=== PATIENT | male | born 1950 | race Caucasian/White ===

== ENCOUNTER → 2016-05-12 | Outpatient (CLI) | payer MEDICARE, OTHER ==
[2016-05-12 11:50] LABS: ABSOLUTE EOSINOPHILS # (AUTO) 0.2 10^3/uL (0.0-0.6); ABSOLUTE LYMPHOCYTES (AUTO) 2.5 10^3/uL (0.5-4.7); ABSOLUTE MONOCYTES (AUTO) 0.6 10^3/uL (0.1-1.4); ABSOLUTE NEUT (AUTO) 5.9 10^3/uL (1.7-8.2); BASOPHILS % (AUTO) 0.5 % (0-2); EOSINOPHILS % (AUTO) 2.5 % (0-6); HEMATOCRIT 37.2 % (37.9-51.0); HEMOGLOBIN 12.6 g/dL (13.5-17.0); HGB HCT DIFFERENCE 0.6; MEAN CORPUSCULAR HEMOGLOBIN 29.9 pg (27.0-33.4); MEAN CORPUSCULAR HGB CONC 33.8 g/dL (32.0-36.0); MEAN CORPUSCULAR VOLUME 89 fl (80-97); WHITE BLOOD COUNT 9.3 10^3/uL (4.0-10.5)
[2016-05-12 11:56] LABS: APPEARANCE,URINE CLEAR; BILIRUBIN,URINE NEGATIVE (NEGATIVE); GLUCOSE, URINE NEGATIVE (NEGATIVE); KETONES,URINE NEGATIVE (NEGATIVE); LEUKOCYTE ESTERASE,URINE NEGATIVE (NEGATIVE); NITRITE,URINE NEGATIVE (NEGATIVE); PROTEIN,URINE NEGATIVE (NEGATIVE); URINE SPECIFIC GRAVITY 1.006; UROBILINOGEN,URINE NEGATIVE mg/dL (<2.0)
[2016-05-12 12:11] LABS: ALANINE AMINOTRANSFERASE 38 U/L (21-72); ALBUMIN 3.9 g/dL (3.5-5.0); ALKALINE PHOSPHATASE 79 U/L (38-126); ANION GAP 12 (5-19); ASPARTATE AMINO TRANSFERASE 24 U/L (17-59); BILIRUBIN,TOTAL 0.7 mg/dL (0.2-1.3); BLOOD UREA NITROGEN 39 mg/dL (7-20); CARBON DIOXIDE 25 mmol/L (22-30); CHLORIDE 102 mmol/L (98-107); CHOLESTEROL 157.43 mg/dL (0-200); CREATININE RESULT 1.48 mg/dL (0.52-1.25); Direct HDL 37 mg/dL (>40); GLUCOSE 111 mg/dL (75-110); PHOSPHORUS 3.9 mg/dL (2.5-4.5); POTASSIUM 4.9 mmol/L (3.6-5.0); SODIUM 138.8 mmol/L (137-145); TRIGLYCERIDES 164 mg/dL (<150)
[2016-05-12 12:22] LABS: DIRECT LDL 81 mg/dL (<100)
[2016-05-12 12:23] LABS: VLDL CHOLESTEROL 32.8 mg/dL (10-31)
[2016-05-13 07:21] LABS: VITAMIN D 25-HYDROXY 49.2 ng/mL (30.0-100.0)
[2016-05-13 13:37] LABS: CREATININE URINE 33.6 mg/dL (Not Estab.); MICROALBUMIN URINE 17.5 ug/mL (Not Estab.)
== END ==
LOC: OD 10:10
PROVIDERS: ATTEND Internal Medicine Nephrology
DX: N18.3 Chronic kidney disease, stage 3 (moderate) (principal); E11.9 Type 2 diabetes mellitus without complications; E78.2 Mixed hyperlipidemia
CPT/HCPCS: 36415; 80053; 80061; 81001; 82043; 82306; 82570; 83036; 83970; 84100; 85025

== ENCOUNTER → 2016-09-14 | Outpatient (CLI) | payer OTHER ==
[2016-09-14 12:15] LABS: ANION GAP 10 (5-19); BLOOD UREA NITROGEN 40 mg/dL (7-20); CALCIUM 9.4 mg/dL (8.4-10.2); CARBON DIOXIDE 25 mmol/L (22-30); CHLORIDE 101 mmol/L (98-107); CHOLESTEROL 149.48 mg/dL (0-200); CREATININE RESULT 1.38 mg/dL (0.52-1.25); Direct HDL 37 mg/dL (>40); GLUCOSE 98 mg/dL (75-110); POTASSIUM 4.8 mmol/L (3.6-5.0); SODIUM 136.3 mmol/L (137-145); TRIGLYCERIDES 114 mg/dL (<150)
[2016-09-14 12:25] LABS: DIRECT LDL 88 mg/dL (<100)
[2016-09-15 11:39] LABS: CREATININE URINE 59.5 mg/dL (Not Estab.); MICROALBUMIN URINE 70.9 ug/mL (Not Estab.)
== END ==
LOC: OD 11:02
PROVIDERS: ATTEND Internal Medicine Nephrology
DX: N18.3 Chronic kidney disease, stage 3 (moderate) (principal); E11.9 Type 2 diabetes mellitus without complications; E78.2 Mixed hyperlipidemia
CPT/HCPCS: 36415; 80048; 80061; 82043; 82570; 83036

== ENCOUNTER → 2017-04-02 | Outpatient (CLI) | payer OTHER ==
[2017-04-02 11:55] LABS: ABSOLUTE BASOPHILS # (AUTO) 0.1 10^3/uL (0.0-0.2); ABSOLUTE EOSINOPHILS # (AUTO) 0.1 10^3/uL (0.0-0.6); ABSOLUTE LYMPHOCYTES (AUTO) 2.5 10^3/uL (0.5-4.7); ABSOLUTE MONOCYTES (AUTO) 0.6 10^3/uL (0.1-1.4); ABSOLUTE NEUT (AUTO) 7.1 10^3/uL (1.7-8.2); BASOPHILS % (AUTO) 0.5 % (0-2); EOSINOPHILS % (AUTO) 1.4 % (0-6); HEMATOCRIT 35.6 % (37.9-51.0); HEMOGLOBIN 12.3 g/dL (13.5-17.0); LYMPHOCYTES % (AUTO) 23.7 % (13-45); MEAN CORPUSCULAR HEMOGLOBIN 30.3 pg (27.0-33.4); MEAN CORPUSCULAR HGB CONC 34.5 g/dL (32.0-36.0); MEAN CORPUSCULAR VOLUME 88 fl (80-97); MONOCYTES % (AUTO) 5.9 % (3-13); PLATELET COUNT 172 10^3/uL (150-450); RED BLOOD COUNT 4.06 10^6/uL (4.35-5.55); RED CELL DISTRIBUTION WIDTH 13.1 % (11.5-14.0); SEGMENTED NEUTROPHILS % (AUTO) 68.5 % (42-78); TOTAL CELLS COUNTED % (AUTO) 100 %; WHITE BLOOD COUNT 10.4 10^3/uL (4.0-10.5)
[2017-04-02 11:55] LABS: APPEARANCE,URINE SLIGHTLY-CLOUDY; BILIRUBIN,URINE NEGATIVE (NEGATIVE); COLOR,URINE YELLOW; GLUCOSE, URINE 50 mg/dL (NEGATIVE); KETONES,URINE NEGATIVE (NEGATIVE); LEUKOCYTE ESTERASE,URINE NEGATIVE (NEGATIVE); NITRITE,URINE NEGATIVE (NEGATIVE); PROTEIN,URINE NEGATIVE (NEGATIVE); URINE SPECIFIC GRAVITY 1.006; UROBILINOGEN,URINE NEGATIVE mg/dL (<2.0)
[2017-04-02 12:25] LABS: ALANINE AMINOTRANSFERASE 43 U/L (21-72); ALBUMIN 3.7 g/dL (3.5-5.0); ALKALINE PHOSPHATASE 60 U/L (38-126); ANION GAP 10 (5-19); ASPARTATE AMINO TRANSFERASE 25 U/L (17-59); BILIRUBIN,DIRECT 0.2 mg/dL (0.0-0.4); BILIRUBIN,TOTAL 0.5 mg/dL (0.2-1.3); BLOOD UREA NITROGEN 40 mg/dL (7-20); CALCIUM 9.6 mg/dL (8.4-10.2); CARBON DIOXIDE 25 mmol/L (22-30); CHLORIDE 97 mmol/L (98-107); CHOLESTEROL 154.37 mg/dL (0-200); GLUCOSE 151 mg/dL (75-110); PHOSPHORUS 3.2 mg/dL (2.5-4.5); SODIUM 132.4 mmol/L (137-145); TOTAL PROTEIN 6.5 g/dL (6.3-8.2); TRIGLYCERIDES 199 mg/dL (<150)
[2017-04-02 12:46] LABS: DIRECT LDL 90 mg/dL (<100)
[2017-04-02 12:47] LABS: VLDL CHOLESTEROL 39.8 mg/dL (10-31)
[2017-04-03 12:38] LABS: CREATININE URINE 32.9 mg/dL (Not Estab.); MICROALBUMIN URINE 45.7 ug/mL (Not Estab.)
== END ==
LOC: OD 10:58
PROVIDERS: ATTEND Internal Medicine Nephrology
DX: N18.3 Chronic kidney disease, stage 3 (moderate) (principal); D63.1 Anemia in chronic kidney disease; E11.40 Type 2 diabetes mellitus with diabetic neuropathy, unspecified; R80.9 Proteinuria, unspecified; E55.9 Vitamin D deficiency, unspecified; Z12.5 Encounter for screening for malignant neoplasm of prostate
CPT/HCPCS: 36415; 80053; 80061; 81001; 82043; 82306; 82570; 83036; 83970; 84100; 84153; 85025

== ENCOUNTER 2017-09-16 09:53 | Emergency (ER) | payer OTHER ==
[2017-09-16 10:00] VITALS: BP 139/65
--- NOTE | 2017-09-16 10:09 | ER Document Report ---
HPI - HPI Onset: Yesterday Onset/Duration: Persistent Pain Level: 5 Context: 67-year-old male pulled his right shoulder when getting out of his recliner and pulling the lever yesterday. He has a history of arthritis in other joints. No fall. Associated Symptoms: None Exacerbated by: Movement Relieved by: Denies Similar symptoms previously: Yes Recently seen / treated by doctor: No - ROS ROS below otherwise negative: Yes Systems Reviewed and Negative: Yes All other systems reviewed and negative Past Medical History - General Information source: Patient - Social History Smoking Status: Unknown if Ever Smoked Frequency of alcohol use: None Drug Abuse: None Lives with: Family Family History: Reviewed & Not Pertinent - Past Medical History Cardiac Medical History: Reports: Hx Hypercholesterolemia, Hx Hypertension Pulmonary Medical History: Reports: Hx Asthma Endocrine Medical History: Reports: Hx Diabetes Mellitus Type 2 Musculoskeltal Medical History: Reports Hx Arthritis - Immunizations Hx Diphtheria, Pertussis, Tetanus Vaccination: Yes Vertical Provider Document - CONSTITUTIONAL Agree With Documented VS: Yes Exam Limitations: No Limitations - INFECTION CONTROL TRAVEL OUTSIDE OF THE [place] IN LAST 30 DAYS: No - MUSCULOSKELETAL/EXTREMETIES Musculoskeletal/Extremeties: MAEW, FROM, Tender - Tender over the deltoid muscle , No Edema Notes: No deformity, neurovascular is intact Course - Re-evaluation Re-evalutation: 09/16/17 X-ray is negative per radiologist - Vital Signs Vital signs: Temp Pulse Resp BP Pulse Ox 98.2 F 88 16 139/65 H 95 09/16/17 09:58 09/16/17 09:58 09/16/17 09:58 09/16/17 09:58 09/16/17 09:58 Discharge - Discharge Clinical Impression: Right shoulder arthritis Condition: Good Disposition: HOME, SELF-CARE Instructions: Arthralgia ([facility]), Arthritis ([facility]), Steroid Medication, Warm Packs ([facility]) Additional Instructions: warm compress Stop the Tylenol with codeine when taking the stronger pain medication prednisone will help decrease the inflammation Follow-up with your doctor Return to the emergency room any concerns Prescriptions: Hydrocodone Bit/Acetaminophen [Hydrocodon-Acetaminophen 5-325] 1 each PO Q4HP PRN #15 tablet PRN Reason: Referrals: ALLIE MANZO MD [Primary Care Provider] - Follow up as needed
[2017-09-16] MEDS ORDERED: PREDNISONE 20 MG TABLET PO ONE (10:49)
--- NOTE | 2017-09-16 10:52 | RADIOLOGY REPORT (SQ) ---
EXAM DESCRIPTION: SHOULDER RIGHT 2 OR MORE VIEWS COMPLETED DATE/TIME: 09/16/2017 10:32 am REASON FOR STUDY: Injury COMPARISON: None. NUMBER OF VIEWS: Four views. TECHNIQUE: Internal rotation, external rotation, and Y view images acquired of the right shoulder. LIMITATIONS: None. FINDINGS: MINERALIZATION: Normal. BONES: No acute fracture or dislocation. No worrisome bone lesions. JOINTS: No dislocation. Mild scattered degenerative changes. VISUALIZED LUNGS AND RIBS: No pneumothorax. No rib fracture. SOFT TISSUES: No radiopaque foreign body. OTHER: No other significant finding. IMPRESSION: Mild degenerative changes. No evidence of acute injury. TECHNICAL DOCUMENTATION: JOB ID: [id number] [employer]- All Rights Reserved Reading location - IP/workstation name: [email or web address]
== END 2017-09-16 11:06 | disposition home or self-care (01) ==
LOC: ER 09:53
DX: M19.011 Primary osteoarthritis, right shoulder (principal); E78.00 Pure hypercholesterolemia, unspecified; I10 Essential (primary) hypertension; E11.9 Type 2 diabetes mellitus without complications
CPT/HCPCS: 99283; 73030; A9270; J7512

== ENCOUNTER → 2017-10-10 | Outpatient (CLI) | payer OTHER ==
--- NOTE | 2017-10-13 11:46 | XCELERA REPORT ---
[address] [address] Lower Extremity Arterial Evaluation Name: TAYLOR SMITH Age: 67 yrs Gender: Male : 1950 Patient Status: Preadmit Patient Location: RAD Study Date: 10/10/2017 01:26 PM Procedure: A color flow and duplex scan of the lower extremity arteries was performed bilaterally with velocity and waveform anaylsis. Ankle brachial indicies performed. Reason For Study: ULCERS Ordering Physician: JANE SCHULTZ Performed By: Iam Lobato Measurements and Calculations Right Left [facility] PSV 119.4 112.4 cm/sec Prox PFA PSV -66.0 -82.7 cm/sec Prox SFA PSV 87.9 91.5 cm/sec Mid SFA PSV -91.3 -113.1 cm/sec Dist SFA PSV -76.0 -93.2 cm/sec Prox Pop A PSV 61.7 91.5 cm/sec Dist ADALBERTO PSV 49.3 49.7 cm/sec Dist NERVE SPECIALIST PSV 28.5 81.1 cm/sec Kavin Pedis PSV 52.5 -32.6 cm/sec Right Side Arterial Evaluation Normal velocity and triphasic waveforms noted from the Common Femoral artery to the Popliteal. Biphasic with well preserved velocities, in the infrageniculate vessels. 20-49% stenosis at the infrageniculate vessels. Ankle Brachial index not obtainable, non compressible. Left Side Arterial Evaluation Normal velocity and triphasic waveforms noted from the Common Femoral artery to the Popliteal. Biphasic with well preserved velocities, in the infrageniculate vessels. 20-49% stenosis at the infrageniculate vessels. Ankle Brachial index not obtainable, non compressible. Interpretation Summary Moderate hemodynamically significant lesions in the bilateral lower extremities, on duplex imaging, at rest. : JANE SCHULTZ > Jane Schultz
== END ==
LOC: RAD 14:30
PROVIDERS: ATTEND Surgery
DX: E11.621 Type 2 diabetes mellitus with foot ulcer (principal); I70.203 Unspecified atherosclerosis of native arteries of extremities, bilateral legs
CPT/HCPCS: 93925

== ENCOUNTER → 2017-10-18 | Outpatient (CLI) | payer OTHER ==
[2017-10-18 12:21] LABS: ABSOLUTE EOSINOPHILS # (AUTO) 0.3 10^3/uL (0.0-0.6); ABSOLUTE LYMPHOCYTES (AUTO) 2.3 10^3/uL (0.5-4.7); ABSOLUTE MONOCYTES (AUTO) 0.7 10^3/uL (0.1-1.4); ABSOLUTE NEUT (AUTO) 5.7 10^3/uL (1.7-8.2); BASOPHILS % (AUTO) 0.5 % (0-2); EOSINOPHILS % (AUTO) 2.8 % (0-6); HEMATOCRIT 37.5 % (37.9-51.0); HEMOGLOBIN 12.7 g/dL (13.5-17.0); LYMPHOCYTES % (AUTO) 25.1 % (13-45); MEAN CORPUSCULAR HEMOGLOBIN 29.7 pg (27.0-33.4); MEAN CORPUSCULAR HGB CONC 33.8 g/dL (32.0-36.0); MEAN CORPUSCULAR VOLUME 88 fl (80-97); MONOCYTES % (AUTO) 7.6 % (3-13); PLATELET COUNT 185 10^3/uL (150-450); RED BLOOD COUNT 4.28 10^6/uL (4.35-5.55); RED CELL DISTRIBUTION WIDTH 13.4 % (11.5-14.0); TOTAL CELLS COUNTED % (AUTO) 100 %
[2017-10-18 12:49] LABS: ALANINE AMINOTRANSFERASE 34 U/L (21-72); ALBUMIN 3.5 g/dL (3.5-5.0); ALKALINE PHOSPHATASE 71 U/L (38-126); ANION GAP 11 (5-19); ASPARTATE AMINO TRANSFERASE 24 U/L (17-59); BILIRUBIN,DIRECT 0.3 mg/dL (0.0-0.4); BILIRUBIN,TOTAL 0.5 mg/dL (0.2-1.3); BLOOD UREA NITROGEN 34 mg/dL (7-20); CALCIUM 9.3 mg/dL (8.4-10.2); CARBON DIOXIDE 25 mmol/L (22-30); CHLORIDE 106 mmol/L (98-107); CHOLESTEROL 130.77 mg/dL (0-200); GLUCOSE 117 mg/dL (75-110); POTASSIUM 4.8 mmol/L (3.6-5.0); SODIUM 142.2 mmol/L (137-145); TOTAL PROTEIN 6.9 g/dL (6.3-8.2); TRIGLYCERIDES 89 mg/dL (<150)
[2017-10-18 13:00] LABS: DIRECT LDL 70 mg/dL (<100)
[2017-10-19 13:38] LABS: CREATININE URINE 65.8 mg/dL (Not Estab.); MICROALBUMIN URINE 164.7 ug/mL (Not Estab.)
== END ==
LOC: OD 11:10
PROVIDERS: ATTEND Internal Medicine Nephrology
DX: E11.22 Type 2 diabetes mellitus with diabetic chronic kidney disease (principal); N18.3 Chronic kidney disease, stage 3 (moderate); N18.9 Chronic kidney disease, unspecified; E78.2 Mixed hyperlipidemia
CPT/HCPCS: 36415; 80053; 80061; 82043; 82570; 83036; 85025

== ENCOUNTER → 2017-12-24 | Outpatient (CLI) | payer OTHER ==
[2017-12-24 11:03] LABS: ANION GAP 6 (5-19); BLOOD UREA NITROGEN 34 mg/dL (7-20); CALCIUM 9.4 mg/dL (8.4-10.2); CARBON DIOXIDE 27 mmol/L (22-30); CHLORIDE 107 mmol/L (98-107); GLUCOSE 109 mg/dL (75-110); POTASSIUM 4.8 mmol/L (3.6-5.0); SODIUM 139.7 mmol/L (137-145)
== END ==
LOC: OD 09:43
PROVIDERS: ATTEND Internal Medicine Nephrology
DX: N18.3 Chronic kidney disease, stage 3 (moderate) (principal); R60.0 Localized edema
CPT/HCPCS: 36415; 80048

== ENCOUNTER → 2018-06-19 | Outpatient (CLI) | payer OTHER ==
[2018-06-19 10:45] LABS: ABSOLUTE BASOPHILS # (AUTO) 0.1 10^3/uL (0.0-0.2); ABSOLUTE EOSINOPHILS # (AUTO) 0.3 10^3/uL (0.0-0.6); ABSOLUTE LYMPHOCYTES (AUTO) 2.7 10^3/uL (0.5-4.7); ABSOLUTE MONOCYTES (AUTO) 0.8 10^3/uL (0.1-1.4); ABSOLUTE NEUT (AUTO) 6.5 10^3/uL (1.7-8.2); BASOPHILS % (AUTO) 0.6 % (0-2); EOSINOPHILS % (AUTO) 2.6 % (0-6); HEMATOCRIT 37.2 % (37.9-51.0); LYMPHOCYTES % (AUTO) 26.4 % (13-45); MEAN CORPUSCULAR HEMOGLOBIN 30.8 pg (27.0-33.4); MEAN CORPUSCULAR VOLUME 88 fl (80-97); MONOCYTES % (AUTO) 8.1 % (3-13); PLATELET COUNT 219 10^3/uL (150-450); RED BLOOD COUNT 4.22 10^6/uL (4.35-5.55); SEGMENTED NEUTROPHILS % (AUTO) 62.3 % (42-78); TOTAL CELLS COUNTED % (AUTO) 100 %; WHITE BLOOD COUNT 10.4 10^3/uL (4.0-10.5)
[2018-06-19 10:47] LABS: APPEARANCE,URINE CLEAR; BILIRUBIN,URINE NEGATIVE (NEGATIVE); COLOR,URINE YELLOW; GLUCOSE, URINE NEGATIVE (NEGATIVE); KETONES,URINE NEGATIVE (NEGATIVE); LEUKOCYTE ESTERASE,URINE NEGATIVE (NEGATIVE); NITRITE,URINE NEGATIVE (NEGATIVE); PROTEIN,URINE NEGATIVE (NEGATIVE); URINE SPECIFIC GRAVITY 1.009; UROBILINOGEN,URINE NEGATIVE mg/dL (<2.0)
[2018-06-19 11:12] LABS: ALANINE AMINOTRANSFERASE 41 U/L (21-72); ALBUMIN 4.1 g/dL (3.5-5.0); ALKALINE PHOSPHATASE 94 U/L (38-126); ANION GAP 12 (5-19); ASPARTATE AMINO TRANSFERASE 28 U/L (17-59); BILIRUBIN,DIRECT 0.3 mg/dL (0.0-0.4); BILIRUBIN,TOTAL 0.6 mg/dL (0.2-1.3); BLOOD UREA NITROGEN 53 mg/dL (7-20); CALCIUM 10.8 mg/dL (8.4-10.2); CARBON DIOXIDE 28 mmol/L (22-30); CHLORIDE 99 mmol/L (98-107); CHOLESTEROL 178.05 mg/dL (0-200); GLUCOSE 148 mg/dL (75-110); POTASSIUM 4.8 mmol/L (3.6-5.0); SODIUM 138.6 mmol/L (137-145); TOTAL PROTEIN 8.1 g/dL (6.3-8.2); TRIGLYCERIDES 206 mg/dL (<150)
[2018-06-19 11:23] LABS: DIRECT LDL 102 mg/dL (<100)
[2018-06-19 11:28] LABS: VLDL CHOLESTEROL 41.2 mg/dL (10-31)
[2018-06-20 12:38] LABS: CREATININE URINE 26.7 mg/dL (Not Estab.)
== END ==
LOC: OD 09:43
PROVIDERS: ATTEND Internal Medicine Nephrology
DX: E11.22 Type 2 diabetes mellitus with diabetic chronic kidney disease (principal); N18.3 Chronic kidney disease, stage 3 (moderate); R60.9 Edema, unspecified
CPT/HCPCS: 36415; 80053; 80061; 81001; 82043; 82306; 82570; 83036; 83970; 84100; 85025

== ENCOUNTER → 2018-07-10 | Outpatient (CLI) | payer OTHER ==
[2018-07-10 11:14] LABS: ANION GAP 10 (5-19); BLOOD UREA NITROGEN 51 mg/dL (7-20); CALCIUM 9.5 mg/dL (8.4-10.2); CARBON DIOXIDE 29 mmol/L (22-30); CHLORIDE 101 mmol/L (98-107); CHOLESTEROL 128.54 mg/dL (0-200); GLUCOSE 136 mg/dL (75-110); POTASSIUM 4.9 mmol/L (3.6-5.0); SODIUM 139.5 mmol/L (137-145); TRIGLYCERIDES 158 mg/dL (<150); URIC ACID 4.6 mg/dL (3.5-8.5)
[2018-07-10 11:24] LABS: DIRECT LDL 74 mg/dL (<100)
[2018-07-10 11:29] LABS: VLDL CHOLESTEROL 31.6 mg/dL (10-31)
== END ==
LOC: OD 09:46
PROVIDERS: ATTEND Internal Medicine Nephrology
DX: N18.2 Chronic kidney disease, stage 2 (mild) (principal); N17.9 Acute kidney failure, unspecified; I12.9 Hypertensive chronic kidney disease with stage 1 through stage 4 chronic kidney disease, or unspecified chronic kidney disease; E11.22 Type 2 diabetes mellitus with diabetic chronic kidney disease
CPT/HCPCS: 36415; 80048; 80061; 84100; 84550

== ENCOUNTER → 2018-10-18 | Outpatient (CLI) | payer OTHER ==
[2018-10-18 12:08] LABS: ALBUMIN 3.8 g/dL (3.5-5.0); ANION GAP 11 (5-19); BLOOD UREA NITROGEN 45 mg/dL (7-20); CALCIUM 9.3 mg/dL (8.4-10.2); CARBON DIOXIDE 28 mmol/L (22-30); CHLORIDE 93 mmol/L (98-107); CHOLESTEROL 123.57 mg/dL (0-200); GLUCOSE 108 mg/dL (75-110); PHOSPHORUS 3.6 mg/dL (2.5-4.5); POTASSIUM 4.7 mmol/L (3.6-5.0); TRIGLYCERIDES 81 mg/dL (<150)
[2018-10-18 12:19] LABS: DIRECT LDL 74 mg/dL (<100)
[2018-10-19 14:37] LABS: CREATININE URINE 34.4 mg/dL (Not Estab.); MICROALBUMIN URINE 7.6 ug/mL (Not Estab.)
== END ==
LOC: OD 10:59
PROVIDERS: ATTEND Internal Medicine Nephrology
DX: I12.9 Hypertensive chronic kidney disease with stage 1 through stage 4 chronic kidney disease, or unspecified chronic kidney disease (principal); N18.3 Chronic kidney disease, stage 3 (moderate); E11.22 Type 2 diabetes mellitus with diabetic chronic kidney disease; D63.1 Anemia in chronic kidney disease; R80.9 Proteinuria, unspecified
CPT/HCPCS: 36415; 80061; 80069; 82043; 82570; 83036

== ENCOUNTER 2019-03-16 14:37 | Inpatient (IN) | payer OTHER, MEDICARE ==
[2019-03-16] MEDS ORDERED: DEXTROSE 50%-WATER 25 GM/50 ML DISP.SYRIN IV ONE ×2 (15:57)
[2019-03-16 16:39] LABS: VENOUS BLOOD BASE EXCESS 4.1 mmol/L; VENOUS BLOOD HCO3 30.4 mmol/L (20-32); VENOUS BLOOD PCO2 53.1 mmHg (35-63); VENOUS BLOOD PH 7.38 (7.30-7.42)
[2019-03-16 16:43] LABS: ABSOLUTE MONOCYTES (AUTO) 0.5 10^3/uL (0.1-1.4); BASOPHILS % (AUTO) 0.3 % (0-2); MEAN CORPUSCULAR VOLUME 88 fl (80-97); RED CELL DISTRIBUTION WIDTH 14.8 % (11.5-14.0); TOTAL CELLS COUNTED % (AUTO) 100 %
[2019-03-16 16:45] LABS: INTERNATIONAL RATION (INR) 1.13; PROTHROMBIN TIME 14.5 SEC (11.4-15.4)
[2019-03-16 16:52] LABS: ALBUMIN 3.1 g/dL (3.5-5.0); ALKALINE PHOSPHATASE 97 U/L (38-126); ANION GAP 7 (5-19); ASPARTATE AMINO TRANSFERASE 61 U/L (17-59); BILIRUBIN,DIRECT 0.3 mg/dL (0.0-0.4); BILIRUBIN,TOTAL 0.4 mg/dL (0.2-1.3); BLOOD UREA NITROGEN 50 mg/dL (7-20); CALCIUM 9.4 mg/dL (8.4-10.2); CARBON DIOXIDE 30 mmol/L (22-30); CHLORIDE 101 mmol/L (98-107); POTASSIUM 4.3 mmol/L (3.6-5.0); TOTAL PROTEIN 6.5 g/dL (6.3-8.2)
[2019-03-16 16:54] LABS: ABSOLUTE NEUT (AUTO) 5.9 10^3/uL (1.7-8.2); EOSINOPHILS % (AUTO) 0.6 % (0-6); HEMATOCRIT 32.6 % (37.9-51.0); HEMOGLOBIN 11.1 g/dL (13.5-17.0); LYMPHOCYTES % (AUTO) 13.2 % (13-45); MEAN CORPUSCULAR HEMOGLOBIN 29.9 pg (27.0-33.4); MEAN CORPUSCULAR HGB CONC 33.9 g/dL (32.0-36.0); MONOCYTES % (AUTO) 7.2 % (3-13); PLATELET COUNT 141 10^3/uL (150-450); SEGMENTED NEUTROPHILS % (AUTO) 78.7 % (42-78); WHITE BLOOD COUNT 7.5 10^3/uL (4.0-10.5)
[2019-03-16 16:55] LABS: GLUCOSE 51 mg/dL (75-110)
--- NOTE | 2019-03-16 17:11 | RADIOLOGY REPORT (SQ) ---
EXAM DESCRIPTION: CHEST SINGLE VIEW COMPLETED DATE/TIME: 03/16/2019 4:31 pm REASON FOR STUDY: FEVER COMPARISON: None. EXAM PARAMETERS: NUMBER OF VIEWS: One view. TECHNIQUE: Single frontal radiographic view of the chest acquired. RADIATION DOSE: NA LIMITATIONS: None. FINDINGS: LUNGS AND PLEURA: Ill-defined patchy bibasilar opacities. No large effusion. No pneumoth orax. MEDIASTINUM AND HILAR STRUCTURES: No masses. Contour normal. HEART AND VASCULAR STRUCTURES: Heart normal in size. Normal vasculature. BONES: No acute findings. HARDWARE: None in the chest. OTHER: No other significant finding. IMPRESSION: Patchy bibasilar opacities suggestive of multifocal pneumonia. No significant effusion. TECHNICAL DOCUMENTATION: JOB ID: [id number] [employer]- All Rights Reserved Reading location - IP/workstation name: [email or web address]
[2019-03-16] MEDS ORDERED: NORMAL SALINE IV ONE (17:17)
[2019-03-16] MEDS ORDERED: LEVOFLOXACIN 750 MG/D5W RTU 750 MG/150 ML RTUPB IV ONE (17:45)
[2019-03-16] MEDS ORDERED: ACETAMINOPHEN 325 MG TABLET PO PRN (17:54)
[2019-03-16] MEDS ORDERED: ONDANSETRON HCL INJ/PF 4 MG/2 ML SDV IV PRN (17:54)
--- NOTE | 2019-03-16 17:58 | Progress Note ---
Provider Note Provider Note: Patient is seen for possible ICU admission. He is a 68 yo man with a bilateral CAP. Diabetic and not eating well. Took insulin, no oral agents and had a drop in BP and blood sugar. He is on a ruy huger and is now 94 degrees up from 92. BS 204. Hypothermia can cause mental status changes, alkalosis, in severe cases coagulopathy. 94 degrees is unlikely. Mental status changes likely due to PNA and hypoglycemia. Ruy hugger can likely be removed at 96 and cover with several blankets. Cautionary note is that with re-warming his metabolism will increase and sugar may drop again. Giving extra D50 and starting D5 IVF until he is warm and sugar is stable may be considered. I do not see the need for a q1H intervention therefore not needing the ICU right now.
[2019-03-16] MEDS ORDERED: DEXTROSE 40% GEL 15 GM TUBE PO PRN ×2 (18:04)
[2019-03-16] MEDS ORDERED: DEXTROSE 50%-WATER 25 GM/50 ML DISP.SYRIN IV PRN ×2 (18:04)
[2019-03-16] MEDS ORDERED: GLUCAGON,HUMAN RECOMB 1 MG INJ IM PRN (18:04)
--- NOTE | 2019-03-16 18:15 | PDOC H&P ---
History of Present Illness Admission Date/PCP: ALLIE MANZO MD Patient complains of: Altered mental status associated with cough fever and brownish sputum History of Present Illness: TAYLOR SMITH is a 68 year old male history of diabetes mellitus hypertension, chronic kidney disease stage III was sick for the last 1 week. He got better again become sick. He was recently started on doxycycline as an outpatient and he is not eating very little since yesterday brought to the emergency room with complaints of altered mental status high fevers and cough with brownish sputum. In the emergency room temperature is 92 initial associated with the bradycardia with questionable atrial flutter with heart rate of 49, hypotensive systolic blood pressure in the 80s and chest x-ray showing multifocal pneumonia medical consult was called for admission. On my request ICU was consulted Dr. Perez thinks at this time patient is not a candidate for ICU admission. Patient wants to be a DNI. Will he agreed to keep him in this hospital for further management . We are going to check for flu vaccination. pt is so hypoglycemic when he came in with blood sugar of 57 D50 was given latest blood sugar is 205. Past Medical History Cardiac Medical History: Reports: Hyperlipidema, Hypertension Pulmonary Medical History: Reports: Asthma Endocrine Medical History: Reports: Diabetes Mellitus Type 2 Musculoskeltal Medical History: Reports: Arthritis Hematology: Reports: Anemia Past Surgical History Past Surgical History: Reports: Orthopedic Surgery - Bilateral knees, Back, Right armpit Social History Information Source: Patient Lives with: Family Smoking Status: Never Smoker Electronic Cigarette use?: No Hx Recreational Drug Use: No - Advance Directive Resuscitation Status: Do Not Intubate Family History Family History: Reviewed & Not Pertinent Parental Family History Reviewed: No - History of diabetes mellitus hypertension. Children Family History Reviewed: No Sibling(s) Family History Reviewed.: No Medication/Allergy Home Medications: Acetaminophen with Codeine [Tylenol #3 Tablet] 1 each PO Q4HP PRN 06/01/11 Aspirin [Aspirin 325 mg Tablet] 325 mg PO DAILY 06/01/11 Cyanocobalamin (Vitamin B-12) [Vitamin B-12] 250 mcg PO DAILY 06/01/11 Ergocalciferol (Vitamin D2) [Vitamin D] 50,000 unit PO DAILY 06/01/11 Febuxostat [Uloric 40 Mg Tablet] 40 mg PO DAILY 03/22/12 Furosemide [Lasix 20 mg Tablet] 20 mg PO QAM 06/01/11 Hydrochlorothiazide [Hydrodiuril 25 mg Tablet] 25 mg PO DAILY 06/01/11 Insulin NPL/Insulin Lispro [Humalog Mix 50/50 Kwikpen] 50 unit SQ 06/01/11 Lisinopril [Prinivil 5 Mg Tablet] 5 mg PO DAILY 06/01/11 Losartan Potassium [Cozaar] 100 mg PO DAILY 06/01/11 [place]-3 Fatty Acids [[place]-3] 1,000 mg PO DAILY 06/01/11 Pentoxifylline [Trental 400 Mg Tablet.Sa] 400 mg PO BID 06/01/11 Pregabalin [Lyrica 50 Mg Capsule] 50 mg PO BID 06/01/11 Hydrocodone Bit/Acetaminophen [Hydrocodon-Acetaminophen 5-325] 1 each PO Q4HP PRN #15 tablet 09/16/17 Allergies/Adverse Reactions: erythromycin base [Erythromycin Base] Allergy (Verified 09/16/17 09:55) Penicillins Allergy (Verified 09/16/17 09:55) Review of Systems Constitutional: PRESENT: fatigue, fever(s), weakness Eyes: ABSENT: visual disturbances Ears: ABSENT: hearing changes Nose, Mouth, and Throat: PRESENT: sore throat Cardiovascular: ABSENT: chest pain, dyspnea on exertion, edema, orthropnea, palpitations Respiratory: PRESENT: cough, dyspnea, sputum Gastrointestinal: ABSENT: diarrhea, melena, nausea, vomiting Musculoskeletal: ABSENT: joint swelling Integumentary: ABSENT: rash, wounds Neurological: PRESENT: confusion Psychiatric: ABSENT: anxiety, depression, homidical ideation, suicidal ideation Physical Exam Vital Signs: Temp Pulse Resp BP Pulse Ox 17 107/61 97 03/16/19 17:01 03/16/19 17:01 03/16/19 17:01 Intake & Output 03/15/19 03/16/19 03/17/19 06:59 06:59 06:59 Weight 103.6 kg General appearance: PRESENT: mild distress, obese Head exam: PRESENT: atraumatic Eye exam: PRESENT: conjunctiva pale, PERRLA Mouth exam: PRESENT: dry mucosa Teeth exam: PRESENT: poor dentation Neck exam: ABSENT: carotid bruit, JVD, lymphadenopathy, thyromegaly Respiratory exam: PRESENT: decreased breath sounds Cardiovascular exam: PRESENT: bradycardia Vascular exam: PRESENT: normal capillary refill GI/Abdominal exam: PRESENT: normal bowel sounds, soft. ABSENT: distended, guarding, mass, organolmegaly, rebound, tenderness Rectal exam: PRESENT: deferred Extremities exam: PRESENT: full ROM. ABSENT: calf tenderness, clubbing, pedal edema Neurological exam: PRESENT: alert, awake Psychiatric exam: PRESENT: appropriate affect, normal mood. ABSENT: homicidal ideation, suicidal ideation Results Laboratory Results: 03/16/19 15:41 03/16/19 15:41 03/16/19 03/16/19 03/16/19 15:41 15:41 15:41 WBC 7.5 RBC 3.70 L Hgb 11.1 L Hct 32.6 L MCV 88 MCH 29.9 MCHC 33.9 RDW 14.8 H Plt Count 141 L Seg Neutrophils % 78.7 H VBG pH 7.38 VBG pCO2 53.1 VBG HCO3 30.4 VBG Base Excess 4.1 Sodium 137.5 Potassium 4.3 Chloride 101 Carbon Dioxide 30 Anion Gap 7 BUN 50 H Creatinine 1.45 H Est GFR ( Amer) 58 L Glucose 51 L Lactic Acid Calcium 9.4 Total Bilirubin 0.4 AST 61 H Alkaline Phosphatase 97 Total Protein 6.5 Albumin 3.1 L 03/16/19 15:41 WBC RBC Hgb Hct MCV MCH MCHC RDW Plt Count Seg Neutrophils % VBG pH VBG pCO2 VBG HCO3 VBG Base Excess Sodium Potassium Chloride Carbon Dioxide Anion Gap BUN Creatinine Est GFR ( Amer) Glucose Lactic Acid 1.2 Calcium Total Bilirubin AST Alkaline Phosphatase Total Protein Albumin Impressions: Chest X-Ray 03/16/19 16:00 IMPRESSION: Patchy bibasilar opacities suggestive of multifocal pneumonia. No significant effusion. Assessment and Plan - Diagnosis (1) Sepsis Is this a current diagnosis for this admission?: Yes Plan: 03/16/2019-patient CODE STATUS is DNI he is going to be admitted to [facility] as inpatient. Admitted for sepsis with multiorgan failure. Came in with hypoglycemia, hypotension, hypothermia, altered mental status in association with multifocal pneumonia on x-ray. Patient is on Jose Manuel hugger. Temp is 92 came up to 94 now. Patient was given D50 blood sugar improved from 57-2 05. Altered mental status resolving. Plan to start him on IV levofloxacin 750 mg daily and Zithromax 5 mg IV daily. Blood cultures sputum cultures urine culture urine vincent lysis are requested. GI prophylaxis DVT prophylaxis initiated. Started oxygen [address] chest without contrast was requested. Overall prognosis poor condition is critical family is aware. (2) Diabetes Is this a current diagnosis for this admission?: No Plan: 03/16/2019 patient has history of type 2 diabetes mellitus blood sugar is 57 when he came in his appetite is poor for the last 2 days took his insulin this morn ing after giving D50 sugars improved to 205. To start him on insulin sliding scale and started on D5 normal saline at 150 cc/h. To hold his diabetic medications for today. To check for hemoglobin A1c in the morning. (3) Hypotension Is this a current diagnosis for this admission?: Yes Plan: 03/16/2019-patient came in with hypotension with systolic blood pressure of 87 on arrival with IV fluids blood pressure is improved to systolic of 102. Hypotension most likely secondary to sepsis. (4) CKD (chronic kidney disease) Is this a current diagnosis for this admission?: No Plan: 03/16/2019 patient has history of chronic kidney disease as per the family patient has stage III kidney disease he follows with Dr. Manzo as an outpatient. Admission serum creatinine is 1.45. To continue to closely monitor urinary output and kidney function on daily basis. in October creatinine is 1.12. (5) Acute metabolic encephalopathy Is this a current diagnosis for this admission?: Yes Plan: 03/16/2019-acute metabolic encephalopathy/altered mental status most likely secondary to underlying sepsis.
[2019-03-16 19:02] LABS: APPEARANCE,URINE CLEAR; BILIRUBIN,URINE NEGATIVE (NEGATIVE); COLOR,URINE YELLOW; GLUCOSE, URINE NEGATIVE (NEGATIVE); KETONES,URINE TRACE mg/dL (NEGATIVE); PROTEIN,URINE NEGATIVE (NEGATIVE); UROBILINOGEN,URINE NEGATIVE mg/dL (<2.0)
[2019-03-16 19:42] LABS: URINE AMPHETAMINES SCREEN NEGATIVE; URINE BARBITURATES SCREEN NEGATIVE; URINE BENZODIAZEPINES SCREEN NEGATIVE; URINE COCAINE SCREEN NEGATIVE; URINE MARIJUANA (THC) SCREEN NEGATIVE; URINE METHADONE SCREEN NEGATIVE; URINE PHENCYCLIDINE SCREEN NEGATIVE
[2019-03-16 19:43] LABS: CREATINE KINASE MB 32.4 ng/mL (<4.55); TROPONIN I 0.015 ng/mL
--- NOTE | 2019-03-16 20:41 | EKG REPORT ---
SEVERITY:- ABNORMAL ECG - ATRIAL FIB, WITH HIGH GRADE AVB : Confirmed by: Mikie Krishnamurthy MD 16-Mar-2019 20:40:53
[2019-03-16 21:29] LABS: A TYPE INFLUENZA AG NEGATIVE (NEGATIVE); B INFLUENZA AG NEGATIVE (NEGATIVE)
[2019-03-16] MEDS ORDERED: VANCOMYCIN HCL 0 MG in DEXTROSE 5%-WATER 250 ML IV NR (22:00)
[2019-03-16] MEDS ORDERED: VANCOMYCIN HCL INJ 1000 MG VIAL IV SCH (22:00)
[2019-03-16] MEDS: DEXTROSE 5%-NORMAL SALINE 1,000 ML IV PRN (22:13)
[2019-03-16] MEDS ORDERED: VANCOMYCIN HCL INJ 1000 MG VIAL IV PRN (22:23)
[2019-03-16] MEDS ORDERED: VANCOMYCIN HCL 2,000 MG in DEXTROSE 5%-WATER 500 ML IV ONE (22:30)
--- NOTE | 2019-03-16 23:00 | RADIOLOGY REPORT (SQ) ---
CT head without contrast on 03/16/2019 at 10:36 PM CLINICAL INDICATION: Altered mental status TECHNIQUE: Multiple axial images are obtained throughout the head without the administration of contrast. This exam was performed according to our departmental dose-optimization program, which includes automated exposure control, adjustment of the mA and/or kV according to patient size and/or use of iterative reconstruction technique. Total DLP is 879.27 mGy*cm. COMPARISON: None FINDINGS: There is generalized cerebral atrophy. There is low density in the periventricular white matter consistent with chronic small vessel ischemic changes. There is no hydrocephalus. There is no hemorrhage. There are no abnormal extra-axial fluid collections. There is no mass, mass effect or midline shift. There is no CT evidence of acute infarct. No bony abnormality is noted. IMPRESSION: Atrophy and chronic small vessel ischemic changes with no acute intracranial abnormality.
--- NOTE | 2019-03-16 23:04 | RADIOLOGY REPORT (SQ) ---
EXAM DESCRIPTION: CT CHEST WITHOUT IV CONTRAST COMPLETED DATE/TME: 03/16/2019 00:00 CLINICAL HISTORY: 68 years, Male, pneumonia COMPARISON: Chest radiograph performed the same day TECHNIQUE: Noncontrast CT of the chest was performed. Coronal and sagittal reformations were created. Images stored on PACS. All CT scanners at this facility use dose modulation, iterative reconstruction, and/or weight based dosing when appropriate to reduce radiation dose to as low as reasonably achievable (ALARA). [facility]: Dose Right [facility]: CareDose [facility]: Dose Right [facility]: Teradose 4D [facility]: [employer] LIMITATIONS: None. FINDINGS: Central airways are patent. Lung windows show multifocal nodular consolidative and groundglass opacity throughout both lungs, most pronounced within the right middle and lower lobes. Superimposed small bilateral pleural effusions are noted. Mediastinal windows show no suspicious hilar or mediastinal lymph node enlargement. Calcifications are evident about the coronary vessels. There is a tiny hiatal hernia. Limited evaluation of the upper abdomen reveals no suspicious finding. Bone windows show no destructive osseous lesions. IMPRESSION: Multifocal nodular consolidative and groundglass opacity throughout both lungs, most pronounced within the right middle and lower lobes, indicative of multifocal pneumonia. Follow-up to clearing is recommended. Small bilateral pleural effusions. TECHNICAL DOCUMENTATION: Quality ID # [id number]: Final reports with documentation of one or more dose reduction techniques (e.g., Automated exposure control, adjustment of the mA and/or kV according to patient size, use of iterative reconstruction technique) copyright 2011 [employer]- All Rights Reserved
[2019-03-16] MEDS: INSULIN REG, HUMAN 100 UNIT/ML 3 ML VIAL (PYX) SUBCUT SCH (23:25)
[2019-03-16] MEDS: HEPARIN SOD (PORCINE) 5,000 UNIT/ML 1 ML VIAL SUBCUT SCH (23:26)
[2019-03-17 01:56] LABS: CREATINE KINASE MB 25.9 ng/mL (<4.55); TROPONIN I 0.017 ng/mL
[2019-03-17] MEDS: PANTOPRAZOLE SODIUM 40 MG TABLET.DR PO SCH ×2 (05:52→17:24)
[2019-03-17] MEDS: HEPARIN SOD (PORCINE) 5,000 UNIT/ML 1 ML VIAL SUBCUT SCH ×3 (05:52→21:50)
[2019-03-17] MEDS ORDERED: ONDANSETRON HCL INJ/PF 4 MG/2 ML SDV IV PRN (07:30)
[2019-03-17 07:47] LABS: ABSOLUTE EOSINOPHILS # (AUTO) 0.1 10^3/uL (0.0-0.6); ABSOLUTE LYMPHOCYTES (AUTO) 1.2 10^3/uL (0.5-4.7); ABSOLUTE MONOCYTES (AUTO) 0.8 10^3/uL (0.1-1.4); ABSOLUTE NEUT (AUTO) 5.6 10^3/uL (1.7-8.2); BASOPHILS % (AUTO) 0.3 % (0-2); EOSINOPHILS % (AUTO) 1.5 % (0-6); HEMATOCRIT 30.4 % (37.9-51.0); HEMOGLOBIN 10.3 g/dL (13.5-17.0); LYMPHOCYTES % (AUTO) 15.5 % (13-45); MEAN CORPUSCULAR HEMOGLOBIN 29.9 pg (27.0-33.4); MEAN CORPUSCULAR HGB CONC 33.8 g/dL (32.0-36.0); MEAN CORPUSCULAR VOLUME 89 fl (80-97); MONOCYTES % (AUTO) 10.5 % (3-13); PLATELET COUNT 140 10^3/uL (150-450); RED BLOOD COUNT 3.43 10^6/uL (4.35-5.55); RED CELL DISTRIBUTION WIDTH 15.1 % (11.5-14.0); SEGMENTED NEUTROPHILS % (AUTO) 72.2 % (42-78); TOTAL CELLS COUNTED % (AUTO) 100 %; WHITE BLOOD COUNT 7.7 10^3/uL (4.0-10.5)
[2019-03-17 08:09] LABS: ALBUMIN 2.7 g/dL (3.5-5.0); ALKALINE PHOSPHATASE 80 U/L (38-126); ASPARTATE AMINO TRANSFERASE 60 U/L (17-59); BILIRUBIN,DIRECT 0.2 mg/dL (0.0-0.4); BILIRUBIN,TOTAL 0.4 mg/dL (0.2-1.3); BLOOD UREA NITROGEN 50 mg/dL (7-20); CALCIUM 8.6 mg/dL (8.4-10.2); CHLORIDE 105 mmol/L (98-107); CREATINE KINASE 778 U/L (55-170); GLUCOSE 134 mg/dL (75-110); POTASSIUM 4.5 mmol/L (3.6-5.0)
[2019-03-17 08:17] LABS: CREATINE KINASE MB 20.1 ng/mL (<4.55); TROPONIN I 0.019 ng/mL
[2019-03-17 08:31] LABS: ANION GAP 6 (5-19); CARBON DIOXIDE 27 mmol/L (22-30)
[2019-03-17] MEDS: INSULIN REG, HUMAN 100 UNIT/ML 3 ML VIAL (PYX) SUBCUT SCH ×4 (08:40→21:57)
[2019-03-17] MEDS: DEXTROSE 5%-NORMAL SALINE 1,000 ML IV PRN (10:03)
[2019-03-17] MEDS: VANCOMYCIN HCL 750 MG in DEXTROSE 5%-WATER 250 ML IV SCH ×2 (10:03→21:56)
--- NOTE | 2019-03-17 10:07 | PDOC PROGRESS REPORT ---
Subjective Progress Note for:: 03/17/19 Subjective:: 68 year old male history of diabetes mellitus hypertension, chronic kidney disease stage III was sick for the last 1 week. He got better again become sick. He was recently started on doxycycline as an outpatient and he is not eating very little since yesterday brought to the emergency room with complaints of altered mental status high fevers and cough with brownish sputum. In the emergency room temperature is 92 initial associated with the bradycardia with questionable atrial flutter with heart rate of 49, hypotensive systolic blood pressure in the 80s and chest x-ray showing multifocal pneumonia medical consult was called for admission. On my request ICU was consulted Dr. Perez thinks at this time patient is not a candidate for ICU admission. Patient wants to be a DNI. Will he agreed to keep him in this hospital for further management. We are going to check for flu vaccination. pt is so hypoglycemic when he came in with blood sugar of 57 D50 was given latest blood sugar is 205. 03/17/2019-1 1-year-old male admitted with multifocal pneumonia CT scan confirmed he has multifocal consolidated pneumonia started on IV levo floxacillin and vancomycin, influenza came back negative. He came in with hypothermia, hypotension, hypoglycemia. He also came in with bradycardia. Heart rate improved to 75 today temperature improved to 97.6, blood pressure is improved to 112/60. Alert and awake this morning no acute events since admission.culturess are pending. Reason For Visit: MULTIFOCAL PNEUMONIA Physical Exam Vital Signs: Temp Pulse Resp BP Pulse Ox 97.8 F 72 22 H 112/52 L 98 03/17/19 08:40 03/17/19 08:40 03/17/19 08:40 03/17/19 08:40 03/17/19 08:40 Intake & Output 03/16/19 03/17/19 03/18/19 06:59 06:59 06:59 Intake Total 3760 Balance 3760 Weight 96.8 kg General appearance: PRESENT: no acute distress, obese Head exam: PRESENT: atraumatic Eye exam: PRESENT: PERRLA Mouth exam: PRESENT: moist, tongue midline Teeth exam: PRESENT: poor dentation Neck exam: ABSENT: carotid bruit, JVD, lymphadenopathy, thyromegaly Respiratory exam: PRESENT: decreased breath sounds Pulses: PRESENT: normal dorsalis pedis pul GI/Abdominal exam: PRESENT: normal bowel sounds, soft. ABSENT: distended, guarding, mass, organolmegaly, rebound, tenderness Rectal exam: PRESENT: deferred Extremities exam: PRESENT: full ROM. ABSENT: calf tenderness, clubbing, pedal edema Neurological exam: PRESENT: alert, awake, oriented to person, oriented to place, oriented to time, oriented to situation, CN II-XII grossly intact. ABSENT: motor sensory deficit Psychiatric exam: PRESENT: appropriate affect, normal mood. ABSENT: homicidal ideation, suicidal ideation Results Laboratory Results: 03/17/19 07:25 03/17/19 07:25 03/16/19 03/16/19 03/16/19 15:41 15:41 15:41 WBC 7.5 RBC 3.70 L Hgb 11.1 L Hct 32.6 L MCV 88 MCH 29.9 MCHC 33.9 RDW 14.8 H Plt Count 141 L Seg Neutrophils % 78.7 H VBG pH 7.38 VBG pCO2 53.1 VBG HCO3 30.4 VBG Base Excess 4.1 Sodium 137.5 Potassium 4.3 Chloride 101 Carbon Dioxide 30 Anion Gap 7 BUN 50 H Creatinine 1.45 H Est GFR ( Amer) 58 L Glucose 51 L Lactic Acid Calcium 9.4 Magnesium Total Bilirubin 0.4 AST 61 H Alkaline Phosphatase 97 Ammonia Total Protein 6.5 Albumin 3.1 L TSH Urine Color Urine Appearance Urine pH Ur Specific [place] Urine Protein Urine Glucose (UA) Urine Ketones Urine Blood Urine Nitrite Ur Leukocyte Esterase Urine WBC (Auto) Urine RBC (Auto) 03/16/19 03/16/19 03/16/19 15:41 18:25 18:55 WBC RBC Hgb Hct MCV MCH MCHC RDW Plt Count Seg Neutrophils % VBG pH VBG pCO2 VBG HCO3 VBG Base Excess Sodium Potassium Chloride Carbon Dioxide Anion Gap BUN Creatinine Est GFR ( Amer) Glucose Lactic Acid 1.2 1.1 Calcium Magnesium Total Bilirubin AST Alkaline Phosphatase Ammonia Total Protein Albumin TSH Urine Color YELLOW Urine Appearance CLEAR Urine pH 6.0 Ur Specific [place] 1.010 Urine Protein NEGATIVE Urine Glucose (UA) NEGATIVE Urine Ketones TRACE H Urine Blood NEGATIVE Urine Nitrite Cancelled Ur Leukocyte Esterase Cancelled Urine WBC (Auto) Cancelled Urine RBC (Auto) 0 03/16/19 03/17/19 03/17/19 22:58 01:14 07:25 WBC 7.7 RBC 3.43 L Hgb 10.3 L Hct 30.4 L MCV 89 MCH 29.9 MCHC 33.8 RDW 15.1 H Plt Count 140 L Seg Neutrophils % 72.2 VBG pH VBG pCO2 VBG HCO3 VBG Base Excess Sodium Potassium Chloride Carbon Dioxide Anion Gap BUN Creatinine Est GFR ( Amer) Glucose Lactic Acid 1.0 0.7 Calcium Magnesium Total Bilirubin AST Alkaline Phosphatase Ammonia Total Protein Albumin TSH Urine Color Urine Appearance Urine pH Ur Specific [place] Urine Protein Urine Glucose (UA) Urine Ketones Urine Blood Urine Nitrite Ur Leukocyte Esterase Urine WBC (Auto) Urine RBC (Auto) 03/17/19 03/17/19 03/17/19 07:25 07:25 07:25 WBC RBC Hgb Hct MCV MCH MCHC RDW Plt Count Seg Neutrophils % VBG pH VBG pCO2 VBG HCO3 VBG Base Excess Sodium 138.0 Potassium 4.5 Chloride 105 Carbon Dioxide 27 Anion Gap 6 BUN 50 H Creatinine 1.49 H Est GFR ( Amer) 56 L Glucose 134 H Lactic Acid Calcium 8.6 Magnesium 2.1 Total Bilirubin 0.4 AST 60 H Alkaline Phosphatase 80 Ammonia < 8.7 L Total Protein 6.0 L Albumin 2.7 L TSH 4.05 Urine Color Urine Appearance Urine pH Ur Specific [place] Urine Protein Urine Glucose (UA) Urine Ketones Urine Blood Urine Nitrite Ur Leukocyte Esterase Urine WBC (Auto) Urine RBC (Auto) 03/16/19 03/16/19 03/17/19 18:55 18:55 01:14 Creatine Kinase 845 H 843 H CK-MB (CK-2) 32.40 H Troponin I 0.015 NT-Pro-B Natriuret Pep 03/17/19 03/17/19 03/17/19 01:14 07:25 07:25 Creatine Kinase 778 H CK-MB (CK-2) 25.90 H 20.10 H Troponin I 0.017 0.019 NT-Pro-B Natriuret Pep 990 H Impressions: Chest CT 03/16/19 00:00 IMPRESSION: Multifocal nodular consolidative and groundglass opacity throughout both lungs, most pronounced within the right middle and lower lobes, indicative of multifocal pneumonia. Follow-up to clearing is recommended. Small bilateral pleural effusions. TECHNICAL DOCUMENTATION: Quality ID # [id number]: Final reports with documentation of one or more dose reduction techniques (e.g., Automated exposure control, adjustment of the mA and/or kV according to patient size, use of iterative reconstruction technique) copyright 2011 [employer]- All Rights Reserved Head CT 03/16/19 00:00 IMPRESSION: Atrophy and chronic small vessel ischemic changes with no acute intracranial abnormality. Chest X-Ray 03/16/19 16:00 IMPRESSION: Patchy bibasilar opacities suggestive of multifocal pneumonia. No significant effusion. Assessment and Plan - Diagnosis (1) Sepsis Is this a current diagnosis for this admission?: Yes Plan: 03/16/2019-patient CODE STATUS is DNI he is going to be admitted to [facility] as inpatient. Admitted for sepsis with multiorgan failure. Came in with hypoglycemia, hypotension, hypothermia, altered mental status in association with multifocal pneumonia on x-ray. Patient is on Jose Manuel hugger. Temp is 92 came up to 94 now. Patient was given D50 blood sugar improved from 57 to 205. Altered mental status resolving. Plan to start him on IV levofloxacin 750 mg daily and Zithromax 5oo mg IV daily. Blood cultures sputum cultures urine culture urine analysis are requested. GI prophylaxis DVT prophylaxis initiated. Started oxygen [address] chest without contrast was requested. Overall prognosis poor condition is critical family is aware. 03/17/2019-patient admitted with sepsis associated with hypotension, hypothermia, hypoglycemia and bradycardia. Symptoms are resolving. Patient is presently on IV levo floxacillin and Zithromax. Flu came back negative. (2) Diabetes Qualifiers: Diabetes mellitus type: type 2 Is this a current diagnosis for this admission?: No Plan: 03/16/2019 patient has history of type 2 diabetes mellitus blood sugar is 57 when he came in his appetite is poor for the last 2 days took his insulin this morning after giving D50 sugars improved to 205. To start him on insulin sliding scale and started on D5 normal saline at 150 cc/h. To hold his diabetic medications for today. To check for hemoglobin A1c in the morning. 03/17/19-patient has history of type 2 diabetes mellitus presently on insulin sliding scale and on diabetic diet latest blood sugar is 135. Patient is presently on D5 normal saline at 125 cc/h for sepsis. (3) Hypotension Is this a current diagnosis for this admission?: Yes Plan: 03/16/2019-patient came in with hypotension with systolic blood pressure of 87 on arrival with IV fluids blood pressure is improved to systolic of 102. Hypotension most likely secondary to sepsis. 03/17/2019-hypotension most likely secondary to sepsis resolving. Latest blood pressure is 112/60. Plan is to continue IV fluids at 125 cc/h. Latest lactic acid level is 0.7. (4) CKD (chronic kidney disease) Is this a current diagnosis for this admission?: No Plan: 03/16/2019 patient has history of chronic kidney disease as per the family patient has stage III kidney disease he follows with Dr. Rodriguez as an outpatient. Admission serum creatinine is 1.45. To continue to closely monitor urinary output and kidney function on daily basis. in October creatinine is 1.12. 03/17/19-patient has history of stage III kidney disease as per the family members admission serum creatinine is 1.45 today it is 1.49. Stable. Plan is to continue IV fluids at this time. (5) Acute metabolic encephalopathy Is this a current diagnosis for this admission?: Yes Plan: 03/16/2019-acute metabolic encephalopathy/altered mental status most likely secondary to underlying sepsis. 03/17/2019-patient admitted with acute metabolic encephalopathy most likely secondary to sepsis resolving. This morning alert and awake oriented communicating well.
[2019-03-17] MEDS: LEVOFLOXACIN 750 MG/D5W RTU 750 MG/150 ML RTUPB IV SCH (17:24)
[2019-03-18] MEDS: DEXTROSE 5%-NORMAL SALINE 1,000 ML IV PRN ×3 (00:57→22:04)
[2019-03-18] MEDS: HEPARIN SOD (PORCINE) 5,000 UNIT/ML 1 ML VIAL SUBCUT SCH ×3 (05:10→22:05)
[2019-03-18] MEDS: PANTOPRAZOLE SODIUM 40 MG TABLET.DR PO SCH ×2 (05:12→17:05)
[2019-03-18 06:29] LABS: ABSOLUTE EOSINOPHILS # (AUTO) 0.2 10^3/uL (0.0-0.6); ABSOLUTE MONOCYTES (AUTO) 1.2 10^3/uL (0.1-1.4); BASOPHILS % (AUTO) 0.3 % (0-2); EOSINOPHILS % (AUTO) 1.6 % (0-6); HEMOGLOBIN 10.8 g/dL (13.5-17.0); MEAN CORPUSCULAR HEMOGLOBIN 29.9 pg (27.0-33.4); MEAN CORPUSCULAR HGB CONC 33.9 g/dL (32.0-36.0); MEAN CORPUSCULAR VOLUME 88 fl (80-97); MONOCYTES % (AUTO) 12.8 % (3-13); PLATELET COUNT 147 10^3/uL (150-450); RED BLOOD COUNT 3.63 10^6/uL (4.35-5.55); RED CELL DISTRIBUTION WIDTH 14.8 % (11.5-14.0); SEGMENTED NEUTROPHILS % (AUTO) 74.3 % (42-78); TOTAL CELLS COUNTED % (AUTO) 100 %; WHITE BLOOD COUNT 9.4 10^3/uL (4.0-10.5)
[2019-03-18 07:00] LABS: ALBUMIN 2.8 g/dL (3.5-5.0); ALKALINE PHOSPHATASE 89 U/L (38-126); ANION GAP 8 (5-19); ASPARTATE AMINO TRANSFERASE 51 U/L (17-59); BILIRUBIN,DIRECT 0.3 mg/dL (0.0-0.4); BILIRUBIN,TOTAL 0.4 mg/dL (0.2-1.3); BLOOD UREA NITROGEN 40 mg/dL (7-20); CALCIUM 9.1 mg/dL (8.4-10.2); CARBON DIOXIDE 24 mmol/L (22-30); CHLORIDE 108 mmol/L (98-107); GLUCOSE 156 mg/dL (75-110); POTASSIUM 4.5 mmol/L (3.6-5.0); TOTAL PROTEIN 6.2 g/dL (6.3-8.2)
[2019-03-18] MEDS: INSULIN REG, HUMAN 100 UNIT/ML 3 ML VIAL (PYX) SUBCUT SCH ×4 (08:29→22:08)
--- NOTE | 2019-03-18 08:42 | ER Document Report ---
Entered by BRUCE MARION SCRIBE 03/16/19 [id number] Acting as scribe for:BIENVENIDO DOYLE IV, MD ED General - General Chief Complaint: Cough Stated Complaint: COUGH Time Seen by Provider: 03/16/19 15:46 Primary Care Provider: ALLIE MANZO MD [Primary Care Provider] - Follow up as needed Information source: Patient Notes: This 68-year-old male patient presents to the emergency department today with complaints of worsening pneumonia. Patient was started on doxycycline outpatient 1 week ago for pneumonia and is not getting any better. On arrival here the patient was found to be hypothermic with a core temperature of 94 and was immediately put on a Jose Manuel hugger. Patient also had a BGL of 57 on arrival. TRAVEL OUTSIDE OF THE [place] IN LAST 30 DAYS: No - Related Data Allergies/Adverse Reactions: erythromycin base [Erythromycin Base] Allergy (Verified 09/16/17 09:55) Penicillins Allergy (Verified 09/16/17 09:55) Past Medical History - General Information source: [facility] Records - Social History Smoking Status: Unknown if Ever Smoked Cigarette use (# per day): No Family History: Reviewed & Not Pertinent - Past Medical History Cardiac Medical History: Reports: Hx Hypercholesterolemia, Hx Hypertension Pulmonary Medical History: Reports: Hx Asthma Endocrine Medical History: Reports: Hx Diabetes Mellitus Type 2 Renal/ Medical History: Denies: Hx Peritoneal Dialysis Musculoskeletal Medical History: Reports Hx Arthritis Past Surgical History: Reports: Hx Orthopedic Surgery - Bilateral knees, Back, Right armpit - Immunizations Hx Diphtheria, Pertussis, Tetanus Vaccination: Yes Review of Systems - Review of Systems Constitutional: No symptoms reported EENT: No symptoms reported Cardiovascular: No symptoms reported Respiratory: See HPI, Cough, Short of breath Gastrointestinal: No symptoms reported Genitourinary: No symptoms reported Male Genitourinary: No symptoms reported Musculoskeletal: No symptoms reported Skin: No symptoms reported Hematologic/Lymphatic: No symptoms reported Neurological/Psychological: No symptoms reported -: Yes All other systems reviewed and negative Physical Exam - Vital signs Vitals: Resp Pulse Ox 22 H 100 03/16/19 15:31 03/16/19 15:31 - Notes Notes: Physical Exam: General: Alert, appears chronically ill but age-appropriate HEENT: Normocephalic. Atraumatic. PERRL. Extraocular movements intact. Oropharynx clear. Neck: Supple. Non-tender. Respiratory: No respiratory distress. Diminished breath sounds bilaterally. Cardiovascular: Bradycardic initially with a regular rhythm. Abdominal: Obese. Non-tender. No distension. Normal Bowel Sounds. Back: No gross abnormalities. Extremities: Moves all four extremities. Upper extremities: Normal inspection. Normal ROM. Lower extremities: Normal inspection. No edema. Normal ROM. Neurological: Normal cognition. AAOx4. Normal speech. Psychological: Normal affect. Normal Mood. Skin: Cool to the touch with a core temperature of 94 on arrival. Dry. Normal color. Course - Vital Signs Vital signs: Temp Pulse Resp BP Pulse Ox 17 107/61 97 03/16/19 17:01 03/16/19 17:01 03/16/19 17:01 - Laboratory Result Diagrams: 03/16/19 15:41 03/16/19 15:41 Laboratory results interpreted by me: 03/16/19 03/16/19 03/16/19 15:41 15:41 15:45 RBC 3.70 L Hgb 11.1 L Hct 32.6 L RDW 14.8 H Plt Count 141 L Seg Neutrophils % 78.7 H BUN 50 H Creatinine 1.45 H Est GFR ( Amer) 58 L Est GFR (MDRD) Non-Af 48 L Glucose 51 L POC Glucose 57 L AST 61 H Albumin 3.1 L 03/16/19 16:31 RBC Hgb Hct RDW Plt Count Seg Neutrophils % BUN Creatinine Est GFR ( Amer) Est GFR (MDRD) Non-Af Glucose POC Glucose 206 H AST Albumin - Diagnostic Test Radiology reviewed: Reports reviewed - Consults DR. HURST AT 1730 Time consulted: 17:30 - HE REQUESTED [employer]RNAMENTAL [employer]IC[employer] APPRENTICE BE CONSULTED Reason for consultation: 03/16/19 17:51 BILATERAL PNEUMONIA, HYPOTHERMIA, HYPOGLYCEMIA Consulted provider: will come to ER DR. SHANNON Time consulted: 17:32 Reason for consultation: 03/16/19 17:[address] HURST Consulted provider: will come to ER Discharge - Discharge Clinical Impression: Hypoglycemia Bilateral pneumonia Qualifiers: Pneumonia type: due to unspecified organism Lung location: unspecified part of lung Qualified Code(s): J18.9 - Pneumonia, unspecified organism Hypothermia Qualifiers: Encounter type: initial encounter Qualified Code(s): T68.XXXA - Hypothermia, initial encounter Condition: Fair Disposition: ADMITTED INPATIENT Admitting Provider: Terrell (Hospitalist) Unit Admitted: [facility] Referrals: ALLIE MANZO MD [Primary Care Provider] - Follow up as needed I personally performed the services described in the documentation, reviewed and edited the documentation which was dictated to the scribe in my presence, and it accurately records my words and actions.
[2019-03-18] MEDS ORDERED: ALBUTEROL SULFATE HFA (90 MCG/PUFF) 200 PUFF/8.5 GM MDI IH PRN (09:35)
[2019-03-18] MEDS ORDERED: (PENDING PHARMACY ID) (Benzonatate [Benzonatate] 200 MG) PO SCH (10:00)
[2019-03-18] MEDS: TAMSULOSIN HCL 0.4 MG CAP.SR.24H PO SCH (10:03)
[2019-03-18] MEDS: VANCOMYCIN HCL 750 MG in DEXTROSE 5%-WATER 250 ML IV SCH ×2 (10:03→22:09)
[2019-03-18] MEDS: FEBUXOSTAT 40 MG TABLET PO SCH (12:19)
[2019-03-18] MEDS: BENZONATATE 100 MG CAPSULE PO SCH ×3 (12:19→17:05)
--- NOTE | 2019-03-18 13:35 | PDOC PROGRESS REPORT ---
Subjective Progress Note for:: 03/18/19 Subjective:: Patient is a 68-year-old white male admitted for multifocal pneumonia with severe sepsis, hypothermia, bradycardia, A. fib/flutter. 03/18: Patient complains of some lightheadedness when he has cardiac pauses and arrhythmias today but is relatively alert otherwise. He denies chest pain. He states he has had a sleep study in the past that diagnosed him with sleep apnea however he chose to do nothing to treat this. He appears unable to breathe through his nose especially while sleeping and he is very sleepy on exam. Probably has pretty severe PITA. Reason For Visit: MULTIFOCAL PNEUMONIA Physical Exam Vital Signs: Temp Pulse Resp BP Pulse Ox 97.3 F 87 16 160/77 H 97 03/18/19 07:56 03/18/19 07:56 03/18/19 07:56 03/18/19 07:56 03/18/19 07:56 Intake & Output 03/17/19 03/18/19 03/19/19 06:59 06:59 06:59 Intake Total 4760 2400 1250 Balance 4760 2400 1250 Weight 96.8 kg 100 kg General appearance: PRESENT: no acute distress, obese Head exam: PRESENT: atraumatic, normocephalic Eye exam: PRESENT: conjunctiva pink Mouth exam: PRESENT: moist Respiratory exam: PRESENT: crackles - Mild to moderate. ABSENT: accessory muscle use Cardiovascular exam: PRESENT: bradycardia, irregular rhythm GI/Abdominal exam: PRESENT: normal bowel sounds, soft. ABSENT: tenderness Extremities exam: PRESENT: pedal edema Neurological exam: PRESENT: alert - Mostly alert but intermittently drowsy and falling back asleep during exam, awake, oriented to person, oriented to place, oriented to situation Psychiatric exam: PRESENT: appropriate affect Skin exam: PRESENT: rash - Malar rash noted along bilateral cheeks and forehead, gets worse in the sunlight per patient Results Laboratory Results: 03/18/19 06:08 03/18/19 06:08 03/18/19 03/18/19 06:08 06:08 WBC 9.4 RBC 3.63 L Hgb 10.8 L Hct 32.0 L MCV 88 MCH 29.9 MCHC 33.9 RDW 14.8 H Plt Count 147 L Seg Neutrophils % 74.3 Sodium 140.3 Potassium 4.5 Chloride 108 H Carbon Dioxide 24 Anion Gap 8 BUN 40 H Creatinine 1.31 H Est GFR ( Amer) > 60 Glucose 156 H Calcium 9.1 Magnesium 1.9 Total Bilirubin 0.4 AST 51 Alkaline Phosphatase 89 Total Protein 6.2 L Albumin 2.8 L 03/16/19 18:25 Clean Catch Midstream Urine Culture - Final Mixed Urogenital Leda 03/16/19 21:01 Sputum Gram Stain - Final 03/16/19 21:01 Sputum Sputum Culture - Final 03/16/19 03/16/19 03/17/19 18:55 18:55 01:14 Creatine Kinase 845 H 843 H CK-MB (CK-2) 32.40 H Troponin I 0.015 NT-Pro-B Natriuret Pep 03/17/19 03/17/19 03/17/19 01:14 07:25 07:25 Creatine Kinase 778 H CK-MB (CK-2) 25.90 H 20.10 H Troponin I 0.017 0.019 NT-Pro-B Natriuret Pep 990 H Impressions: Chest CT 03/16/19 00:00 IMPRESSION: Multifocal nodular consolidative and groundglass opacity throughout both lungs, most pronounced within the right middle and lower lobes, indicative of multifocal pneumonia. Follow-up to clearing is recommended. Small bilateral pleural effusions. TECHNICAL DOCUMENTATION: Quality ID # 436: Final reports with documentation of one or more dose reduction techniques (e.g., Automated exposure control, adjustment of the mA and/or kV according to patient size, use of iterative reconstruction technique) copyright 2011 [employer]- All Rights Reserved Head CT 03/16/19 00:00 IMPRESSION: Atrophy and chronic small vessel ischemic changes with no acute intracranial abnormality. Chest X-Ray 03/16/19 16:00 IMPRESSION: Patchy bibasilar opacities suggestive of multifocal pneumonia. No significant effusion. Assessment and Plan - Diagnosis (1) Malar rash Is this a current diagnosis for this admission?: Yes Plan: 03/18: Per patient, he thinks this is eczema that he does not appear to have any lesions like this in other parts of his body. Seems to be isolated to his forehead and cheeks. He also admits that this became much worse after he spent some time in the sun recently. Check RICHA for possible lupus. This could potentially be the cause of his slow heart rate if he does have lupus and it has cardiac involvement. (2) Suspected sleep apnea Is this a current diagnosis for this admission?: Yes Plan: 03/18: Needs outpatient sleep study. Per patient, he has been diagnosed with PITA in the past but did not have this treated. Discussed with patient it puts him at risk for arrhythmias. (3) Bradycardia Is this a current diagnosis for this admission?: Yes Plan: Cardiology consulted (4) Atrial fibrillation with slow ventricular response Is this a current diagnosis for this admission?: Yes Plan: 03/18: Intermittent A. fib with heart rate dropping to the 40s and cardiac pauses for several seconds, symptomatic per patient with lightheadedness. Cardiology consulted. Doubt he would be a candidate for pacemaker with an acute infection. Would likely need this to clear before this could be considered, assuming bradycardia persisted after resolution of infection. It may resolve as the pneumonia resolves. (5) Bilateral pneumonia Qualifiers: Pneumonia type: due to unspecified organism Lung location: unspecified part of lung Qualified Code(s): J18.9 - Pneumonia, unspecified organism Is this a current diagnosis for this admission?: Yes Plan: 03/18: Continue IV antibiotics. Suspect gram-negative/atypicals as the cause of this. Bronchial hygiene. Supplemental oxygen as needed (6) CKD (chronic kidney disease) Is this a current diagnosis for this admission?: No Plan: 03/16/2019 patient has history of chronic kidney disease as per the family patient has stage III kidney disease he follows with Dr. Rodriguez as an outpatient. Admission serum creatinine is 1.45. To continue to closely monitor urinary output and kidney function on daily basis. in October creatinine is 1.12. 03/17/19-patient has history of stage III kidney disease as per the family members admission serum creatinine is 1.45 today it is 1.49. Stable. Plan is to continue IV fluids at this time. 03/18: Creatinine at baseline approximately 1.3 (7) Diabetes Qualifiers: Diabetes mellitus type: type 2 Is this a current diagnosis for this admission?: No Plan: 03/16/2019 patient has history of type 2 diabetes mellitus blood sugar is 57 when he came in his appetite is poor for the last 2 days took his insulin this morning after giving D50 sugars improved to 205. To start him on insulin sliding scale and started on D5 normal saline at 150 cc/h. To hold his diabetic medications for today. To check for hemoglobin A1c in the morning. 03/17/19-patient has history of type 2 diabetes mellitus presently on insulin sliding scale and on diabetic diet latest blood sugar is 135. Patient is presently on D5 normal saline at 125 cc/h for sepsis. (8) Hypoglycemia Is this a current diagnosis for this admission?: Yes Plan: 03/18: Holding all insulin. In the setting of bradycardia and hypotension with cardiac pauses, check TSH and cortisol. (9) Hypotension Is this a current diagnosis for this admission?: Yes Plan: 03/16/2019-patient came in with hypotension with systolic blood pressure of 87 on arrival with IV fluids blood pressure is improved to systolic of 102. Hypotension most likely secondary to sepsis. 03/17/2019-hypotension most likely secondary to sepsis resolving. Latest blood pressure is 112/60. Plan is to continue IV fluids at 125 cc/h. Latest lactic acid level is 0.7. 03/18: Adrenal insufficiency work-up as above (10) Hypothermia Qualifiers: Encounter type: initial encounter Qualified Code(s): T68.XXXA - Hypothermia , initial encounter Is this a current diagnosis for this admission?: Yes (11) Sepsis Is this a current diagnosis for this admission?: Yes Plan: 03/16/2019-patient CODE STATUS is DNI he is going to be admitted to [facility] as inpatient. Admitted for sepsis with multiorgan failure. Came in with hypoglycemia, hypotension, hypothermia, altered mental status in association with multifocal pneumonia on x-ray. Patient is on Jose Manuel hugger. Temp is 92 came up to 94 now. Patient was given D50 blood sugar improved from 57 to 205. Altered mental status resolving. Plan to start him on IV levofloxacin 750 mg d aily and Zithromax 5oo mg IV daily. Blood cultures sputum cultures urine culture urine analysis are requested. GI prophylaxis DVT prophylaxis initiated. Started oxygen [address] chest without contrast was requested. Overall prognosis poor condition is critical family is aware. 03/17/2019-patient admitted with sepsis associated with hypotension, hypothermia, hypoglycemia and bradycardia. Symptoms are resolving. Patient is presently on IV levo floxacillin and Zithromax. Flu came back negative. 03/18: Sepsis improved, continue antibiotics. Blood cultures negative, urine culture pending. - Time Time Spent with patient: 25-34 minutes - Inpatient Certification I certify that my determination is in accordance with my understanding of Medicare's requirements for reasonable and necessary INPATIENT services [42 CFR 412.3e].: Yes Medical Necessity: Need Close Monitoring Due to Risk of Patient Decompensation, Need for IV Antibiotics
[2019-03-18] MEDS: LEVOFLOXACIN 750 MG/D5W RTU 750 MG/150 ML RTUPB IV SCH (17:06)
--- NOTE | 2019-03-18 17:52 | PDOC CONSULTATION ---
Consultation Consult Date: 03/18/19 Provider Consulted: FRANCISCO KAUR Consult reason:: Bradycarida History of Present Illness Admission Date/PCP: 03/16/19 19:38 ALLIE MANZO MD Patient complains of: No complaints History of Present Illness: TAYLOR SMITH is a 68 year old male 1. CKD 2. Systemic hypertension 3. PITA Admitted with multifocal pneumonia and sepsis. Profound bradycardia and sinus pauses noted. No syncope. Patient is asleep in bed. Past Medical History Cardiac Medical History: Reports: Hyperlipidema, Hypertension Pulmonary Medical History: Reports: Asthma Endocrine Medical History: Reports: Diabetes Mellitus Type 2 Musculoskeltal Medical History: Reports: Arthritis Psychiatric Medical History: Reports: Depression Hematology: Reports: Anemia Past Surgical History Past Surgical History: Reports: Orthopedic Surgery - Bilateral knees, Back, Righ t armpit Social History Lives with: Family Smoking Status: Unknown if Ever Smoked Electronic Cigarette use?: No Last Time Smoked: 1977 Frequency of Alcohol Use: None Hx Recreational Drug Use: No Drugs: None Hx Prescription Drug Abuse: No - Advance Directive Resuscitation Status: Do Not Intubate Family History Family History: Reviewed & Not Pertinent Parental Family History Reviewed: No Children Family History Reviewed: NA Sibling(s) Family History Reviewed.: NA Medication/Allergy Home Medications: Febuxostat [Uloric 40 Mg Tablet] 40 mg PO DAILY 06/01/11 Insulin NPL/Insulin Lispro [Humalog Mix 50/50 Kwikpen] 40 unit SQ QAM 06/01/11 Pentoxifylline [Trental 400 Mg Tablet.Sa] 400 mg PO TID 06/01/11 Albuterol Sulfate [Proair Hfa Inhalation Aerosol 8.5 gm Mdi] 2 puff IH Q4HP PRN 03/17/19 Benzonatate 200 mg PO TID 03/17/19 Doxycycline Monohydrate 100 mg PO BID 03/17/19 Insulin Lispro Protamin/Lispro [Humalog Mix 50-50 Vial] 35 unit SQ QPM 03/17/19 Losartan/Hydrochlorothiazide [Losartan-Hctz 100-25 mg Tab] 1 each PO DAILY 03/17/19 Polymyxin B Sulfate/Tmp [Polytrim Oph Soln 10 ml] 1 dose OU Q6 03/17/19 Sertraline HCl [Zoloft 50 mg Tablet] 50 mg PO DAILY 03/17/19 Tamsulosin HCl [Flomax 0.4 mg Cap.sr] 0.4 mg PO DAILY 03/17/19 Allergies/Adverse Reactions: erythromycin base [Erythromycin Base] Allergy (Verified 03/16/19 19:11) Penicillins Allergy (Verified 03/16/19 19:11) Review of Systems Constitutional: PRESENT: as per HPI Ears: PRESENT: as per HPI Physical Exam Vital Signs: Temp Pulse Resp BP Pulse Ox 97.3 F 72 16 160/77 H 97 03/18/19 07:56 03/18/19 14:00 03/18/19 07:56 03/18/19 07:56 03/18/19 07:56 Intake & Output 03/17/19 03/18/19 03/19/19 06:59 06:59 06:59 Intake Total 4760 2400 1250 Balance 4760 2400 1250 Weight 96.8 kg 100 kg General appearance: PRESENT: morbidly obese Head exam: PRESENT: atraumatic, normocephalic Eye exam: PRESENT: EOMI Mouth exam: PRESENT: moist Respiratory exam: PRESENT: decreased breath sounds, prolonged expiratory phas, symmetrical Cardiovascular exam: PRESENT: RRR, +S1, +S2 Pulses: PRESENT: normal radial pulses GI/Abdominal exam: PRESENT: soft Rectal exam: PRESENT: deferred Musculoskeletal exam: PRESENT: normal inspection Neurological exam: PRESENT: other - Sedate, sleepy Skin exam: PRESENT: dry, normal color Results Laboratory Results: 03/18/19 06:08 03/18/19 06:08 03/18/19 03/18/19 03/18/19 06:08 06:08 06:08 WBC 9.4 RBC 3.63 L Hgb 10.8 L Hct 32.0 L MCV 88 MCH 29.9 MCHC 33.9 RDW 14.8 H Plt Count 147 L Seg Neutrophils % 74.3 Sodium 140.3 Potassium 4.5 Chloride 108 H Carbon Dioxide 24 Anion Gap 8 BUN 40 H Creatinine 1.31 H Est GFR ( Amer) > 60 Glucose 156 H Calcium 9.1 Magnesium 1.9 Total Bilirubin 0.4 AST 51 Alkaline Phosphatase 89 Total Protein 6.2 L Albumin 2.8 L TSH 4.59 03/16/19 18:25 Clean Catch Midstream Urine Culture - Final Mixed Urogenital Leda 03/16/19 21:01 Sputum Gram Stain - Final 03/16/19 21:01 Sputum Sputum Culture - Final 03/16/19 03/16/19 03/17/19 18:55 18:55 01:14 Creatine Kinase 845 H 843 H CK-MB (CK-2) 32.40 H Troponin I 0.015 NT-Pro-B Natriuret Pep 03/17/19 03/17/19 03/17/19 01:14 07:25 07:25 Creatine Kinase 778 H CK-MB (CK-2) 25.90 H 20.10 H Troponin I 0.017 0.019 NT-Pro-B Natriuret Pep 990 H EKG Comments: EKG reviewed independently by me SR First degree AV block Multiple episodes of sinus pauses and sinus bradycardia on telemetry likely PITA related apnea. Impressions: Chest CT 03/16/19 00:00 IMPRESSION: Multifocal nodular consolidative and groundglass opacity throughout both lungs, most pronounced within the right middle and lower lobes, indicative of multifocal pneumonia. Follow-up to clearing is recommended. Small bilateral pleural effusions. TECHNICAL DOCUMENTATION: Quality ID # 436: Final reports with documentation of one or more dose reduction techniques (e.g., Automated exposure control, adjustment of the mA and/or kV according to patient size, use of iterative reconstruction technique) copyright 2011 [employer]- All Rights Reserved Head CT 03/16/19 00:00 IMPRESSION: Atrophy and chronic small vessel ischemic changes with no acute intracranial abnormality. Chest X-Ray 03/16/19 16:00 IMPRESSION: Patchy bibasilar opacities suggestive of multifocal pneumonia. No significant effusion. Assessment & Plan - Diagnosis (1) Bradycardia Is this a current diagnosis for this admission?: Yes Plan: Likely PITA related apnea and resultant bradycardia No indication for urgent pacing Treatment of sepsis and pneumonia CPAP Will follow
--- NOTE | 2019-03-18 22:08 | XCELERA REPORT ---
[address] [address] Transthoracic Echocardiogram Report Name: TAYLOR SMITH Age: 68 yrs Gender: Male : 1950 Patient Status: Inpatient Patient Location: [address] [place] [address] Study Date: 03/18/2019 08:21 PM Height: 66 in Weight: 220 lb BSA: 2.1 m2 Procedure: A complete two-dimensional transthoracic echocardiogram was performed (2D, M-mode, spectral and color flow Doppler). The study was technically difficult with many images being suboptimal in quality. Reason For Study: suspected CHF, arrythmia Ordering Physician: DOC WILCOX Performed By: Ramona Kaplan Interpretation Summary Left ventricular systolic function is low normal. There is borderline concentric left ventricular hypertrophy. Doppler measurements suggest impaired left ventricular relaxation, which is associated with grade I/IV or mild diastolic dysfunction The left ventricle is grossly normal size. Regional wall motion abnormalities cannot be excluded due to limited visualization. The right ventricle is not well visualized secondary to technical limitations The right atrium is normal in size The left atrium is mildly dilated. There is a mild amount of mitral regurgitation There is no mitral valve stenosis. No aortic regurgitation is present. There is no aortic valve stenosis There is a mild amount of tricuspid regurgitation There is mild pulmonary hypertension by echo Right ventricular systolic pressure is estimated to be elevated at 30-40mmHg. The aortic root is not well visualized. The inferior vena cava was not well visualized Minimal pericardial effusion. MMode/2D Measurements & Calculations RVDd: 2.9 cm LVIDd: 4.3 cm FS: 21.3 % LA dimension: 4.0 cm IVSd: 1.1 cm LVIDs: 3.4 cm EDV(Teich): 84.5 ml LVPWd: 1.1 cm ESV(Teich): 47.8 ml EF(Teich): 43.4 % Doppler Measurements & Calculations MV E max rick: MV P1/2t max rick: Ao V2 max: LV V1 max P.1 cm/sec 126.2 cm/sec 111.3 cm/sec 2.1 mmHg MV A max rick: MV P1/2t: 52.1 msec Ao max P.0 mmHgLV V1 max: 111.1 cm/sec MVA(P1/2t): 4.2 cm2 72.8 cm/sec MV E/A: 1.0 MV dec slope: 709.3 cm/sec2 MV dec time: 0.23 sec PA V2 max: TR max rick: MV P1/2t-pr_phl: 114.0 cm/sec 283.7 cm/sec 52.1 msec PA max P.2 mmHg TR max P.2 mmHg Left Ventricle The left ventricle is grossly normal size. There is borderline concentric left ventricular hypertrophy. Left ventricular systolic function is low normal. Doppler measurements suggest impaired left ventricular relaxation, which is associated with grade I/IV or mild diastolic dysfunction. Regional wall motion abnormalities cannot be excluded due to limited visualization. Right Ventricle The right ventricle is not well visualized secondary to technical limitations. Atria The right atrium is normal in size. The left atrium is mildly dilated. Interarterial septum not well visualized and not well dopplered. Cannot comment on ASD/PFO presence. Mitral Valve The mitral valve leaflets are sclerotic, but show no functional abnormalities. There is no mitral valve stenosis. There is a mild amount of mitral regurgitation. Aortic Valve The aortic valve is grossly normal. There is no aortic valve stenosis. No aortic regurgitation is present. Tricuspid Valve The tricuspid valve is not well visualized, but is grossly normal. There is no tricuspid stenosis. There is a mild amount of tricuspid regurgitation. There is mild pulmonary hypertension by echo. Right ventricular systolic pressure is estimated to be elevated at 30-40mmHg. Pulmonic Valve The pulmonic valve is not well visualized. Great Vessels The aortic root is not well visualized. The inferior vena cava was not well visualized. Effusions Minimal pericardial effusion. : DOC WILCOX Shyamal
--- NOTE | 2019-03-18 22:36 | EKG REPORT ---
SEVERITY:- ABNORMAL ECG - SINUS RHYTHM VENTRICULAR PREMATURE COMPLEX FIRST DEGREE AV BLOCK LOW VOLTAGE IN FRONTAL LEADS : Confirmed by: Haydee Blair 18-Mar-2019 22:35:57
[2019-03-19] MEDS: HEPARIN SOD (PORCINE) 5,000 UNIT/ML 1 ML VIAL SUBCUT SCH ×3 (05:18→21:45)
[2019-03-19] MEDS: PANTOPRAZOLE SODIUM 40 MG TABLET.DR PO SCH ×2 (05:20→16:39)
[2019-03-19] MEDS: DEXTROSE 5%-NORMAL SALINE 1,000 ML IV PRN ×2 (08:33→23:15)
[2019-03-19] MEDS: INSULIN REG, HUMAN 100 UNIT/ML 3 ML VIAL (PYX) SUBCUT SCH ×4 (08:39→22:00)
[2019-03-19 10:31] LABS: VANCOMYCIN,TROUGH 14.5 ug/mL (5.0-20.0)
[2019-03-19] MEDS: BENZONATATE 100 MG CAPSULE PO SCH ×3 (10:35→17:39)
[2019-03-19] MEDS: TAMSULOSIN HCL 0.4 MG CAP.SR.24H PO SCH (10:35)
[2019-03-19] MEDS: SERTRALINE HCL 50 MG TABLET PO SCH (10:35)
[2019-03-19] MEDS: PENTOXIFYLLINE 400 MG TABLET.SA PO SCH ×3 (10:35→17:39)
[2019-03-19] MEDS: FEBUXOSTAT 40 MG TABLET PO SCH (10:35)
[2019-03-19] MEDS: VANCOMYCIN HCL 750 MG in DEXTROSE 5%-WATER 250 ML IV SCH ×2 (10:36→22:30)
--- NOTE | 2019-03-19 13:07 | PDOC PROGRESS REPORT ---
Subjective Progress Note for:: 03/19/19 Subjective:: Patient doing much better. Feels better. Overnight telemetry without significant pauses. Reason For Visit: MULTIFOCAL PNEUMONIA Physical Exam Vital Signs: Temp Pulse Resp BP Pulse Ox 97.8 F 81 16 157/76 H 99 03/19/19 07:53 03/19/19 07:53 03/19/19 07:53 03/19/19 07:53 03/19/19 07:53 Intake & Output 03/18/19 03/19/19 03/20/19 06:59 06:59 06:59 Intake Total 2400 4260 Balance 2400 4260 Weight 100 kg 95.6 kg General appearance: PRESENT: obese Head exam: PRESENT: atraumatic, normocephalic Mouth exam: PRESENT: moist Respiratory exam: PRESENT: crackles, decreased breath sounds, symmetrical, unlabored Cardiovascular exam: PRESENT: RRR, +S1, +S2 Pulses: PRESENT: normal radial pulses GI/Abdominal exam: PRESENT: soft Rectal exam: PRESENT: deferred Neurological exam: PRESENT: alert, oriented to person, oriented to place, oriented to time, oriented to situation Psychiatric exam: PRESENT: appropriate affect Skin exam: PRESENT: dry, intact, normal color Results Laboratory Results: 03/18/19 06:08 03/18/19 06:08 03/18/19 06:08 TSH 4.59 03/18/19 05:20 Sputum Gram Stain - Final 03/16/19 18:25 Clean Catch Midstream Urine Culture - Final Mixed Urogenital Leda 03/16/19 03/16/19 03/17/19 18:55 18:55 01:14 Creatine Kinase 845 H 843 H CK-MB (CK-2) 32.40 H Troponin I 0.015 NT-Pro-B Natriuret Pep 03/17/19 03/17/19 03/17/19 01:14 07:25 07:25 Creatine Kinase 778 H CK-MB (CK-2) 25.90 H 20.10 H Troponin I 0.017 0.019 NT-Pro-B Natriuret Pep 990 H EKG Comments: Overnight telemetry was reviewed. Occasional sinus pauses and PVCs. No sustained sinus pause or severe bradycardia noted. Impressions: Chest CT 03/16/19 00:00 IMPRESSION: Multifocal nodular consolidative and groundglass opacity throughout both lungs, most pronounced within the right middle and lower lobes, indicative of multifocal pneumonia. Follow-up to clearing is recommended. Small bilateral pleural effusions. TECHNICAL DOCUMENTATION: Quality ID # 436: Final reports with documentation of one or more dose reduction techniques (e.g., Automated exposure control, adjustment of the mA and/or kV according to patient size, use of iterative reconstruction technique) copyright 2011 [employer]- All Rights Reserved Head CT 03/16/19 00:00 IMPRESSION: Atrophy and chronic small vessel ischemic changes with no acute intracranial abnormality. Chest X-Ray 03/16/19 16:00 IMPRESSION: Patchy bibasilar opacities suggestive of multifocal pneumonia. No significant effusion. Assessment & Plan - Diagnosis (1) Bradycardia Is this a current diagnosis for this admission?: Yes Plan: Bradycardia and pauses in the setting of severe sleep apnea very likely. Patient did have apneic episodes yesterday. He was quite somnolent as well. Presently is more awake and telemetry does not show evidence of profound bradycardia or sinus pauses We will continue monitor on telemetry. At the present time there is no urgent indication for cardiac pacing. (2) Bilateral pneumonia Qualifiers: Pneumonia type: due to unspecified organism Lung location: unspecified part of lung Qualified Code(s): J18.9 - Pneumonia, unspecified organism Is this a current diagnosis for this admission?: Yes Plan: Continue intravenous antibiotics.
--- NOTE | 2019-03-19 14:42 | PDOC PROGRESS REPORT ---
Subjective Progress Note for:: 03/19/19 Subjective:: Patient is a 68-year-old white male admitted for multifocal pneumonia with severe sepsis, hypothermia, bradycardia, A. fib/flutter. 03/18: Patient complains of some lightheadedness when he has cardiac pauses and arrhythmias today but is relatively alert otherwise. He denies chest pain. He states he has had a sleep study in the past that diagnosed him with sleep apnea however he chose to do nothing to treat this. He appears unable to breathe through his nose especially while sleeping and he is very sleepy on exam. Probably has pretty severe PITA. 03/19: Patient is much more alert and energetic today. Breathing is less labored though he still requires some supplemental oxygen. Discussed with nursing that we should be weaning this actively. Long discussion with patient and his daughter who takes care of him at home. She notes that patient frequently stops breathing and snores loudly at home, has been essentially pleading with patient to use CPAP though he refuses. Discussed the case with cardiology today who recommended PITA be appropriately treated and no further cardiac testing or interventions at this time. Reason For Visit: MULTIFOCAL PNEUMONIA Physical Exam Vital Signs: Temp Pulse Resp BP Pulse Ox 97.8 F 81 16 157/76 H 99 03/19/19 07:53 03/19/19 07:53 03/19/19 07:53 03/19/19 07:53 03/19/19 07:53 Intake & Output 03/18/19 03/19/19 03/20/19 06:59 06:59 06:59 Intake Total 2400 4260 480 Output Total 0 Balance 2400 4260 480 Weight 100 kg 95.6 kg General appearance: PRESENT: no acute distress, well-developed, well-nourished Head exam: PRESENT: atraumatic, normocephalic Eye exam: PRESENT: conjunctiva pink Mouth exam: PRESENT: moist Respiratory exam: PRESENT: crackles, unlabored, wheezes Cardiovascular exam: PRESENT: RRR. ABSENT: diastolic murmur, rubs, systolic murmur GI/Abdominal exam: PRESENT: normal bowel sounds, soft. ABSENT: distended, guarding, mass, organolmegaly, rebound, tenderness Neurological exam: PRESENT: alert, awake, oriented to person, oriented to place Skin exam: PRESENT: dry, intact, warm Results Laboratory Results: 03/18/19 06:08 03/18/19 06:08 03/18/19 05:20 Sputum Gram Stain - Final 03/16/19 18:25 Clean Catch Midstream Urine Culture - Final Mixed Urogenital Leda 03/16/19 03/16/19 03/17/19 18:55 18:55 01:14 Creatine Kinase 845 H 843 H CK-MB (CK-2) 32.40 H Troponin I 0.015 NT-Pro-B Natriuret Pep 03/17/19 03/17/19 03/17/19 01:14 07:25 07:25 Creatine Kinase 778 H CK-MB (CK-2) 25.90 H 20.10 H Troponin I 0.017 0.019 NT-Pro-B Natriuret Pep 990 H Impressions: Chest CT 03/16/19 00:00 IMPRESSION: Multifocal nodular consolidative and groundglass opacity throughout both lungs, most pronounced within the right middle and lower lobes, indicative of multifocal pneumonia. Follow-up to clearing is recommended. Small bilateral pleural effusions. TECHNICAL DOCUMENTATION: Quality ID # 436: Final reports with documentation of one or more dose reduction techniques (e.g., Automated exposure control, adjustment of the mA and/or kV according to patient size, use of iterative reconstruction technique) copyright 2011 [employer]- All Rights Reserved Head CT 03/16/19 00:00 IMPRESSION: Atrophy and chronic small vessel ischemic changes with no acute intracranial abnormality. Chest X-Ray 03/16/19 16:00 IMPRESSION: Patchy bibasilar opacities suggestive of multifocal pneumonia. No significant effusion. Assessment and Plan - Diagnosis (1) Malar rash Is this a current diagnosis for this admission?: Yes Plan: 03/18: Per patient, he thinks this is eczema that he does not appear to have any lesions like this in other parts of his body. Seems to be isolated to his forehead and cheeks. He also admits that this became much worse after he spent some time in the sun recently. Check RICHA for possible lupus. This could potentially be the cause of his slow heart rate if he does have lupus and it has cardiac involvement. RICHA still pending (2) Suspected sleep apnea Is this a current diagnosis for this admission?: Yes Plan: 03/18: Needs outpatient sleep study. Per patient, he has been diagnosed with PITA in the past but did not have this treated. Discussed with patient it puts him at risk for arrhythmias. Apparently, patient states he has known PITA but has not wanted to use CPAP in the past. Daughter plans to get him follow-up with sleep medicine and get a CPAP. I have very clearly told patient and his daughter that the patient's sleep apnea is severely worsening his other medical problems. (3) Bradycardia Is this a current diagnosis for this admission?: Yes Plan: Cardiology consulted Most likely due to sleep apnea Discussed with Dr. Conway in cardiology who recommended no further cardiac work-up, only need to treat patient's PITA appropriately (4) Atrial fibrillation with slow ventricular response Is this a current diagnosis for this admission?: Yes Plan: 03/18: Possible intermittent A. fib with heart rate dropping to the 40s and cardiac pauses for several seconds, symptomatic per patient with lightheadedness. Cardiology consulted. Doubt he would be a candidate for pacemaker with an acute infection. Would likely need this to clear before this could be considered, assuming bradycardia persisted after resolution of infection. It may resolve as the pneumonia resolves. Resolved, likely due to hypoxia (5) Bilateral pneumonia Qualifiers: Pneumonia type: due to unspecified organism Lung location: unspecified part of lung Qualified Code(s): J18.9 - Pneumonia, unspecified organism Is this a current diagnosis for this admission?: Yes (6) CKD (chronic kidney disease) Is this a current diagnosis for this admission?: No (7) Diabetes Qualifiers: Diabetes mellitus type: type 2 Is this a current diagnosis for this admission?: No (8) Hypoglycemia Is this a current diagnosis for this admission?: Yes Plan: 03/18: Holding all insulin. In the setting of bradycardia and hypotension with cardiac pauses, check TSH and cortisol. Resolved (9) Hypotension Is this a current diagnosis for this admission?: Yes Plan: 03/16/2019-patient came in with hypotension with systolic blood pressure of 87 on arrival with IV fluids blood pressure is improved to systolic of 102. Hypotension most likely secondary to sepsis. 03/17/2019-hypotension most likely secondary to sepsis resolving. Latest blood pressure is 112/60. Plan is to continue IV fluids at 125 cc/h. Latest lactic acid level is 0.7. 03/18: Adrenal insufficiency work-up as above Resolved (10) Hypothermia Qualifiers: Encounter type: initial encounter Qualified Code(s): T68.XXXA - Hypothermia, initial encounter Is this a current diagnosis for this admission?: Yes Plan: Due to sepsis, resolved (11) Sepsis Is this a current diagnosis for this admission?: Yes - Time Time Spent with patient: 15-24 minutes - Inpatient Certification I certify that my determination is in accordance with my understanding of Medicare's requirements for reasonable and necessary INPATIENT services [42 CFR 412.3e].: Yes Medical Necessity: Need Close Monitoring Due to Risk of Patient Decompensation - PT evaluation ordered. Daughter is very concerned about patient going home as she cannot lift him and at baseline he can only walk 1-2 steps. They would like patient to go to SNF if this is an option.
[2019-03-19] MEDS: LEVOFLOXACIN 750 MG/D5W RTU 750 MG/150 ML RTUPB IV SCH (17:38)
[2019-03-20] MEDS: HEPARIN SOD (PORCINE) 5,000 UNIT/ML 1 ML VIAL SUBCUT SCH ×3 (05:46→21:47)
[2019-03-20] MEDS: PANTOPRAZOLE SODIUM 40 MG TABLET.DR PO SCH ×2 (05:56→17:24)
[2019-03-20] MEDS: INSULIN REG, HUMAN 100 UNIT/ML 3 ML VIAL (PYX) SUBCUT SCH ×4 (07:39→21:49)
[2019-03-20] MEDS: BENZONATATE 100 MG CAPSULE PO SCH ×3 (10:05→17:24)
[2019-03-20] MEDS: SERTRALINE HCL 50 MG TABLET PO SCH (10:05)
[2019-03-20] MEDS: TAMSULOSIN HCL 0.4 MG CAP.SR.24H PO SCH (10:05)
[2019-03-20] MEDS: FEBUXOSTAT 40 MG TABLET PO SCH (10:05)
[2019-03-20] MEDS: VANCOMYCIN HCL 750 MG in DEXTROSE 5%-WATER 250 ML IV SCH ×2 (10:06→21:51)
[2019-03-20] MEDS: PENTOXIFYLLINE 400 MG TABLET.SA PO SCH ×3 (10:06→17:25)
[2019-03-20 10:25] LABS: ANION GAP 6 (5-19); BLOOD UREA NITROGEN 26 mg/dL (7-20); CALCIUM 8.9 mg/dL (8.4-10.2); CARBON DIOXIDE 26 mmol/L (22-30); CHLORIDE 107 mmol/L (98-107); GLUCOSE 177 mg/dL (75-110); POTASSIUM 4.6 mmol/L (3.6-5.0)
--- NOTE | 2019-03-20 15:22 | PDOC PROGRESS REPORT ---
Subjective Progress Note for:: 03/20/19 Subjective:: Patient is a 68-year-old white male admitted for multifocal pneumonia with severe sepsis, hypothermia, bradycardia, A. fib/flutter. 03/18: Patient complains of some lightheadedness when he has cardiac pauses and arrhythmias today but is relatively alert otherwise. He denies chest pain. He states he has had a sleep study in the past that diagnosed him with sleep apnea however he chose to do nothing to treat this. He appears unable to breathe through his nose especially while sleeping and he is very sleepy on exam. Probably has pretty severe PITA. 03/19: Patient is much more alert and energetic today. Breathing is less labored though he still requires some supplemental oxygen. Discussed with nursing that we should be weaning this actively. Long discussion with patient and his daughter who takes care of him at home. She notes that patient frequently stops breathing and snores loudly at home, has been essentially pleading with patient to use CPAP though he refuses. Discussed the case with cardiology today who recommended PITA be appropriately treated and no further cardiac testing or interventions at this time. 03/20: Notable improvement in respiratory status. Still having some shortness of breath intermittently but nothing like when he was admitted. Mentation is quite clear as well. Nursing is weaning him off supplemental oxygen quite well. Physical therapy has seen patient and has recommended continued therapy. Patient's daughter prefers patient go to rehab facility though he may be a better candidate for home health physical therapy pending further evaluation from therapist here. Reason For Visit: MULTIFOCAL PNEUMONIA Physical Exam Vital Signs: Temp Pulse Resp BP Pulse Ox 97.4 F 74 20 126/67 H 94 03/20/19 03:46 03/20/19 07:00 03/20/19 03:46 03/20/19 03:46 03/20/19 03:46 Intake & Output 03/19/19 03/20/19 03/21/19 06:59 06:59 06:59 Intake Total 4260 2877 720 Output Total 0 0 Balance 4260 2877 720 Weight 95.6 kg 93.2 kg General appearance: PRESENT: no acute distress, well-developed, well-nourished Head exam: PRESENT: atraumatic, normocephalic Eye exam: PRESENT: conjunctiva pink Respiratory exam: PRESENT: clear to auscultation teetee. ABSENT: rales, rhonchi, wheezes Cardiovascular exam: PRESENT: RRR. ABSENT: diastolic murmur, rubs, systolic murmur GI/Abdominal exam: PRESENT: normal bowel sounds, soft. ABSENT: distended, guarding, mass, organolmegaly, rebound, tenderness Neurological exam: PRESENT: alert, awake, oriented to person, oriented to place, oriented to time, oriented to situation Psychiatric exam: PRESENT: appropriate affect, normal mood Skin exam: PRESENT: dry, intact, warm Results Laboratory Results: 03/18/19 06:08 03/20/19 09:30 03/20/19 09:30 Sodium 138.7 Potassium 4.6 Chloride 107 Carbon Dioxide 26 Anion Gap 6 BUN 26 H Creatinine 1.05 Est GFR ( Amer) > 60 Glucose 177 H Calcium 8.9 03/18/19 05:20 Sputum Gram Stain - Final 03/16/19 03/16/19 03/17/19 18:55 18:55 01:14 Creatine Kinase 845 H 843 H CK-MB (CK-2) 32.40 H Troponin I 0.015 NT-Pro-B Natriuret Pep 03/17/19 03/17/19 03/17/19 01:14 07:25 07:25 Creatine Kinase 778 H CK-MB (CK-2) 25.90 H 20.10 H Troponin I 0.017 0.019 NT-Pro-B Natriuret Pep 990 H Impressions: Chest CT 03/16/19 00:00 IMPRESSION: Multifocal nodular consolidative and groundglass opacity throughout both lungs, most pronounced within the right middle and lower lobes, indicative of multifocal pneumonia. Follow-up to clearing is recommended. Small bilateral pleural effusions. TECHNICAL DOCUMENTATION: Quality ID # 436: Final reports with documentation of one or more dose reduction techniques (e.g., Automated exposure control, adjustment of the mA and/or kV according to patient size, use of iterative reconstruction technique) copyright 2011 [employer]- All Rights Reserved Head CT 03/16/19 00:00 IMPRESSION: Atrophy and chronic small vessel ischemic changes with no acute intracranial abnormality. Chest X-Ray 03/16/19 16:00 IMPRESSION: Patchy bibasilar opacities suggestive of multifocal pneumonia. No significant effusion. Assessment and Plan - Diagnosis (1) Malar rash Is this a current diagnosis for this admission?: Yes Plan: 03/18: Per patient, he thinks this is eczema that he does not appear to have any lesions like this in other parts of his body. Seems to be isolated to his forehead and cheeks. He also admits that this became much worse after he spent some time in the sun recently. Ruled out lupus. RICHA negative (2) Suspected sleep apnea Is this a current diagnosis for this admission?: Yes Plan: 03/18: Needs outpatient sleep study. Per patient, he has been diagnosed with PITA in the past but did not have this treated. Discussed with patient it puts him at risk for arrhythmias. Apparently, patient states he has known PITA but has not wanted to use CPAP in the past. Daughter plans to get him follow-up with sleep medicine and get a CPAP. I have very clearly told patient and his daughter that the patient's sleep apnea is severely worsening his other medical problems. Must use CPAP nightly (3) Bradycardia Is this a current diagnosis for this admission?: Yes Plan: Cardiology consulted Most likely due to sleep apnea, will likely improve/resolve with CPAP compliance Discussed with Dr. Conway in cardiology who recommended no further cardiac work-up, only need to treat patient's PITA appropriately (4) Atrial fibrillation with slow ventricular response Is this a current diagnosis for this admission?: Yes Plan: 03/18: Possible intermittent A. fib with heart rate dropping to the 40s and cardiac pauses for several seconds, symptomatic per patient with lightheadedne ss. Cardiology consulted. Doubt he would be a candidate for pacemaker with an acute infection. Would likely need this to clear before this could be considered, assuming bradycardia persisted after resolution of infection. It may resolve as the pneumonia resolves. Resolved, likely due to hypoxia (5) Bilateral pneumonia Qualifiers: Pneumonia type: due to unspecified organism Lung location: unspecified part of lung Qualified Code(s): J18.9 - Pneumonia, unspecified organism Is this a current diagnosis for this admission?: Yes (6) CKD (chronic kidney disease) Is this a current diagnosis for this admission?: No (7) Diabetes Qualifiers: Diabetes mellitus type: type 2 Is this a current diagnosis for this admission?: No (8) Hypoglycemia Is this a current diagnosis for this admission?: Yes (9) Hypotension Is this a current diagnosis for this admission?: Yes (10) Hypothermia Qualifiers: Encounter type: initial encounter Qualified Code(s): T68.XXXA - Hypothermia, initial encounter Is this a current diagnosis for this admission?: Yes (11) Sepsis Is this a current diagnosis for this admission?: Yes - Time Time Spent with patient: 15-24 minutes Anticipated discharge: Home with Homehealth Within: within 24 hours - Inpatient Certification Medical Necessity: Need Close Monitoring Due to Risk of Patient Decompensation - Possible discharge tomorrow either home with home health versus SNF
[2019-03-20] MEDS: LEVOFLOXACIN 750 MG TABLET PO SCH (17:24)
[2019-03-21] MEDS: DEXTROSE 5%-NORMAL SALINE 1,000 ML IV PRN ×3 (00:22→17:39)
[2019-03-21] MEDS: PANTOPRAZOLE SODIUM 40 MG TABLET.DR PO SCH ×2 (05:16→17:43)
[2019-03-21] MEDS: HEPARIN SOD (PORCINE) 5,000 UNIT/ML 1 ML VIAL SUBCUT SCH ×3 (05:16→21:20)
[2019-03-21] MEDS: INSULIN REG, HUMAN 100 UNIT/ML 3 ML VIAL (PYX) SUBCUT SCH ×4 (08:22→21:20)
[2019-03-21] MEDS: VANCOMYCIN HCL 750 MG in DEXTROSE 5%-WATER 250 ML IV SCH ×2 (10:18→21:19)
[2019-03-21] MEDS: TAMSULOSIN HCL 0.4 MG CAP.SR.24H PO SCH (10:24)
[2019-03-21] MEDS: FEBUXOSTAT 40 MG TABLET PO SCH (10:24)
[2019-03-21] MEDS: SERTRALINE HCL 50 MG TABLET PO SCH (10:24)
[2019-03-21] MEDS: BENZONATATE 100 MG CAPSULE PO SCH ×3 (10:25→17:43)
[2019-03-21] MEDS: PENTOXIFYLLINE 400 MG TABLET.SA PO SCH ×3 (10:25→17:45)
--- NOTE | 2019-03-21 17:29 | PDOC PROGRESS REPORT ---
Subjective Progress Note for:: 03/21/19 Subjective:: Patient is a 68-year-old white male admitted for multifocal pneumonia with severe sepsis, hypothermia, bradycardia, A. fib/flutter. 03/18: Patient complains of some lightheadedness when he has cardiac pauses and arrhythmias today but is relatively alert otherwise. He denies chest pain. He states he has had a sleep study in the past that diagnosed him with sleep apnea however he chose to do nothing to treat this. He appears unable to breathe through his nose especially while sleeping and he is very sleepy on exam. Probably has pretty severe PITA. 03/19: Patient is much more alert and energetic today. Breathing is less labored though he still requires some supplemental oxygen. Discussed with nursing that we should be weaning this actively. Long discussion with patient and his daughter who takes care of him at home. She notes that patient frequently stops breathing and snores loudly at home, has been essentially pleading with patient to use CPAP though he refuses. Discussed the case with cardiology today who recommended PITA be appropriately treated and no further cardiac testing or interventions at this time. 03/20: Notable improvement in respiratory status. Still having some shortness of breath intermittently but nothing like when he was admitted. Mentation is quite clear as well. Nursing is weaning him off supplemental oxygen quite well. Physical therapy has seen patient and has recommended continued therapy. Patient's daughter prefers patient go to rehab facility though he may be a better candidate for home health physical therapy pending further evaluation from therapist here. 03/21: Patient for some reason was put back on supplemental oxygen overnight though it does not seem that he actually needs this. Please do not put this back on him unless he is desaturating and symptomatic or we risk harming him by causing CO2 retention. No new complaints and states his breathing is improved overall. Patient and his family would like him to go to SNF and social work is working on this trying to obtain authorization. Reason For Visit: MULTIFOCAL PNEUMONIA Physical Exam Vital Signs: Temp Pulse Resp BP Pulse Ox 98.0 F 76 16 112/74 96 03/21/19 15:10 03/21/19 15:10 03/21/19 15:10 03/21/19 15:10 03/21/19 15:10 Intake & Output 03/20/19 03/21/19 03/22/19 06:59 06:59 06:59 Intake Total 2877 3149 610 Output Total 0 0 400 Balance 2877 3149 210 Weight 93.2 kg General appearance: PRESENT: no acute distress, well-developed, well-nourished Head exam: PRESENT: atraumatic, normocephalic Eye exam: PRESENT: conjunctiva pink Respiratory exam: PRESENT: clear to auscultation teetee. ABSENT: rales, rhonchi, wheezes Cardiovascular exam: PRESENT: RRR. ABSENT: diastolic murmur, rubs, systolic murmur GI/Abdominal exam: PRESENT: normal bowel sounds, soft. ABSENT: distended, guarding, mass, organolmegaly, rebound, tenderness Neurological exam: PRESENT: alert, awake Psychiatric exam: PRESENT: appropriate affect, normal mood Skin exam: PRESENT: dry, intact, warm Results Laboratory Results: 03/18/19 06:08 03/20/19 09:30 03/16/19 15:41 Blood Blood Culture - Final NO GROWTH IN 5 DAYS 03/18/19 05:20 Sputum Gram Stain - Final 03/18/19 05:20 Sputum Sputum Culture - Final Staphylococcus Aureus C.albicans/C.dubliniensis Normal Leda 03/16/19 03/16/19 03/17/19 18:55 18:55 01:14 Creatine Kinase 845 H 843 H CK-MB (CK-2) 32.40 H Troponin I 0.015 NT-Pro-B Natriuret Pep 03/17/19 03/17/19 03/17/19 01:14 07:25 07:25 Creatine Kinase 778 H CK-MB (CK-2) 25.90 H 20.10 H Troponin I 0.017 0.019 NT-Pro-B Natriuret Pep 990 H Impressions: Chest CT 03/16/19 00:00 IMPRESSION: Multifocal nodular consolidative and groundglass opacity throughout both lungs, most pronounced within the right middle and lower lobes, indicative of multifocal pneumonia. Follow-up to clearing is recommended. Small bilateral pleural effusions. TECHNICAL DOCUMENTATION: Quality ID # 436: Final reports with documentation of one or more dose reduction techniques (e.g., Automated exposure control, adjustment of the mA and/or kV according to patient size, use of iterative reconstruction technique) copyright 2011 [employer]- All Rights Reserved Head CT 03/16/19 00:00 IMPRESSION: Atrophy and chronic small vessel ischemic changes with no acute intracranial abnormality. Chest X-Ray 03/16/19 16:00 IMPRESSION: Patchy bibasilar opacities suggestive of multifocal pneumonia. No significant effusion. Assessment and Plan - Diagnosis (1) Bilateral pneumonia Qualifiers: Pneumonia type: due to unspecified organism Lung location: unspecified part of lung Qualified Code(s): J18.9 - Pneumonia, unspecified organism Is this a current diagnosis for this admission?: Yes Plan: 03/18: Continue IV antibiotics. Suspect gram-negative/atypicals as the cause of this. Bronchial hygiene. Supplemental oxygen as needed Vancomycin and Levaquin course to complete on 03/24; plan to transition to oral antibiotics if this is not completed by the time he is discharged (2) Malar rash Is this a current diagnosis for this admission?: Yes (3) Suspected sleep apnea Is this a current diagnosis for this admission?: Yes (4) Bradycardia Is this a current diagnosis for this admission?: Yes (5) Atrial fibrillation with slow ventricular response Is this a current diagnosis for this admission?: Yes (6) CKD (chronic kidney disease) Is this a current diagnosis for this admission?: No (7) Diabetes Qualifiers: Diabetes mellitus type: type 2 Is this a current diagnosis for this admission?: No (8) Hypoglycemia Is this a current diagnosis for this admission?: Yes (9) Hypotension Is this a current diagnosis for this admission?: Yes (10) Hypothermia Qualifiers: Encounter type: initial encounter Qualified Code(s): T68.XXXA - Hypothermia, initial encounter Is this a current diagnosis for this admission?: Yes (11) Sepsis Is this a current diagnosis for this admission?: Yes - Plan Summary Summary: As of today, patient has been submitted for authorization for SNF and will be awaiting authorization. Per social work, this likely will not occur until Sunday or Sunday.
[2019-03-21] MEDS: LEVOFLOXACIN 750 MG TABLET PO SCH (17:43)
[2019-03-22] MEDS: DEXTROSE 5%-NORMAL SALINE 1,000 ML IV PRN ×3 (02:38→21:36)
[2019-03-22] MEDS: PANTOPRAZOLE SODIUM 40 MG TABLET.DR PO SCH ×2 (05:34→17:30)
[2019-03-22] MEDS: HEPARIN SOD (PORCINE) 5,000 UNIT/ML 1 ML VIAL SUBCUT SCH ×3 (05:34→21:32)
[2019-03-22] MEDS: INSULIN REG, HUMAN 100 UNIT/ML 3 ML VIAL (PYX) SUBCUT SCH ×4 (09:18→21:20)
[2019-03-22] MEDS: TAMSULOSIN HCL 0.4 MG CAP.SR.24H PO SCH (09:25)
[2019-03-22] MEDS: PENTOXIFYLLINE 400 MG TABLET.SA PO SCH ×3 (09:25→17:31)
[2019-03-22] MEDS: SULFAMETHOXAZOLE/TRIMETHOPRIM 800-160 MG TABLET PO SCH ×2 (09:25→17:31)
[2019-03-22] MEDS: SERTRALINE HCL 50 MG TABLET PO SCH (09:25)
[2019-03-22] MEDS: FEBUXOSTAT 40 MG TABLET PO SCH (09:25)
[2019-03-22] MEDS: BENZONATATE 100 MG CAPSULE PO SCH ×3 (09:25→17:30)
--- NOTE | 2019-03-22 11:55 | PDOC PROGRESS REPORT ---
Subjective Subjective:: Patient is a 68-year-old white male admitted for multifocal pneumonia with severe sepsis, hypothermia, bradycardia, A. fib/flutter. 03/18: Patient complains of some lightheadedness when he has cardiac pauses and arrhythmias today but is relatively alert otherwise. He denies chest pain. He states he has had a sleep study in the past that diagnosed him with sleep apnea however he chose to do nothing to treat this. He appears unable to breathe through his nose especially while sleeping and he is very sleepy on exam. Probably has pretty severe PITA. 03/19: Patient is much more alert and energetic today. Breathing is less labored though he still requires some supplemental oxygen. Discussed with nursing that we should be weaning this actively. Long discussion with patient and his daughter who takes care of him at home. She notes that patient frequently stops breathing and snores loudly at home, has been essentially pleading with patient to use CPAP though he refuses. Discussed the case with cardiology today who recommended PITA be appropriately treated and no further cardiac testing or interventions at this time. 03/20: Notable improvement in respiratory status. Still having some shortness of breath intermittently but nothing like when he was admitted. Mentation is quite clear as well. Nursing is weaning him off supplemental oxygen quite well. Physical therapy has seen patient and has recommended continued therapy. Patient's daughter prefers patient go to rehab facility though he may be a pamela r candidate for home health physical therapy pending further evaluation from therapist here. 03/21: Patient for some reason was put back on supplemental oxygen overnight though it does not seem that he actually needs this. Please do not put this back on him unless he is desaturating and symptomatic or we risk harming him by causing CO2 retention. No new complaints and states his breathing is improved overall. Patient and his family would like him to go to SNF and social work is working on this trying to obtain authorization. 03/22: Patient still having positive bradycardia at night as before due to PITA. He has been offered BiPAP in the past but has refused to use it. Nursing would like to try this again and then we discussed with the patient he was agreeable. Other than very mild intermittent shortness of breath he has no new complaints. Reason For Visit: MULTIFOCAL PNEUMONIA Physical Exam Vital Signs: Temp Pulse Resp BP Pulse Ox 98.2 F 77 18 117/56 L 97 03/22/19 07:48 03/22/19 07:48 03/22/19 07:48 03/22/19 07:48 03/22/19 07:48 Intake & Output 03/21/19 03/22/19 03/23/19 06:59 06:59 06:59 Intake Total 3149 3550 Output Total 0 400 Balance 3149 3150 Weight 94.9 kg General appearance: PRESENT: no acute distress, well-developed, well-nourished Head exam: PRESENT: atraumatic, normocephalic Eye exam: PRESENT: conjunctiva pink Respiratory exam: PRESENT: clear to auscultation teetee. ABSENT: rales, rhonchi, wheezes Cardiovascular exam: PRESENT: RRR. ABSENT: diastolic murmur, rubs, systolic murmur GI/Abdominal exam: PRESENT: normal bowel sounds, soft. ABSENT: distended, guarding, mass, organolmegaly, rebound, tenderness Neurological exam: PRESENT: alert, awake, oriented to person, oriented to place, oriented to time, oriented to situation Psychiatric exam: PRESENT: appropriate affect, normal mood Skin exam: PRESENT: dry, intact, warm Results Laboratory Results: 03/18/19 06:08 03/20/19 09:30 03/16/19 18:55 Blood Blood Culture - Final NO GROWTH IN 5 DAYS 03/16/19 15:41 Blood Blood Culture - Final NO GROWTH IN 5 DAYS 03/18/19 05:20 Sputum Gram Stain - Final 03/18/19 05:20 Sputum Sputum Culture - Final Staphylococcus Aureus C.albicans/C.dubliniensis Normal Leda 03/16/19 03/16/19 03/17/19 18:55 18:55 01:14 Creatine Kinase 845 H 843 H CK-MB (CK-2) 32.40 H Troponin I 0.015 NT-Pro-B Natriuret Pep 03/17/19 03/17/19 03/17/19 01:14 07:25 07:25 Creatine Kinase 778 H CK-MB (CK-2) 25.90 H 20.10 H Troponin I 0.017 0.019 NT-Pro-B Natriuret Pep 990 H Impressions: Chest CT 03/16/19 00:00 IMPRESSION: Multifocal nodular consolidative and groundglass opacity throughout both lungs, most pronounced within the right middle and lower lobes, indicative of multifocal pneumonia. Follow-up to clearing is recommended. Small bilateral pleural effusions. TECHNICAL DOCUMENTATION: Quality ID # 436: Final reports with documentation of one or more dose reduction techniques (e.g., Automated exposure control, adjustment of the mA and/or kV according to patient size, use of iterative reconstruction technique) copyright 2011 [employer]- All Rights Reserved Head CT 03/16/19 00:00 IMPRESSION: Atrophy and chronic small vessel ischemic changes with no acute intracranial abnormality. Chest X-Ray 03/16/19 16:00 IMPRESSION: Patchy bibasilar opacities suggestive of multifocal pneumonia. No significant effusion. Assessment and Plan - Diagnosis (1) Bilateral pneumonia Qualifiers: Pneumonia type: due to unspecified organism Lung location: unspecified part of lung Qualified Code(s): J18.9 - Pneumonia, unspecified organism Is this a current diagnosis for this admission?: Yes Plan: 03/18: Continue IV antibiotics. Suspect gram-negative/atypicals as the cause of this. Bronchial hygiene. Supplemental oxygen as needed Vancomycin and Levaquin course to complete on 03/24; plan to transition to oral antibiotics if this is not completed by the time he is discharged IV antibiotics continued to completion Infection essentially resolved at this point (2) Malar rash Is this a current diagnosis for this admission?: Yes Plan: 03/18: Per patient, he thinks this is eczema that he does not appear to have any lesions like this in other parts of his body. Seems to be isolated to his fore head and cheeks. He also admits that this became much worse after he spent some time in the sun recently. Ruled out lupus. RICHA negative Highly suspect this is actually impetigo/staph infection as the rash is almost completely resolved while he has been on antibiotics (3) Suspected sleep apnea Is this a current diagnosis for this admission?: Yes Plan: 03/18: Needs outpatient sleep study. Per patient, he has been diagnosed with PITA in the past but did not have this treated. Discussed with patient it puts him at risk for arrhythmias. Apparently, patient states he has known PITA but has not wanted to use CPAP in the past. Daughter plans to get him follow-up with sleep medicine and get a CPAP. I have very clearly told patient and his daughter that the patient's sleep apnea is severely worsening his other medical problems. Must use CPAP nightly; this will be available to the patient if he is willing to use it here and I recommend he continue using it at his SNF when he leaves (4) Bradycardia Is this a current diagnosis for this admission?: Yes (5) Atrial fibrillation with slow ventricular response Is this a current diagnosis for this admission?: Yes (6) CKD (chronic kidney disease) Is this a current diagnosis for this admission?: No (7) Diabetes Qualifiers: Diabetes mellitus type: type 2 Is this a current diagnosis for this admission?: No (8) Hypoglycemia Is this a current diagnosis for this admission?: Yes (9) Hypotension Is this a current diagnosis for this admission?: Yes (10) Hypothermia Qualifiers: Encounter type: initial encounter Qualified Code(s): T68.XXXA - Hypothermia, initial encounter Is this a current diagnosis for this admission?: Yes (11) Sepsis Is this a current diagnosis for this admission?: Yes - Plan Summary Summary: As of today, patient has been submitted for authorization for SNF and will be awaiting authorization. Per social work, this likely will not occur until Sunday or Sunday. - Time Time Spent with patient: 25-34 minutes Anticipated discharge: SNF - Inpatient Certification Based on my medical assessment, after consideration of the patient's comorbidities, presenting symptoms, or acuity I expect that the services needed warrant INPATIENT care.: Yes I certify that my determination is in accordance with my understanding of Medicare's requirements for reasonable and necessary INPATIENT services [42 CFR 412.3e].: Yes Medical Necessity: Need for IV Antibiotics
[2019-03-23] MEDS: DEXTROSE 5%-NORMAL SALINE 1,000 ML IV PRN ×3 (06:10→23:41)
[2019-03-23] MEDS: HEPARIN SOD (PORCINE) 5,000 UNIT/ML 1 ML VIAL SUBCUT SCH ×3 (06:11→21:45)
[2019-03-23] MEDS: PANTOPRAZOLE SODIUM 40 MG TABLET.DR PO SCH ×2 (06:11→17:18)
[2019-03-23] MEDS: SERTRALINE HCL 50 MG TABLET PO SCH (10:28)
[2019-03-23] MEDS: TAMSULOSIN HCL 0.4 MG CAP.SR.24H PO SCH (10:28)
[2019-03-23] MEDS: BENZONATATE 100 MG CAPSULE PO SCH ×3 (10:28→17:17)
[2019-03-23] MEDS: SULFAMETHOXAZOLE/TRIMETHOPRIM 800-160 MG TABLET PO SCH ×2 (10:28→17:17)
[2019-03-23] MEDS: FEBUXOSTAT 40 MG TABLET PO SCH (10:29)
[2019-03-23] MEDS: PENTOXIFYLLINE 400 MG TABLET.SA PO SCH ×3 (10:29→17:18)
[2019-03-23] MEDS: INSULIN REG, HUMAN 100 UNIT/ML 3 ML VIAL (PYX) SUBCUT SCH ×4 (10:29→21:44)
--- NOTE | 2019-03-23 14:14 | PDOC PROGRESS REPORT ---
Subjective Subjective:: Patient is a 68-year-old white male admitted for multifocal pneumonia with severe sepsis, hypothermia, bradycardia, A. fib/flutter. 03/18: Patient complains of some lightheadedness when he has cardiac pauses and arrhythmias today but is relatively alert otherwise. He denies chest pain. He states he has had a sleep study in the past that diagnosed him with sleep apnea however he chose to do nothing to treat this. He appears unable to breathe through his nose especially while sleeping and he is very sleepy on exam. Probably has pretty severe PITA. 03/19: Patient is much more alert and energetic today. Breathing is less labored though he still requires some supplemental oxygen. Discussed with nursing that we should be weaning this actively. Long discussion with patient and his daughter who takes care of him at home. She notes that patient frequently stops breathing and snores loudly at home, has been essentially pleading with patient to use CPAP though he refuses. Discussed the case with cardiology today who recommended PITA be appropriately treated and no further cardiac testing or interventions at this time. 03/20: Notable improvement in respiratory status. Still having some shortness of breath intermittently but nothing like when he was admitted. Mentation is quite clear as well. Nursing is weaning him off supplemental oxygen quite well. Physical therapy has seen patient and has recommended continued therapy. Patient's daughter prefers patient go to rehab facility though he may be a pamela r candidate for home health physical therapy pending further evaluation from therapist here. 03/21: Patient for some reason was put back on supplemental oxygen overnight though it does not seem that he actually needs this. Please do not put this back on him unless he is desaturating and symptomatic or we risk harming him by causing CO2 retention. No new complaints and states his breathing is improved overall. Patient and his family would like him to go to SNF and social work is working on this trying to obtain authorization. 03/22: Patient still having positive bradycardia at night as before due to PITA. He has been offered BiPAP in the past but has refused to use it. Nursing would like to try this again and then we discussed with the patient he was agreeable. Other than very mild intermittent shortness of breath he has no new complaints. 03/23: Patient had a 10-second pause in his rhythm strip overnight despite being on BiPAP. Nursing promptly woke him up and patient states he was asymptomatic and was sleeping very well. He states he feels great today and had a very enjoyable 8 hours of sleep last night. Cardiology will need to reassess his need for pacemaker given he had a much longer pause. Reason For Visit: MULTIFOCAL PNEUMONIA Physical Exam Vital Signs: Temp Pulse Resp BP Pulse Ox 97.5 F 80 20 123/58 L 100 03/23/19 07:59 03/23/19 07:59 03/23/19 07:59 03/23/19 07:59 03/23/19 07:59 Intake & Output 03/22/19 03/23/19 03/24/19 06:59 06:59 06:59 Intake Total 3550 3680 Output Total 400 Balance 3150 3680 Weight 94.9 kg 94.8 kg General appearance: PRESENT: no acute distress, well-developed, well-nourished Head exam: PRESENT: atraumatic, normocephalic Eye exam: PRESENT: conjunctiva pink Mouth exam: PRESENT: moist Respiratory exam: PRESENT: clear to auscultation teetee. ABSENT: rales, rhonchi, wheezes Cardiovascular exam: PRESENT: RRR. ABSENT: diastolic murmur, rubs, systolic murmur GI/Abdominal exam: PRESENT: normal bowel sounds, soft. ABSENT: distended, guarding, mass, organolmegaly, rebound, tenderness Neurological exam: PRESENT: alert, awake Psychiatric exam: PRESENT: appropriate affect, normal mood Skin exam: PRESENT: dry, intact, warm Results Laboratory Results: 03/18/19 06:08 03/20/19 09:30 03/16/19 03/16/19 03/17/19 18:55 18:55 01:14 Creatine Kinase 845 H 843 H CK-MB (CK-2) 32.40 H Troponin I 0.015 NT-Pro-B Natriuret Pep 03/17/19 03/17/19 03/17/19 01:14 07:25 07:25 Creatine Kinase 778 H CK-MB (CK-2) 25.90 H 20.10 H Troponin I 0.017 0.019 NT-Pro-B Natriuret Pep 990 H Impressions: Chest CT 03/16/19 00:00 IMPRESSION: Multifocal nodular consolidative and groundglass opacity throughout both lungs, most pronounced within the right middle and lower lobes, indicative of multifocal pneumonia. Follow-up to clearing is recommended. Small bilateral pleural effusions. TECHNICAL DOCUMENTATION: Quality ID # 436: Final reports with documentation of one or more dose reduction techniques (e.g., Automated exposure control, adjustment of the mA and/or kV according to patient size, use of iterative reconstruction technique) copyright 2011 [employer]- All Rights Reserved Head CT 03/16/19 00:00 IMPRESSION: Atrophy and chronic small vessel ischemic changes with no acute intracranial abnormality. Chest X-Ray 03/16/19 16:00 IMPRESSION: Patchy bibasilar opacities suggestive of multifocal pneumonia. No significant effusion. Assessment and Plan - Diagnosis (1) Bilateral pneumonia Qualifiers: Pneumonia type: due to unspecified organism Lung location: unspecified part of lung Qualified Code(s): J18.9 - Pneumonia, unspecified organism Is this a current diagnosis for this admission?: Yes Plan: 03/18: Continue IV antibiotics. Suspect gram-negative/atypicals as the cause of this. Bronchial hygiene. Supplemental oxygen as needed Vancomycin and Levaquin course to complete on 03/24; plan to transition to oral antibiotics if this is not completed by the time he is discharged Antibiotics will complete tomorrow Infection essentially resolved at this point (2) Malar rash Is this a current diagnosis for this admission?: Yes (3) Suspected sleep apnea Is this a current diagnosis for this admission?: Yes (4) Bradycardia Is this a current diagnosis for this admission?: Yes Plan: Cardiology consulted Most likely due to sleep apnea, will likely improve/resolve with CPAP compliance Discussed with Dr. Conway in cardiology who recommended no further cardiac work-up, only need to treat patient's PITA appropriately Had a 10-second pause on his rhythm strip overnight 03/22 while sleeping on BiPAP (5) Atrial fibrillation with slow ventricular response Is this a current diagnosis for this admission?: Yes (6) CKD (chronic kidney disease) Is this a current diagnosis for this admission?: No (7) Diabetes Qualifiers: Diabetes mellitus type: type 2 Is this a current diagnosis for this admission?: No (8) Hypoglycemia Is this a current diagnosis for this admission?: Yes (9) Hypotension Is this a current diagnosis for this admission?: Yes (10) Hypothermia Qualifiers: Encounter type: initial encounter Qualified Code(s): T68.XXXA - Hypothermia, initial encounter Is this a current diagnosis for this admission?: Yes (11) Sepsis Is this a current diagnosis for this admission?: Yes - Plan Summary Summary: As of today, patient has been submitted for authorization for SNF and will be awaiting authorization. Per social work, this likely will not occur until Sunday or Sunday. - Time Time Spent with patient: 15-24 minutes Anticipated discharge: Acute Rehab Within: within 48 hours - Inpatient Certification Medical Necessity: Need Close Monitoring Due to Risk of Patient Decompensation, Need for IV Antibiotics
[2019-03-23 16:58] LABS: ARTERIAL BLOOD FIO2 21%; ARTERIAL BLOOD H2CO3 1.06 mmol/L (1.05-1.35); ARTERIAL BLOOD HCO3 20.5 mmol/L (20-24); ARTERIAL BLOOD O2 SATURATION 95.9 % (94-98); ARTERIAL BLOOD PCO2 35.3 mmHg (35-45); ARTERIAL BLOOD PH 7.38 (7.35-7.45); ARTERIAL BLOOD PO2 80.8 mmHg (80-100); ARTERIAL BLOOD TOTAL CO2 21.6 mmol/L (23-27)
[2019-03-23 17:27] LABS: ABSOLUTE EOSINOPHILS # (AUTO) 0.1 10^3/uL (0.0-0.6); ABSOLUTE MONOCYTES (AUTO) 0.8 10^3/uL (0.1-1.4); ABSOLUTE NEUT (AUTO) 6.8 10^3/uL (1.7-8.2); BASOPHILS % (AUTO) 0.2 % (0-2); EOSINOPHILS % (AUTO) 1.6 % (0-6); HEMATOCRIT 26.7 % (37.9-51.0); HEMOGLOBIN 9.1 g/dL (13.5-17.0); LYMPHOCYTES % (AUTO) 11.5 % (13-45); MEAN CORPUSCULAR HEMOGLOBIN 30.2 pg (27.0-33.4); MEAN CORPUSCULAR HGB CONC 33.9 g/dL (32.0-36.0); MEAN CORPUSCULAR VOLUME 89 fl (80-97); MONOCYTES % (AUTO) 8.8 % (3-13); PLATELET COUNT 146 10^3/uL (150-450); SEGMENTED NEUTROPHILS % (AUTO) 77.9 % (42-78); TOTAL CELLS COUNTED % (AUTO) 100 %; WHITE BLOOD COUNT 8.8 10^3/uL (4.0-10.5)
[2019-03-24] MEDS: HEPARIN SOD (PORCINE) 5,000 UNIT/ML 1 ML VIAL SUBCUT SCH ×3 (06:15→21:44)
[2019-03-24] MEDS: PANTOPRAZOLE SODIUM 40 MG TABLET.DR PO SCH ×2 (06:15→17:15)
[2019-03-24] MEDS: INSULIN REG, HUMAN 100 UNIT/ML 3 ML VIAL (PYX) SUBCUT SCH ×4 (08:04→21:38)
[2019-03-24] MEDS: DEXTROSE 5%-NORMAL SALINE 1,000 ML IV PRN (08:06)
[2019-03-24] MEDS: SULFAMETHOXAZOLE/TRIMETHOPRIM 800-160 MG TABLET PO SCH ×2 (09:40→17:15)
[2019-03-24] MEDS: FEBUXOSTAT 40 MG TABLET PO SCH (09:40)
[2019-03-24] MEDS: SERTRALINE HCL 50 MG TABLET PO SCH (09:40)
[2019-03-24] MEDS: PENTOXIFYLLINE 400 MG TABLET.SA PO SCH ×3 (09:40→17:19)
[2019-03-24] MEDS: BENZONATATE 100 MG CAPSULE PO SCH ×3 (09:40→17:15)
[2019-03-24] MEDS: TAMSULOSIN HCL 0.4 MG CAP.SR.24H PO SCH (09:40)
[2019-03-24] MEDS ORDERED: DEXTROSE 40% GEL 15 GM TUBE PO PRN (11:47)
--- NOTE | 2019-03-24 11:50 | PDOC PROGRESS REPORT ---
Subjective Progress Note for:: 03/24/19 Subjective:: Patient states that he is feeling well today.Has been using CPAP while inpatient and has no complaints with it a the moment. States that he did not notice any symptoms when he had some pauses last night. Reason For Visit: MULTIFOCAL PNEUMONIA Physical Exam Vital Signs: Temp Pulse Resp BP Pulse Ox 97.5 F 77 14 108/54 L 95 03/24/19 07:40 03/24/19 07:40 03/24/19 08:00 03/24/19 07:40 03/24/19 08:00 Intake & Output 03/23/19 03/24/19 03/25/19 06:59 06:59 06:59 Intake Total 3680 3000 1250 Balance 3680 3000 1250 Weight 94.8 kg 106 kg General appearance: PRESENT: no acute distress, cooperative Neck exam: ABSENT: JVD Respiratory exam: PRESENT: clear to auscultation teetee, symmetrical, unlabored. ABSENT: tachypnea, wheezes Cardiovascular exam: PRESENT: RRR, +S1, +S2. ABSENT: tachycardia GI/Abdominal exam: PRESENT: normal bowel sounds, soft. ABSENT: rebound, rigid, tenderness Neurological exam: PRESENT: alert, awake, oriented to person, oriented to place, oriented to time Results Laboratory Results: 03/23/19 17:00 03/20/19 09:30 03/23/19 03/23/19 16:45 17:00 WBC 8.8 RBC 3.00 L Hgb 9.1 L Hct 26.7 L MCV 89 MCH 30.2 MCHC 33.9 RDW 15.0 H Plt Count 146 L Seg Neutrophils % 77.9 Carbonic Acid 1.06 HCO3/H2CO3 Ratio 19:1 ABG pH 7.38 ABG pCO2 35.3 ABG pO2 80.8 ABG HCO3 20.5 ABG O2 Saturation 95.9 ABG Base Excess -4.0 FiO2 21% 03/16/19 03/16/19 03/17/19 18:55 18:55 01:14 Creatine Kinase 845 H 843 H CK-MB (CK-2) 32.40 H Troponin I 0.015 NT-Pro-B Natriuret Pep 03/17/19 03/17/19 03/17/19 01:14 07:25 07:25 Creatine Kinase 778 H CK-MB (CK-2) 25.90 H 20.10 H Troponin I 0.017 0.019 NT-Pro-B Natriuret Pep 990 H Impressions: Chest CT 03/16/19 00:00 IMPRESSION: Multifocal nodular consolidative and groundglass opacity throughout both lungs, most pronounced within the right middle and lower lobes, indicative of multifocal pneumonia. Follow-up to clearing is recommended. Small bilateral pleural effusions. TECHNICAL DOCUMENTATION: Quality ID # 436: Final reports with documentation of one or more dose reduction techniques (e.g., Automated exposure control, adjustment of the mA and/or kV according to patient size, use of iterative reconstruction technique) copyright 2011 [employer]- All Rights Reserved Head CT 03/16/19 00:00 IMPRESSION: Atrophy and chronic small vessel ischemic changes with no acute intracranial abnormality. Chest X-Ray 03/16/19 16:00 IMPRESSION: Patchy bibasilar opacities suggestive of multifocal pneumonia. No significant effusion. Assessment and Plan - Diagnosis (1) Bilateral pneumonia Qualifiers: Pneumonia type: due to unspecified organism Lung location: unspecified part of lung Qualified Code(s): J18.9 - Pneumonia, unspecified organism Is this a current diagnosis for this admission?: Yes Plan: Pneumonia evident on chest imaging suspected to be bacterial Vancomycin and Levaquin course to complete today Infection essentially resolved at this point (2) Bradycardia Is this a current diagnosis for this admission?: Yes Plan: I reviewed tele monitor today and shows a few sinus pauses lasting 2-3 secs overnight. Discussed with Biological Aide Dr. Conway regarding 10-second pause [address] Conway believes that this is likely sinus pauses secondary to patient's observed sleep apnea and currently do not warrant any placement of pacemaker at this time especially as he has been sleeping during those episodes and has notstated any symptoms. We will continue to monitor patient on telemetry (3) Atrial fibrillation with slow ventricular response Is this a current diagnosis for this admission?: Yes Plan: Noted on prior EKG. High-grade AV block noted (4) Sepsis Qualifiers: Sepsis type: sepsis due to unspecified organism Sepsis acute organ dysfunction status: without acute organ dysfunction Qualified Code(s): A41.9 - Sepsis, unspecified organism Is this a current diagnosis for this admission?: Yes Plan: Present on admission. Suspected secondary to pneumonia. Currently not septic. (5) Suspected sleep apnea Is this a current diagnosis for this admission?: Yes Plan: Per patient, he has been diagnosed with PITA in the past but did not have this treated. Discussed with patient it puts him at risk for arrhythmias. Apparently, patient states he has known PITA but has not wanted to use CPAP in the past. Daughter plans to get him follow-up with sleep medicine and get a CPAP. Must use CPAP nightly; this will be available to the patient if he is willing to use it here and I recommend he continue using it at his SNF when he leaves (6) Diabetes Qualifiers: Diabetes mellitus type: type 2 Is this a current diagnosis for this admission?: No Plan: Patient's medical reconciliation shows that he was on mixed insulin regimen 40 units in the morning and 35 units in the evening. However, since patient has been in the hospital, he has only been on sliding scale with adequate blood sugar readings and not requiring much coverage via sliding scale. Given this, I will start premixed insulin 70/30 at the soft rate of 15 units twice daily AC as opposed to the home dose and uptitrate regimen as needed. Continue sliding scale and Accu-Cheks. - Plan Summary Summary: As of today, patient has been submitted for authorization for SNF and will be awaiting authorization. Per social work, this likely will not occur until Sunday or Sunday. - Time Time Spent with patient: 15-24 minutes
[2019-03-24] MEDS: HUM INSULIN NPH/REG INSULIN HM 100 UNIT/1 ML 3 ML SUBCUT SCH (17:15)
--- NOTE | 2019-03-24 19:35 | PDOC PROGRESS REPORT ---
Subjective Subjective:: Patient seen and examined. Resting with BiPAP on. He seems comfortable. He did have pauses with what appears to be either atrial fibrillation or atrial flutter with a slow ventricular response. Episodes of pauses did not correlate with symptoms and the patient was asleep when the pauses were noted. Reason For Visit: MULTIFOCAL PNEUMONIA Physical Exam Vital Signs: Temp Pulse Resp BP Pulse Ox 97.3 F 58 L 16 119/59 L 99 03/24/19 16:17 03/24/19 16:17 03/24/19 16:17 03/24/19 16:17 03/24/19 16:17 Intake & Output 03/23/19 03/24/19 03/25/19 06:59 06:59 06:59 Intake Total 3680 3000 1450 Balance 3680 3000 1450 Weight 94.8 kg 106 kg General appearance: PRESENT: no acute distress, obese Head exam: PRESENT: atraumatic, normocephalic Eye exam: PRESENT: EOMI Respiratory exam: PRESENT: symmetrical - Using BiPAP, unlabored Cardiovascular exam: PRESENT: bradycardia, irregular rhythm, +S1, +S2 Pulses: PRESENT: normal radial pulses GI/Abdominal exam: PRESENT: soft Rectal exam: PRESENT: deferred Skin exam: PRESENT: dry, intact Results Laboratory Results: 03/23/19 17:00 03/20/19 09:30 03/16/19 03/16/19 03/17/19 18:55 18:55 01:14 Creatine Kinase 845 H 843 H CK-MB (CK-2) 32.40 H Troponin I 0.015 NT-Pro-B Natriuret Pep 03/17/19 03/17/19 03/17/19 01:14 07:25 07:25 Creatine Kinase 778 H CK-MB (CK-2) 25.90 H 20.10 H Troponin I 0.017 0.019 NT-Pro-B Natriuret Pep 990 H EKG Comments: Telemetry was reviewed. Episodes of bradycardia with pauses with likely underlying atrial fibrillation. Slow ventricular response is noted. Impressions: Chest CT 03/16/19 00:00 IMPRESSION: Multifocal nodular consolidative and groundglass opacity throughout both lungs, most pronounced within the right middle and lower lobes, indicative of multifocal pneumonia. Follow-up to clearing is recommended. Small bilateral pleural effusions. TECHNICAL DOCUMENTATION: Quality ID # 436: Final reports with documentation of one or more dose reduction techniques (e.g., Automated exposure control, adjustment of the mA and/or kV according to patient size, use of iterative reconstruction technique) copyright 2011 [employer]- All Rights Reserved Head CT 03/16/19 00:00 IMPRESSION: Atrophy and chronic small vessel ischemic changes with no acute intracranial abnormality. Chest X-Ray 03/16/19 16:00 IMPRESSION: Patchy bibasilar opacities suggestive of multifocal pneumonia. No significant effusion. Assessment & Plan - Diagnosis (1) Bradycardia Is this a current diagnosis for this admission?: Yes Plan: Episodes of bradycardia without correlation with symptoms. Episodes of bradycardia are noted when patient is in deep sleep and on BiPAP. So far it is not been possible to establish symptom heart rate correlation. It is possible that the patient may require pacing especially if during awake hours his ventricular response is low and he continues to experience pauses. I do not anticipate an urgent indication for cardiac pacing in this patient at this point unless he has persistent bradycardia with symptoms. We will definitely hold off on any agents such as beta blockers or calcium blockers (2) Bilateral pneumonia Qualifiers: Pneumonia type: due to unspecified organism Lung location: unspecified part of lung Qualified Code(s): J18.9 - Pneumonia, unspecified organism Is this a current diagnosis for this admission?: Yes Plan: Treatment of pneumonia and sepsis. He appears to be improving.
[2019-03-25] MEDS: PANTOPRAZOLE SODIUM 40 MG TABLET.DR PO SCH ×2 (05:29→18:37)
[2019-03-25] MEDS: HEPARIN SOD (PORCINE) 5,000 UNIT/ML 1 ML VIAL SUBCUT SCH ×3 (05:29→21:33)
[2019-03-25] MEDS: INSULIN REG, HUMAN 100 UNIT/ML 3 ML VIAL (PYX) SUBCUT SCH ×4 (08:08→21:51)
[2019-03-25] MEDS: HUM INSULIN NPH/REG INSULIN HM 100 UNIT/1 ML 3 ML SUBCUT SCH ×2 (08:15→17:05)
[2019-03-25 09:03] LABS: ANION GAP 12 (5-19); BLOOD UREA NITROGEN 42 mg/dL (7-20); CALCIUM 8.9 mg/dL (8.4-10.2); CARBON DIOXIDE 19 mmol/L (22-30); CHLORIDE 112 mmol/L (98-107); GLUCOSE 150 mg/dL (75-110); POTASSIUM 4.3 mmol/L (3.6-5.0)
--- NOTE | 2019-03-25 10:49 | PDOC PROGRESS REPORT ---
Subjective Progress Note for:: 03/25/19 Subjective:: Patient is doing well. Denies shortness of breath at the moment. Patient's had some pauses yesterday while sleeping as well during nighttime and also during daytime while asleep which were about 2 to 3 seconds as usual. States that he uses a wheelchair at home to get around because he has degenerative joint disease and spinal stenosis in his back. States that he is interested in going to rehab. Reason For Visit: MULTIFOCAL PNEUMONIA Physical Exam Vital Signs: Temp Pulse Resp BP Pulse Ox 97.3 F 75 16 125/45 L 98 03/25/19 07:50 03/25/19 07:50 03/25/19 07:50 03/25/19 07:50 03/25/19 07:50 Intake & Output 03/24/19 03/25/19 03/26/19 06:59 06:59 06:59 Intake Total 3000 1450 Output Total 100 Balance 3000 1350 Weight 106 kg 101.9 kg General appearance: PRESENT: no acute distress, cooperative Neck exam: ABSENT: JVD Respiratory exam: PRESENT: clear to auscultation teetee, unlabored. ABSENT: tachypnea, wheezes Cardiovascular exam: PRESENT: RRR, +S1, +S2. ABSENT: bradycardia, tachycardia GI/Abdominal exam: PRESENT: normal bowel sounds, soft. ABSENT: rebound, rigid, tenderness Neurological exam: PRESENT: alert, awake, oriented to person, oriented to place, oriented to time Results Laboratory Results: 03/23/19 17:00 03/25/19 08:18 03/25/19 08:18 Sodium 143.1 Potassium 4.3 Chloride 112 H Carbon Dioxide 19 L Anion Gap 12 BUN 42 H Creatinine 1.62 H Est GFR ( Amer) 51 L Glucose 150 H Calcium 8.9 Magnesium 1.9 03/16/19 03/16/19 03/17/19 18:55 18:55 01:14 Creatine Kinase 845 H 843 H CK-MB (CK-2) 32.40 H Troponin I 0.015 NT-Pro-B Natriuret Pep 03/17/19 03/17/19 03/17/19 01:14 07:25 07:25 Creatine Kinase 778 H CK-MB (CK-2) 25.90 H 20.10 H Troponin I 0.017 0.019 NT-Pro-B Natriuret Pep 990 H Impressions: Chest CT 03/16/19 00:00 IMPRESSION: Multifocal nodular consolidative and groundglass opacity throughout both lungs, most pronounced within the right middle and lower lobes, indicative of multifocal pneumonia. Follow-up to clearing is recommended. Small bilateral pleural effusions. TECHNICAL DOCUMENTATION: Quality ID # 436: Final reports with documentation of one or more dose reduction techniques (e.g., Automated exposure control, adjustment of the mA and/or kV according to patient size, use of iterative reconstruction technique) copyright 2011 [employer]- All Rights Reserved Head CT 03/16/19 00:00 IMPRESSION: Atrophy and chronic small vessel ischemic changes with no acute intracranial abnormality. Chest X-Ray 03/16/19 16:00 IMPRESSION: Patchy bibasilar opacities suggestive of multifocal pneumonia. No significant effusion. Assessment and Plan - Diagnosis (1) Bilateral pneumonia Qualifiers: Pneumonia type: due to unspecified organism Lung location: unspecified part of lung Qualified Code(s): J18.9 - Pneumonia, unspecified organism Is this a current diagnosis for this admission?: Yes Plan: Pneumonia evident on chest imaging suspected to be bacterial and sputum culture grew staph aureus. Stefany likely just colonization not infection. Patient has completed a 8-day course of antibiotics with 5 days of Vanco and Levaquin and 3 days of Bactrim (2) Bradycardia Is this a current diagnosis for this admission?: Yes Plan: I reviewed electronic device monitor today which show some 2 to 3-second pauses again while sleeping Discussed with [employer] Room Worker Dr. Conway regarding 10-second pause [address] Conway believes that this is likely sinus pauses secondary to patient's observed sleep apnea and currently do not warrant any placement of pacemaker at this time especially as he has been sleeping during those episodes and has notstated any symptoms. We will continue to monitor patient on telemetry (3) Atrial fibrillation with slow ventricular response Is this a current diagnosis for this admission?: Yes Plan: Noted on prior EKG. High-grade AV block noted (4) Sepsis Qualifiers: Sepsis type: sepsis due to unspecified organism Sepsis acute organ dysfunction status: without acute organ dysfunction Qualified Code(s): A41.9 - Sepsis, unspecified organism Is this a current diagnosis for this admission?: Yes Plan: Present on admission. Suspected secondary to pneumonia. Currently not septic. (5) Suspected sleep apnea Is this a current diagnosis for this admission?: Yes Plan: Per patient, he has been diagnosed with PITA in the past but did not have this treated. Discussed with patient it puts him at risk for arrhythmias. Apparently, patient states he has known PITA but has not wanted to use CPAP in the past. Daughter plans to get him follow-up with sleep medicine and get a CPAP. Must use CPAP nightly; this will be available to the patient if he is willing to use it here and I recommend he continue using it at his SNF when he leaves (6) Diabetes Qualifiers: Diabetes mellitus type: type 2 Is this a current diagnosis for this admission?: No Plan: Patient's medical reconciliation shows that he was on mixed insulin 50-50? regimen 40 units in the morning and 35 units in the evening. However, since patient has been in the hospital, he has only been on sliding scale with adequat e blood sugar readings and not requiring much coverage via sliding scale. Better blood sugar control on premixed insulin 70/30 15 units twice daily AC as opposed to the home dose and uptitrate regimen as needed. Continue sliding scale and Accu-Cheks. - Plan Summary Summary: Awaiting authorization for SNF placement. - Time Time Spent with patient: 15-24 minutes
[2019-03-25] MEDS: SERTRALINE HCL 50 MG TABLET PO SCH (10:55)
[2019-03-25] MEDS: BENZONATATE 100 MG CAPSULE PO SCH ×3 (10:55→18:37)
[2019-03-25] MEDS: PENTOXIFYLLINE 400 MG TABLET.SA PO SCH ×3 (10:55→18:37)
[2019-03-25] MEDS: TAMSULOSIN HCL 0.4 MG CAP.SR.24H PO SCH (10:55)
[2019-03-25] MEDS: FEBUXOSTAT 40 MG TABLET PO SCH (10:55)
[2019-03-25] MEDS: SULFAMETHOXAZOLE/TRIMETHOPRIM 800-160 MG TABLET PO SCH (10:55)
[2019-03-25] MEDS ORDERED: RINGERS SOLUTION,LACTATED 1,000 ML IV ONE (17:40)
--- NOTE | 2019-03-25 21:38 | PDOC PROGRESS REPORT ---
Subjective Progress Note for:: 03/25/19 Subjective:: Patient seen and examined. He continues to have pauses with underlying atrial flutter. Reason For Visit: MULTIFOCAL PNEUMONIA Physical Exam Vital Signs: Temp Pulse Resp BP Pulse Ox 97.3 F 73 16 125/45 L 98 03/25/19 07:50 03/25/19 19:00 03/25/19 07:50 03/25/19 07:50 03/25/19 07:50 Intake & Output 03/24/19 03/25/19 03/26/19 06:59 06:59 06:59 Intake Total 3000 1450 830 Output Total 100 100 Balance 3000 1350 730 Weight 106 kg 101.9 kg General appearance: PRESENT: no acute distress, cooperative Head exam: PRESENT: atraumatic Eye exam: PRESENT: EOMI Mouth exam: PRESENT: moist Cardiovascular exam: PRESENT: irregular rhythm, +S1, +S2 GI/Abdominal exam: PRESENT: soft Rectal exam: PRESENT: deferred Neurological exam: PRESENT: alert, awake, oriented to person, oriented to place Psychiatric exam: PRESENT: appropriate affect Skin exam: PRESENT: dry, intact Results Laboratory Results: 03/23/19 17:00 03/25/19 08:18 03/25/19 08:18 Sodium 143.1 Potassium 4.3 Chloride 112 H Carbon Dioxide 19 L Anion Gap 12 BUN 42 H Creatinine 1.62 H Est GFR ( Amer) 51 L Glucose 150 H Calcium 8.9 Magnesium 1.9 03/16/19 03/16/19 03/17/19 18:55 18:55 01:14 Creatine Kinase 845 H 843 H CK-MB (CK-2) 32.40 H Troponin I 0.015 NT-Pro-B Natriuret Pep 03/17/19 03/17/19 03/17/19 01:14 07:25 07:25 Creatine Kinase 778 H CK-MB (CK-2) 25.90 H 20.10 H Troponin I 0.017 0.019 NT-Pro-B Natriuret Pep 990 H Impressions: Chest CT 03/16/19 00:00 IMPRESSION: Multifocal nodular consolidative and groundglass opacity throughout both lungs, most pronounced within the right middle and lower lobes, indicative of multifocal pneumonia. Follow-up to clearing is recommended. Small bilateral pleural effusions. TECHNICAL DOCUMENTATION: Quality ID # 436: Final reports with documentation of one or more dose reduction techniques (e.g., Automated exposure control, adjustment of the mA and/or kV according to patient size, use of iterative reconstruction technique) copyright 2011 [employer]- All Rights Reserved Head CT 03/16/19 00:00 IMPRESSION: Atrophy and chronic small vessel ischemic changes with no acute intracranial abnormality. Chest X-Ray 03/16/19 16:00 IMPRESSION: Patchy bibasilar opacities suggestive of multifocal pneumonia. No significant effusion. Assessment & Plan - Diagnosis (1) Bradycardia Is this a current diagnosis for this admission?: Yes Plan: Episodes of bradycardia. Atrial flutter with slow ventricular response. Most of these episodes appear to happen when patient is in deep sleep probably in relation to underlying sleep apnea. As he improves clinically we should continue to watch and perhaps correlate heart rate with symptoms. Given active infection and treatment for sepsis and pneumonia would not be ideal to pursue cardiac pacing if was proven to be necessary. At the moment we will continue to watch on telemetry. (2) Bilateral pneumonia Qualifiers: Pneumonia type: due to unspecified organism Lung location: unspecified part of lung Qualified Code(s): J18.9 - Pneumonia, unspecified organism Is this a current diagnosis for this admission?: Yes Plan: Patient has been improving steadily based on antibiotic therapy.
[2019-03-26] MEDS: HEPARIN SOD (PORCINE) 5,000 UNIT/ML 1 ML VIAL SUBCUT SCH ×2 (05:09→13:17)
[2019-03-26] MEDS: PANTOPRAZOLE SODIUM 40 MG TABLET.DR PO SCH (05:11)
[2019-03-26 06:05] LABS: ANION GAP 11 (5-19); BLOOD UREA NITROGEN 42 mg/dL (7-20); CARBON DIOXIDE 17 mmol/L (22-30); CHLORIDE 115 mmol/L (98-107); GLUCOSE 89 mg/dL (75-110); POTASSIUM 4.6 mmol/L (3.6-5.0)
[2019-03-26] MEDS: HUM INSULIN NPH/REG INSULIN HM 100 UNIT/1 ML 3 ML SUBCUT SCH (08:21)
[2019-03-26] MEDS: INSULIN REG, HUMAN 100 UNIT/ML 3 ML VIAL (PYX) SUBCUT SCH ×2 (08:21→13:17)
[2019-03-26] MEDS: SERTRALINE HCL 50 MG TABLET PO SCH (09:33)
[2019-03-26] MEDS: PENTOXIFYLLINE 400 MG TABLET.SA PO SCH ×2 (09:33→13:31)
[2019-03-26] MEDS: FEBUXOSTAT 40 MG TABLET PO SCH (09:33)
[2019-03-26] MEDS: TAMSULOSIN HCL 0.4 MG CAP.SR.24H PO SCH (09:33)
--- NOTE | 2019-03-26 10:26 | PDOC TRANSFER SUMMARY ---
Impression - Admit/DC Date/PCP Admission Date/Primary Care Provider: 03/16/19 19:38 ALLIE MANZO MD Discharge Date: 03/26/19 - Discharge Diagnosis (1) Bilateral pneumonia Is this a current diagnosis for this admission?: Yes (2) Bradycardia Is this a current diagnosis for this admission?: Yes (3) Atrial fibrillation with slow ventricular response Is this a current diagnosis for this admission?: Yes (4) Sepsis Is this a current diagnosis for this admission?: Yes (5) Suspected sleep apnea Is this a current diagnosis for this admission?: Yes (6) Diabetes Is this a current diagnosis for this admission?: Yes (7) History of hypertension Is this a current diagnosis for this admission?: Yes (8) Acute kidney injury superimposed on chronic kidney disease Is this a current diagnosis for this admission?: Yes - Assessment Summary: On presentation, patient was noted to be having severe sepsis with hypotension systolic blood pressure in the 80s and heart rate of 49. Severe sepsis was secondary to multifocal pneumonia involving both lungs which was noted on chest CT without contrast. Sputum cultures grew MSSA as well as Stefany albicans [likely just colonizing and not disclosing an actual infection] while blood cultures remained negative throughout patient's stay. Patient was treated with IV fluids and empiric IV antibiotics. He never required ICU and never required IV pressors. He was treated with 5 days of IV vancomycin and Levaquin and then subsequently continued on another 3 days of Bactrim to complete an 8-day course of antibiotics. In regards to patient bradycardia, on presentation, he was noted to be in atrial fibrillation and sometimes in atrial flutter with high- grade AV block. Of note he has had several 2 to 3-second pauses and one 10- second pause noted on telemetry which has been predominantly during sleep. He was evaluated by the rotary shear operator Dr. Francisco Kaur who deemed the patient was likely bradycardic and experiencing pauses secondary to his uncontrolled sleep apnea for which. Patient was started on CPAP nocturnally but still does have some 2 to 3-second pauses when sleeping. He has been asymptomatic during events. He has been evaluated by cardiology and deemed that there is no urgent need to pursue pacemaker placement and more focus should be on control of his sleep apnea. Patient is scheduled to follow-up with Dr. Kaur in the office for further evaluation of his paroxysms of bradycardia and sinus pauses and for evaluation of his atrial flutter/atrial fibrillation. As of now, given the patient is a significant fall risk putting him at high risk for major bleeding and very unsteady on his feet requiring rehabilitation, the decision to initiate anticoagulation has been deferred and will be addressed in the outpatient setting. Patient is being discharged in stable conditions. Of note patient did have some acute on chronic kidney disease which has improved at the moment. Patient will need a repeat basic metabolic panel in 1 week to reevaluate his renal function. (1) Bilateral pneumonia Patient has completed a 8-day course of antibiotics with 5 days of Vanco and Levaquin and 3 days of Bactrim (2) Bradycardia Is this a current diagnosis for this admission?: Yes Plan: Bradycardia with mostly 2 to 3-second pauses while sleeping on tele Evaluated by Director Behavioral Health Dr. Kaur: Pauses and episodes of bradycardia predominantly during sleep are likely secondary to patient's observed sleep apnea and currently do not warrant any urgent placement of pacemaker especially as he has been sleeping during those episodes and has not stated any correlating symptoms. Optimize PITA therapy F/u with Dr Kaur in the office for further evaluation. (3) Atrial fibrillation/Atrial Flutter with slow ventricular response Is this a current diagnosis for this admission?: Yes Plan: Noted on prior EKG. High-grade AV block noted Ventricular rate is normal F/u with Dr Kaur in the office. No AC started at this time given significant fall risk. (4) Sepsis Qualifiers: Sepsis type: sepsis due to unspecified organism Sepsis acute organ dysfunction status: without acute organ dysfunction Qualified Code(s): A41.9 - Sepsis, unspecified organism Is this a current diagnosis for this admission?: Yes Plan: Present on admission. Suspected secondary to pneumonia. Resolved (5) Suspected sleep apnea Is this a current diagnosis for this admission?: Yes Plan: Continue Nocturnal CPAP F/u with Dr. Blair in clinic for a sleep study (6) Diabetes Qualifiers: Diabetes mellitus type: type 2 Is this a current diagnosis for this admission?: No Plan: Patient's medical reconciliation shows that he was on mixed insulin 50-50? regimen 40 units in the morning and 35 units in the evening. However, since patient has been in the hospital, he has only been on sliding scale with adequate blood sugar readings and not requiring much coverage via sliding scale. Better blood sugar control on premixed insulin 70/30 15 units twice daily AC as opposed to the home dose. Blood glucose well controlle don this regimen. (7) History of Hypertension Losartan/HCTZ pill stopped on admission because of hypotension. BP has been normal range through out stay despite being off antihypertensives. Will resume small dose of HCTZ 12.5mg daily to help with LE swelling. Monitor BP. (8) JESSICA on CKD Repeat BMP in 1 week. Last Cr 1.49. F/u with his Dental Lab Technician Dr Manzo. AVoid nephrotoxic meds. - Additional Information Resuscitation Status: Do Not Intubate Referrals: ALLIE MANZO MD [Primary Care Provider] - (Please follow-up within 1 to 2 weeks we will continue monitoring of your renal function) ROSY BLAIR MD [ACTIVE STAFF] - (F/u for sleep study) FRANCISCO KAUR MD [ACTIVE STAFF] - (F/u regarding Atrial flutter and bradycardia/sinus pauses) Prescriptions: Hydrochlorothiazide [Hydrodiuril 12.5 mg Tablet] 12.5 mg PO QAM #30 capsule Home Medications: Febuxostat [Uloric 40 mg Tablet] 40 mg PO DAILY 06/01/11 Pentoxifylline [Trental 400 mg Tablet.sa] 400 mg PO TID 06/01/11 Albuterol Sulfate [Proair HFA Inhalation Aerosol 8.5 gm MDI] 2 puff IH Q4HP PRN 03/17/19 Polymyxin B Sulfate/Tmp [Polytrim Oph Soln 10 ml] 1 dose OU Q6 03/17/19 Sertraline HCl [Zoloft 50 mg Tablet] 50 mg PO DAILY 03/17/19 Tamsulosin HCl [Flomax 0.4 mg Cap.sr] 0.4 mg PO DAILY 03/17/19 Acetaminophen [Tylenol 325 mg Tablet] 650 mg PO Q4HP PRN tablet 03/26/19 Heparin Sodium,Porcine [Heparin Inj 5,000 Units/ml 1 ml Vial] 5,000 unit SUBCUT Q8 vial 03/26/19 Hum Insulin NPH/Reg Insulin Hm [Insulin 70-30 (NPH/Reg) 100 unit/mL] 15 unit SUBCUT BIDACBS #0 unit 03/26/19 Hydrochlorothiazide [Hydrodiuril 12.5 mg Tablet] 12.5 mg PO QAM #30 capsule 03/26/19 History of Present Illiness History of Present Illness: TAYLOR SMITH is a 68 year old male history of diabetes mellitus hypertension, chronic kidney disease stage III was sick for the last 1 week. He got better again become sick. He was recently started on doxycycline as an outpatient and he is not eating very little since yesterday brought to the emergency room with complaints of altered mental status high fevers and cough with brownish sputum. In the emergency room temperature is 92 initial associated with the bradycardia with questionable atrial flutter with heart rate of 49, hypotensive systolic blood pressure in the 80s and chest x-ray showing multifocal pneumonia medical consult was called for admission. On my request ICU was consulted Dr. Perez thinks at this time patient is not a candidate for ICU admission. Patient wants to be a DNI. Will he agreed to keep him in this hospital for further management. We are going to check for flu vaccination. pt is so hypoglycemic when he came in with blood sugar of 57 D50 was given latest blood sugar is 205. Physical Exam Vital Signs: Temp Pulse Resp BP Pulse Ox 97.3 F 75 16 125/45 L 95 03/25/19 07:50 03/26/19 07:00 03/26/19 00:30 03/25/19 07:50 03/26/19 04:18 Intake & Output 03/25/19 03/26/19 03/27/19 06:59 06:59 06:59 Intake Total 6706 586 0003 Output Total 100 100 Balance 3825 855 8389 Weight 101.9 kg 104.3 kg General appearance: PRESENT: no acute distress, cooperative Neck exam: ABSENT: JVD Respiratory exam: PRESENT: clear to auscultation teetee Cardiovascular exam: PRESENT: +S1, +S2. ABSENT: bradycardia, tachycardia GI/Abdominal exam: PRESENT: normal bowel sounds, soft. ABSENT: rebound, rigid, tenderness Extremities exam: PRESENT: pedal edema, +1 edema Neurological exam: PRESENT: alert, awake, oriented to person, oriented to place, oriented to time, oriented to situation Results Laboratory Results: WBC 8.8 10^3/uL (4.0-10.5) 03/23/19 17:00 RBC 3.00 10^6/uL (4.35-5.55) L 03/23/19 17:00 Hgb 9.1 g/dL (13.5-17.0) L 03/23/19 17:00 Hct 26.7 % (37.9-51.0) L 03/23/19 17:00 MCV 89 fl (80-97) 03/23/19 17:00 MCH 30.2 pg (27.0-33.4) 03/23/19 17:00 MCHC 33.9 g/dL (32.0-36.0) 03/23/19 17:00 RDW 15.0 % (11.5-14.0) H 03/23/19 17:00 Plt Count 146 10^3/uL (150-450) L 03/23/19 17:00 Lymph % (Auto) 11.5 % (13-45) L 03/23/19 17:00 [place] % (Auto) 8.8 % (3-13) 03/23/19 17:00 Eos % (Auto) 1.6 % (0-6) 03/23/19 17:00 Baso % (Auto) 0.2 % (0-2) 03/23/19 17:00 Absolute Neuts (auto) 6.8 10^3/uL (1.7-8.2) 03/23/19 17:00 Absolute Lymphs (auto) 1.0 10^3/uL (0.5-4.7) 03/23/19 17:00 Absolute Monos (auto) 0.8 10^3/uL (0.1-1.4) 03/23/19 17:00 Absolute Eos (auto) 0.1 10^3/uL (0.0-0.6) 03/23/19 17:00 Absolute Basos (auto) 0.0 10^3/uL (0.0-0.2) 03/23/19 17:00 Seg Neutrophils % 77.9 % (42-78) 03/23/19 17:00 PT 14.5 SEC (11.4-15.4) 03/16/19 15:41 INR 1.13 03/16/19 15:41 Carbonic Acid 1.06 mmol/L (1.05-1.35) 03/23/19 16:45 HCO3/H2CO3 Ratio 19:1 03/23/19 16:45 ABG pH 7.38 (7.35-7.45) 03/23/19 16:45 ABG pCO2 35.3 mmHg (35-45) 03/23/19 16:45 ABG pO2 80.8 mmHg (80-100) 03/23/19 16:45 ABG HCO3 20.5 mmol/L (20-24) 03/23/19 16:45 ABG Total CO2 21.6 mmol/L (23-27) L 03/23/19 16:45 ABG O2 Saturation 95.9 % (94-98) 03/23/19 16:45 ABG Base Excess -4.0 mmol/L 03/23/19 16:45 VBG pH 7.38 (7.30-7.42) 03/16/19 15:41 VBG pCO2 53.1 mmHg (35-63) 03/16/19 15:41 VBG HCO3 30.4 mmol/L (20-32) 03/16/19 15:41 VBG Base Excess 4.1 mmol/L 03/16/19 15:41 FiO2 21% 03/23/19 16:45 Sodium 142.8 mmol/L (137-145) 03/26/19 05:13 Potassium 4.6 mmol/L (3.6-5.0) 03/26/19 05:13 Chloride 115 mmol/L (98-107) H 03/26/19 05:13 Carbon Dioxide 17 mmol/L (22-30) L 03/26/19 05:13 Anion Gap 11 (5-19) 03/26/19 05:13 BUN 42 mg/dL (7-20) H 03/26/19 05:13 Creatinine 1.49 mg/dL (0.52-1.25) H 03/26/19 05:13 Est GFR ( Amer) 56 (>60) L 03/26/19 05:13 Est GFR (MDRD) Non-Af 47 (>60) L 03/26/19 05:13 Glucose 89 mg/dL (75-110) 03/26/19 05:13 POC Glucose 94 mg/dL (70-110) 03/26/19 08:16 Hemoglobin A1c % 6.2 % (4.7-6.0) H 03/17/19 07:25 Lactic Acid 0.7 mmol/L (0.7-2.1) 03/17/19 01:14 Calcium 9.0 mg/dL (8.4-10.2) 03/26/19 05:13 Magnesium 1.9 mg/dL (1.6-2.3) 03/25/19 08:18 Total Bilirubin 0.4 mg/dL (0.2-1.3) 03/18/19 06:08 Direct Bilirubin 0.3 mg/dL (0.0-0.4) 03/18/19 06:08 Neonat Total Bilirubin Not Reportable 03/18/19 06:08 Neonat Direct Bilirubin Not Reportable 03/18/19 06:08 Neonat Indirect Bili Not Reportable 03/18/19 06:08 AST 51 U/L (17-59) 03/18/19 06:08 ALT 35 U/L (<50) 03/18/19 06:08 Alkaline Phosphatase 89 U/L (38-126) 03/18/19 06:08 Ammonia < 8.7 umol/L (9-33) L 03/17/19 07:25 Creatine Kinase 778 U/L (55-170) H 03/17/19 07:25 CK-MB (CK-2) 20.10 ng/mL (<4.55) H 03/17/19 07:25 Troponin I 0.019 ng/mL 03/17/19 07:25 NT-Pro-B Natriuret Pep 990 pg/mL (<125) H 03/17/19 07:25 Total Protein 6.2 g/dL (6.3-8.2) L 03/18/19 06:08 Albumin 2.8 g/dL (3.5-5.0) L 03/18/19 06:08 TSH 4.59 uIU/mL (0.47-4.68) 03/18/19 06:08 Cortisol AM Sample 7.80 ug/dL (4.46-22.7) 03/18/19 06:08 Urine Color YELLOW 03/16/19 18:25 Urine Appearance CLEAR 03/16/19 18:25 Urine pH 6.0 (5.0-9.0) 03/16/19 18:25 Ur Specific [place] 1.010 03/16/19 18:25 Urine Protein NEGATIVE mg/dL (NEGATIVE) 03/16/19 18:25 Urine Glucose (UA) NEGATIVE mg/dL (NEGATIVE) 03/16/19 18:25 Urine Ketones TRACE mg/dL (NEGATIVE) H 03/16/19 18:25 Urine Blood NEGATIVE (NEGATIVE) 03/16/19 18:25 Urine Nitrite Cancelled 03/16/19 18:25 Urine Nitrite (Reflex) NEGATIVE (NEGATIVE) 03/16/19 18:25 Urine Bilirubin NEGATIVE (NEGATIVE) 03/16/19 18:25 Urine Urobilinogen NEGATIVE mg/dL (<2.0) 03/16/19 18:25 Ur Leukocyte Esterase Cancelled 03/16/19 18:25 Leukocyte Esterase Rfl NEGATIVE (NEGATIVE) 03/16/19 18:25 Urine WBC (Auto) Cancelled 03/16/19 18:25 Urine RBC (Auto) 0 /HPF 03/16/19 18:25 U Hyaline Cast (Auto) 6 /LPF 03/16/19 18:25 Urine WBC (Reflex) < 1 /HPF 03/16/19 18:25 Urine Mucus (Auto) RARE /LPF 03/16/19 18:25 Urine Ascorbic Acid 20 (NEGATIVE) H 03/16/19 18:25 Time Trough Drawn 0947 03/19/19 09:47 Vancomycin Trough 14.5 ug/mL (5.0-20.0) 03/19/19 09:47 Urine Opiates Screen NEGATIVE 03/16/19 18:25 Urine Methadone Screen NEGATIVE 03/16/19 18:25 Ur Barbiturates Screen NEGATIVE 03/16/19 18:25 Ur Phencyclidine Scrn NEGATIVE 03/16/19 18:25 Ur Amphetamines Screen NEGATIVE 03/16/19 18:25 U Benzodiazepines Scrn NEGATIVE 03/16/19 18:25 Urine Cocaine Screen NEGATIVE 03/16/19 18:25 U Marijuana (THC) Screen NEGATIVE 03/16/19 18:25 RICHA (Multiplex) Negative (Negative) 03/18/19 06:08 Influenza A (Rapid) NEGATIVE (NEGATIVE) 03/16/19 21:01 Influenza Type A Ab Cancelled 03/16/19 15:41 Influenza B (Rapid) NEGATIVE (NEGATIVE) 03/16/19 21:01 Influenza Type B Ab Cancelled 03/16/19 15:41 03/16/19 03/17/19 03/17/19 18:55 01:14 07:25 CK-MB (CK-2) 32.40 H 25.90 H 20.10 H Troponin I 0.015 0.017 0.019 NT-Pro-B Natriuret Pep 990 H Impressions: Chest CT 03/16/19 00:00 IMPRESSION: Multifocal nodular consolidative and groundglass opacity throughout both lungs, most pronounced within the right middle and lower lobes, indicative of multifocal pneumonia. Follow-up to clearing is recommended. Small bilateral pleural effusions. TECHNICAL DOCUMENTATION: Quality ID # 436: Final reports with documentation of one or more dose reduction techniques (e.g., Automated exposure control, adjustment of the mA and/or kV according to patient size, use of iterative reconstruction technique) copyright 2011 [employer]- All Rights Reserved Head CT 03/16/19 00:00 IMPRESSION: Atrophy and chronic small vessel ischemic changes with no acute intracranial abnormality. Chest X-Ray 03/16/19 16:00 IMPRESSION: Patchy bibasilar opacities suggestive of multifocal pneumonia. No significant effusion. Plan Time Spent: Less than 30 Minutes Stroke Is this a Stroke Patient?: No Acute Heart Failure - Is this a Heart Failure Patient?: No
[2019-03-26 14:27] VITALS: BP 134/59
--- NOTE | 2019-03-26 16:33 | PDOC PROGRESS REPORT ---
Subjective Progress Note for:: 03/26/19 Subjective:: Patient seen and examined. He continues to have pauses with underlying atrial flutter. The pulses are not that pronounced. Atrial flutter with slow ventricular response predominates Reason For Visit: MULTIFOCAL PNEUMONIA Physical Exam Vital Signs: Temp Pulse Resp BP Pulse Ox 97.3 F 73 18 134/59 H 98 03/26/19 12:32 03/26/19 14:00 03/26/19 12:32 03/26/19 12:32 03/26/19 12:32 Intake & Output 03/25/19 03/26/19 03/27/19 06:59 06:59 06:59 Intake Total 8055 587 5533 Output Total 100 100 Balance 8483 423 7473 Weight 101.9 kg 104.3 kg General appearance: PRESENT: obese Head exam: PRESENT: atraumatic, normocephalic Eye exam: PRESENT: EOMI Respiratory exam: PRESENT: crackles, decreased breath sounds, unlabored Cardiovascular exam: PRESENT: irregular rhythm, +S1, +S2 Pulses: PRESENT: normal radial pulses GI/Abdominal exam: PRESENT: soft Rectal exam: PRESENT: deferred Neurological exam: PRESENT: alert, oriented to person, oriented to place Psychiatric exam: PRESENT: appropriate affect Skin exam: PRESENT: dry, intact Results Laboratory Results: 03/23/19 17:00 03/26/19 05:13 03/26/19 05:13 Sodium 142.8 Potassium 4.6 Chloride 115 H Carbon Dioxide 17 L Anion Gap 11 BUN 42 H Creatinine 1.49 H Est GFR ( Amer) 56 L Glucose 89 Calcium 9.0 03/16/19 03/16/19 03/17/19 18:55 18:55 01:14 Creatine Kinase 845 H 843 H CK-MB (CK-2) 32.40 H Troponin I 0.015 NT-Pro-B Natriuret Pep 03/17/19 03/17/19 03/17/19 01:14 07:25 07:25 Creatine Kinase 778 H CK-MB (CK-2) 25.90 H 20.10 H Troponin I 0.017 0.019 NT-Pro-B Natriuret Pep 990 H Impressions: Chest CT 03/16/19 00:00 IMPRESSION: Multifocal nodular consolidative and groundglass opacity throughout both lungs, most pronounced within the right middle and lower lobes, indicative of multifocal pneumonia. Follow-up to clearing is recommended. Small bilateral pleural effusions. TECHNICAL DOCUMENTATION: Quality ID # 436: Final reports with documentation of one or more dose reduction techniques (e.g., Automated exposure control, adjustment of the mA and/or kV according to patient size, use of iterative reconstruction technique) copyright 2011 [employer]- All Rights Reserved Head CT 03/16/19 00:00 IMPRESSION: Atrophy and chronic small vessel ischemic changes with no acute intracranial abnormality. Chest X-Ray 03/16/19 16:00 IMPRESSION: Patchy bibasilar opacities suggestive of multifocal pneumonia. No significant effusion. Assessment & Plan - Diagnosis (1) Bradycardia Is this a current diagnosis for this admission?: Yes Plan: Episodes of bradycardia. Atrial flutter with slow ventricular response. Most of these episodes appear to happen when patient is in deep sleep probably in relation to underlying sleep apnea. As he improves clinically we should continue to watch and perhaps correlate heart rate with symptoms. Given active infection and treatment for sepsis and pneumonia would not be ideal to pursue cardiac pacing if was proven to be necessary. At the moment we will continue to watch on telemetry. (2) Bilateral pneumonia Qualifiers: Pneumonia type: due to unspecified organism Lung location: unspecified part of lung Qualified Code(s): J18.9 - Pneumonia, unspecified organism Is this a current diagnosis for this admission?: Yes Plan: Patient has been improving steadily based on antibiotic therapy. - Notes Notes: Neck with and spoke with the patient. I explained to him that while he was being treated for pneumonia telemetry had shown episodes of pauses and bradycardia. However we do not have convincing evidence of correlation with symptoms such as dizziness or syncope. Given the fact that he was treated for an active infection we have decided that there is no urgent indication to pursue cardiac pacing. However based on patient's clinical course and outpatient follow-up this may change. Patient has underlying atrial flutter and I am yet to see him out of bed or ambulate. In my discussion with caregivers patient is unsteady and is considered a fall risk. Thus for multiple reasons it is not prudent to start systemic anticoagulation at this time. This can be pursued as an outpatient.
== END 2019-03-26 15:59 | DRG 871 ==
LOC: ER 14:37 → EH 19:38 → 3S 22:41
PROVIDERS: ADMIT Internal Medicine; ATTEND Internal Medicine
DX: A41.9 Sepsis, unspecified organism (principal); J18.9 Pneumonia, unspecified organism; N17.9 Acute kidney failure, unspecified; R65.20 Severe sepsis without septic shock; E78.00 Pure hypercholesterolemia, unspecified; B95.61 Methicillin susceptible Staphylococcus aureus infection as the cause of diseases classified elsewhere; E16.2 Hypoglycemia, unspecified; I48.91 Unspecified atrial fibrillation; N18.3 Chronic kidney disease, stage 3 (moderate); I12.9 Hypertensive chronic kidney disease with stage 1 through stage 4 chronic kidney disease, or unspecified chronic kidney disease; E11.22 Type 2 diabetes mellitus with diabetic chronic kidney disease; R68.0 Hypothermia, not associated with low environmental temperature; J45.909 Unspecified asthma, uncomplicated; G47.33 Obstructive sleep apnea (adult) (pediatric); R21 Rash and other nonspecific skin eruption; Z79.4 Long term (current) use of insulin; Z79.51 Long term (current) use of inhaled steroids; Z79.899 Other long term (current) drug therapy
CPT/HCPCS: 36415; 70450; 71045; 71250; 80048; 80053; 80202; 80307; 81001; 82140; 82533; 82550; 82553; 82803; 82962; 83036; 83605; 83735; 83880; 84443; 84484; 85025; 85610; 86038; 87040; 87070; 87077; 87086; 87186; 87205; 87804; 93005; 93010; 93306; 94660; 96365; 96375; 99285; J1644; J1815; J1956; J3370; J3490; J7030; J7042; J7060; J7120

== ENCOUNTER → 2019-05-16 | Outpatient (CLI) | payer OTHER ==
[2019-05-16 09:29] LABS: ABSOLUTE EOSINOPHILS # (AUTO) 0.2 10^3/uL (0.0-0.6); ABSOLUTE LYMPHOCYTES (AUTO) 1.7 10^3/uL (0.5-4.7); ABSOLUTE MONOCYTES (AUTO) 0.5 10^3/uL (0.1-1.4); ABSOLUTE NEUT (AUTO) 3.6 10^3/uL (1.7-8.2); BASOPHILS % (AUTO) 0.5 % (0-2); HEMATOCRIT 34.3 % (37.9-51.0); HEMOGLOBIN 11.4 g/dL (13.5-17.0); LYMPHOCYTES % (AUTO) 28.4 % (13-45); MEAN CORPUSCULAR HEMOGLOBIN 29.3 pg (27.0-33.4); MEAN CORPUSCULAR HGB CONC 33.3 g/dL (32.0-36.0); MEAN CORPUSCULAR VOLUME 88 fl (80-97); MONOCYTES % (AUTO) 8.1 % (3-13); PLATELET COUNT 161 10^3/uL (150-450); TOTAL CELLS COUNTED % (AUTO) 100 %
[2019-05-16 09:40] LABS: APPEARANCE,URINE SLIGHTLY-CLOUDY; BILIRUBIN,URINE NEGATIVE (NEGATIVE); COLOR,URINE STRAW; GLUCOSE, URINE NEGATIVE (NEGATIVE); KETONES,URINE NEGATIVE (NEGATIVE); LEUKOCYTE ESTERASE,URINE LARGE (NEGATIVE); NITRITE,URINE NEGATIVE (NEGATIVE); PROTEIN,URINE NEGATIVE (NEGATIVE); URINE SPECIFIC GRAVITY 1.005; UROBILINOGEN,URINE NEGATIVE mg/dL (<2.0)
[2019-05-16 09:56] LABS: ANION GAP 10 (5-19); BLOOD UREA NITROGEN 34 mg/dL (7-20); CALCIUM 9.4 mg/dL (8.4-10.2); CARBON DIOXIDE 31 mmol/L (22-30); CHLORIDE 96 mmol/L (98-107); GLUCOSE 110 mg/dL (75-110); POTASSIUM 4.4 mmol/L (3.6-5.0)
== END ==
LOC: OD 08:43
PROVIDERS: ATTEND Physician Assistant Medical
DX: E11.22 Type 2 diabetes mellitus with diabetic chronic kidney disease (principal); N18.3 Chronic kidney disease, stage 3 (moderate); N39.0 Urinary tract infection, site not specified
CPT/HCPCS: 36415; 80048; 81001; 85025; 87086; 87088; 87186

== ENCOUNTER 2019-06-11 19:32 | Inpatient (IN) | payer OTHER, MEDICARE ==
[2019-06-11] MEDS ORDERED: CEFEPIME INJ 1 GM VIAL IM ONE (20:13)
[2019-06-11 20:50] LABS: VENOUS BLOOD BASE EXCESS 5.4 mmol/L; VENOUS BLOOD HCO3 30.8 mmol/L (20-32); VENOUS BLOOD PCO2 48.8 mmHg (35-63); VENOUS BLOOD PH 7.42 (7.30-7.42)
[2019-06-11 20:52] LABS: ABSOLUTE EOSINOPHILS # (AUTO) 0.1 10^3/uL (0.0-0.6); ABSOLUTE LYMPHOCYTES (AUTO) 1.1 10^3/uL (0.5-4.7); ABSOLUTE MONOCYTES (AUTO) 0.3 10^3/uL (0.1-1.4); BASOPHILS % (AUTO) 0.4 % (0-2); HEMATOCRIT 33.2 % (37.9-51.0); HEMOGLOBIN 11.2 g/dL (13.5-17.0); LYMPHOCYTES % (AUTO) 14.8 % (13-45); MEAN CORPUSCULAR HEMOGLOBIN 30.5 pg (27.0-33.4); MEAN CORPUSCULAR HGB CONC 33.7 g/dL (32.0-36.0); MEAN CORPUSCULAR VOLUME 91 fl (80-97); MONOCYTES % (AUTO) 4.2 % (3-13); PLATELET COUNT 227 10^3/uL (150-450); RED BLOOD COUNT 3.66 10^6/uL (4.35-5.55); RED CELL DISTRIBUTION WIDTH 14.5 % (11.5-14.0); SEGMENTED NEUTROPHILS % (AUTO) 79.6 % (42-78); TOTAL CELLS COUNTED % (AUTO) 100 %; WHITE BLOOD COUNT 7.5 10^3/uL (4.0-10.5)
[2019-06-11 20:59] LABS: APPEARANCE,URINE CLOUDY; BILIRUBIN,URINE NEGATIVE (NEGATIVE); COLOR,URINE YELLOW; GLUCOSE, URINE NEGATIVE (NEGATIVE); KETONES,URINE NEGATIVE (NEGATIVE); PROTEIN,URINE 30 mg/dL (NEGATIVE); URINE SPECIFIC GRAVITY 1.014; UROBILINOGEN,URINE NEGATIVE mg/dL (<2.0)
--- NOTE | 2019-06-11 21:01 | RADIOLOGY REPORT (SQ) ---
EXAM DESCRIPTION: XR CHEST 1 VIEW COMPLETED DATE/TME: 06/11/2019 20:13 CLINICAL HISTORY: 68 years Male hypothermia, likely sepsis COMPARISON: 03/16/2019. FINDINGS: The cardiomediastinal silhouette appears unremarkable. No consolidating infiltrates or pleural effusions. No pneumothorax. IMPRESSION: No acute abnormality is identified.
[2019-06-11 21:04] LABS: INTERNATIONAL RATION (INR) 0.96; PROTHROMBIN TIME 12.8 SEC (11.4-15.4)
[2019-06-11 21:28] LABS: ALBUMIN 3.6 g/dL (3.5-5.0); ALKALINE PHOSPHATASE 74 U/L (38-126); ASPARTATE AMINO TRANSFERASE 41 U/L (17-59); BILIRUBIN,TOTAL 0.3 mg/dL (0.2-1.3); BLOOD UREA NITROGEN 56 mg/dL (7-20); CALCIUM 9.6 mg/dL (8.4-10.2); CARBON DIOXIDE 33 mmol/L (22-30); GLUCOSE 76 mg/dL (75-110); POTASSIUM 4.7 mmol/L (3.6-5.0); TOTAL PROTEIN 7.3 g/dL (6.3-8.2)
[2019-06-11 21:33] LABS: CHLORIDE 104 mmol/L (98-107)
[2019-06-11 21:35] LABS: ANION GAP 3 (5-19)
--- NOTE | 2019-06-11 21:36 | ER Document Report ---
ED General - General Chief Complaint: General Weakness Stated Complaint: GENERAL WEAKNESS Time Seen by Provider: 06/11/19 20:13 Notes: 68-year-old male who came to the emergency department due to "shaking a lot." Denies feeling cold, denies leaving outside, had denies having any difficulty with his heat. Only other symptom that he gives is dysuria and feeling generally weak. Denies frequency or flank pain, denies chest pain, nausea, vomi ting, diarrhea, shortness of breath or cough. TRAVEL OUTSIDE OF THE [place] IN LAST 30 DAYS: No - Related Data Allergies/Adverse Reactions: erythromycin base [Erythromycin Base] Allergy (Verified 06/11/19 20:28) Penicillins Allergy (Verified 06/11/19 20:28) Past Medical History - General Information source: Patient - Social History Smoking Status: Never Smoker Chew tobacco use (# tins/day): No Frequency of alcohol use: None Drug Abuse: None Family History: Reviewed & Not Pertinent Patient has suicidal ideation: No Patient has homicidal ideation: No - Past Medical History Cardiac Medical History: Reports: Hx Hypercholesterolemia, Hx Hypertension Pulmonary Medical History: Reports: Hx Asthma Endocrine Medical History: Reports: Hx Diabetes Mellitus Type 2 Renal/ Medical History: Denies: Hx Peritoneal Dialysis Musculoskeletal Medical History: Reports Hx Arthritis Psychiatric Medical History: Reports: Hx Depression Past Surgical History: Reports: Hx Orthopedic Surgery - Bilateral knees, Back, Right armpit - Immunizations Hx Diphtheria, Pertussis, Tetanus Vaccination: Yes Review of Systems - Review of Systems Constitutional: See HPI, Weakness, Other - Shaking.. denies: Chills, Diaphoresis EENT: No symptoms reported Genitourinary: See HPI, Dysuria -: Yes All other systems reviewed and negative Physical Exam - Vital signs Vitals: Temp Pulse Resp BP Pulse Ox 94.7 F L 73 16 106/54 L 98 06/11/19 19:41 06/11/19 19:41 06/11/19 19:41 06/11/19 19:41 06/11/19 19:41 Interpretation: Hypotensive, Other - Hypothermic - Notes Notes: GENERAL: Alert, interacts well. No acute distress. Very hard of hearing. HEAD: Normocephalic, atraumatic EYES: Pupils equal, round and reactive to light, extraocular movements intact. ENT: Oral mucosa moist, tongue midline. NECK: Full range of motion, supple, trachea midline. LUNGS: Clear to auscultation bilaterally, no wheezes, rales or rhonchi, no respiratory distress. HEART: Regular rate and rhythm, no murmurs, gallops, rubs. Faint. ABDOMEN: Soft, nontender, nondistended, bowel sounds present in all 4 quadrants. Centripetal obesity. EXTREMITIES: 1+ pitting edema bilateral lower extremities, radial and dorsalis pedis pulses 1/4 bilaterally. No cyanosis. 5 muscle strength in the upper ex tremities. NEUROLOGICAL: Alert and oriented x3, normal speech, facial droop. PSYCH: Normal mood, normal affect. SKIN: Warm, Dry. Course - Re-evaluation Re-evalutation: 06/11/19 21:42 Patient was hypothermic on arrival, sepsis protocol was started, bear hugger was started, temp Hull was placed, patient was treated with cefepime, CBC does not show any leukocytosis or shift, there is anemia, coags normal, venous blood gas unremarkable, CMP shows elevated BUN slightly higher than usual, anion gap is actually a little bit low, lactic acid is normal, troponin normal, urinalysis shows small blood, positive nitrates and large leukocyte esterase, greater than 182 WBCs with 2+ bacteria, this was a cath urine, blood and urine have been sent for cultures. Chest x-ray unremarkable. Patient will be treated with LR IV using ideal body weight. Patient is 5 foot 6 inches, this should give you an ideal body weight of approximately 63.6 kg, using 30 mL's per kilo this would be 1909.1 mL's. Patient has been ordered 2 L of LR. 06/11/19 22:[address] Fierro, he requests that patient finished receiving his 2 L of saline and to have a normal blood pressure before I call him back. - Vital Signs Vital signs: Temp Pulse Resp BP Pulse Ox 98.4 F 68 12 112/45 L 97 06/12/19 16:00 06/12/19 17:00 06/12/19 14:14 06/12/19 17:00 06/12/19 14:14 - Laboratory Result Diagrams: 06/12/19 05:31 06/12/19 04:29 Laboratory results interpreted by me: 06/11/19 06/11/19 06/11/19 20:35 20:35 20:35 RBC 3.66 L Hgb 11.2 L Hct 33.2 L RDW 14.5 H Seg Neutrophils % 79.6 H Carbon Dioxide 33 H Anion Gap 3 L BUN 56 H Lactic Acid Urine Protein 30 H Urine Blood SMALL H Urine Nitrite (Reflex) POSITIVE H Leukocyte Esterase Rfl LARGE H 06/11/19 23:04 RBC Hgb Hct RDW Seg Neutrophils % Carbon Dioxide Anion Gap BUN Lactic Acid 0.6 L Urine Protein Urine Blood Urine Nitrite (Reflex) Leukocyte Esterase Rfl - EKG Interpretation by Me Additional EKG results interpreted by me: 06/11/19 21:48 EKG shows sinus rhythm at a rate of 34, first-degree AV block, left axis deviation, no ST segment elevations or depressions, no T wave inversions per my interpretation. Discharge - Discharge Clinical Impression: Sepsis associated hypotension UTI (urinary tract infection) Qualifiers: Urinary tract infection type: acute cystitis Hematuria presence: with hematuria Qualified Code(s): N30.01 - Acute cystitis with hematuria Sepsis Qualifiers: Sepsis type: sepsis due to unspecified organism Sepsis acute organ dysfunction status: without acute organ dysfunction Qualified Code(s): A41.9 - Sepsis, unspecified organism Condition: Serious Disposition: ADMITTED INPATIENT Admitting Provider: Sri (Hospitalist) Unit Admitted: [facility]
[2019-06-11] MEDS: RINGERS SOLUTION,LACTATED 1,000 ML IV PRN ×2 (21:46→22:53)
[2019-06-11] MEDS ORDERED: RINGERS SOLUTION,LACTATED 1,000 ML IV PRN (23:17)
[2019-06-11] MEDS ORDERED: MAGNESIUM HYDROXIDE SUSP 30 ML UDCUP PO PRN (23:17)
[2019-06-11] MEDS ORDERED: ONDANSETRON HCL INJ/PF 4 MG/2 ML SDV IV PRN (23:17)
[2019-06-11] MEDS ORDERED: LORAZEPAM INJ 2 MG/1 ML VIAL IV PRN (23:24)
[2019-06-11] MEDS ORDERED: ACETAMINOPHEN 325 MG TABLET PO PRN (23:24)
[2019-06-11] MEDS ORDERED: MORPHINE SULFATE 10 MG/ML INJ IV PRN ×3 (23:24)
[2019-06-11] MEDS ORDERED: NICOTINE 21 MG/24 HR PATCH.TD24 TD PRN (23:24)
[2019-06-12] MEDS ORDERED: RINGERS SOLUTION,LACTATED 1,000 ML IV PRN (01:43)
[2019-06-12] MEDS ORDERED: DOPAMINE HCL/DEXTROSE 5%-WATER 800 MG/250 ML RTUINJ IV ONE (03:44)
[2019-06-12] MEDS ORDERED: DOPAMINE HCL/DEXTROSE 5%-WATER 800 MG/250 ML RTUINJ IV PRN (04:32)
[2019-06-12] MEDS ORDERED: DEXTROSE 5%-LACTATED RINGERS 1,000 ML IV ONE (04:45)
[2019-06-12] MEDS: DEXTROSE 5%-LACTATED RINGERS 1,000 ML IV PRN (04:48)
--- NOTE | 2019-06-12 05:22 | PDOC H&P ---
History of Present Illness Admission Date/PCP: 06/11/2019 22:23 ALLIE MANZO MD Patient complains of: Weakness History of Present Illness: TAYLOR MARTINEZ is a 68 year old male presented emergency room with acute generalized weakness. He admits feeling very weak starting this morning and continuing to be weak all day. His weakness was accompanied by the development of a constant tremor. His weakness is associated with the development of dysuria. He denies other associated or accompanying signs and symptoms. He denies prior similar episodes. He has not identified any aggravating or ameliorating factors for his weakness. In the emergency room he was found to be hypotensive, hypothermic and to have marked pyuria. He was subsequently admitted to the hospital for further evaluation and treatment. Past Medical History Cardiac Medical History: Reports: Hyperlipidema, Hypertension Denies: Atrial Fibrillation, Coronary Artery Disease, DVT, Pulmonary Embolism Pulmonary Medical History: Reports: Asthma, Sleep Apnea Denies: Chronic Obstructive Pulmonary Disease (COPD) EENT Medical History: Denies: Cataracts, Ears - Hearing aids Neurological Medical History: Denies: Hemorrhagic CVA, Ischemic CVA, Seizures Endocrine Medical History: Reports: Diabetes Mellitus Type 2, Obesity Denies: Diabetes Mellitus Type 1, Hyperthyroidism, Hypothyroidism Renal/ Medical History: Reports: Chronic Kidney Disease Denies: Nephrolithiasis Malignancy Medical History: Reports: None GI Medical History: Denies: Cirrhosis, Crohn's Disease, Hepatitis, Ulcerative Colitis Musculoskeltal Medical History: Reports: Arthritis Denies: Gout Skin Medical History: Denies: Eczema, Psoriasis Psychiatric Medical History: Reports: Depression Denies: Alcohol Dependency, Substance Abuse, Tobacco Dependency Traumatic Medical History: Reports: None Hematology: Reports: Anemia Denies: Bleeding Tendencies Infectious Medical History: Reports: None Past Surgical History Past Surgical History: Reports: Orthopedic Surgery - Bilateral knees, Back surgery, Right axillary surgery Social History Information Source: Patient Lives with: Alone Smoking Status: Never Smoker Electronic Cigarette use?: No Frequency of Alcohol Use: None Hx Recreational Drug Use: No Drugs: None Hx Prescription Drug Abuse: No - Advance Directive Resuscitation Status: Full Code Surrogate healthcare decision maker:: Zabrina Martinez Family History Family History: DM, Hypertension Parental Family History Reviewed: Yes Children Family History Reviewed: No Sibling(s) Family History Reviewed.: Yes Medication/Allergy Home Medications: Febuxostat [Uloric 40 mg Tablet] 40 mg PO DAILY 06/01/11 Pentoxifylline [Trental 400 mg Tablet.sa] 400 mg PO TID 06/01/11 Albuterol Sulfate [Proair HFA Inhalation Aerosol 8.5 gm MDI] 2 puff IH Q4HP PRN 03/17/19 Polymyxin B Sulfate/Tmp [Polytrim Oph Soln 10 ml] 1 dose OU Q6 03/17/19 Sertraline HCl [Zoloft 50 mg Tablet] 50 mg PO DAILY 03/17/19 Tamsulosin HCl [Flomax 0.4 mg Cap.sr] 0.4 mg PO DAILY 03/17/19 Acetaminophen [Tylenol 325 mg Tablet] 650 mg PO Q4HP PRN tablet 03/26/19 Heparin Sodium,Porcine [Heparin Inj 5,000 Units/ml 1 ml Vial] 5,000 unit SUBCUT Q8 vial 03/26/19 Hum Insulin NPH/Reg Insulin Hm [Insulin 70-30 (NPH/Reg) 100 unit/mL] 15 unit SUBCUT BIDACBS #0 unit 03/26/19 Hydrochlorothiazide [Hydrodiuril 12.5 mg Tablet] 12.5 mg PO QAM #30 capsule 03/26/19 Allergies/Adverse Reactions: erythromycin base [Erythromycin Base] Allergy (Verified 06/11/19 20:28) Penicillins Allergy (Verified 06/11/19 20:28) Review of Systems Constitutional: PRESENT: as per HPI, weakness, other - Tremors. ABSENT: chills, fever(s) Eyes: ABSENT: visual disturbances, other - Eye pain Ears: ABSENT: hearing changes, other - Ear pain Nose, Mouth, and Throat: ABSENT: headache(s), sore throat Cardiovascular: ABSENT: chest pain, palpitations Respiratory: ABSENT: cough, dyspnea Gastrointestinal: ABSENT: abdominal pain, constipation, diarrhea, nausea, vomiting Genitourinary: PRESENT: dysuria. ABSENT: difficulty urinating, hematuria Musculoskeletal: ABSENT: back pain, joint swelling Integumentary: ABSENT: pruritus, rash Neurological: PRESENT: as per HPI, tremor(s), other - Chronic paraplegia. ABSENT: confusion, convulsions, focal weakness, memory loss, syncope Psychiatric: ABSENT: anxiety, depression Endocrine: ABSENT: cold intolerance, heat intolerance, polydipsia, polyphagia, polyuria Hematologic/Lymphatic: ABSENT: easy bleeding, easy bruising Allergic/Immunologic: ABSENT: seasonal rhinorrhea Physical Exam Vital Signs: Temp Pulse Resp BP Pulse Ox 93.8 F L 66 18 118/58 L 95 06/11/19 22:45 06/11/19 20:31 06/11/19 22:45 06/11/19 22:45 06/11/19 22:45 Intake & Output 06/09/19 06/10/19 06/11/19 23:59 23:59 23:59 Intake Total 1000 Balance 1000 Weight 99.79 kg General appearance: PRESENT: no acute distress, cooperative, obese Head exam: PRESENT: atraumatic, normocephalic Eye exam: PRESENT: conjunctiva pink. ABSENT: conjunctival injection, scleral icterus Ear exam: PRESENT: normal external ear exam. ABSENT: bleeding, drainage Mouth exam: PRESENT: dry mucosa, neck supple Neck exam: ABSENT: thyromegaly, tracheal deviation Respiratory exam: PRESENT: clear to auscultation teetee, symmetrical, unlabored Cardiovascular exam: PRESENT: RRR. ABSENT: clicks, gallop, rubs Pulses: PRESENT: normal carotid pulses, normal radial pulses Vascular exam: PRESENT: normal capillary refill. ABSENT: pallor GI/Abdominal exam: PRESENT: normal bowel sounds, soft Rectal exam: PRESENT: deferred Extremities exam: PRESENT: other - Paraplegia noted. ABSENT: joint swelling Musculoskeletal exam: ABSENT: ambulatory - Paraplegic, deformity, dislocation, tenderness Neurological exam: PRESENT: alert, oriented to person, oriented to place, oriented to time, oriented to situation, CN II-XII grossly intact. ABSENT: motor sensory deficit Psychiatric exam: PRESENT: appropriate affect, normal mood Skin exam: PRESENT: dry, intact, warm. ABSENT: jaundice, rash, urticaria Results Laboratory Results: 06/11/19 20:35 06/11/19 20:35 06/11/19 06/11/19 06/11/19 20:35 20:35 20:35 WBC 7.5 RBC 3.66 L Hgb 11.2 L Hct 33.2 L MCV 91 MCH 30.5 MCHC 33.7 RDW 14.5 H Plt Count 227 Seg Neutrophils % 79.6 H VBG pH 7.42 VBG pCO2 48.8 VBG HCO3 30.8 VBG Base Excess 5.4 Sodium 140.4 Potassium 4.7 Chloride 104 Carbon Dioxide 33 H Anion Gap 3 L BUN 56 H Creatinine 0.96 Est GFR ( Amer) > 60 Glucose 76 Lactic Acid Calcium 9.6 Total Bilirubin 0.3 AST 41 Alkaline Phosphatase 74 Total Protein 7.3 Albumin 3.6 Urine Color Urine Appearance Urine pH Ur Specific [place] Urine Protein Urine Glucose (UA) Urine Ketones Urine Blood Urine RBC (Auto) 06/11/19 06/11/19 20:35 20:35 WBC RBC Hgb Hct MCV MCH MCHC RDW Plt Count Seg Neutrophils % VBG pH VBG pCO2 VBG HCO3 VBG Base Excess Sodium Potassium Chloride Carbon Dioxide Anion Gap BUN Creatinine Est GFR ( Amer) Glucose Lactic Acid 1.5 Calcium Total Bilirubin AST Alkaline Phosphatase Total Protein Albumin Urine Color YELLOW Urine Appearance CLOUDY Urine pH 6.0 Ur Specific [place] 1.014 Urine Protein 30 H Urine Glucose (UA) NEGATIVE Urine Ketones NEGATIVE Urine Blood SMALL H Urine RBC (Auto) 10 06/11/19 20:35 Troponin I < 0.012 Impressions: Chest X-Ray 06/11/19 20:13 IMPRESSION: No acute abnormality is identified. Assessment and Plan - Diagnosis (1) UTI (urinary tract infection) Qualifiers: Urinary tract infection type: acute cystitis Hematuria presence: with hematuria Qualified Code(s): N30.01 - Acute cystitis with hematuria Is this a current diagnosis for this admission?: Yes (2) Sepsis Qualifiers: Sepsis type: sepsis due to unspecified organism Sepsis acute organ dysfunction status: without acute organ dysfunction Qualified Code(s): A41.9 - Sepsis, unspecified organism Is this a current diagnosis for this admission?: Yes (3) Sepsis associated hypotension Is this a current diagnosis for this admission?: Yes (4) Diabetes mellitus type 2 in obese Is this a current diagnosis for this admission?: Yes (5) Obstructive sleep apnea on CPAP Is this a current diagnosis for this admission?: Yes (6) CKD (chronic kidney disease) Qualifiers: Chronic kidney disease stage: stage 3 (moderate) Qualified Code(s): N18.3 - Chronic kidney disease, stage 3 (moderate) Is this a current diagnosis for this admission?: Yes - Plan Summary Summary: Patient is admitted to the [facility] where he will receive routine supportive and symptomatic cares. He will be treated with IV antibiotics utilizing cefepime. He will be observed closely for any recurrence of his hypothermia. He will use Ativan 1 mg IV every 4 hours as needed for anxiety or restlessness. His hypotension will be treated with IV fluids and a renal dose of dopamine per intravenous infusion. A temperature sensing Hull was placed in the ER. Before meals and at bedtime Accu-Cheks will be obtained with sliding scale insulin for hyperglycemia and a hypoglycemic protocol in place. CBCs metabolic profiles and magnesium levels be obtained as needed. Serial lactic acid levels will be obtained. Patient was placed on a diabetic and cardiac restricted diet. - Time Time Spent with patient: 15-24 minutes Medications reviewed and adjusted accordingly: Yes Anticipated discharge: Home with Homehealth - Inpatient Certification Based on my medical assessment, after consideration of the patient's comorbidities, presenting symptoms, or acuity I expect that the services needed warrant INPATIENT care.: Yes I certify that my determination is in accordance with my understanding of Medicare's requirements for reasonable and necessary INPATIENT services [42 CFR 412.3e].: Yes Medical Necessity: Need Close Monitoring Due to Risk of Patient Decompensation, Need For IV Fluids, Need For Continuous Telemetry Monitoring, Need for IV Anti biotics, Risk of Complication if Not Cared For in Hospital
[2019-06-12 05:25] LABS: BLOOD UREA NITROGEN 53 mg/dL (7-20); CHLORIDE 107 mmol/L (98-107); GLUCOSE 219 mg/dL (75-110); POTASSIUM 4.4 mmol/L (3.6-5.0)
[2019-06-12 05:31] LABS: CARBON DIOXIDE 31 mmol/L (22-30)
[2019-06-12 05:36] LABS: ANION GAP 2 (5-19)
[2019-06-12 05:57] LABS: HEMATOCRIT 30.4 % (37.9-51.0); HEMOGLOBIN 10.5 g/dL (13.5-17.0); MEAN CORPUSCULAR HEMOGLOBIN 29.7 pg (27.0-33.4); MEAN CORPUSCULAR HGB CONC 34.5 g/dL (32.0-36.0); PLATELET COUNT 124 10^3/uL (150-450); RED BLOOD COUNT 3.53 10^6/uL (4.35-5.55); RED CELL DISTRIBUTION WIDTH 14.5 % (11.5-14.0); WHITE BLOOD COUNT 6.9 10^3/uL (4.0-10.5)
[2019-06-12] MEDS: PANTOPRAZOLE SODIUM 40 MG TABLET.DR PO SCH (06:06)
[2019-06-12] MEDS: HEPARIN SOD (PORCINE) 5,000 UNIT/ML 1 ML VIAL SUBCUT SCH ×2 (06:06→15:19)
[2019-06-12 06:13] LABS: MEAN CORPUSCULAR VOLUME 86 fl (80-97)
[2019-06-12] MEDS ORDERED: DOPAMINE HCL 800 MG/D5W 250 ML IV PRN (07:52)
[2019-06-12] MEDS ORDERED: GLUCAGON,HUMAN RECOMB 1 MG INJ IM PRN (09:00)
[2019-06-12] MEDS ORDERED: DEXTROSE 40% GEL 15 GM TUBE X 2 PO PRN (09:00)
[2019-06-12] MEDS ORDERED: DEXTROSE 50%-WATER SYRINGE 25 GM/50 ML DOSE IV PRN (09:00)
[2019-06-12] MEDS ORDERED: DEXTROSE 50%-WATER SYRINGE 12.5 GM/25 ML DOSE IV PRN (09:00)
[2019-06-12] MEDS ORDERED: DEXTROSE 40% GEL 15 GM TUBE PO PRN (09:00)
--- NOTE | 2019-06-12 09:30 | EKG REPORT ---
SEVERITY:- ABNORMAL ECG - SINUS RHYTHM FIRST DEGREE AV BLOCK PROBABLE LEFT ATRIAL ABNORMALITY : Confirmed by: Haydee Blair 12-Jun-2019 09:29:25
[2019-06-12] MEDS ORDERED: CEFEPIME 2 GM/D5W RTU 2 GM/50 ML RTUPB IV SCH (10:00)
[2019-06-12] MEDS: CEFEPIME HCL 2 GM in DEXTROSE 5%-WATER 50 ML IV SCH ×2 (10:30→22:16)
[2019-06-12] MEDS: INSULIN REG, HUMAN 100 UNIT/ML 3 ML VIAL (PYX) SUBCUT SCH ×3 (12:49→22:01)
[2019-06-12] MEDS: DOCUSATE SODIUM 100 MG CAPSULE PO SCH ×2 (12:49→19:08)
--- NOTE | 2019-06-12 14:07 | PDOC PROGRESS REPORT ---
Subjective Progress Note for:: 06/12/19 Reason For Visit: SEPSIS,URINARY TRACT INFECTION,HYPOTHERMIA June 12, 2019 Patient was admitted last night through the emergency room for urosepsis, hypothermia, altered mental status, weakness;. There is a question as to whether or not patient has a neurologic paraplegia I reviewed multiple notes going back several visits and see no documentation of this. Did have a similar admission when he was septic from pneumonia back in March of this year 2019. That time he was hypotensive as well as hypothermic and bradycardic, very similar to this admission when here he appears to have a urosepsis. Due to patient's altered mental status I will try to call the family to get his CODE STATUS and his past neurologic history Physical Exam Vital Signs: Temp Pulse Resp BP Pulse Ox 98.1 F 84 13 119/51 L 100 06/12/19 11:49 06/12/19 11:49 06/12/19 11:49 06/12/19 11:49 06/12/19 11:49 Intake & Output 06/11/19 06/12/19 06/13/19 06:59 06:59 06:59 Intake Total 5011 0 Output Total 285 600 Balance 4726 -600 Weight 93.1 kg General appearance: PRESENT: mild distress Respiratory exam: PRESENT: clear to auscultation teetee. ABSENT: rales, rhonchi, wheezes Cardiovascular exam: PRESENT: RRR. ABSENT: diastolic murmur, rubs, systolic murmur Neurological exam: PRESENT: altered, other - Patient is very lethargic but arouses to verbal stimuli. Patient states he came to the emergency room because he had back pain and dysuria Psychiatric exam: PRESENT: flat affect, unusual affect Results Laboratory Results: 06/12/19 05:31 06/12/19 04:29 06/11/19 06/11/19 06/11/19 20:35 20:35 20:35 WBC 7.5 RBC 3.66 L Hgb 11.2 L Hct 33.2 L MCV 91 MCH 30.5 MCHC 33.7 RDW 14.5 H Plt Count 227 Seg Neutrophils % 79.6 H VBG pH 7.42 VBG pCO2 48.8 VBG HCO3 30.8 VBG Base Excess 5.4 Sodium 140.4 Potassium 4.7 Chloride 104 Carbon Dioxide 33 H Anion Gap 3 L BUN 56 H Creatinine 0.96 Est GFR ( Amer) > 60 Glucose 76 Lactic Acid Calcium 9.6 Magnesium Total Bilirubin 0.3 AST 41 Alkaline Phosphatase 74 Total Protein 7.3 Albumin 3.6 Urine Color Urine Appearance Urine pH Ur Specific [place] Urine Protein Urine Glucose (UA) Urine Ketones Urine Blood Urine RBC (Auto) 06/11/19 06/11/19 06/11/19 20:35 20:35 23:04 WBC RBC Hgb Hct MCV MCH MCHC RDW Plt Count Seg Neutrophils % VBG pH VBG pCO2 VBG HCO3 VBG Base Excess Sodium Potassium Chloride Carbon Dioxide Anion Gap BUN Creatinine Est GFR ( Amer) Glucose Lactic Acid 1.5 0.6 L Calcium Magnesium Total Bilirubin AST Alkaline Phosphatase Total Protein Albumin Urine Color YELLOW Urine Appearance CLOUDY Urine pH 6.0 Ur Specific [place] 1.014 Urine Protein 30 H Urine Glucose (UA) NEGATIVE Urine Ketones NEGATIVE Urine Blood SMALL H Urine RBC (Auto) 10 06/12/19 06/12/19 06/12/19 02:13 04:29 04:29 WBC Cancelled RBC Cancelled Hgb Cancelled Hct Cancelled MCV Cancelled MCH Cancelled MCHC Cancelled RDW Cancelled Plt Count Cancelled Seg Neutrophils % VBG pH VBG pCO2 VBG HCO3 VBG Base Excess Sodium 140.0 Potassium 4.4 Chloride 107 Carbon Dioxide 31 H Anion Gap 2 L BUN 53 H Creatinine 0.95 Est GFR ( Amer) > 60 Glucose 219 H Lactic Acid 1.1 Calcium 9.0 Magnesium 1.6 Total Bilirubin AST Alkaline Phosphatase Total Protein Albumin Urine Color Urine Appearance Urine pH Ur Specific [place] Urine Protein Urine Glucose (UA) Urine Ketones Urine Blood Urine RBC (Auto) 06/12/19 05:31 WBC 6.9 RBC 3.53 L Hgb 10.5 L Hct 30.4 L MCV 86 D MCH 29.7 MCHC 34.5 RDW 14.5 H Plt Count 124 L Seg Neutrophils % VBG pH VBG pCO2 VBG HCO3 VBG Base Excess Sodium Potassium Chloride Carbon Dioxide Anion Gap BUN Creatinine Est GFR ( Amer) Glucose Lactic Acid Calcium Magnesium Total Bilirubin AST Alkaline Phosphatase Total Protein Albumin Urine Color Urine Appearance Urine pH Ur Specific [place] Urine Protein Urine Glucose (UA) Urine Ketones Urine Blood Urine RBC (Auto) 06/11/19 20:35 Troponin I < 0.012 Impressions: Chest X-Ray 06/11/19 20:13 IMPRESSION: No acute abnormality is identified. Assessment and Plan - Diagnosis (1) Diabetes mellitus type 2 in obese Is this a current diagnosis for this admission?: Yes (2) Obstructive sleep apnea on CPAP Is this a current diagnosis for this admission?: Yes (3) Sepsis associated hypotension Is this a current diagnosis for this admission?: Yes (4) UTI (urinary tract infection) Qualifiers: Urinary tract infection type: acute cystitis Hematuria presence: with hematuria Qualified Code(s): N30.01 - Acute cystitis with hematuria Is this a current diagnosis for this admission?: Yes (5) JESSICA (acute kidney injury) Is this a current diagnosis for this admission?: Yes (6) Acute metabolic encephalopathy Is this a current diagnosis for this admission?: Yes (7) Hypotension Is this a current diagnosis for this admission?: Yes (8) Hypothermia Qualifiers: Encounter type: initial encounter Qualified Code(s): T68.XXXA - Hyp othermia, initial encounter Is this a current diagnosis for this admission?: Yes - Plan Summary Summary: Patient is admitted to the [facility] where he will receive routine supportive and symptomatic cares. He will be treated with IV antibiotics utilizing cefepime. He will be observed closely for any recurrence of his hypothermia. He will use Ativan 1 mg IV every 4 hours as needed for anxiety or restlessness. His hypotension will be treated with IV fluids and a renal dose of dopamine per intravenous infusion. A temperature sensing Hull was placed in the ER. Before meals and at bedtime Accu-Cheks will be obtained with sliding scale insulin for hyperglycemia and a hypoglycemic protocol in place. CBCs metabolic profiles and magnesium levels be obtained as needed. Serial lactic acid levels will be obtained. Patient was placed on a diabetic and cardiac restricted diet. June 12, 2019 At 0400 his temperature was 99. 2, at approximately noon today it is 97.3. According to the chart when he presented to the emergency room his temperature was 92.6 then 4 hours later it is gone up to 95.8 and then 3 hours later it is gone up to 98 Heart rate when he came in was 73, later today remained stable at 73 Blood pressure when he came in was 92/49 drifted down to 80/50, currently at noon it is 134/59. 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 I also see in review of the chart that patient had a very similar adm ission back in March of this year for pneumonia where he was hypotensive and hypothermic. On this visit patient has come in with a white count of 7500 and today it is 6.9. Hest x-ray is negative for acute findings lactic acid level on admission was 1.5 today it is 1.1. Patient is currently on IV cefepime with IV fluids running as well. Hemodynamically he appears to have stabilized. Urine culture appears to be growing out gram-negative rods blood cultures are pending. Urinalysis is growing out a large amount of leukocytes and positive nitrates Patient appears to be uroseptic. Continue with IV antibiotics and IV fluids. To wean off of dopamine. According to this admission he is full code but I am going to try to call family members to discuss because back in March patient had been made a DNR or DNI - Time Time Spent with patient: 35 or more minutes
[2019-06-13] MEDS: HEPARIN SOD (PORCINE) 5,000 UNIT/ML 1 ML VIAL SUBCUT SCH ×4 (00:29→21:00)
[2019-06-13] MEDS: PANTOPRAZOLE SODIUM 40 MG TABLET.DR PO SCH (05:13)
[2019-06-13 05:15] LABS: HEMATOCRIT 32.2 % (37.9-51.0); HEMOGLOBIN 10.9 g/dL (13.5-17.0); MEAN CORPUSCULAR HEMOGLOBIN 29.5 pg (27.0-33.4); MEAN CORPUSCULAR HGB CONC 33.8 g/dL (32.0-36.0); MEAN CORPUSCULAR VOLUME 87 fl (80-97); PLATELET COUNT 110 10^3/uL (150-450); RED BLOOD COUNT 3.69 10^6/uL (4.35-5.55); RED CELL DISTRIBUTION WIDTH 14.8 % (11.5-14.0)
[2019-06-13] MEDS: DEXTROSE 5%-LACTATED RINGERS 1,000 ML IV PRN ×2 (07:37→21:47)
--- NOTE | 2019-06-13 09:51 | PDOC PROGRESS REPORT ---
Subjective Progress Note for:: 06/13/19 Reason For Visit: SEPSIS,URINARY TRACT INFECTION,HYPOTHERMIA 06/13/2019 Urosepsis, altered mental status, post polio syndrome Physical Exam Vital Signs: Temp Pulse Resp BP Pulse Ox 97.5 F 86 15 125/62 96 06/13/19 07:46 06/13/19 08:00 06/13/19 07:46 06/13/19 08:00 06/13/19 07:46 Intake & Output 06/12/19 06/13/19 06/14/19 06:59 06:59 06:59 Intake Total 5011 1129 Output Total 285 3900 Balance 8547 -4140 Weight 93.1 kg 94.6 kg General appearance: PRESENT: mild distress, other - More alert today Mouth exam: PRESENT: dry mucosa Respiratory exam: PRESENT: rhonchi - Coarse rhonchi scattered Cardiovascular exam: PRESENT: RRR. ABSENT: diastolic murmur, rubs, systolic mu rmur Neurological exam: PRESENT: altered, awake, oriented to person, oriented to place, oriented to time, oriented to situation, other - Patient more alert today, oriented x4 Able to understand patient better today Psychiatric exam: PRESENT: flat affect, unusual affect - Patient may be at his baseline Results Laboratory Results: 06/13/19 04:22 06/12/19 04:29 06/13/19 06/13/19 04:22 04:22 WBC 5.0 RBC 3.69 L Hgb 10.9 L Hct 32.2 L MCV 87 MCH 29.5 MCHC 33.8 RDW 14.8 H Plt Count 110 L Magnesium 1.5 L 06/11/19 20:35 Troponin I < 0.012 Impressions: Chest X-Ray 06/11/19 20:13 IMPRESSION: No acute abnormality is identified. Assessment and Plan - Diagnosis (1) Diabetes mellitus type 2 in obese Is this a current diagnosis for this admission?: Yes (2) Obstructive sleep apnea on CPAP Is this a current diagnosis for this admission?: Yes (3) Sepsis associated hypotension Is this a current diagnosis for this admission?: Yes (4) UTI (urinary tract infection) Qualifiers: Urinary tract infection type: acute cystitis Hematuria presence: with hematuria Qualified Code(s): N30.01 - Acute cystitis with hematuria Is this a current diagnosis for this admission?: Yes (5) JESSICA (acute kidney injury) Is this a current diagnosis for this admission?: Yes (6) Acute metabolic encephalopathy Is this a current diagnosis for this admission?: Yes (7) Hypotension Is this a current diagnosis for this admission?: Yes (8) Hypothermia Qualifiers: Encounter type: initial encounter Qualified Code(s): T68.XXXA - Hypothe rmia, initial encounter Is this a current diagnosis for this admission?: Yes (9) Post-polio syndrome Is this a current diagnosis for this admission?: Yes (10) Chronic back pain Is this a current diagnosis for this admission?: Yes (11) Wheelchair dependent Is this a current diagnosis for this admission?: Yes - Plan Summary Summary: Patient is admitted to the [facility] where he will receive routine supportive and symptomatic cares. He will be treated with IV antibiotics utilizing cefepime. He will be observed closely for any recurrence of his hypothermia. He will use Ativan 1 mg IV every 4 hours as needed for anxiety or restlessness. His hypotension will be treated with IV fluids and a renal dose of dopamine per intravenous infusion. A temperature sensing Hull was placed in the ER. Before meals and at bedtime Accu-Cheks will be obtained with sliding scale insulin for hyperglycemia and a hypoglycemic protocol in place. CBCs metabolic profiles and magnesium levels be obtained as needed. Serial lactic acid levels will be obtained. Patient was placed on a diabetic and cardiac restricted diet. June 12, 2019 At 0400 his temperature was 99. 2, at approximately noon today it is 97.3. Acc ording to the chart when he presented to the emergency room his temperature was 92.6 then 4 hours later it is gone up to 95.8 and then 3 hours later it is gone up to 98 Heart rate when he came in was 73, later today remained stable at 73 Blood pressure when he came in was 92/49 drifted down to 80/50, currently at noon it is 134/59. 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 I also see in review of the chart that patient had a very similar admission back in March of this year for pneumonia where he was hypotensive and hypothermic. On this visit patient has come in with a white count of 7500 and today it is 6.9. Hest x-ray is negative for acute findings lactic acid level on admission was 1.5 today it is 1.1. Patient is currently on IV cefepime with IV fluids running as well. Hemodynamically he appears to have stabilized. Urine culture appears to be growing out gram-negative rods blood cultures are pending. Urinalysis is growing out a large amount of leukocytes and positive nitrates Patient appears to be uroseptic. Continue with IV antibiotics and IV fluids. To wean off of dopamine. According to this admission he is full code but I am going to try to call family members to discuss because back in March patient had been made a DNR or DNI 06/13/2019 Patient is much more alert and oriented x4 today. Speaking clear more plainly. I spoke to his kfjdfy-cl-qow yesterday, Zabrina, who is a primary caregiver. She informed me he is a DNI CODE STATUS Patient tells me today that he is able to stand at home but is almost exclusively wheelchair-bound. She confirms this Temperature 97.5 pulse 88 blood pressure 103/57 O2 sat is 96% on 1-1/2 L nasal cannula. Vital signs are much more stable today. Patient still on dopamine drip between 3 and 5 mics, trying to slowly wean. White blood cell count is normal, potassium 4.4, glucose tween 100 and 200 Preliminary urine culture growing out gram-negative rods, patient currently on cefepime, Continue above treatment. Last lactic acid level yesterday was normal 1.1 and in fact has been normal entire hospitalization Magnesium slightly low at 1.5 will hang 2K riders Discussed patient with his primary nurse - Time Time Spent with patient: 35 or more minutes
[2019-06-13] MEDS: INSULIN REG, HUMAN 100 UNIT/ML 3 ML VIAL (PYX) SUBCUT SCH ×4 (10:08→22:51)
[2019-06-13] MEDS: CEFEPIME HCL 2 GM in DEXTROSE 5%-WATER 50 ML IV SCH ×2 (10:15→21:47)
[2019-06-13] MEDS: MAGNESIUM SULFATE/D5W 1 GM/100 ML RTUPB IV SCH ×2 (10:33→13:38)
[2019-06-13] MEDS: DOCUSATE SODIUM 100 MG CAPSULE PO SCH ×2 (13:35→19:30)
[2019-06-14 05:05] LABS: HEMATOCRIT 28.9 % (37.9-51.0); MEAN CORPUSCULAR HGB CONC 34.5 g/dL (32.0-36.0); MEAN CORPUSCULAR VOLUME 87 fl (80-97); PLATELET COUNT 102 10^3/uL (150-450); RED BLOOD COUNT 3.32 10^6/uL (4.35-5.55); RED CELL DISTRIBUTION WIDTH 14.4 % (11.5-14.0); WHITE BLOOD COUNT 5.9 10^3/uL (4.0-10.5)
[2019-06-14] MEDS: PANTOPRAZOLE SODIUM 40 MG TABLET.DR PO SCH (05:18)
[2019-06-14] MEDS: HEPARIN SOD (PORCINE) 5,000 UNIT/ML 1 ML VIAL SUBCUT SCH ×3 (05:18→22:21)
[2019-06-14] MEDS: DEXTROSE 5%-LACTATED RINGERS 1,000 ML IV PRN ×3 (05:40→17:23)
[2019-06-14] MEDS: INSULIN REG, HUMAN 100 UNIT/ML 3 ML VIAL (PYX) SUBCUT SCH ×4 (07:46→21:53)
[2019-06-14] MEDS: DOCUSATE SODIUM 100 MG CAPSULE PO SCH ×2 (09:14→17:13)
[2019-06-14] MEDS: CEFEPIME HCL 2 GM in DEXTROSE 5%-WATER 50 ML IV SCH ×2 (09:14→21:56)
--- NOTE | 2019-06-14 13:55 | PDOC PROGRESS REPORT ---
Subjective Progress Note for:: 06/14/19 Reason For Visit: SEPSIS,URINARY TRACT INFECTION,HYPOTHERMIA 06/14/2019 Patient was admitted with urosepsis, hypotension, hypothermia Physical Exam Vital Signs: Temp Pulse Resp BP Pulse Ox 97.5 F 77 18 120/64 95 06/14/19 10:53 06/14/19 10:53 06/14/19 10:53 06/14/19 10:53 06/14/19 10:53 Intake & Output 06/13/19 06/14/19 06/15/19 06:59 06:59 06:59 Intake Total 1129 2270 1041 Output Total 3900 2650 Balance -2771 -380 1041 Weight 94.6 kg 93.1 kg General appearance: PRESENT: no acute distress, mild distress Respiratory exam: PRESENT: clear to auscultation teetee. ABSENT: rales, rhonchi, wheezes Cardiovascular exam: PRESENT: RRR. ABSENT: diastolic murmur, rubs, systolic murmur Neurological exam: PRESENT: alert, awake, oriented to person, oriented to place, oriented to time, oriented to situation Psychiatric exam: PRESENT: appropriate affect, normal mood. ABSENT: homicidal ideation, suicidal ideation Results Laboratory Results: 06/14/19 04:24 06/12/19 04:29 06/14/19 06/14/19 04:24 04:24 WBC 5.9 RBC 3.32 L Hgb 10.0 L Hct 28.9 L MCV 87 MCH 30.0 MCHC 34.5 RDW 14.4 H Plt Count 102 L Magnesium 1.7 06/11/19 20:35 Hull Catheter Urine Culture - Final Klebsiella Pneumoniae 06/11/19 20:35 Troponin I < 0.012 Impressions: Chest X-Ray 06/11/19 20:13 IMPRESSION: No acute abnormality is identified. Assessment and Plan - Diagnosis (1) Diabetes mellitus type 2 in obese Is this a current diagnosis for this admission?: Yes (2) Obstructive sleep apnea on CPAP Is this a current diagnosis for this admission?: Yes (3) Sepsis associated hypotension Is this a current diagnosis for this admission?: Yes (4) UTI (urinary tract infection) Qualifiers: Urinary tract infection type: acute cystitis Hematuria presence: with hematuria Qualified Code(s): N30.01 - Acute cystitis with hematuria Is this a current diagnosis for this admission?: Yes (5) JESSICA (acute kidney injury) Is this a current diagnosis for this admission?: Yes (6) Acute metabolic encephalopathy Is this a current diagnosis for this admission?: Yes (7) Hypotension Is this a current diagnosis for this admission?: Yes (8) Hypothermia Qualifiers: Encounter type: initial encounter Qualified Code(s): T68.XXXA - Hypothermia, initial encounter Is this a current diagnosis for this admission?: Yes (9) Post-polio syndrome Is this a current diagnosis for this admission?: Yes (10) Chronic back pain Is this a current diagnosis for this admission?: Yes (11) Wheelchair dependent Is this a current diagnosis for this admission?: Yes - Plan Summary Summary: Patient is admitted to the [facility] where he will receive routine supportive and symptomatic cares. He will be treated with IV antibiotics utilizing cefepime. He will be observed closely for any recurrence of his hypothermia. He will use Ativan 1 mg IV every 4 hours as needed for anxiety or restlessness. His hypotension will be treated with IV fluids and a renal dose of dopamine per intravenous infusion. A temperature sensing Hull was placed in the ER. Before meals and at bedtime Accu-Cheks will be obtained with sliding scale insulin for hyperglycemia and a hypoglycemic protocol in place. CBCs metabolic profiles and magnesium levels be obtained as needed. Serial lactic acid levels will be obtained. Patient was placed on a diabetic and cardiac restricted diet. June 12, 2019 At 0400 his temperature was 99. 2, at approximately noon today it is 97.3. According to the chart when he presented to the emergency room his temperature was 92.6 then 4 hours later it is gone up to 95.8 and then 3 hours later it is gone up to 98 Heart rate when he came in was 73, later today remained stable at 73 Blood pressure when he came in was 92/49 drifted down to 80/50, currently at noon it is 134/59. 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 I also see in review of the chart that patient had a very similar admission back in March of this year for pneumonia where he was hypotensive and hypothermic. On this visit patient has come in with a white count of 7500 and today it is 6.9. Hest x-ray is negative for acute findings lactic acid level on admission was 1.5 today it is 1.1. Patient is currently on IV cefepime with IV fluids running as well. Hemodynamically he appears to have stabilized. Urine culture appears to be growing out gram-negative rods blood cultures are pending. Urinalysis is growing out a large amount of leukocytes and positive nitrates Patient appears to be uroseptic. Continue with IV antibiotics and IV fluids. To wean off of dopamine. According to this admission he is full code but I am going to try to call family members to discuss because back in March patient had been made a DNR or DNI 06/13/2019 Patient is much more alert and oriented x4 today. Speaking clear more plainly. I spoke to his gcshil-gs-hho yesterday, Zabrina, who is a primary caregiver. She informed me he is a DNI CODE STATUS Patient tells me today that he is able to stand at home but is almost exclusively wheelchair-bound. She confirms this Temperature 97.5 pulse 88 blood pressure 103/57 O2 sat is 96% on 1-1/2 L nasal cannula. Vital signs are much more stable today. Patient still on dopamine drip between 3 and 5 mics, trying to slowly wean. White blood cell count is normal, potassium 4.4, glucose tween 100 and 200 Preliminary urine culture growing out gram-negative rods, patient currently on cefepime, Continue above treatment. Last lactic acid level yesterday was normal 1.1 and in fact has been normal entire hospitalization Magnesium slightly low at 1.5 will hang 2K riders Discussed patient with his primary nurse 06/14/2019 Patient's urine cultures growing out Klebsiella Patient is afebrile 97 6 pulse is 79 and regular blood pressure is well controlled at 133/54 Her mean drip was stopped last night at around 0100 hrs. White count is normal 5.9 fingerstick blood sugars 135 Patient is much more alert oriented today answering questions. Patient's sepsis appears to be getting better on cefepime and IV fluids - Time Time Spent with patient: 25-34 minutes
[2019-06-15] MEDS: DEXTROSE 5%-LACTATED RINGERS 1,000 ML IV PRN ×4 (00:56→19:15)
[2019-06-15] MEDS: PANTOPRAZOLE SODIUM 40 MG TABLET.DR PO SCH (05:39)
[2019-06-15] MEDS: HEPARIN SOD (PORCINE) 5,000 UNIT/ML 1 ML VIAL SUBCUT SCH ×3 (05:42→22:05)
[2019-06-15] MEDS: INSULIN REG, HUMAN 100 UNIT/ML 3 ML VIAL (PYX) SUBCUT SCH ×4 (08:04→21:57)
[2019-06-15 10:22] LABS: BLOOD UREA NITROGEN 26 mg/dL (7-20); CALCIUM 8.8 mg/dL (8.4-10.2); CARBON DIOXIDE 26 mmol/L (22-30); CHLORIDE 108 mmol/L (98-107); GLUCOSE 149 mg/dL (75-110); POTASSIUM 4.6 mmol/L (3.6-5.0)
[2019-06-15] MEDS: DOCUSATE SODIUM 100 MG CAPSULE PO SCH ×2 (10:23→17:19)
[2019-06-15] MEDS: CEFEPIME HCL 2 GM in DEXTROSE 5%-WATER 50 ML IV SCH ×2 (10:23→21:56)
[2019-06-15 10:34] LABS: ANION GAP 3 (5-19)
--- NOTE | 2019-06-15 10:56 | EKG REPORT ---
SEVERITY:- ABNORMAL ECG - SINUS RHYTHM BLOCKED APC FIRST DEGREE AV BLOCK BORDERLINE LEFT AXIS DEVIATION : Confirmed by: Haydee Blair 15-Jun-2019 10:55:31
--- NOTE | 2019-06-15 11:30 | PDOC PROGRESS REPORT ---
Subjective Progress Note for:: 06/15/19 Reason For Visit: SEPSIS,URINARY TRACT INFECTION,HYPOTHERMIA 06/15/2019 Patient was admitted through the emergency room for urosepsis, hypothermia, hypotension Physical Exam Vital Signs: Temp Pulse Resp BP Pulse Ox 100.6 F H 73 18 142/53 H 96 06/15/19 07:24 06/15/19 07:24 06/15/19 07:24 06/15/19 07:24 06/15/19 07:24 Intake & Output 06/14/19 06/15/19 06/16/19 06:59 06:59 06:59 Intake Total 2270 4621 573 Output Total 2650 2150 Balance -380 2471 573 Weight 93.1 kg 96.4 kg General appearance: PRESENT: no acute distress Respiratory exam: PRESENT: decreased breath sounds, rhonchi Cardiovascular exam: PRESENT: RRR. ABSENT: diastolic murmur, rubs, systolic murmur Neurological exam: PRESENT: alert, awake, oriented to person, oriented to place, oriented to time, oriented to situation Psychiatric exam: PRESENT: flat affect Results Laboratory Results: 06/14/19 04:24 06/15/19 09:32 06/15/19 06/15/19 08:54 09:32 Sodium Cancelled 137.2 Potassium Cancelled 4.6 Chloride Cancelled 108 H Carbon Dioxide Cancelled 26 Anion Gap Cancelled 3 L BUN Cancelled 26 H Creatinine Cancelled 0.91 Est GFR ( Amer) Cancelled > 60 Est GFR (Non-Af Amer) Cancelled Glucose Cancelled 149 H Calcium Cancelled 8.8 06/11/19 20:35 Troponin I < 0.012 Impressions: Chest X-Ray 06/11/19 20:13 IMPRESSION: No acute abnormality is identified. Assessment and Plan - Diagnosis (1) Diabetes mellitus type 2 in obese Is this a current diagnosis for this admission?: Yes (2) Obstructive sleep apnea on CPAP Is this a current diagnosis for this admission?: Yes (3) Sepsis associated hypotension Is this a current diagnosis for this admission?: Yes (4) UTI (urinary tract infection) Qualifiers: Urinary tract infection type: acute cystitis Hematuria presence: with hematuria Qualified Code(s): N30.01 - Acute cystitis with hematuria Is this a current diagnosis for this admission?: Yes (5) JESSICA (acute kidney injury) Is this a current diagnosis for this admission?: Yes (6) Acute metabolic encephalopathy Is this a current diagnosis for this admission?: Yes (7) Hypotension Is this a current diagnosis for this admission?: Yes (8) Hypothermia Qualifiers: Encounter type: initial encounter Qualified Code(s): T68.XXXA - Hypo thermia, initial encounter Is this a current diagnosis for this admission?: Yes (9) Post-polio syndrome Is this a current diagnosis for this admission?: Yes (10) Chronic back pain Is this a current diagnosis for this admission?: Yes (11) Wheelchair dependent Is this a current diagnosis for this admission?: Yes - Plan Summary Summary: Patient is admitted to the [facility] where he will receive routine supportive and symptomatic cares. He will be treated with IV antibiotics utilizing cefepime. He will be observed closely for any recurrence of his hypothermia. He will use Ativan 1 mg IV every 4 hours as needed for anxiety or restlessness. His hypotension will be treated with IV fluids and a renal dose of dopamine per intravenous infusion. A temperature sensing Hull was placed in the ER. Before meals and at bedtime Accu-Cheks will be obtained with sliding scale insulin for hyperglycemia and a hypoglycemic protocol in place. CBCs metabolic profiles and magnesium levels be obtained as needed. Serial lactic acid levels will be obtained. Patient was placed on a diabetic and cardiac restricted diet. June 12, 2019 At 0400 his temperature was 99. 2, at approximately noon today it is 97.3. According to the chart when he presented to the emergency room his temperature was 92.6 then 4 hours later it is gone up to 95.8 and then 3 hours later it is gone up to 98 Heart rate when he came in was 73, later today remained stable at 73 Blood pressure when he came in was 92/49 drifted down to 80/50, currently at noon it is 134/59. Patient had been on dopamine at 5 mics previously and is still on a dopamine drip Patient came to the emergency room his oxygen saturation was 97%, currently it r emains 98% on room air Further the review of systems in one area of the chart there is a notation that the patient is paraplegic, and I surmise that this is from my post polio syndrome. I also see in review of the chart that patient had a very similar admission back in March of this year for pneumonia where he was hypotensive and hypothermic. On this visit patient has come in with a white count of 7500 and today it is 6.9. Hest x-ray is negative for acute findings lactic acid level on admission was 1.5 today it is 1.1. Patient is currently on IV cefepime with IV fluids running as well. Hemodynamically he appears to have stabilized. Urine culture appears to be growing out gram-negative rods blood cultures are pending. Urinalysis is growing out a large amount of leukocytes and positive nitrates Patient appears to be uroseptic. Continue with IV antibiotics and IV fluids. To wean off of dopamine. According to this admission he is full code but I am going to try to call family members to discuss because back in March patient had been made a DNR or DNI 06/13/2019 Patient is much more alert and oriented x4 today. Speaking clear more plainly. I spoke to his zxzdhm-ne-pcg yesterday, Zabrina, who is a primary caregiver. She informed me he is a DNI CODE STATUS Patient tells me today that he is able to stand at home but is almost exclusively wheelchair-bound. She confirms this Temperature 97.5 pulse 88 blood pressure 103/57 O2 sat is 96% on 1-1/2 L nasal cannula. Vital signs are much more stable today. Patient still on dopamine drip between 3 and 5 mics, trying to slowly wean. White blood cell count is normal, potassium 4.4, glucose tween 100 and 200 Preliminary urine culture growing out gram-negative rods, patient currently on cefepime, Continue above treatment. Last lactic acid level yesterday was normal 1.1 and in fact has been normal entire hospitalization Magnesium slightly low at 1.5 will hang 2K riders Discussed patient with his primary nurse 06/14/2019 Patient's urine cultures growing out Klebsiella Patient is afebrile 97 6 pulse is 79 and regular blood pressure is well controlled at 133/54 Her mean drip was stopped last night at around 0100 hrs. White count is normal 5.9 fingerstick blood sugars 135 Patient is much more alert oriented today answering questions. Patient's sepsis appears to be getting better on cefepime and IV fluids 06/15/2019 Patient remains afebrile now 98 8 for the last 72 hours, pulse is stable at 84 blood pressure is good 131/54. Patient was hypotensive and on dopamine when he came in due to his sepsis White count is stable 5.9 blood cultures negative x72 hours Patient is on day #4 of his IV antibiotics Patient has failed with his physical therapy trial and therefore needs to go to nursing home facility for rehab at time of discharge. Potentially discharge patient tomorrow if a bed available. Patient has been afebrile for 72 hours no risk of Covid - Time Time Spent with patient: 25-34 minutes
[2019-06-16] MEDS: DEXTROSE 5%-LACTATED RINGERS 1,000 ML IV PRN (02:39)
[2019-06-16] MEDS: PANTOPRAZOLE SODIUM 40 MG TABLET.DR PO SCH (05:56)
[2019-06-16] MEDS: HEPARIN SOD (PORCINE) 5,000 UNIT/ML 1 ML VIAL SUBCUT SCH ×3 (05:57→22:22)
[2019-06-16 06:42] LABS: ABSOLUTE EOSINOPHILS # (AUTO) 0.3 10^3/uL (0.0-0.6); ABSOLUTE LYMPHOCYTES (AUTO) 1.5 10^3/uL (0.5-4.7); ABSOLUTE MONOCYTES (AUTO) 0.8 10^3/uL (0.1-1.4); ABSOLUTE NEUT (AUTO) 3.9 10^3/uL (1.7-8.2); BASOPHILS % (AUTO) 0.3 % (0-2); EOSINOPHILS % (AUTO) 4.3 % (0-6); HEMATOCRIT 26.8 % (37.9-51.0); HEMOGLOBIN 9.1 g/dL (13.5-17.0); LYMPHOCYTES % (AUTO) 22.7 % (13-45); MEAN CORPUSCULAR HEMOGLOBIN 29.7 pg (27.0-33.4); MEAN CORPUSCULAR VOLUME 87 fl (80-97); MONOCYTES % (AUTO) 12.9 % (3-13); RED BLOOD COUNT 3.07 10^6/uL (4.35-5.55); RED CELL DISTRIBUTION WIDTH 14.4 % (11.5-14.0); SEGMENTED NEUTROPHILS % (AUTO) 59.8 % (42-78); TOTAL CELLS COUNTED % (AUTO) 100 %; WHITE BLOOD COUNT 6.5 10^3/uL (4.0-10.5)
[2019-06-16 07:16] LABS: PLATELET COUNT 85 10^3/uL (150-450)
[2019-06-16] MEDS: INSULIN REG, HUMAN 100 UNIT/ML 3 ML VIAL (PYX) SUBCUT SCH ×4 (08:09→22:30)
[2019-06-16] MEDS: DOCUSATE SODIUM 100 MG CAPSULE PO SCH ×2 (09:10→17:25)
[2019-06-16] MEDS: CEFEPIME HCL 2 GM in DEXTROSE 5%-WATER 50 ML IV SCH ×2 (09:10→22:31)
--- NOTE | 2019-06-16 10:37 | PDOC CONSULTATION ---
Consultation Consult Date: 06/16/19 Attending physician:: ROGER SAMUELS JR Provider Consulted: GERRY ARNOLD Consult reason:: Bradycardia History of Present Illness Admission Date/PCP: 06/12/19 00:08 ALLIE MANZO MD Patient complains of: No cardiac complaints. History of Present Illness: TAYLOR SMITH is a 69 year old male with history of Type II DM, hypertension, CKD, paraplegia and sleep apnea who is consulted to our service for bradycardia. The patient was admitted to our facility on JUN 29 due to urosepsis. He was hypotensive and hypothermic but it seems that these issues are essentially resolved. His primary team has noted that he is, at times, bradycardic reason why we are consulted. He actually had similar bradycardia while admitted for pneumonia back in March 2019. He was seen by Dr. Conway who noted sinus pauses during sleep which was attributed to severe sleep apnea. This morning he is found sleeping on his bed with some episodes of sleep apnea present. He is not wearing his CPAP machine. He is easily awakened. He denies chest pain, shortness of breath, PEREZ, PND, lower extremity edema, palpitations, syncope and presyncope. Physical exam on 06/16/2019: GENERAL: Pleasant and conversational. Obese. Oriented x3 with normal mood. Not in acute distress. Well groomed and well developed. HEENT: Normocephalic, atraumatic. Pupils equal. Sclerae anicteric. Oropharynx moist. NECK: No JVD. No carotid bruits. LUNGS: Clear to auscultation bilaterally. Normal respiratory effort without the use of accessory muscles or intercostal retractions. CARDIOVASCULAR: Regular rate and rhythm, normal S1 and S2 without murmurs, rubs, or gallops. PMI not displaced. ABDOMEN: No masses or tenderness to palpation. No bruit. No splenomegaly or hepatomegaly. No abdominal aorta bruit noted. EXTREMITIES: Trace pitting edema at the ankles a, no cyanosis, no clubbing. Severely depressed distal pulses bilaterally. SKIN: No lesions or rashes. MUSCULOSKELETAL: No chest tenderness to palpation. NEUROLOGIC: Nonfocal. No gross sensory or motor deficits bilateral upper or lower extremities. Past Medical History Cardiac Medical History: Reports: Hyperlipidema, Hypertension Denies: Atrial Fibrillation, Coronary Artery Disease, DVT, Pulmonary Embolism Pulmonary Medical History: Reports: Asthma, Sleep Apnea Denies: Chronic Obstructive Pulmonary Disease (COPD) EENT Medical History: Denies: Cataracts, Ears - Hearing aids Neurological Medical History: Denies: Hemorrhagic CVA, Ischemic CVA, Seizures Endocrine Medical History: Reports: Diabetes Mellitus Type 2, Obesity Denies: Diabetes Mellitus Type 1, Hyperthyroidism, Hypothyroidism Renal/ Medical History: Reports: Chronic Kidney Disease Denies: Nephrolithiasis Malignancy Medical History: Reports: None GI Medical History: Denies: Cirrhosis, Crohn's Disease, Hepatitis, Ulcerative Colitis Musculoskeltal Medical History: Reports: Arthritis Denies: Gout Skin Medical History: Denies: Eczema, Psoriasis Psychiatric Medical History: Reports: Depression Denies: Alcohol Dependency, Substance Abuse, Tobacco Dependency Traumatic Medical History: Reports: None Hematology: Reports: Anemia Denies: Bleeding Tendencies Infectious Medical History: Reports: None Past Surgical History Past Surgical History: Reports: Orthopedic Surgery - Bilateral knees, Back, Right armpit Social History Lives with: Alone Smoking Status: Never Smoker Electronic Cigarette use?: No Frequency of Alcohol Use: None Hx Recreational Drug Use: No Drugs: None Hx Prescription Drug Abuse: No - Advance Directive Resuscitation Status: Do Not Intubate Family History Family History: Reviewed & Not Pertinent Parental Family History Reviewed: Yes Children Family History Reviewed: Yes Sibling(s) Family History Reviewed.: Yes Medication/Allergy Home Medications: Albuterol Sulfate [Proair HFA Inhalation Aerosol 8.5 gm MDI] 2 puff IH Q4HP PRN 03/17/19 Sertraline HCl [Zoloft 50 mg Tablet] 50 mg PO DAILY 03/17/19 Tamsulosin HCl [Flomax 0.4 mg Cap.sr] 0.4 mg PO DAILY 03/17/19 Febuxostat 40 mg PO Q12 06/12/19 Losartan/Hydrochlorothiazide [Losartan-Hctz 100-25 mg Tab] 1 each PO DAILY 06/12/19 Allergies/Adverse Reactions: erythromycin base [Erythromycin Base] Allergy (Verified 06/11/19 20:28) Penicillins Allergy (Verified 06/11/19 20:28) Physical Exam Vital Signs: Temp Pulse Resp BP Pulse Ox 98.5 F 45 L 20 122/47 L 98 06/16/19 04:16 06/16/19 04:16 06/16/19 04:16 06/16/19 04:16 06/16/19 04:16 Intake & Output 06/15/19 06/16/19 06/17/19 06:59 06:59 06:59 Intake Total 4623 3545 Output Total 1213 4695 Balance 9151 1720 Weight 96.4 kg Results Laboratory Results: 06/15/19 09:32 06/15/19 06/15/19 08:54 09:32 Sodium Cancelled 137.2 Potassium Cancelled 4.6 Chloride Cancelled 108 H Carbon Dioxide Cancelled 26 Anion Gap Cancelled 3 L BUN Cancelled 26 H Creatinine Cancelled 0.91 Est GFR ( Amer) Cancelled > 60 Est GFR (Non-Af Amer) Cancelled Glucose Cancelled 149 H Calcium Cancelled 8.8 06/11/19 20:35 Troponin I < 0.012 Impressions: Chest X-Ray 06/11/19 20:13 IMPRESSION: No acute abnormality is identified. 06/15/19 09:32 MCV 87 fl (80-97) 06/14/19 04:24 MCH 30.0 pg (27.0-33.4) 06/14/19 04:24 MCHC 34.5 g/dL (32.0-36.0) 06/14/19 04:24 RDW 14.4 % (11.5-14.0) H 06/14/19 04:24 Seg Neutrophils % 79.6 % (42-78) H 06/11/19 20:35 VBG pH 7.42 (7.30-7.42) 06/11/19 20:35 VBG pCO2 48.8 mmHg (35-63) 06/11/19 20:35 VBG HCO3 30.8 mmol/L (20-32) 06/11/19 20:35 VBG Base Excess 5.4 mmol/L 06/11/19 20:35 Chloride 108 mmol/L (98-107) H 06/15/19 09:32 Carbon Dioxide 26 mmol/L (22-30) 06/15/19 09:32 Anion Gap 3 (5-19) L 06/15/19 09:32 Est GFR ( Amer) > 60 (>60) 06/15/19 09:32 Est GFR (Non-Af Amer) Cancelled 06/15/19 08:54 Glucose 149 mg/dL (75-110) H 06/15/19 09:32 Lactic Acid 1.1 mmol/L (0.7-2.1) 06/12/19 02:13 Calcium 8.8 mg/dL (8.4-10.2) 06/15/19 09:32 Magnesium 1.7 mg/dL (1.6-2.3) 06/14/19 04:24 Total Bilirubin 0.3 mg/dL (0.2-1.3) 06/11/19 20:35 AST 41 U/L (17-59) 06/11/19 20:35 Alkaline Phosphatase 74 U/L (38-126) 06/11/19 20:35 Total Protein 7.3 g/dL (6.3-8.2) 06/11/19 20:35 Albumin 3.6 g/dL (3.5-5.0) 06/11/19 20:35 Urine Color YELLOW 06/11/19 20:35 Urine Appearance CLOUDY 06/11/19 20:35 Urine pH 6.0 (5.0-9.0) 06/11/19 20:35 Ur Specific [place] 1.014 06/11/19 20:35 Urine Protein 30 mg/dL (NEGATIVE) H 06/11/19 20:35 Urine Glucose (UA) NEGATIVE mg/dL (NEGATIVE) 06/11/19 20:35 Urine Ketones NEGATIVE mg/dL (NEGATIVE) 06/11/19 20:35 Urine Blood SMALL (NEGATIVE) H 06/11/19 20:35 Urine RBC (Auto) 10 /HPF 06/11/19 20:35 06/11/19 20:35 Troponin I < 0.012 Current Medication List Generic Name Dose Route Start Last Admin Trade Name Freq PRN Reason Stop Dose Admin Acetaminophen 650 mg 06/11/19 23:24 Tylenol 325 Mg Tablet PO 07/11/19 23:23 Q4HP PRN For headache, pain or fever Dextrose 12.5 gm 06/12/19 09:00 Dextrose Inj 50% Syringe (25 Gm/50 Ml) IV 07/12/19 08:59 PRN PRN FOR BG 50-69 IN ALERT PATIENT Protocol Dextrose 25 gm 06/12/19 09:00 Dextrose Inj 50% Syringe (25 Gm/50 Ml) IV 07/12/19 08:59 PRN PRN PER PROTOCOL Protocol Docusate Sodium 100 mg 06/12/19 10:00 06/15/19 17:19 Colace 100 Mg Capsule PO 07/12/19 09:59 100 mg BID LYNDSAY Administration Glucagon 1 mg 06/12/19 09:00 Glucagen Inj 1 Mg Vial IM 07/12/19 08:59 PRN PRN EVALUATE FOR BG < 70 Protocol Glucose 15 gm 06/12/19 09:00 Glutose 40% Gel 15 Gm Tube PO 07/12/19 08:59 PRN PRN FOR BG 50-69 IN ALERT PATIENT Protocol Glucose 30 gm 06/12/19 09:00 Glutose 40% Gel 15 Gm Tube PO 07/12/19 08:59 PRN PRN FOR BG < 50 IN ALERT PATIENT Protocol Heparin Sodium (Porcine) 5,000 unit 06/12/19 06:00 06/16/19 05:57 Heparin Inj 5,000 Units/Ml 1 Ml Vial SUBCUT 07/12/19 05:59 Not Given Q8 LYNDSAY Lactated Ringer's 1,000 mls @ 0 mls/hr 06/12/19 01:43 06/12/19 02:45 Lactated Ringers 1000 Ml Iv Soln IV 07/12/19 01:42 Infused CONTINUOUS PRN Infusion THIS MED IS NOT "PRN" Wide Open Dextrose/Lactated Ringer's 1,000 mls @ 167 mls/hr 06/12/19 04:32 06/16/19 02:39 D5lr 1000 Ml Iv Soln IV 07/12/19 04:31 167 mls/hr CONTINUOUS PRN Administration THIS MED IS NOT "PRN" Cefepime HCl 2 gm/ Dextrose 50 mls @ 100 mls/hr 06/12/19 10:00 06/15/19 22:26 IV 06/19/19 09:59 Infused Q12 LYNDSAY Infusion Insulin Human Regular 0 - 12 unit 06/12/19 11:00 06/15/19 21:57 Humulin R (Pyxis) Insulin 100 Unit/Ml 3ml SUBCUT 07/12/19 10:59 2 unit ACHS LYNDSAY Administration Protocol Lorazepam 1 mg 06/11/19 23:24 06/13/19 00:32 Ativan Inj 2 Mg/1 Ml Vial IV 06/18/19 23:23 1 mg Q4HP PRN Administration ANXIETY/AGITATION Magnesium Hydroxide 30 ml 06/11/19 23:17 06/15/19 01:47 Milk Of Magnesia 30 Ml Udcup PO 07/11/19 23:16 30 ml HSP PRN Administration FOR CONSTIPATION Morphine Sulfate 2 mg 06/11/19 23:24 Morphine 10 Mg/Ml Inj IV 06/18/19 23:23 Q2HP PRN FOR PAIN SCALE 1-2 Morphine Sulfate 3 mg 06/11/19 23:24 Morphine 10 Mg/Ml Inj IV 06/18/19 23:23 Q2HP PRN FOR PAIN SCALE 3-4 Morphine Sulfate 4 mg 06/11/19 23:24 Morphine 10 Mg/Ml Inj IV 06/18/19 23:23 Q2HP PRN PAIN SCALE OF 5 Nicotine 1 each 06/11/19 23:24 Nicoderm 21 Mg/24 Hr Transderm Patch TD 07/11/19 23:23 DAILYP PRN WITHDRAWAL SYMPTOMS Ondansetron HCl 4 mg 06/11/19 23:17 Zofran Inj/Pf 4 Mg/2 Ml Sdv IV 07/11/19 23:16 Q4HP PRN FOR NAUSEA/VOMITING Pantoprazole Sodium 40 mg 06/12/19 06:00 06/16/19 05:[address] Tablet PO 07/12/19 05:59 40 mg Q6AM LYNDASY Administration Sodium Chloride 2.5 ml 06/12/19 06:00 06/16/19 05:56 Saline Flush 2.5 Ml Monoject Prefil Syrin IV 07/12/19 05:59 2.5 ml Q8 LYNDSAY Administration Discontinued Medications Generic Name Dose Route Start Last Admin Trade Name Freq PRN Reason Stop Dose Admin Cefepime HCl 2 gm 06/11/19 20:13 06/11/19 20:43 Maxipime Inj 1 Gm Vial IM 06/11/19 20:14 2 gm NOW ONE Administration Lactated Ringer's 1,000 mls @ 0 mls/hr 06/11/19 21:37 06/12/19 00:47 Lactated Ringers 1000 Ml Iv Soln IV Infused X 2 BAGS PRN Infusion THIS MED IS NOT "PRN" Wide Open Lactated Ringer's 1,000 mls @ 167 mls/hr 06/11/19 23:17 06/12/19 04:48 Lactated Ringers 1000 Ml Iv Soln IV 07/11/19 23:16 Infused CONTINUOUS PRN Infusion THIS MED IS NOT "PRN" Cefepime HCl 2 gm in 50 mls @ 100 mls/hr 06/12/19 10:00 Maxipime Rtu 2 Gm-D5w 50 Ml Premix Bag IV 06/19/19 09:59 Q12 LYNDSAY Dopamine HCl/Dextrose Confirm 06/12/19 03:44 06/12/19 04:46 Dopamine Rtu 800 Mg-D5w 250 Ml (Adult) Premix Administered 06/12/19 03:45 Not Given Dose 800 mg in 250 mls @ ud IV .STK-MED ONE Dopamine HCl/Dextrose 800 mg in 250 mls @ 5.237 mls/hr 06/12/19 04:32 06/12/19 06:57 Dopamine Rtu 800 Mg-D5w 250 Ml (Adult) Premix IV 07/12/19 04:31 0 mg/kg/min CONTINUOUS PRN 8.72 mls/hr THIS MED IS NOT "PRN" Infusion 0.003 MG/KG/MIN Dextrose/Lactated Ringer's 1,000 mls @ 0 mls/hr 06/12/19 04:45 06/12/19 04:48 D5lr 1000 Ml Iv Soln IV 06/12/19 04:46 Infused BOLUS ONE Infusion Wide Open Dopamine HCl/Dextrose 800 mg in 250 mls @ 0 mls/hr 06/12/19 07:52 06/14/19 07:00 Dopamine Rtu 800 Mg-D5w 250 Ml (Adult) Premix IV 07/12/19 07:51 Infused CONTINUOUS PRN Titration THIS MED IS NOT "PRN" Protocol Titrate Magnesium Sulfate/Dextrose 1 gm in 100 mls @ 100 mls/hr 06/13/19 10:00 06/13/19 13:38 Magnesium Sulfate Rtu-D5w 1 Gm/100 Ml Premix IV 06/13/19 11:59 100 ml/hr Q1H LYNDSAY 100 mls/hr Administration Assessment & Plan - Diagnosis (1) Bradycardia Is this a current diagnosis for this admission?: Yes Plan: The patient does have a prior history of bradycardia while admitted to our facility back in March 2019. At that time he was evaluated by Dr. Rivas Conway who found the patient to have sinus pauses at night likely secondary to severe sleep apnea. His EKG this morning demonstrated normal sinus rhythm with first- degree AV block and his telemetry demonstrated normal sinus rhythm with first- degree AV block and nonconducted PACs without evidence of high degree AV block. At this point the patient does not require cardiac pacing and his episodes of bradycardia are likely related to his obstructive sleep apnea. Recommendations: -No further cardiac work-up indicated at this point. -Encourage the use of CPAP when the patient is sleeping. -We will sign off the case for now, please call [phone] with questions or concerns.
--- NOTE | 2019-06-16 11:00 | PDOC PROGRESS REPORT ---
Subjective Progress Note for:: 06/16/19 Reason For Visit: SEPSIS,URINARY TRACT INFECTION,HYPOTHERMIA June 16, 2019 Patient admitted 4 days ago for urosepsis, with hypotension Physical Exam Vital Signs: Temp Pulse Resp BP Pulse Ox 98.0 F 68 16 143/61 H 100 06/16/19 07:55 06/16/19 07:55 06/16/19 07:55 06/16/19 07:55 06/16/19 07:55 Intake & Output 06/15/19 06/16/19 06/17/19 06:59 06:59 06:59 Intake Total 4621 3545 969 Output Total 2150 2275 Balance 2471 1270 969 Weight 96.4 kg 96.2 kg General appearance: PRESENT: no acute distress Respiratory exam: PRESENT: decreased breath sounds Cardiovascular exam: PRESENT: RRR. ABSENT: diastolic murmur, rubs, systolic murmur Neurological exam: PRESENT: alert, awake, oriented to person, oriented to place, oriented to time, oriented to situation, motor sensory deficit - Essentially paraparesis Psychiatric exam: PRESENT: appropriate affect, normal mood. ABSENT: homicidal ideation, suicidal ideation Results Laboratory Results: 06/16/19 06:30 06/15/19 09:32 06/16/19 06:30 WBC 6.5 RBC 3.07 L Hgb 9.1 L Hct 26.8 L MCV 87 MCH 29.7 MCHC 34.0 RDW 14.4 H Plt Count 85 L Seg Neutrophils % 59.8 06/11/19 20:35 Troponin I < 0.012 Impressions: Chest X-Ray 06/11/19 20:13 IMPRESSION: No acute abnormality is identified. Assessment and Plan - Diagnosis (1) Diabetes mellitus type 2 in obese Is this a current diagnosis for this admission?: Yes (2) Obstructive sleep apnea on CPAP Is this a current diagnosis for this admission?: Yes (3) Sepsis associated hypotension Is this a current diagnosis for this admission?: Yes (4) UTI (urinary tract infection) Qualifiers: Urinary tract infection type: acute cystitis Hematuria presence: with hematuria Qualified Code(s): N30.01 - Acute cystitis with hematuria Is this a current diagnosis for this admission?: Yes (5) JESSICA (acute kidney injury) Is this a current diagnosis for this admission?: Yes (6) Acute metabolic encephalopathy Is this a current diagnosis for this admission?: Yes (7) Hypotension Is this a current diagnosis for this admission?: Yes (8) Hypothermia Qualifiers: Encounter type: initial encounter Qualified Code(s): T68.XXXA - Hypothermia, initial encounter Is this a current diagnosis for this admission?: Yes (9) Post-polio syndrome Is this a current diagnosis for this admission?: Yes (10) Chronic back pain Is this a current diagnosis for this admission?: Yes (11) Wheelchair dependent Is this a current diagnosis for this admission?: Yes - Plan Summary Summary: Patient is admitted to the [facility] where he will receive routine supportive and symptomatic cares. He will be treated with IV antibiotics utilizing cefepime. He will be observed closely for any recurrence of his hypothermia. He will use Ativan 1 mg IV every 4 hours as needed for anxiety or restlessness. His hypotension will be treated with IV fluids and a renal dose of dopamine per intravenous infusion. A temperature sensing [place] was placed in the ER. Before meals and at bedtime Accu-Cheks will be obtained with sliding scale insulin for hyperglycemia and a hypoglycemic protocol in place. CBCs metabolic profiles and magnesium levels be obtained as needed. Serial lactic acid levels will be obtained. Patient was placed on a diabetic and cardiac restricted diet. June 12, 2019 At 0400 his temperature was 99. 2, at approximately noon today it is 97.3. According to the chart when he presented to the emergency room his temperature was 92.6 then 4 hours later it is gone up to 95.8 and then 3 hours later it is gone up to 98 Heart rate when he came in was 73, later today remained stable at 73 Blood pressure when he came in was 92/49 drifted down to 80/50, currently at noon it is 134/59. 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 I also see in review of the chart that patient had a very similar admission back in March of this year for pneumonia where he was hypotensive and hypothermic. On this visit patient has come in with a white count of 7500 and today it is 6.9. Hest x-ray is negative for acute findings lactic acid level on admission was 1.5 today it is 1.1. Patient is currently on IV cefepime with IV fluids running as well. Hemodynamically he appears to have stabilized. Urine culture appears to be growing out gram-negative rods blood cultures are pending. Urinalysis is growing out a large amount of leukocytes and positive nitrates Patient appears to be uroseptic. Continue with IV antibiotics and IV fluids. To wean off of dopamine. According to this admission he is full code but I am going to try to call family members to discuss because back in March patient had been made a DNR or DNI 06/13/2019 Patient is much more alert and oriented x4 today. Speaking clear more plainly. I spoke to his [id number] yesterday, Zabrina, who is a primary caregiver. She informed me he is a DNI CODE STATUS Patient tells me today that he is able to stand at home but is almost exclusively wheelchair-bound. She confirms this Temperature 97.5 pulse 88 blood pressure 103/57 O2 sat is 96% on 1-1/2 L nasal cannula. Vital signs are much more stable today. Patient still on dopamine drip between 3 and 5 mics, trying to slowly wean. White blood cell count is normal, potassium 4.4, glucose tween 100 and 200 Preliminary urine culture growing out gram-negative rods, patient currently on cefepime, Continue above treatment. Last lactic acid level yesterday was normal 1.1 and in fact has been normal entire hospitalization Magnesium slightly low at 1.5 will hang 2K riders Discussed patient with his primary nurse 06/14/2019 Patient's urine cultures growing out Klebsiella Patient is afebrile 97 6 pulse is 79 and regular blood pressure is well controlled at 133/54 Her mean drip was stopped last night at around 0100 hrs. White count is normal 5.9 fingerstick blood sugars 135 Patient is much more alert oriented today answering questions. Patient's sepsis appears to be getting better on cefepime and IV fluids 06/15/2019 Patient remains afebrile now 98 8 for the last 72 hours, pulse is stable at 84 blood pressure is good 131/54. Patient was hypotensive and on dopamine when he came in due to his sepsis White count is stable 5.9 blood cultures negative x72 hours Patient is on day #4 of his IV antibiotics Patient has failed with his physical therapy trial and therefore needs to go to halfway facility for rehab at time of discharge. Potentially discharge patient tomorrow if a bed available. Patient has been afebrile for 72 hours no risk of Covid 06/16/2019 Temperature 98.5 pulse between 70 and 80 blood pressure 130/60 O2 sat 98% on room air Blood cultures negative x4 days urine cultures positive for Klebsiella EKG shows a first-degree AV block but this is new. Was seen by cardiology today for bradycardia and feels that no treatment is necessary Day 5 of IV antibiotic, cefepime Patient is needing halfway facility/he happened however they are not taking patients now due to the Covid virus Patient is back to his baseline and medically could be switched to p.o. antibiotics and discharged. No temperature x96 hours and no indication of sepsis. - Time Time Spent with patient: 25-34 minutes
--- NOTE | 2019-06-16 14:10 | EKG REPORT ---
SEVERITY:- ABNORMAL ECG - SINUS RHYTHM FIRST DEGREE AV BLOCK BORDERLINE LEFT AXIS DEVIATION : Confirmed by: Margie Rios MD 16-Jun-2019 14:09:41
[2019-06-17] MEDS: HEPARIN SOD (PORCINE) 5,000 UNIT/ML 1 ML VIAL SUBCUT SCH ×3 (05:08→22:18)
[2019-06-17] MEDS: PANTOPRAZOLE SODIUM 40 MG TABLET.DR PO SCH (05:12)
[2019-06-17] MEDS: INSULIN REG, HUMAN 100 UNIT/ML 3 ML VIAL (PYX) SUBCUT SCH ×4 (08:20→22:17)
[2019-06-17] MEDS: DOCUSATE SODIUM 100 MG CAPSULE PO SCH ×2 (09:45→17:12)
[2019-06-17] MEDS: CEFEPIME HCL 2 GM in DEXTROSE 5%-WATER 50 ML IV SCH ×2 (09:45→22:17)
--- NOTE | 2019-06-17 19:11 | PDOC PROGRESS REPORT ---
Subjective Progress Note for:: 06/17/19 Subjective:: Patient doing well today. Has no complaints at this moment. Denies any abdominal pain. Reason For Visit: SEPSIS,URINARY TRACT INFECTION,HYPOTHERMIA Physical Exam Vital Signs: Temp Pulse Resp BP Pulse Ox 98.1 F 66 17 123/71 98 06/17/19 16:48 06/17/19 16:48 06/17/19 16:48 06/17/19 16:48 06/17/19 16:48 Intake & Output 06/16/19 06/17/19 06/18/19 06:59 06:59 06:59 Intake Total 3545 2492 940 Output Total 2275 1700 575 Balance 1270 792 365 Weight 96.2 kg 96.4 kg 96.4 kg General appearance: PRESENT: no acute distress, cooperative Neck exam: ABSENT: JVD Respiratory exam: PRESENT: clear to auscultation teetee Neurological exam: PRESENT: alert, awake Results Laboratory Results: 06/16/19 06:30 06/15/19 09:32 06/11/19 21:14 Blood Blood Culture - Final NO GROWTH IN 5 DAYS 06/11/19 20:35 Blood Blood Culture - Final NO GROWTH IN 5 DAYS 06/11/19 20:35 Troponin I < 0.012 Impressions: Chest X-Ray 06/11/19 20:13 IMPRESSION: No acute abnormality is identified. Assessment and Plan - Diagnosis (1) UTI (urinary tract infection) Qualifiers: Urinary tract infection type: acute cystitis Hematuria presence: with hematuria Qualified Code(s): N30.01 - Acute cystitis with hematuria Is this a current diagnosis for this admission?: Yes (2) Diabetes mellitus type 2 in obese Is this a current diagnosis for this admission?: Yes (3) Obstructive sleep apnea on CPAP Is this a current diagnosis for this admission?: Yes - Plan Summary Summary: Patient is admitted to the [facility] where he will receive routine supportive and symptomatic cares. He will be treated with IV antibiotics utilizing cefepime. He will be observed closely for any recurrence of his hypothermia. He will use Ativan 1 mg IV every 4 hours as needed for anxiety or restlessness. His hypotension will be treated with IV fluids and a renal dose of dopamine per intravenous infusion. A temperature sensing Hull was placed in the ER. Before meals and at bedtime Accu-Cheks will be obtained with sliding scale insulin for hyperglycemia and a hypoglycemic protocol in place. CBCs metabolic profiles and magnesium levels be obtained as needed. Serial lactic acid levels will be obtained. Patient was placed on a diabetic and cardiac restricted diet. June 12, 2019 At 0400 his temperature was 99. 2, at approximately noon today it is 97.3. According to the chart when he presented to the emergency room his temperature was 92.6 then 4 hours later it is gone up to 95.8 and then 3 hours later it is gone up to 98 Heart rate when he came in was 73, later today remained stable at 73 Blood pressure when he came in was 92/49 drifted down to 80/50, currently at noon it is 134/59. 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 I also see in review of the chart that patient had a very similar admission back in March of this year for pneumonia where he was hypotensive and hypothermic. On this visit patient has come in with a white count of 7500 and today it is 6.9. Hest x-ray is negative for acute findings lactic acid level on admission was 1.5 today it is 1.1. Patient is currently on IV cefepime with IV fluids running as well. Hemodynamically he appears to have stabilized. Urine culture appears to be growing out gram-negative rods blood cultures are pending. Urinalysis is growing out a large amount of leukocytes and positive nitrates Patient appears to be uroseptic. Continue with IV antibiotics and IV fluids. To wean off of dopamine. According to this admission he is full code but I am going to try to call family members to discuss because back in March patient had been made a DNR or DNI 06/13/2019 Patient is much more alert and oriented x4 today. Speaking clear more plainly. I spoke to his uhcwvb-as-kkr yesterday, Zabrina, who is a primary caregiver. She informed me he is a DNI CODE STATUS Patient tells me today that he is able to stand at home but is almost exclusively wheelchair-bound. She confirms this Temperature 97.5 pulse 88 blood pressure 103/57 O2 sat is 96% on 1-1/2 L nasal cannula. Vital signs are much more stable today. Patient still on dopamine drip between 3 and 5 mics, trying to slowly wean. White blood cell count is normal, potassium 4.4, glucose tween 100 and 200 Preliminary urine culture growing out gram-negative rods, patient currently on cefepime, Continue above treatment. Last lactic acid level yesterday was normal 1.1 and in fact has been normal entire hospitalization Magnesium slightly low at 1.5 will hang 2K riders Discussed patient with his primary nurse 06/14/2019 Patient's urine cultures growing out Klebsiella Patient is afebrile 97 6 pulse is 79 and regular blood pressure is well controlled at 133/54 Her mean drip was stopped last night at around 0100 hrs. White count is normal 5.9 fingerstick blood sugars 135 Patient is much more alert oriented today answering questions. Patient's sepsis appears to be getting better on cefepime and IV fluids 06/15/2019 Patient remains afebrile now 98 8 for the last 72 hours, pulse is stable at 84 blood pressure is good 131/54. Patient was hypotensive and on dopamine when he came in due to his sepsis White count is stable 5.9 blood cultures negative x72 hours Patient is on day #4 of his IV antibiotics Patient has failed with his physical therapy trial and therefore needs to go to residential facility for rehab at time of discharge. Potentially discharge patient tomorrow if a bed available. Patient has been afebrile for 72 hours no risk of Covid 06/16/2019 Temperature 98.5 pulse between 70 and 80 blood pressure 130/60 O2 sat 98% on room air Blood cultures negative x4 days urine cultures positive for Klebsiella EKG shows a first-degree AV block but this is new. Was seen by cardiology today for bradycardia and feels that no treatment is necessary Day 5 of IV antibiotic, cefepime Patient is needing residential facility/he happened however they are not taking patients now due to the Covid virus Patient is back to his baseline and medically could be switched to p.o. antibiotics and discharged. No temperature x96 hours and no indication of sepsis. 06/17/2019 Awaiting placement at SNF. Will change patient's antibiotics from IV to p.o. antibiotics tomorrow. Encephalopathy seems to have resolved. - Time Time Spent with patient: Less than 15 minutes
[2019-06-18] MEDS: HEPARIN SOD (PORCINE) 5,000 UNIT/ML 1 ML VIAL SUBCUT SCH ×2 (05:22→13:38)
[2019-06-18] MEDS: PANTOPRAZOLE SODIUM 40 MG TABLET.DR PO SCH (06:54)
[2019-06-18] MEDS: INSULIN REG, HUMAN 100 UNIT/ML 3 ML VIAL (PYX) SUBCUT SCH ×3 (07:51→16:48)
[2019-06-18] MEDS: DOCUSATE SODIUM 100 MG CAPSULE PO SCH ×2 (10:05→17:51)
[2019-06-18] MEDS: CEFEPIME HCL 2 GM in DEXTROSE 5%-WATER 50 ML IV SCH (10:05)
--- NOTE | 2019-06-18 11:16 | PDOC TRANSFER SUMMARY ---
Impression - Admit/DC Date/PCP Admission Date/Primary Care Provider: 06/12/19 00:08 ALLIE MANZO MD Discharge Date: 06/18/19 - Discharge Diagnosis (1) UTI (urinary tract infection) Is this a current diagnosis for this admission?: Yes (2) Diabetes mellitus type 2 in obese Is this a current diagnosis for this admission?: Yes (3) Obstructive sleep apnea on CPAP Is this a current diagnosis for this admission?: Yes (4) Sepsis Is this a current diagnosis for this admission?: Yes (5) Sepsis associated hypotension Is this a current diagnosis for this admission?: Yes (6) Chronic back pain Is this a current diagnosis for this admission?: Yes (7) Acute metabolic encephalopathy Is this a current diagnosis for this admission?: Yes - Additional Information Resuscitation Status: Do Not Intubate Referrals: ALLIE MANZO MD [Primary Care Provider] - Follow up as needed Home Medications: Albuterol Sulfate [Proair HFA Inhalation Aerosol 8.5 gm MDI] 2 puff IH Q4HP PRN 03/17/19 Sertraline HCl [Zoloft 50 mg Tablet] 50 mg PO DAILY 03/17/19 Tamsulosin HCl [Flomax 0.4 mg Cap.sr] 0.4 mg PO DAILY 03/17/19 Febuxostat 40 mg PO Q12 06/12/19 Losartan/Hydrochlorothiazide [Losartan-Hctz 100-25 mg Tab] 1 each PO DAILY 06/12/19 Nicotine [Nicoderm 21 mg/24 Hr Transderm Patch] 1 each TD DAILYP PRN patch.td24 06/18/19 History of Present Illiness History of Present Illness: TAYLOR SMITH is a 68 year old male presented emergency room with acute generalized weakness. He admits feeling very weak starting this morning and continuing to be weak all day. His weakness was accompanied by the development of a constant tremor. His weakness is associated with the development of dysuria. He denies other associated or accompanying signs and symptoms. He denies prior similar episodes. He has not identified any aggravating or ameliorating factors for his weakness. In the emergency room he was found to be hypotensive, hypothermic and to have marked pyuria. He was subsequently admitted to the hospital for further evaluation and treatment. Hospital Course Hospital Course: Summary of hospital course Patient was admitted for treatment of sepsis with sepsis related hypotension secondary to UTI. Chest x-ray was normal. Patient also had metabolic encephalopathy at that time which is now resolved. Urine culture grew Klebsiella. Patient has been started on antibiotics and has completed about 6 days of treatment for UTI. Blood cultures were negative. Patient does not need any further antibiotics after today. Patient is doing well. Patient was evaluated for bradycardia episodes by cardiology who determined that bradycardia as determined before was secondary to obstructive sleep apnea. Patient is to use his nocturnal CPAP at nighttime. Patient stable currently and being discharged for further care. Further detailed hospital course as below. 06/11/2019 Patient is admitted to the [facility] where he will receive routine supportive and symptomatic cares. He will be treated with IV antibiotics utilizing cefepime. He will be observed closely for any recurrence of his hypothermia. He will use Ativan 1 mg IV every 4 hours as needed for anxiety or restlessness. His hypotension will be treated with IV fluids and a renal dose of dopamine per intravenous infusion. A temperature sensing Hull was placed in the ER. Before meals and at bedtime Accu-Cheks will be obtained with sliding scale insulin for hyperglycemia and a hypoglycemic protocol in place. CBCs metabolic profiles and magnesium levels be obtained as needed. Serial lactic acid levels will be ob tained. Patient was placed on a diabetic and cardiac restricted diet. June 12, 2019 At 0400 his temperature was 99. 2, at approximately noon today it is 97.3. According to the chart when he presented to the emergency room his temperature was 92.6 then 4 hours later it is gone up to 95.8 and then 3 hours later it is gone up to 98 Heart rate when he came in was 73, later today remained stable at 73 Blood pressure when he came in was 92/49 drifted down to 80/50, currently at noon it is 134/59. 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 I also see in review of the chart that patient had a very similar admission back in March of this year for pneumonia where he was hypotensive and hypothermic. On this visit patient has come in with a white count of 7500 and today it is 6.9. Hest x-ray is negative for acute findings lactic acid level on admission was 1.5 today it is 1.1. Patient is currently on IV cefepime with IV fluids running as well. Hemodynamically he appears to have stabilized. Urine culture appears to be growing out gram-negative rods blood cultures are pending. U rinalysis is growing out a large amount of leukocytes and positive nitrates Patient appears to be uroseptic. Continue with IV antibiotics and IV fluids. To wean off of dopamine. According to this admission he is full code but I am going to try to call family members to discuss because back in March patient had been made a DNR or DNI 06/13/2019 Patient is much more alert and oriented x4 today. Speaking clear more plainly. I spoke to his ckclrh-wc-pdt yesterday, Zabrina, who is a primary caregiver. She informed me he is a DNI CODE STATUS Patient tells me today that he is able to stand at home but is almost exclusively wheelchair-bound. She confirms this Temperature 97.5 pulse 88 blood pressure 103/57 O2 sat is 96% on 1-1/2 L nasal cannula. Vital signs are much more stable today. Patient still on dopamine drip between 3 and 5 mics, trying to slowly wean. White blood cell count is normal, potassium 4.4, glucose tween 100 and 200 Preliminary urine culture growing out gram-negative rods, patient currently on cefepime, Continue above treatment. Last lactic acid level yesterday was normal 1.1 and in fact has been normal entire hospitalization Magnesium slightly low at 1.5 will hang 2K riders Discussed patient with his primary nurse 06/14/2019 Patient's urine cultures growing out Klebsiella Patient is afebrile 97 6 pulse is 79 and regular blood pressure is well controlled at 133/54 Her mean drip was stopped last night at around 0100 hrs. White count is normal 5.9 fingerstick blood sugars 135 Patient is much more alert oriented today answering questions. Patient's sepsis appears to be getting better on cefepime and IV fluids 06/15/2019 Patient remains afebrile now 98 8 for the last 72 hours, pulse is stable at 84 blood pressure is good 131/54. Patient was hypotensive and on dopamine when he came in due to his sepsis White count is stable 5.9 blood cultures negative x72 hours Patient is on day #4 of his IV antibiotics Patient has failed with his physical therapy trial and therefore needs to go to half-way facility for rehab at time of discharge. Potentially discharge patient tomorrow if a bed available. Patient has been afebrile for 72 hours no risk of Covid 06/16/2019 Temperature 98.5 pulse between 70 and 80 blood pressure 130/60 O2 sat 98% on room air Blood cultures negative x4 days urine cultures positive for Klebsiella EKG shows a first-degree AV block but this is new. Was seen by cardiology today for bradycardia and feels that no treatment is necessary Day 5 of IV antibiotic, cefepime Patient is needing half-way facility/he happened however they are not taking patients now due to the Covid virus Patient is back to his baseline and medically could be switched to p.o. antibiotics and discharged. No temperature x96 hours and no indication of sepsis. 06/17/2019 Awaiting placement at SNF. On IV antibiotics. Encephalopathy seems to have resolved. Physical Exam Vital Signs: Temp Pulse Resp BP Pulse Ox 98.2 F 61 20 115/52 L 97 06/18/19 07:18 06/18/19 07:18 06/18/19 07:18 06/18/19 07:18 06/18/19 07:18 Intake & Output 06/17/19 06/18/19 06/19/19 06:59 06:59 06:59 Intake Total 2492 1250 Output Total 1700 575 Balance 792 675 Weight 96.4 kg 95.2 kg General appearance: PRESENT: no acute distress, cooperative Neck exam: ABSENT: JVD Cardiovascular exam: PRESENT: +S1, +S2. ABSENT: tachycardia Neurological exam: PRESENT: alert, awake, oriented to person, oriented to place, oriented to situation Psychiatric exam: ABSENT: agitated, anxious Results Laboratory Results: WBC 6.5 10^3/uL (4.0-10.5) 06/16/19 06:30 RBC 3.07 10^6/uL (4.35-5.55) L 06/16/19 06:30 Hgb 9.1 g/dL (13.5-17.0) L 06/16/19 06:30 Hct 26.8 % (37.9-51.0) L 06/16/19 06:30 MCV 87 fl (80-97) 06/16/19 06:30 MCH 29.7 pg (27.0-33.4) 06/16/19 06:30 MCHC 34.0 g/dL (32.0-36.0) 06/16/19 06:30 RDW 14.4 % (11.5-14.0) H 06/16/19 06:30 Plt Count 85 10^3/uL (150-450) L 06/16/19 06:30 Lymph % (Auto) 22.7 % (13-45) 06/16/19 06:30 Will % (Auto) 12.9 % (3-13) 06/16/19 06:30 Eos % (Auto) 4.3 % (0-6) 06/16/19 06:30 Baso % (Auto) 0.3 % (0-2) 06/16/19 06:30 Absolute Neuts (auto) 3.9 10^3/uL (1.7-8.2) 06/16/19 06:30 Absolute Lymphs (auto) 1.5 10^3/uL (0.5-4.7) 06/16/19 06:30 Absolute Monos (auto) 0.8 10^3/uL (0.1-1.4) 06/16/19 06:30 Absolute Eos (auto) 0.3 10^3/uL (0.0-0.6) 06/16/19 06:30 Absolute Basos (auto) 0.0 10^3/uL (0.0-0.2) 06/16/19 06:30 Seg Neutrophils % 59.8 % (42-78) 06/16/19 06:30 Platelet Estimate Cancelled 06/12/19 04:29 PT 12.8 SEC (11.4-15.4) 06/11/19 20:35 INR 0.96 06/11/19 20:35 VBG pH 7.42 (7.30-7.42) 06/11/19 20:35 VBG pCO2 48.8 mmHg (35-63) 06/11/19 20:35 VBG HCO3 30.8 mmol/L (20-32) 06/11/19 20:35 VBG Base Excess 5.4 mmol/L 06/11/19 20:35 Sodium 137.2 mmol/L (137-145) 06/15/19 09:32 Potassium 4.6 mmol/L (3.6-5.0) 06/15/19 09:32 Chloride 108 mmol/L (98-107) H 06/15/19 09:32 Carbon Dioxide 26 mmol/L (22-30) 06/15/19 09:32 Anion Gap 3 (5-19) L 06/15/19 09:32 BUN 26 mg/dL (7-20) H 06/15/19 09:32 Creatinine 0.91 mg/dL (0.52-1.25) 06/15/19 09:32 Est GFR ( Amer) > 60 (>60) 06/15/19 09:32 Est GFR (Non-Af Amer) Cancelled 06/15/19 08:54 Est GFR (MDRD) Non-Af > 60 (>60) 06/15/19 09:32 Glucose 149 mg/dL (75-110) H 06/15/19 09:32 POC Glucose 96 mg/dL (70-110) 06/18/19 07:18 Lactic Acid 1.1 mmol/L (0.7-2.1) 06/12/19 02:13 Calcium 8.8 mg/dL (8.4-10.2) 06/15/19 09:32 Magnesium 1.7 mg/dL (1.6-2.3) 06/14/19 04:24 Total Bilirubin 0.3 mg/dL (0.2-1.3) 06/11/19 20:35 Direct Bilirubin 0.0 mg/dL (0.0-0.4) 06/11/19 20:35 Neonat Total Bilirubin Not Reportable 06/11/19 20:35 Neonat Direct Bilirubin Not Reportable 06/11/19 20:35 Neonat Indirect Bili Not Reportable 06/11/19 20:35 AST 41 U/L (17-59) 06/11/19 20:35 ALT 36 U/L (<50) 06/11/19 20:35 Alkaline Phosphatase 74 U/L (38-126) 06/11/19 20:35 Troponin I < 0.012 ng/mL 06/11/19 20:35 Total Protein 7.3 g/dL (6.3-8.2) 06/11/19 20:35 Albumin 3.6 g/dL (3.5-5.0) 06/11/19 20:35 EGFR Cancelled 06/15/19 08:54 Urine Color YELLOW 06/11/19 20:35 Urine Appearance CLOUDY 06/11/19 20:35 Urine pH 6.0 (5.0-9.0) 06/11/19 20:35 Ur Specific Rico 1.014 06/11/19 20:35 Urine Protein 30 mg/dL (NEGATIVE) H 06/11/19 20:35 Urine Glucose (UA) NEGATIVE mg/dL (NEGATIVE) 06/11/19 20:35 Urine Ketones NEGATIVE mg/dL (NEGATIVE) 06/11/19 20:35 Urine Blood SMALL (NEGATIVE) H 06/11/19 20:35 Urine Nitrite (Reflex) POSITIVE (NEGATIVE) H 06/11/19 20:35 Urine Bilirubin NEGATIVE (NEGATIVE) 06/11/19 20:35 Urine Urobilinogen NEGATIVE mg/dL (<2.0) 06/11/19 20:35 Leukocyte Esterase Rfl LARGE (NEGATIVE) H 06/11/19 20:35 Urine RBC (Auto) 10 /HPF 06/11/19 20:35 Urine Bacteria (Auto) 2+ /HPF 06/11/19 20:35 Urine WBC (Reflex) > 182 /HPF 06/11/19 20:35 Urine WBC Clumps MANY /HPF 06/11/19 20:35 Squamous Epi Cells Auto 1 /HPF 06/11/19 20:35 Urine Mucus (Auto) RARE /LPF 06/11/19 20:35 Urine Ascorbic Acid NEGATIVE (NEGATIVE) 06/11/19 20:35 Slides for Path Review Cancelled 06/12/19 04:29 06/11/19 20:35 Troponin I < 0.012 Impressions: Chest X-Ray 06/11/19 20:13 IMPRESSION: No acute abnormality is identified. Plan Time Spent: Less than 30 Minutes Stroke Is this a Stroke Patient?: No Acute Heart Failure - Is this a Heart Failure Patient?: No
[2019-06-18 12:55] VITALS: BP 119/60
== END 2019-06-18 19:54 | DRG 871 ==
LOC: ER 19:32 → EH 06-12 00:08 → 3W 06-12 03:26 → UNDODISIN 06-18 12:28
PROVIDERS: ADMIT Emergency Medicine; ATTEND Internal Medicine
PROC: 5A09557 Assistance with Respiratory Ventilation, Greater than 96 Consecutive Hours, Continuous Positive Airway Pressure (ICD-10-PCS; principal; 2019-06-12)
DX: A41.9 Sepsis, unspecified organism (principal); G93.41 Metabolic encephalopathy; N30.01 Acute cystitis with hematuria; N17.9 Acute kidney failure, unspecified; G47.33 Obstructive sleep apnea (adult) (pediatric); G89.29 Other chronic pain; M54.9 Dorsalgia, unspecified; E78.5 Hyperlipidemia, unspecified; E66.9 Obesity, unspecified; M19.90 Unspecified osteoarthritis, unspecified site; F32.9 Major depressive disorder, single episode, unspecified; E11.22 Type 2 diabetes mellitus with diabetic chronic kidney disease; I12.9 Hypertensive chronic kidney disease with stage 1 through stage 4 chronic kidney disease, or unspecified chronic kidney disease; N18.3 Chronic kidney disease, stage 3 (moderate); R00.1 Bradycardia, unspecified; G14 Postpolio syndrome; Z99.3 Dependence on wheelchair; B96.1 Klebsiella pneumoniae [K. pneumoniae] as the cause of diseases classified elsewhere; Z82.49 Family history of ischemic heart disease and other diseases of the circulatory system; Z83.3 Family history of diabetes mellitus; Z79.899 Other long term (current) drug therapy; Z79.51 Long term (current) use of inhaled steroids; Z88.1 Allergy status to other antibiotic agents; Z88.0 Allergy status to penicillin
CPT/HCPCS: 36415; 71045; 80048; 80053; 81001; 82803; 82962; 83605; 83735; 84484; 85025; 85027; 85610; 87040; 87086; 87088; 87186; 93005; 93010; 94660; 96360; 96361; 96372; 99285; J0692; J1265; J1644; J1815; J2060; J3475; J3490; J7060; J7120; J7121

== ENCOUNTER → 2019-07-12 | Outpatient (CLI) | payer OTHER ==
[2019-07-12 10:07] LABS: ABSOLUTE EOSINOPHILS # (AUTO) 0.1 10^3/uL (0.0-0.6); ABSOLUTE LYMPHOCYTES (AUTO) 1.7 10^3/uL (0.5-4.7); ABSOLUTE MONOCYTES (AUTO) 0.4 10^3/uL (0.1-1.4); ABSOLUTE NEUT (AUTO) 4.5 10^3/uL (1.7-8.2); BASOPHILS % (AUTO) 0.4 % (0-2); EOSINOPHILS % (AUTO) 1.4 % (0-6); HEMATOCRIT 33.6 % (37.9-51.0); HEMOGLOBIN 11.4 g/dL (13.5-17.0); LYMPHOCYTES % (AUTO) 25.8 % (13-45); MEAN CORPUSCULAR HEMOGLOBIN 29.4 pg (27.0-33.4); MEAN CORPUSCULAR VOLUME 87 fl (80-97); MONOCYTES % (AUTO) 5.4 % (3-13); PLATELET COUNT 173 10^3/uL (150-450); RED BLOOD COUNT 3.88 10^6/uL (4.35-5.55); RED CELL DISTRIBUTION WIDTH 14.6 % (11.5-14.0); TOTAL CELLS COUNTED % (AUTO) 100 %; WHITE BLOOD COUNT 6.7 10^3/uL (4.0-10.5)
[2019-07-12 10:12] LABS: APPEARANCE,URINE CLEAR; BILIRUBIN,URINE NEGATIVE (NEGATIVE); COLOR,URINE STRAW; GLUCOSE, URINE NEGATIVE (NEGATIVE); KETONES,URINE NEGATIVE (NEGATIVE); LEUKOCYTE ESTERASE,URINE NEGATIVE (NEGATIVE); NITRITE,URINE NEGATIVE (NEGATIVE); PROTEIN,URINE NEGATIVE (NEGATIVE); URINE SPECIFIC GRAVITY 1.008; UROBILINOGEN,URINE NEGATIVE mg/dL (<2.0)
[2019-07-12 10:27] LABS: ALBUMIN 3.9 g/dL (3.5-5.0); ALKALINE PHOSPHATASE 87 U/L (38-126); ANION GAP 5 (5-19); ASPARTATE AMINO TRANSFERASE 22 U/L (17-59); BILIRUBIN,TOTAL 0.4 mg/dL (0.2-1.3); BLOOD UREA NITROGEN 33 mg/dL (7-20); CALCIUM 9.9 mg/dL (8.4-10.2); CARBON DIOXIDE 30 mmol/L (22-30); CHLORIDE 102 mmol/L (98-107); CHOLESTEROL 156.38 mg/dL (0-200); GLUCOSE 123 mg/dL (75-110); PHOSPHORUS 4.1 mg/dL (2.5-4.5); POTASSIUM 5.4 mmol/L (3.6-5.0); TOTAL PROTEIN 7.6 g/dL (6.3-8.2); TRIGLYCERIDES 106 mg/dL (<150)
[2019-07-12 10:38] LABS: DIRECT LDL 77 mg/dL (<100)
[2019-07-14 04:36] LABS: CREATININE URINE 19.2 mg/dL (Not Estab.); MICROALBUMIN URINE 20.8 ug/mL (Not Estab.)
== END ==
LOC: OD 09:34
PROVIDERS: ATTEND Internal Medicine Nephrology
DX: I12.9 Hypertensive chronic kidney disease with stage 1 through stage 4 chronic kidney disease, or unspecified chronic kidney disease (principal); N18.3 Chronic kidney disease, stage 3 (moderate); E11.21 Type 2 diabetes mellitus with diabetic nephropathy; E83.30 Disorder of phosphorus metabolism, unspecified; R80.9 Proteinuria, unspecified
CPT/HCPCS: 36415; 80053; 80061; 81001; 82043; 82306; 82570; 83036; 83970; 84100; 85025

== ENCOUNTER → 2019-07-23 | Outpatient (CLI) | payer OTHER ==
[2019-07-23 14:27] LABS: ABSOLUTE EOSINOPHILS # (AUTO) 0.1 10^3/uL (0.0-0.6); ABSOLUTE LYMPHOCYTES (AUTO) 1.5 10^3/uL (0.5-4.7); ABSOLUTE MONOCYTES (AUTO) 0.4 10^3/uL (0.1-1.4); ABSOLUTE NEUT (AUTO) 3.9 10^3/uL (1.7-8.2); BASOPHILS % (AUTO) 0.4 % (0-2); EOSINOPHILS % (AUTO) 2.4 % (0-6); HEMATOCRIT 32.5 % (37.9-51.0); HEMOGLOBIN 11.1 g/dL (13.5-17.0); MEAN CORPUSCULAR HEMOGLOBIN 29.8 pg (27.0-33.4); MEAN CORPUSCULAR HGB CONC 34.1 g/dL (32.0-36.0); MEAN CORPUSCULAR VOLUME 87 fl (80-97); MONOCYTES % (AUTO) 7.1 % (3-13); PLATELET COUNT 164 10^3/uL (150-450); RED BLOOD COUNT 3.73 10^6/uL (4.35-5.55); RED CELL DISTRIBUTION WIDTH 15.1 % (11.5-14.0); SEGMENTED NEUTROPHILS % (AUTO) 65.1 % (42-78); TOTAL CELLS COUNTED % (AUTO) 100 %; WHITE BLOOD COUNT 5.9 10^3/uL (4.0-10.5)
--- NOTE | 2019-07-23 14:42 | RADIOLOGY REPORT (SQ) ---
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 NUMBER OF VIEWS: Two views. TECHNIQUE: Plantar and oblique radiographic images acquired of the left calcaneous. LIMITATIONS: None. FINDINGS: MINERALIZATION: Normal. BONES: No fracture, erosion or periosteal reaction. JOINTS: The soft tissue defect posterior to the calcaneus. SOFT TISSUES: No soft tissue swelling or radiopaque foreign body. OTHER: Vascular calcifications and a ossific density that projects posterior to the tibia. IMPRESSION: Soft tissue defect posterior to the calcaneus that could represent the reported ulcer. There is no associated osseous erosion or periosteal reaction to indicate the presence of osteomyelit is. If clinical concern persists then correlation with bone scan or MRI is recommended. TECHNICAL DOCUMENTATION: JOB ID: [id number] 2010 [employer]- All Rights Reserved Reading location - IP/workstation name: [email or web address]
[2019-07-23 15:00] LABS: ALBUMIN 3.6 g/dL (3.5-5.0); ALKALINE PHOSPHATASE 78 U/L (38-126); ANION GAP 5 (5-19); ASPARTATE AMINO TRANSFERASE 23 U/L (17-59); BILIRUBIN,TOTAL 0.2 mg/dL (0.2-1.3); BLOOD UREA NITROGEN 48 mg/dL (7-20); CALCIUM 9.9 mg/dL (8.4-10.2); CARBON DIOXIDE 31 mmol/L (22-30); CHLORIDE 101 mmol/L (98-107); GLUCOSE 134 mg/dL (75-110); POTASSIUM 5.3 mmol/L (3.6-5.0); TOTAL PROTEIN 7.2 g/dL (6.3-8.2)
[2019-07-23 15:05] LABS: ERYTHROCYTE SEDIMENTATION RATE 89 mm/hr (0-20)
== END ==
LOC: OD 13:47
PROVIDERS: ATTEND Nurse Practitioner Family
DX: E11.622 Type 2 diabetes mellitus with other skin ulcer (principal); L97.422 Non-pressure chronic ulcer of left heel and midfoot with fat layer exposed
CPT/HCPCS: 36415; 80053; 83036; 85025; 85652; 86140

== ENCOUNTER → 2019-07-28 | Outpatient (CLI) | payer OTHER ==
--- NOTE | 2019-07-29 11:15 | RADIOLOGY REPORT (SQ) ---
EXAM DESCRIPTION: ARTERIAL LOWER EXTREM BILAT IMAGES COMPLETED DATE/TIME: 07/28/2019 4:59 pm REASON FOR STUDY: LT HEEL ULCER L97.422 NON-PRS CHR ULCER OF LEFT HEEL AND MIDFOOT W FAT LAY COMPARISON: 10/10/2017 TECHNIQUE: Dynamic and static draper scale and color images acquired of the lower extremity arteries. Additional selected spectral images recorded. ABIs recorded. LIMITATIONS: None. FINDINGS: RIGHT LEG: ABIS: Unable to calculate due to calcified vessels. INFLOW ARTERIES: Triphasic waveform. No obstruction or high-grade stenosis. FEMORAL ARTERIES:Triphasic waveforms. Normal, no velocity elevation to suggest focal stenosis. Normal color Doppler evaluation. No aneurysm. POPLITEAL ARTERY:Multiphasic waveforms. Normal, no velocity elevation to suggest focal stenosis. Norm al color Doppler evaluation. No aneurysm. PATENT TIBIOPERONEAL TRUNK AND 3 VESSEL RUNOFF: Biphasic runoff in the anterior tibial and posterior tibial arteries. Peroneal not imaged. No high-grade stenosis. No occlusion. Dorsalis pedis demons trates biphasic flow. TBI: Not performed. OTHER: No other significant finding. LEFT LEG: ABIS: Unable to calculate due to calcified vessels. INFLOW ARTERIES: Triphasic waveform. No obstruction or high-grade stenosis. FEMORAL ARTERIES:Triphasic waveforms. Normal, no velocity elevation to suggest focal stenosis. Normal color Doppler evaluation. No aneurysm. POPLITEAL ARTERY:Multiphasic waveforms. Normal, no velocity elevation to suggest focal stenosis. Norm al color Doppler evaluation. No aneurysm. PATENT TIBIOPERONEAL TRUNK AND 3 VESSEL RUNOFF: Biphasic runoff in anterior tibial posterior tibial a rteries. Peroneal not imaged. No high-grade stenosis. No occlusion. Dorsalis pedis demonstrates m onophasic distal flow. TBI: Not performed. OTHER: No other significant finding. IMPRESSION: 1. Unable a calculate ABIs due to calcified vessels. 2. Multiphasic inflow bilaterally without high-grade stenosis or large vessel occlusion. 3. Left dorsalis pedis demonstrates diminished monophasic flow. COMMENT: [facility] NORMAL: Greater than 1.0 MINIMAL DISEASE: 0.9 to 1.0 CLAUDICATION: 0.5 to 0.9 SEVERE ARTERIAL DISEASE: Less than 0.5 [facility] NORMAL: Greater than 1.0 (1.2 If Heavy Calcifications) NORMAL TO MILD ISCHEMIA: 0.8 to 1.0 MODERATE ISCHEMIA: 0.4 to 0.8 SEVERE ISCHEMIA: Less than 0.4 TECHNICAL DOCUMENTATION: JOB ID: [id number] 2010 [employer]- All Rights Reserved Reading location - IP/workstation name: [email or web address]
== END ==
LOC: SP 14:54
PROVIDERS: ATTEND Nurse Practitioner Family
DX: L97.422 Non-pressure chronic ulcer of left heel and midfoot with fat layer exposed (principal)
CPT/HCPCS: 93922; 93925

== ENCOUNTER 2019-08-05 14:04 | Inpatient (IN) | payer OTHER, MEDICARE ==
--- NOTE | 2019-08-05 15:19 | ER Document Report ---
ED Medical Screen (RME) - General Chief Complaint: General Weakness Stated Complaint: WEAKNESS Time Seen by Provider: 08/05/19 15:07 Primary Care Provider: AUGUSTIN JI COIN MACHINE SERVICE REPAIRER, COIN MACHINE SERVICE REPAIRER [Primary Care Provider] - Follow up as needed Mode of Arrival: Wheelchair Information source: Relative Notes: 69-year-old male presented to ED with his bihhuz-[id number] for confusion kidney failure diabetes swelling all over urinary incontinence and 10 stools today. She states he is also been very slow in his speech. She states he has been admitted for sepsis in the past. Patient was able to answer some questions but other questions he was not able to answer. Patient was in his own wheelchair. Istalol states he has been this way for several days. She states he is not on kidney dialysis. I have greeted and performed a rapid initial assessment of this patient. A comprehensive ED assessment and evaluation of the patient, analysis of test results and completion of medical decision making process will be conducted by an additional ED providers. TRAVEL OUTSIDE OF THE [place] IN LAST 30 DAYS: No - Related Data Allergies/Adverse Reactions: erythromycin base [Erythromycin Base] Allergy (Verified 08/05/19 15:06) Penicillins Allergy (Verified 08/05/19 15:06) Home Medications: list with sister in law Past Medical History - Social History Chew tobacco use (# tins/day): No Frequency of alcohol use: None Drug Abuse: None - Past Medical History Cardiac Medical History: Reports: Hx Hypercholesterolemia, Hx Hypertension Denies: Hx Atrial Fibrillation, Hx Coronary Artery Disease, Hx DVT, Hx Pulmonary Embolism Pulmonary Medical History: Reports: Hx Asthma, Hx Sleep Apnea Denies: Hx COPD Neurological Medical History: Denies: Hx Seizures Endocrine Medical History: Reports: Hx Diabetes Mellitus Type 2. Denies: Hx Diabetes Mellitus Type 1, Hx Hyperthyroidism, Hx Hypothyroidism Renal/ Medical History: Denies: Hx Peritoneal Dialysis GI Medical History: Denies: Hx Cirrhosis, Hx Crohn's Disease, Hx Hepatitis, Hx Ulcerative Colitis Musculoskeltal Medical History: Reports Hx Arthritis, Denies Hx Gout Skin Medical History: Denies Hx Eczema, Denies Hx Psoriasis Psychiatric Medical History: Reports: Hx Depression Infectious Medical History: Denies: Hx Hepatitis Past Surgical History: Reports: Hx Orthopedic Surgery - Bilateral knees, Back, Right armpit - Immunizations Hx Diphtheria, Pertussis, Tetanus Vaccination: Yes Physical Exam - Vital signs Vitals: Pulse Resp BP Pulse Ox 57 L 14 96/54 L 98 08/05/19 14:13 08/05/19 14:13 08/05/19 14:13 08/05/19 14:13 Course - Vital Signs Vital signs: Temp Pulse Resp BP Pulse Ox 0 F L 57 L 14 96/54 L 98 08/05/19 15:07 08/05/19 14:13 08/05/19 14:13 08/05/19 14:13 08/05/19 14:13 Doctor's Discharge - Discharge Referrals: AUGUSTIN JI COIN MACHINE SERVICE REPAIRER, COIN MACHINE SERVICE REPAIRER [Primary Care Provider] - Follow up as needed
--- NOTE | 2019-08-05 15:50 | RADIOLOGY REPORT (SQ) ---
EXAM DESCRIPTION: CHEST 2 VIEWS IMAGES COMPLETED DATE/TIME: 08/05/2019 3:41 pm REASON FOR STUDY: confused COMPARISON: AP view of the chest from 06/11/2019. EXAM PARAMETERS: NUMBER OF VIEWS: Two views. TECHNIQUE: AP and lateral views of the chest were obtained. RADIATION DOSE: NA LIMITATIONS: None. FINDINGS: LUNGS AND PLEURA: No consolidation, pleural effusion or pneumothorax. MEDIASTINUM AND HILAR STRUCTURES: No mediastinal or hilar contour abnormality. HEART AND VASCULAR STRUCTURES: The cardiac silhouette and pulmonary vasculature are within normal hogue its. BONES: No acute findings. HARDWARE: None in the chest. OTHER: No other finding. IMPRESSION: No acute cardiopulmonary process. TECHNICAL DOCUMENTATION: JOB ID: [id number] 2010 [employer]- All Rights Reserved Reading location - IP/workstation name: [email or web address]
--- NOTE | 2019-08-05 16:24 | ER Document Report ---
ED Dizziness/Weakness - General Chief Complaint: General Weakness Stated Complaint: WEAKNESS Time Seen by Provider: 08/05/19 15:07 Primary Care Provider: AUGUSTIN JI EXECUTIVE SOUS CHEF, EXECUTIVE SOUS CHEF [NURSE PRACTITIONER] - Follow up as needed Mode of Arrival: Wheelchair Notes: Patient is a 69-year-old male with history of kidney failure who presents the emergency department with weakness, generally not feeling well, and urinary incontinence. Patient has been incontinent of urine for the past few days. He also has had episodes of diarrhea. Patient has a history of sepsis in the past. Patient states that his lower extremities gave out on him today. He is normally able to get around with help. His uqqbxs-[id number] is at bedside and states that he has been very lethargic today. She states that he is not talking as much as he normally does. Confirmed with the patient that he is a DNR. TRAVEL OUTSIDE OF THE [place] IN LAST 30 DAYS: No - Related Data Allergies/Adverse Reactions: erythromycin base [Erythromycin Base] Allergy (Verified 08/05/19 15:06) Penicillins Allergy (Verified 08/05/19 15:06) Home Medications: list with sister in law Past Medical History - General Information source: Relative - Social History Smoking Status: Former Smoker Chew tobacco use (# tins/day): No Frequency of alcohol use: None Drug Abuse: None Family History: Reviewed & Not Pertinent Patient has homicidal ideation: No - Past Medical History Cardiac Medical History: Reports: Hx Hypercholesterolemia, Hx Hypertension Denies: Hx Atrial Fibrillation, Hx Coronary Artery Disease, Hx DVT, Hx Pulmonary Embolism Pulmonary Medical History: Reports: Hx Asthma, Hx Sleep Apnea Denies: Hx COPD Neurological Medical History: Denies: Hx Seizures Endocrine Medical History: Reports: Hx Diabetes Mellitus Type 2. Denies: Hx Diabetes Mellitus Type 1, Hx Hyperthyroidism, Hx Hypothyroidism Renal/ Medical History: Denies: Hx Peritoneal Dialysis GI Medical History: Denies: Hx Cirrhosis, Hx Crohn's Disease, Hx Hepatitis, Hx Ulcerative Colitis Musculoskeletal Medical History: Reports Hx Arthritis, Denies Hx Gout Skin Medical History: Denies Hx Eczema, Denies Hx Psoriasis Psychiatric Medical History: Reports: Hx Depression Infectious Medical History: Denies: Hx Hepatitis Past Surgical History: Reports: Hx Orthopedic Surgery - Bilateral knees, Back, Right armpit - Immunizations Hx Diphtheria, Pertussis, Tetanus Vaccination: Yes Review of Systems - Review of Systems Notes: REVIEW OF SYSTEMS: CONSTITUTIONAL : Denies recent illness. Denies recent unintentional weight loss. Denies fever, chills, or sweats. EENT: Denies eye, ear, throat, or mouth pain, discharge, or symptoms. Denies na jonathan or sinus congestion. CARDIOVASCULAR: Denies chest pain. RESPIRATORY: Denies shortness of breath, cough, congestion, difficulty breathing, or wheezing. GASTROINTESTINAL: Denies nausea, vomiting, and diarrhea. Denies abdominal pain. Denies constipation. GENITOURINARY: Denies difficulty urinating, burning, blood in urine, urgency or frequency. MUSCULOSKELETAL: Denies neck and back pain. Denies joint pain or swelling. SKIN: See HPI. HEMATOLOGIC : Denies easy bruising or bleeding. LYMPHATIC: Denies swollen, painful, enlarged glands. NEUROLOGICAL: See HPI. PSYCHIATRIC: Denies stress, anxiety, alteration in sleep patterns, or depression. All other systems reviewed and negative. Physical Exam - Vital signs Vitals: Pulse Resp BP Pulse Ox 57 L 14 96/54 L 98 08/05/19 14:13 08/05/19 14:13 08/05/19 14:13 08/05/19 14:13 - Notes Notes: PHYSICAL EXAMINATION: GENERAL: Appears chronically ill, no acute distress. HEAD: Normocephalic, atraumatic. EYES: PERRL, conjunctiva normal, all extraocular movements intact, sclera nonicteric ENT: Moist mucous membranes. NECK: Supple, no noticeable swelling, redness, rash. Normal range of motion. LUNGS: Equal breath sounds bilaterally and clear to auscultation. No wheezes rales or rhonchi. CARDIOVASCULAR: S1-S2, regular rate, regular rhythm. Radial pulses 2+, normal. ABDOMEN: Normoactive bowel sounds. Soft, nontender, no guarding, no rebound tenderness, and no masses palpated. EXTREMITIES: Normal strength and range of motion, no pitting or edema. No cyanosis. NEUROLOGICAL: Moves all extremities upon command. Strength 5/5 in all extremities. PSYCH: Normal mood, normal affect. SKIN: Warm, dry. Pressure ulcer noted to left heel. Course - Re-evaluation Re-evalutation: 08/05/19 18:24 Patient's hemoglobin is 9.9. 13 days ago his hemoglobin was 11. Rectal exam was done with GLORIA Trejo at bedside. Occult stool was negative. Chemistries show a sodium of 132.7. BUN and creatinine are elevated, but he has chronic renal failure. His blood sugar was 66. He was given something to drink. His blood sugar improved to 115. Patient adamantly denies any abdominal pain. Blood gases unremarkable. Urinalysis is also unremarkable. I suspect the patient's pressure also treat his left heel may be the cause of his weakness. Patient's blood pressure is 99/58. He will receive vancomycin and a liter of fluids. Patient is also hypothermic. Bear hugger on for rewarming measures. 08/05/19 18:[address] Mulligan, the patient's primary care provider. The patient will be admitted to [facility]. - Vital Signs Vital signs: Temp Pulse Resp BP Pulse Ox 0 F L 57 L 20 99/58 L 99 08/05/19 15:07 08/05/19 14:13 08/05/19 18:01 08/05/19 18:01 08/05/19 18:01 - Laboratory Result Diagrams: 08/05/19 16:19 08/05/19 16:19 Laboratory results interpreted by me: 08/05/19 08/05/19 08/05/19 16:19 16:19 16:19 RBC 3.32 L Hgb 9.9 L Hct 28.7 L RDW 14.9 H Plt Count 143 L APTT 40.8 H Sodium 132.7 L BUN 72 H Creatinine 1.36 H Est GFR (MDRD) Non-Af 52 L Glucose 66 L POC Glucose Albumin 3.3 L 08/05/19 17:59 RBC Hgb Hct RDW Plt Count APTT Sodium BUN Creatinine Est GFR (MDRD) Non-Af Glucose POC Glucose 115 H Albumin Discharge - Discharge Clinical Impression: Hypotension Qualifiers: Hypotension type: unspecified hypotension type Qualified Code(s): I95.9 - Hypotension, unspecified Pressure ulcer Qualifiers: Pressure injury location: heel Pressure injury stage: unstageable Laterality: left Qualified Code(s): L89.620 - Pressure ulcer of left heel, unstageable Condition: Fair Disposition: ADMITTED INPATIENT Admitting Provider: Ese Unit Admitted: [facility] Referrals: AUGUSTIN JI EXECUTIVE SOUS CHEF, EXECUTIVE SOUS CHEF [NURSE PRACTITIONER] - Follow up as needed
[2019-08-05 16:37] LABS: VENOUS BLOOD BASE EXCESS 2.6 mmol/L; VENOUS BLOOD HCO3 30.2 mmol/L (20-32); VENOUS BLOOD PCO2 60.3 mmHg (35-63); VENOUS BLOOD PH 7.32 (7.30-7.42)
[2019-08-05 16:41] LABS: ABSOLUTE LYMPHOCYTES (AUTO) 0.9 10^3/uL (0.5-4.7); ABSOLUTE MONOCYTES (AUTO) 0.3 10^3/uL (0.1-1.4); ABSOLUTE NEUT (AUTO) 2.7 10^3/uL (1.7-8.2); BASOPHILS % (AUTO) 0.4 % (0-2); EOSINOPHILS % (AUTO) 1.1 % (0-6); HEMATOCRIT 28.7 % (37.9-51.0); HEMOGLOBIN 9.9 g/dL (13.5-17.0); LYMPHOCYTES % (AUTO) 21.7 % (13-45); MEAN CORPUSCULAR HEMOGLOBIN 29.7 pg (27.0-33.4); MEAN CORPUSCULAR HGB CONC 34.4 g/dL (32.0-36.0); MEAN CORPUSCULAR VOLUME 86 fl (80-97); MONOCYTES % (AUTO) 7.8 % (3-13); PLATELET COUNT 143 10^3/uL (150-450); RED BLOOD COUNT 3.32 10^6/uL (4.35-5.55); RED CELL DISTRIBUTION WIDTH 14.9 % (11.5-14.0); TOTAL CELLS COUNTED % (AUTO) 100 %
--- NOTE | 2019-08-05 16:48 | RADIOLOGY REPORT (SQ) ---
EXAM DESCRIPTION: CT HEAD WITHOUT IMAGES COMPLETED DATE/TIME: 08/05/2019 4:33 pm REASON FOR STUDY: weakness COMPARISON: 03/16/2019 TECHNIQUE: Axial images acquired through the brain without intravenous contrast. Images reviewed wi th bone, brain and subdural windows. Additional sagittal and coronal reconstructions were generated. Images stored on PACS. All CT scanners at this facility use dose modulation, iterative reconstruction, and/or weight based d osing when appropriate to reduce radiation dose to as low as reasonably achievable (ALARA). [facility]: Dose Right [facility]: CareDose [facility]: Dose Right [facility]: Teradose 4D [facility]: Smart [facility] RADIATION DOSE: CT Rad equipment meets quality standard of care and radiation dose reduction techniq ues were employed. CTDIvol: 53.2 mGy. DLP: 991 mGy-cm. mGy. LIMITATIONS: None. FINDINGS: VENTRICLES: Mildly prominent ventricles secondary to involutional atrophy. CEREBRUM: No masses. No hemorrhage. No midline shift. No evidence for acute infarction. Few scatte red areas of low density in the white matter most likely chronic small vessel ischemic changes. CEREBELLUM: No masses. No hemorrhage. No alteration of density. No evidence for acute infarction. EXTRAAXIAL SPACES: No fluid collections. No masses. ORBITS AND GLOBE: No intra- or extraconal masses. Normal contour of globe without masses. CALVARIUM: No fracture. PARANASAL SINUSES: No fluid or mucosal thickening. SOFT TISSUES: No mass or hematoma. OTHER: No other significant finding. IMPRESSION: Mild involutional changes and mild chronic microvascular ischemia. No acute intracrania l imaging findings. EVIDENCE OF ACUTE STROKE: NO. COMMENT: Quality ID # [id number]: Final reports with documentation of one or more dose reduction techniques (e.g., Automated exposure control, adjustment of the mA and/or kV according to patient size, use of iterative reconstruction technique) TECHNICAL DOCUMENTATION: JOB ID: [id number] 2010 [employer]- All Rights Reserved Reading location - IP/workstation name: [email or web address]
[2019-08-05 16:51] LABS: INTERNATIONAL RATION (INR) 0.98
[2019-08-05 16:52] LABS: PARTIAL THROMBOPLASTIN TIME 40.8 SEC (23.5-35.8)
[2019-08-05 16:56] LABS: ALBUMIN 3.3 g/dL (3.5-5.0); ALKALINE PHOSPHATASE 71 U/L (38-126); ANION GAP 5 (5-19); ASPARTATE AMINO TRANSFERASE 40 U/L (17-59); BILIRUBIN,TOTAL 0.2 mg/dL (0.2-1.3); BLOOD UREA NITROGEN 72 mg/dL (7-20); CALCIUM 9.7 mg/dL (8.4-10.2); CARBON DIOXIDE 29 mmol/L (22-30); CHLORIDE 99 mmol/L (98-107); TOTAL PROTEIN 6.8 g/dL (6.3-8.2)
[2019-08-05 16:59] LABS: GLUCOSE 66 mg/dL (75-110)
[2019-08-05 17:33] LABS: APPEARANCE,URINE CLEAR; BILIRUBIN,URINE NEGATIVE (NEGATIVE); COLOR,URINE STRAW; GLUCOSE, URINE NEGATIVE (NEGATIVE); KETONES,URINE NEGATIVE (NEGATIVE); LEUKOCYTE ESTERASE,URINE NEGATIVE (NEGATIVE); NITRITE,URINE NEGATIVE (NEGATIVE); PROTEIN,URINE NEGATIVE (NEGATIVE); URINE SPECIFIC GRAVITY 1.008; UROBILINOGEN,URINE NEGATIVE mg/dL (<2.0)
[2019-08-05] MEDS ORDERED: VANCOMYCIN HCL INJ 1000 MG VIAL IV ONE (18:08)
[2019-08-05] MEDS ORDERED: NORMAL SALINE 1000 ML 1,000 ML IV ONE (18:22)
--- NOTE | 2019-08-05 19:04 | RADIOLOGY REPORT (SQ) ---
EXAM DESCRIPTION: FOOT LEFT COMPLETE IMAGES COMPLETED DATE/TIME: 08/05/2019 5:25 pm REASON FOR STUDY: weakness; osteomyelitis? COMPARISON: Left calcaneus radiograph, 07/23/2019. NUMBER OF VIEWS: Three views. TECHNIQUE: AP, lateral and oblique radiographic images acquired of the left foot. LIMITATIONS: None. FINDINGS: MINERALIZATION: Osteopenia. 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 No lytic or blastic bone lesion. No e vidence of acute fracture. JOINTS: No effusions. SOFT TISSUES: Mild soft tissue swelling at the forefoot. Vascular calcifications. Calcification in the Achilles tendon. OTHER: No other significant finding. IMPRESSION: Moderate osteopenia throughout the left foot. Chronic amputation of the 5th digit metat arsal. No radiographic evidence of osteomyelitis. And there is continued concern for osteomyelitis, MRI is more sensitive and specific for early changes. TECHNICAL DOCUMENTATION: JOB ID: [id number] 2010 [email or web address]- All Rights Reserved Reading location - IP/workstation name: [email or web address]
[2019-08-05] MEDS ORDERED: ACETAMINOPHEN 325 MG TABLET PO PRN (21:38)
[2019-08-05] MEDS ORDERED: RINGERS SOLUTION,LACTATED 1,000 ML IV PRN (21:38)
[2019-08-05] MEDS ORDERED: (PENDING PHARMACY ID) (Albuterol Sulfate 2 PUFF) IH PRN (21:42)
--- NOTE | 2019-08-05 21:44 | PDOC H&P ---
History of Present Illness Admission Date/PCP: 08/05/19 19:17 CINTHIA SHAVER MD History of Present Illness: TAYLOR SMITH is a 69 year old male, patient is new to my practice, recently came to establish as a new patient in the office, he has a history of type 2 diabetes mellitus complicated with peripheral vascular disease, history of amputation of toes of the feet, he came to emergency room for evaluation of generalized body weakness, no cough, patient is DNR status in the emergency room he was found to have a low blood pressure 96/54, he was also hypothermic, the chest x-ray that was done was negative for any acute infiltrate the urinalysis was bland, also concerned that he may osteomyelitis, I order MRI of his left foot, it showed amputation of the distal portion of the fifth digit there is some adjacent subcutaneous edema and inflammation however there was no defini tive bone marrow edema there was no MRI evidence of acute osteomyelitis, it was felt the patient could be septic, there was no apparent source for the sepsis patient started empirically on antibiotic vancomycin and Zosyn to cover for potential pathogens. Past Medical History Cardiac Medical History: Reports: Hyperlipidema, Hypertension Pulmonary Medical History: Reports: Asthma, Sleep Apnea Endocrine Medical History: Reports: Diabetes Mellitus Type 2 Musculoskeltal Medical History: Reports: Arthritis Psychiatric Medical History: Reports: Depression Hematology: Reports: Anemia Past Surgical History Past Surgical History: Reports: Orthopedic Surgery - Bilateral knees, Back, Right armpit Social History Smoking Status: Former Smoker Electronic Cigarette use?: No Frequency of Alcohol Use: None Hx Recreational Drug Use: No Drugs: None Hx Prescription Drug Abuse: No Family History Family History: Reviewed & Not Pertinent Parental Family History Reviewed: Yes Children Family History Reviewed: Yes Sibling(s) Family History Reviewed.: Yes Medication/Allergy Home Medications: Albuterol Sulfate [Proair HFA Inhalation Aerosol 8.5 gm MDI] 2 puff IH Q4HP PRN 03/17/19 Tamsulosin HCl [Flomax 0.4 mg Cap.sr] 0.4 mg PO DAILY 03/17/19 Febuxostat 40 mg PO Q12 06/12/19 Losartan/Hydrochlorothiazide [Losartan-Hctz 100-25 mg Tab] 1 each PO DAILY 06/12/19 Amlodipine Besylate [Norvasc 5 mg Tablet] 5 mg PO DAILY 08/05/19 Collagenase Clostridium Hist. [Santyl Ointment 30 gm] 1 applic TP BID 08/05/19 Furosemide [Lasix 40 mg Tablet] 40 mg PO DAILY 08/05/19 Insulin Lispro Protamin/Lispro [Humalog Mix 50-50 100 unit/mL] 12 unit SUBCUT BID 08/05/19 Multivit-Mins/Iron/Folic/Lycop [Centrum Men's Tablet] 1 each PO MOWEFR@1000 08/05/19 [place]-3/Dha/Epa/Fish Oil [Fish Oil 1,000 mg Softgel] 1 each PO DAILY 08/05/19 Pentoxifylline 400 mg PO TID 08/05/19 Sertraline HCl 50 mg PO QHS 08/05/19 Allergies/Adverse Reactions: erythromycin base [Erythromycin Base] Allergy (Verified 08/05/19 15:06) Penicillins Allergy (Verified 08/05/19 15:06) Review of Systems ROS unobtainable: Other Physical Exam Vital Signs: Temp Pulse Resp BP Pulse Ox 0 F L 57 L 26 H 105/64 94 08/05/19 15:07 08/05/19 14:13 08/05/19 19:30 08/05/19 19:30 08/05/19 19:30 Intake & Output 08/04/19 08/05/19 08/06/19 06:59 06:59 06:59 Intake Total 1000 Balance 1000 General appearance: PRESENT: no acute distress Respiratory exam: PRESENT: clear to auscultation teetee Cardiovascular exam: PRESENT: +S1, +S2 GI/Abdominal exam: PRESENT: soft Neurological exam: PRESENT: alert Results Laboratory Results: 08/05/19 16:19 08/05/19 16:19 08/05/19 08/05/19 08/05/19 16:19 16:19 16:19 WBC 4.0 RBC 3.32 L Hgb 9.9 L Hct 28.7 L MCV 86 MCH 29.7 MCHC 34.4 RDW 14.9 H Plt Count 143 L Seg Neutrophils % 69.0 VBG pH 7.32 VBG pCO2 60.3 VBG HCO3 30.2 VBG Base Excess 2.6 Sodium 132.7 L Potassium 5.0 Chloride 99 Carbon Dioxide 29 Anion Gap 5 BUN 72 H Creatinine 1.36 H Est GFR ( Amer) > 60 Glucose 66 L Lactic Acid Calcium 9.7 Total Bilirubin 0.2 AST 40 Alkaline Phosphatase 71 Total Protein 6.8 Albumin 3.3 L Lipase 64.6 Urine Color Urine Appearance Urine pH Ur Specific [place] Urine Protein Urine Glucose (UA) Urine Ketones Urine Blood Urine Nitrite Ur Leukocyte Esterase Urine WBC (Auto) Urine RBC (Auto) 08/05/19 08/05/19 17:08 18:00 WBC RBC Hgb Hct MCV MCH MCHC RDW Plt Count Seg Neutrophils % VBG pH VBG pCO2 VBG HCO3 VBG Base Excess Sodium Potassium Chloride Carbon Dioxide Anion Gap BUN Creatinine Est GFR ( Amer) Glucose Lactic Acid < 0.5 L Calcium Total Bilirubin AST Alkaline Phosphatase Total Protein Albumin Lipase Urine Color STRAW Urine Appearance CLEAR Urine pH 5.0 Ur Specific [place] 1.008 Urine Protein NEGATIVE Urine Glucose (UA) NEGATIVE Urine Ketones NEGATIVE Urine Blood NEGATIVE Urine Nitrite NEGATIVE Ur Leukocyte Esterase NEGATIVE Urine WBC (Auto) 0 Urine RBC (Auto) 1 08/05/19 16:19 Troponin I < 0.012 Impressions: Chest X-Ray 08/05/19 15:20 IMPRESSION: No acute cardiopulmonary process. Head CT 08/05/19 16:19 IMPRESSION: Mild involutional changes and mild chronic microvascular ischemia. No acute intracranial imaging findings. EVIDENCE OF ACUTE STROKE: NO. Foot X-Ray 08/05/19 18:09 IMPRESSION: Moderate osteopenia throughout the left foot. 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 No radiographic evidence of osteomyelitis. And there is continued concern for osteomyelitis, MRI is more sensitive and specific for early changes. Assessment & Plan - Diagnosis (1) Sepsis Qualifiers: Sepsis type: sepsis due to unspecified organism Sepsis acute organ dysfunction status: with acute organ dysfunction Severe sepsis acute organ dysfunction type: acute renal failure Acute renal failure type: unspecified Severe sepsis shock status: unspecified Qualified Code(s): A41.9 - Sepsis, unspecified organism; R65.20 - Severe sepsis without septic shock; N17.9 - Acute kidney failure, unspecified Is this a current diagnosis for this admission?: Yes Plan: He has symptoms that suggest sepsis syndrome, hypothermia low blood pressure the apparent source is not clear suspect foot empiric treatment with IV antibiotic vancomycin, Zosyn, treat with fluid (2) Morbid (severe) obesity due to excess calories Is this a current diagnosis for this admission?: Yes (3) Diabetes mellitus type 2 in obese Is this a current diagnosis for this admission?: Yes
[2019-08-05] MEDS ORDERED: (PENDING PHARMACY ID) (Omega-3/Dha/Epa/Fish Oil [Fish Oil 1,000 Mg Softgel] 1 EACH) PO SCH (21:45)
[2019-08-05] MEDS ORDERED: LISPRO SUBCUT SCH (21:45)
[2019-08-05] MEDS ORDERED: INSULIN LISPRO PROTAMIN SUBCUT SCH (21:45)
[2019-08-05] MEDS ORDERED: [UNRECOGNIZED DRUG - OTHER] SUBCUT SCH (21:45)
[2019-08-05] MEDS ORDERED: VANCOMYCIN HCL 0 MG in DEXTROSE 5%-WATER 250 ML IV NR (21:45)
[2019-08-05] MEDS ORDERED: ALBUTEROL SULFATE HFA (90 MCG/PUFF) 200 PUFF/8.5 GM MDI IH PRN (21:55)
[2019-08-05] MEDS: OMEGA-3 ACID ETHYL ESTERS 1 GM CAPSULE PO SCH (23:04)
[2019-08-05] MEDS: PENTOXIFYLLINE 400 MG TABLET.SA PO SCH (23:04)
[2019-08-05] MEDS: SERTRALINE HCL 50 MG TABLET PO SCH (23:04)
[2019-08-05] MEDS: PIPERACILLIN SODIUM/TAZOBACTAM 4.5 GM in NORMAL SALINE 100 ML IV SCH (23:05)
[2019-08-05] MEDS: TAMSULOSIN HCL 0.4 MG CAP.SR.24H PO SCH (23:06)
--- NOTE | 2019-08-05 23:13 | RADIOLOGY REPORT (SQ) ---
EXAM DESCRIPTION: MR LOWER EXTREMITY WITHOUT IV CONTRAST COMPLETED DATE/TME: 08/05/2019 00:00 CLINICAL HISTORY: 69 years, Male, suspect osteomyelitis left foot COMPARISON: Plain films today's date TECHNIQUE: 177 Images stored on PACS. LIMITATIONS: None. FINDINGS: Motion artifact degrades image quality and limits the exam, and does lack of IV contrast. Amputation of the distal portion of the fifth digit beginning at the level of the mid fifth metatarsal. There is some adjacent subcutaneous edema and inflammation. However there is no definitive bone marrow edema or convincing MR evidence for acute osteomyelitis. Remaining joint spaces are otherwise preserved. IMPRESSION: No MR evidence for osteomyelitis, given the limitations as above. Postsurgical change fifth digit with minor cellulitis near the fifth metatarsal stump copyright 2011 [employer]- All Rights Reserved
[2019-08-06 00:19] LABS: INTERNATIONAL RATION (INR) 1.02; PROTHROMBIN TIME 13.4 SEC (11.4-15.4)
[2019-08-06] MEDS: PIPERACILLIN SODIUM/TAZOBACTAM 4.5 GM in NORMAL SALINE 100 ML IV SCH ×2 (00:30→05:15)
[2019-08-06 02:11] LABS: ARTERIAL BLOOD BASE EXCESS 2.3 mmol/L; ARTERIAL BLOOD H2CO3 1.33 mmol/L (1.05-1.35); ARTERIAL BLOOD HCO3 27.3 mmol/L (20-24); ARTERIAL BLOOD O2 SATURATION 95.1 % (94-98); ARTERIAL BLOOD PCO2 44.2 mmHg (35-45); ARTERIAL BLOOD PH 7.41 (7.35-7.45); ARTERIAL BLOOD PO2 74.7 mmHg (80-100); ARTERIAL BLOOD TOTAL CO2 28.6 mmol/L (23-27)
[2019-08-06 02:13] LABS: ARTERIAL BLOOD FIO2 ROOM AIR
[2019-08-06] MEDS ORDERED: NORMAL SALINE 1000 ML 1,000 ML IV PRN (02:38)
[2019-08-06] MEDS ORDERED: NORMAL SALINE 1000 ML 1,000 ML IV ONE (02:45)
[2019-08-06 05:56] LABS: ABSOLUTE LYMPHOCYTES (AUTO) 0.8 10^3/uL (0.5-4.7); ABSOLUTE MONOCYTES (AUTO) 0.4 10^3/uL (0.1-1.4); ABSOLUTE NEUT (AUTO) 2.6 10^3/uL (1.7-8.2); BASOPHILS % (AUTO) 0.5 % (0-2); EOSINOPHILS % (AUTO) 0.3 % (0-6); HEMATOCRIT 29.4 % (37.9-51.0); HEMOGLOBIN 10.2 g/dL (13.5-17.0); LYMPHOCYTES % (AUTO) 21.3 % (13-45); MEAN CORPUSCULAR HEMOGLOBIN 29.5 pg (27.0-33.4); MEAN CORPUSCULAR HGB CONC 34.7 g/dL (32.0-36.0); MEAN CORPUSCULAR VOLUME 85 fl (80-97); MONOCYTES % (AUTO) 9.4 % (3-13); PLATELET COUNT 131 10^3/uL (150-450); RED BLOOD COUNT 3.46 10^6/uL (4.35-5.55); RED CELL DISTRIBUTION WIDTH 15.3 % (11.5-14.0); SEGMENTED NEUTROPHILS % (AUTO) 68.5 % (42-78); TOTAL CELLS COUNTED % (AUTO) 100 %; WHITE BLOOD COUNT 3.8 10^3/uL (4.0-10.5)
[2019-08-06] MEDS ORDERED: LORAZEPAM INJ 2 MG/1 ML VIAL ONE (06:15)
[2019-08-06 06:20] LABS: ALKALINE PHOSPHATASE 71 U/L (38-126); ANION GAP 6 (5-19); ASPARTATE AMINO TRANSFERASE 38 U/L (17-59); BILIRUBIN,TOTAL 0.2 mg/dL (0.2-1.3); BLOOD UREA NITROGEN 68 mg/dL (7-20); CALCIUM 9.3 mg/dL (8.4-10.2); CARBON DIOXIDE 23 mmol/L (22-30); CHLORIDE 105 mmol/L (98-107); GLUCOSE 118 mg/dL (75-110); POTASSIUM 4.8 mmol/L (3.6-5.0); TOTAL PROTEIN 6.2 g/dL (6.3-8.2)
[2019-08-06] MEDS ORDERED: NOREPINEPHRINE BITARTRATE INJ/PF 4 MG/4 ML SDV IV ONE (07:24)
[2019-08-06] MEDS: DEXTROSE 5%-WATER 250 ML with NOREPINEPHRINE BITARTRATE 4 MG IV PRN ×4 (07:29→12:48)
--- NOTE | 2019-08-06 07:32 | EKG REPORT ---
SEVERITY:- ABNORMAL ECG - SINUS RHYTHM WITH POSSIBLE WENCKEBACH AVB LEFT AXIS DEVIATION BORDERLINE PROLONGED QT INTERVAL : Confirmed by: Mikie Krishnamurthy MD 06-Aug-2019 07:31:27
[2019-08-06] MEDS ORDERED: RINGERS SOLUTION,LACTATED 1,000 ML IV ONE (08:15)
[2019-08-06] MEDS ORDERED: LORAZEPAM INJ 2 MG/1 ML VIAL IV ONE ×2 (08:15→09:00)
[2019-08-06] MEDS ORDERED: NORMAL SALINE INJ/PF 0.9% 10 ML SDV IV PRN (09:11)
--- NOTE | 2019-08-06 09:15 | Operative Report ---
Bedside Procedure - History of Present Illness History of Present Illness: Mr. Martinez is a 69-year-old male with a history of type 2 diabetes with peripheral vascular disease, hypertension asthma sleep apnea. He has had multiple admissions for weakness hypotension and possible sepsis in the past. He was seen in the emergency room yesterday for weakness, malaise and was noted to have somewhat low blood pressure which appeared to respond to fluids. He was noted to have sores on his foot and a concern for that he was sent for x-ray and MRI to rule out osteomyelitis. These were negative for active osteomyelitis. He was admitted to [facility] and approximately 1:00 in the morning or thereabouts was noted to have a blood pressure that was significantly low. In discussion personally with the nurse on the floor she obtained a recorded manual pressure of 60/40. She was able to get an order for IV fluids from the primary physician. Assuming that the blood pressure would be taken by the nursing unit manager after the IV fluids were given she waited for the results. When she went to check on the results she found the patient to be somewhat obtunded, with sonorous respiration and what appeared to be significant rhonchi with crackles. She did not notice any seizures but he definitely had change in mental status. Blood pressure was also noted to be low. A rapid response was called and the critical care team from the night service responded and brought the patient to the ICU where the daytime critical care team assumed responsibility. Central access and arterial cannulation were done to obtain blood pressure. Patient's mental status was such that a adequate review of systems could not be taken. Review of past medical records and current medical records were done. H&P from this admission had not been completed as of yet. PROCEDURE: ARTERIAL LINE INSERTION PROCEDURALIST: NAYELI BARRIENTOS INDICATION: HYPOTENSION ANESTHESIA: 5 ML 1% LIDOCAINE COMPLICATIONS: NONE EBL: 3 ML Given that patient intermittently but frequently jerks his upper extremities and torso, the decision was made to establish femoral arterial access as his lower extremities were remaining fairly still making risk of iatrogenic injury less. Patient was placed in reverse Trendelenburg position followed by prepping and draping in usual sterile fashion. Utilizing ultrasound, the right common femoral artery was identified and pulsating in usual fashion with no significant atherosclerotic plaque identified. A 20 gauge introducer needle was visualized entering the right common femoral artery with return of pulsatile blood from the back end of the needle. A guide wire was then advanced through the introducer needle into the right common femoral artery and the needle was subsequently removed. The wire was confirmed to be in the right common femoral artery in two views via ultrasound. A small stab skin incision was made on top of the wire to facilitate passage of the catheter. An 18-gauge 16 cm catheter was passed over the wire into the right common femoral artery and the guide wire was subsequently removed, again noting pulsatile blood from the back end of the catheter. Transducer tubing was connected to the catheter in usual fashion, the catheter was secured into place with 2 sutures, and a sterile occlusive transparent dressing was applied. A good arterial waveform was noted on the monitor. Patient tolerated procedure well with no complications. Indication for Procedure: Arterial Hypotension Date: 08/06/19 Provider: SYLVIA CARPENTER - Central Line Right Internal jugular Time completed: : Consent obtained: No - placed out of emergent medical necessity for hypotension Central line pre-insertion: Sterile PPE donned, Chloraprep applied, Sterile drapes applied Central line size (Fr.): 7 Central line lumen type: Triple Anesthetic type: 1% Lidocaine mL's of anesthesia: 3 Ultrasound guided: Yes CM at insertion site: 20 Line secured with sutures: Yes Central line post-insertion: Blood return from lumens, Biopatch applied, Sutured, Sterile dressing applied, Position confirmed w/ CXR Number of attempts: 1 Complications: No Notes: 08/06/19 09:05 Patient placed in proper procedural position followed by prepping and draping in usual sterile fashion. Utilizing ultrasound the right internal jugular vein was identified and found to be without thrombus in the 3 inches above the right clavicle. A 20-gauge introducer needle attached to syringe with negative pressure was inserted through the dermis and visualized entering the right internal jugular vein on ultrasound with a return of blood into the syringe. The syringe was disconnected from the needle noting a slow passive dripping of blood onto the sterile field. A guide wire was then advanced through the needle into the right internal jugular vein and the needle was removed. The wire was confirmed to be in the right internal jugular vein in two views via ultrasound. A small skin stab incision was made to prepare for dilation. A dilator was then passed over the wire to dilate the subcutaneous tissue and was subsequently removed. A 7 [place] 20 cm catheter was then advanced over the wire into the right internal jugular vein and the wire was subsequently removed, again noting passive dripping of blood from the distal lumen of the catheter onto the sterile field. Positive pressure caps were applied, all lumens aspirated and flushed easily, no air was introduced into the vein. A Biopatch was applied, the catheter was sutured into place at 20 cm, and a sterile occlusive transparent dressing was applied. EBL 2 mL. No complications. Patient tolerated procedure well. Chest x-ray ordered and tip of catheter appears it is in the cavo-atrial junction, though it is possible it may be in the RA, no pneumothorax. 08/06/19 09:11 08/06/19 09:14
[2019-08-06 09:20] LABS: ARTERIAL BLOOD BASE EXCESS -2.3 mmol/L; ARTERIAL BLOOD H2CO3 1.24 mmol/L (1.05-1.35); ARTERIAL BLOOD HCO3 22.9 mmol/L (20-24); ARTERIAL BLOOD O2 SATURATION 95.6 % (94-98); ARTERIAL BLOOD PCO2 41.2 mmHg (35-45); ARTERIAL BLOOD PH 7.36 (7.35-7.45); ARTERIAL BLOOD PO2 81.1 mmHg (80-100); ARTERIAL BLOOD TOTAL CO2 24.2 mmol/L (23-27)
[2019-08-06 09:21] LABS: ARTERIAL BLOOD FIO2 3L
[2019-08-06 09:40] LABS: PROTHROMBIN TIME 13.2 SEC (11.4-15.4)
[2019-08-06 09:41] LABS: PARTIAL THROMBOPLASTIN TIME 38.3 SEC (23.5-35.8)
[2019-08-06 09:43] LABS: APPEARANCE,URINE SLIGHTLY-CLOUDY; BILIRUBIN,URINE NEGATIVE (NEGATIVE); COLOR,URINE YELLOW; GLUCOSE, URINE NEGATIVE (NEGATIVE); KETONES,URINE NEGATIVE (NEGATIVE); LEUKOCYTE ESTERASE,URINE TRACE (NEGATIVE); NITRITE,URINE NEGATIVE (NEGATIVE); PROTEIN,URINE NEGATIVE (NEGATIVE); URINE SPECIFIC GRAVITY 1.014; UROBILINOGEN,URINE NEGATIVE mg/dL (<2.0)
[2019-08-06 09:45] LABS: ALBUMIN 3.1 g/dL (3.5-5.0); ALKALINE PHOSPHATASE 75 U/L (38-126); ANION GAP 7 (5-19); ASPARTATE AMINO TRANSFERASE 40 U/L (17-59); BILIRUBIN,TOTAL 0.3 mg/dL (0.2-1.3); BLOOD UREA NITROGEN 66 mg/dL (7-20); C-REACTIVE PROTEIN 16.4 mg/L (<10.0); CALCIUM 9.2 mg/dL (8.4-10.2); CARBON DIOXIDE 23 mmol/L (22-30); CHLORIDE 104 mmol/L (98-107); CREATINE KINASE 70 U/L (55-170); GLUCOSE 134 mg/dL (75-110); POTASSIUM 5.1 mmol/L (3.6-5.0); TOTAL PROTEIN 6.5 g/dL (6.3-8.2)
[2019-08-06] MEDS ORDERED: MULTIVITAMIN TABLET PO SCH (10:00)
[2019-08-06] MEDS ORDERED: (PENDING PHARMACY ID) (Multivit-Mins/Iron/Folic/Lycop [Centrum Men's Tablet] 1 EACH) PO SCH (10:00)
--- NOTE | 2019-08-06 10:06 | RADIOLOGY REPORT (SQ) ---
EXAM DESCRIPTION: CHEST SINGLE VIEW IMAGES COMPLETED DATE/TIME: 08/06/2019 9:09 am REASON FOR STUDY: Central line placement Right COMPARISON: PA and lateral views of the chest from 08/05/2019. EXAM PARAMETERS: NUMBER OF VIEWS: One view. TECHNIQUE: An AP view of the chest was obtained. RADIATION DOSE: NA LIMITATIONS: None. FINDINGS: LUNGS AND PLEURA: Low inspiratory lung volumes without a superimposed consolidation, sizea ble pleural effusion or pneumothorax. MEDIASTINUM AND HILAR STRUCTURES: No mediastinal or hilar contour abnormality. HEART AND VASCULAR STRUCTURES: The cardiac silhouette and pulmonary vasculature are within normal hogue its. BONES: No acute findings. HARDWARE: The tip of the right IJ central venous catheter projects within the SVC. OTHER: No other finding. IMPRESSION: The tip of the right IJ central venous catheter projects within the SVC. There is no pn eumothorax. TECHNICAL DOCUMENTATION: JOB ID: [id number] 2010 [employer]- All Rights Reserved Reading location - IP/workstation name: [email or web address]
[2019-08-06] MEDS: TAMSULOSIN HCL 0.4 MG CAP.SR.24H PO SCH (10:26)
[2019-08-06] MEDS: RINGERS SOLUTION,LACTATED 1,000 ML IV PRN ×2 (10:35→17:35)
[2019-08-06] MEDS: VANCOMYCIN HCL 750 MG in DEXTROSE 5%-WATER 250 ML IV SCH ×2 (10:35→21:29)
[2019-08-06] MEDS: PENTOXIFYLLINE 400 MG TABLET.SA PO SCH ×3 (11:46→17:34)
[2019-08-06] MEDS: OMEGA-3 ACID ETHYL ESTERS 1 GM CAPSULE PO SCH (11:46)
[2019-08-06] MEDS: HYDROCORTISONE SOD SUCCINATE INJ/PF 100 MG/2 ML SDV IV SCH ×3 (11:46→21:29)
--- NOTE | 2019-08-06 11:53 | CRITICAL CARE ADMISSION REPORT ---
HPI Date:: 08/06/19 Time:: 06:50 Reason for ICU Reason:: Hypotension with acute metabolic encephalopathy HPI: Mr. Martinez is a 69-year-old male with a history of type 2 diabetes with peripheral vascular disease, hypertension asthma sleep apnea. He has had multiple admissions for weakness hypotension and possible sepsis in the past. He was seen in the emergency room yesterday for weakness, malaise and was noted to have somewhat low blood pressure which appeared to respond to fluids. He was noted to have sores on his foot and a concern for that he was sent for x-ray and MRI to rule out osteomyelitis. These were negative for active osteomyelitis. He was admitted to [facility] and approximately 1:00 in the morning or thereabouts was noted to have a blood pressure that was significantly low. In discussion personally with the nurse on the floor she obtained a recorded manual pressure of 60/40. She was able to get an order for IV fluids from the primary physician. Assuming that the blood pressure would be taken by the assistant chief nursing officer after the IV fluids were given she waited for the results. When she went to check on the results she found the patient to be somewhat obtunded, with sonorous respiration and what appeared to be significant rhonchi with crackles. She did not notice any seizures but he definitely had change in mental status. Blood pressure was also noted to be low. A rapid response was called and the critical care team from the night service responded and brought the patient to the ICU where the daytime critical care team assumed responsibility. Central access and arterial cannulation were done to obtain blood pressure. Patient's mental status was such that a adequate review of systems could not be taken. Review of past medical records and current medical records were done. H&P from this admission had not been completed as of yet. History obtained from:: Nurse in [facility], EHR, [employer] - Diagnosis/Plan (1) Shock Is this a current diagnosis for this admission?: Yes (2) Sepsis associated hypotension Is this a current diagnosis for this admission?: Yes (3) Acute metabolic encephalopathy Is this a current diagnosis for this admission?: Yes (4) JESSICA (acute kidney injury) Is this a current diagnosis for this admission?: Yes Plan: Secondary to hypovolemia and sepsis related ATN Plan Summary: Respiratory: Patient may have had an aspiration event and will be prudent to follow-up for aspiration pneumonitis and/or pneumonia. Check ABG for hypercarbia and to assess adequate PO2 Infectious: Patient appears to have hypotension related to sepsis. My other concern is that given his questionable penicillin allergy that this may represent anaphylaxis. I have transitioned him to aztreonam until we can be certain that this in fact is not the case. We will continue vancomycin. Source and portal of entry appears to be skin. Other aspects to be considered are pneumonia although chest x-ray does not show distinct consolidation this is still a possibility. We will continue to follow and monitor for other possible sources. If blood pressure continues to be an issue we will add 1 dose of concentrated gentamicin. Patient has several skin ulcerations with a signif icant one on the left heel. Will have wound care evaluate and may possibly need surgery to evaluate as well. These do not appear to be significant enough to cause illness but may have been again a portal of entry for possible bacteremia. Cardiac: Patient has hypotension with shock. At first glance this appears to be sepsis however he does not meet testing criteria for systemic inflammatory res ponse syndrome. He does have hypothermia. Bedside critical care echo and ultrasound shows an left ventricle which is filled with apical ballooning and basilar hyperfunction. It appears as if there is a Takatsubo phenomena. Troponin and CK are essentially unremarkable. Have ordered a formal echo cardiogram. We were unable to fully evaluate the IVC. His tongue appears dry. Passive leg raise, did not increase his blood pressure. Have given a small amount of fluid to improve blood pressure prior to having the arterial catheter in. He does appear to be well filled from the ventricle side in the RV is certainly filled as well. Will minimize any excess volume. Hematologic: Patient has mild thrombocytopenia but not severe. He has mild anemia but does not require any treatment. Certainly this is not the cause of his hypotension. Of note he does have significant inflammatory markers with an elevation in ESR and CRP. This may represent an underlying malignancy and/or infection. We will continue to monitor. Endocrine: Patient's cortisol level was 15 in the face of an acute illness with hypotension. This is a marker of relative adrenal insufficiency and I have started Solu-Cortef. This may be a synergistic reason for his hypotension in conjunction with occult infection. TSH is 4 and certainly not an acute cause for his process. We will continue to monitor his glucose while in the ICU given his type 2 diabetes. Renal: Patient has mild acute on chronic renal failure. This appears to be ATN related to hypotension. Will follow with resuscitation and recheck later. Adjust medications for GFR. Although concerned in the past for contrast is noted, recent studies indicate that in situations such as this that it would be necessary and would not necessarily lead to worsening renal dysfunction. It is necessary to determine the etiology of the patient's shock and will pursue CT scan of both chest and abdomen. Metabolic: Patient has mild hyperkalemia. Will recheck labs. He has a mild metabolic acidosis that might be related to cortisol deficiency. Alimentary: Patient had mild discomfort on abdominal examination with ultrasound probe. Have ordered CAT scan and will order ultrasound of the abdomen if there is a distinguishing characteristic is abdominal imaging. Neurologic: Patient had significant encephalopathy on presentation. With improvement in his blood pressure he is able to start speaking but can give minimal responses. He does respond to noxious stimulus and over time and on repeat examination responded to soft touch. There appears to be a slight right facial droop but he is also edentulous. He is moving all extremities to command but is unable to hold up his arms due to significant weakness. Initially he was not moving his left side raising concern for stroke. With improvement in his blood pressure this has improved. He is now moving all extremities and attempting to move his arms against gravity with some improvement. This does not appear to be an acute stroke but may be indicative of and arterial [employer] dysfunction propagated by hypotension Sedation: The patient received Ativan on the floor in concern for seizure. He apparently had upgoing into the right eye-movement. However after discussing with the nurse and appears that he was only fluttering his eyes. There was no distinct tonic-clonic movement. No history of seizures according to family. Lines/Tubes: Central venous catheter and arterial catheter placed today during the initial resuscitation Other: Discussed initial findings, case and care with nurse practitioner Nikky as well as the family. The family will be coming to the hospital to discuss fur ther management given the fact the patient has made him self a DNR/DNI on admission. He is to remain DNR/DNI but family would want aggressive care up to that point. Given his significant hypotension it is possible that he has a further decline and it is essential that the family meet with us to discuss goals of care. Past Medical History Cardiac Medical History: Reports: Hyperlipidema, Hypertension Denies: Atrial Fibrillation, Coronary Artery Disease, DVT, Pulmonary Embolism Pulmonary Medical History: Reports: Asthma, Sleep Apnea Denies: Chronic Obstructive Pulmonary Disease (COPD) Neurological Medical History: Denies: Seizures Endocrine Medical History: Reports: Diabetes Mellitus Type 2 Denies: Diabetes Mellitus Type 1, Hyperthyroidism, Hypothyroidism GI Medical History: Denies: Cirrhosis, Crohn's Disease, Hepatitis, Ulcerative Colitis Musculoskeltal Medical History: Reports: Arthritis Denies: Gout Skin Medical History: Denies: Eczema, Psoriasis Psychiatric Medical History: Reports: Depression Hematology: Reports: Anemia Denies: Bleeding Tendencies Past Surgical History Past Surgical History: Reports: Orthopedic Surgery - Bilateral knees, Back, Right armpit Social/Family History - Social History Lives with: Family Smoking Status: Unknown if Ever Smoked Frequency of Alcohol Use: None Hx Recreational Drug Use: No Drugs: None Hx Prescription Drug Abuse: No - Medication/Allergies Home Medications: RX: Albuterol Sulfate [Proair HFA Inhalation Aerosol 8.5 gm MDI] 2 puff IH Q4HP PRN 03/17/19 RX: Tamsulosin HCl [Flomax 0.4 mg Cap.sr] 0.4 mg PO DAILY 03/17/19 RX: Febuxostat 40 mg PO Q12 06/12/19 RX: Losartan/Hydrochlorothiazide [Losartan-Hctz 100-25 mg Tab] 1 each PO DAILY 06/12/19 Insulin Lispro Protamin/Lispro [Humalog Mix 50-50 100 unit/mL] 12 unit SUBCUT BID 08/05/19 Multivit-Mins/Iron/Folic/Lycop [Centrum Men's Tablet] 1 each PO MOWEFR@1000 08/05/19 [place]-3/Dha/Epa/Fish Oil [Fish Oil 1,000 mg Softgel] 1 each PO DAILY 08/05/19 Pentoxifylline 400 mg PO TID 08/05/19 RX: Amlodipine Besylate [Norvasc 5 mg Tablet] 5 mg PO DAILY 08/05/19 RX: Collagenase Clostridium Hist. [Santyl Ointment 30 gm] 1 applic TP BID 08/05/19 RX: Furosemide [Lasix 40 mg Tablet] 40 mg PO DAILY 08/05/19 Sertraline HCl 50 mg PO QHS 08/05/19 Allergies/Adverse Reactions: erythromycin base [Erythromycin Base] Allergy (Verified 08/05/19 15:06) Penicillins Allergy (Verified 08/05/19 15:06) Review of Systems ROS unobtainable: Due to mental status Physical Exam Vital Signs: Temp Pulse Resp BP Pulse Ox 99.5 F 67 18 84/46 L 93 08/06/19 05:20 08/06/19 02:00 08/06/19 01:18 08/06/19 01:18 08/06/19 06:11 Intake & Output 08/05/19 08/06/19 08/07/19 06:59 06:59 06:59 Intake Total 1883 Output Total 1875 Balance 8 Weight 95.6 kg Weight/Height Weight 95.6 kg Height 5 ft 6 in General appearance: PRESENT: no acute distress, morbidly obese Exam: Older appearing non-intubated 69-year-old male who appears chronically and now critically ill. He is severely obese. No active distress, he is stuporous and only responds to noxious stimulus on initial presentation. With improvement in blood pressure he does answer questions in 1-2 words and these are not intelligible at times Head exam: PRESENT: atraumatic, normocephalic, other - Alopecia totalis Eye exam: PRESENT: conjunctiva pink, PERRLA, other - Attempts at extraocular movements are thwarted by the patient's understanding. He does not appear to have a field defect and he does have at least a horizontal intact movements.. ABSENT: conjunctival injection, nystagmus, scleral icterus Ear exam: PRESENT: other - Bilateral ear creases consistent with demi sign. ABSENT: drainage, normal external ear exam Mouth exam: PRESENT: dry mucosa, neck supple, tongue midline Teeth exam: PRESENT: edentulous - Location okay yet low If yes okay I ambulated I Neck exam: ABSENT: carotid bruit, JVD, lymphadenopathy, meningismus, thyromegaly, tracheal deviation Respiratory exam: PRESENT: clear to auscultation teetee, unlabored. ABSENT: accessory muscle use, rales, rhonchi, tachypnea, wheezes Cardiovascular exam: PRESENT: RRR, +S1, +S2. ABSENT: rubs, systolic murmur Pulses: ABSENT: normal dorsalis pedis pul Vascular exam: PRESENT: normal capillary refill. ABSENT: pallor GI/Abdominal exam: PRESENT: hypoactive bowel sounds, soft. ABSENT: distended, firm, guarding, mass, organolmegaly, rebound, tenderness Rectal exam: PRESENT: normal rectal tone, other - No sacral decubiti Gentrourinary exam: PRESENT: indwelling catheter Extremities exam: PRESENT: tenderness, other - Has loss of the lateral aspect of the left foot. Generalized tenderness of the joints without erythema.. ABSENT: pedal edema Musculoskeletal exam: PRESENT: deformity, tenderness. ABSENT: dislocation Neurological exam: PRESENT: altered, other - [place] Coma Scale on admission to ICU 2-1-4. Over time improved to 3-3-6. No focal motor deficits except for global symmetrical weakness of the upper extremities greater than the lower extremities. He does have what appears to be a right facial droop unknown if this is old or new. He does not follow commands nor have a clear understanding of commands which makes it difficult to evaluate extraocular movements. Pupils do appear to be reactive. He has what appears to be a slight ptosis of the left eye.. ABSENT: CN II-XII grossly intact Psychiatric exam: PRESENT: flat affect Focused psych exam: ABSENT: psychomotor agitation, restlessness Skin exam: PRESENT: other - Several toes on the right side have old ulcerations and slightly new one on the ventral aspect of the right metatarsal region. Minimal erythema certainly no significant swelling and no discharge. He has an ulceration on the back of his left heel. ABSENT: cyanosis, erythema, jaundice, mottled, petechiae Tubes/Lines: PRESENT: Central Line, Arterial Catheter, Other - Hull type urinary catheter Laboratory/Radiographs Laboratory Results: 08/06/19 05:42 08/06/19 05:42 08/05/19 08/05/19 08/05/19 16:19 16:19 16:19 WBC 4.0 RBC 3.32 L Hgb 9.9 L Hct 28.7 L MCV 86 MCH 29.7 MCHC 34.4 RDW 14.9 H Plt Count 143 L Seg Neutrophils % 69.0 Carbonic Acid HCO3/H2CO3 Ratio ABG pH ABG pCO2 ABG pO2 ABG HCO3 ABG O2 Saturation ABG Base Excess VBG pH 7.32 VBG pCO2 60.3 VBG HCO3 30.2 VBG Base Excess 2.6 FiO2 Sodium 132.7 L Potassium 5.0 Chloride 99 Carbon Dioxide 29 Anion Gap 5 BUN 72 H Creatinine 1.36 H Est GFR ( Amer) > 60 Glucose 66 L Lactic Acid Calcium 9.7 Total Bilirubin 0.2 AST 40 Alkaline Phosphatase 71 Total Protein 6.8 Albumin 3.3 L Lipase 64.6 Urine Color Urine Appearance Urine pH Ur Specific Reeves Urine Protein Urine Glucose (UA) Urine Ketones Urine Blood Urine Nitrite Ur Leukocyte Esterase Urine WBC (Auto) Urine RBC (Auto) 08/05/19 08/05/19 08/05/19 17:08 18:00 21:17 WBC RBC Hgb Hct MCV MCH MCHC RDW Plt Count Seg Neutrophils % Carbonic Acid HCO3/H2CO3 Ratio ABG pH ABG pCO2 ABG pO2 ABG HCO3 ABG O2 Saturation ABG Base Excess VBG pH VBG pCO2 VBG HCO3 VBG Base Excess FiO2 Sodium Potassium Chloride Carbon Dioxide Anion Gap BUN Creatinine Est GFR ( Amer) Glucose Lactic Acid < 0.5 L < 0.5 L Calcium Total Bilirubin AST Alkaline Phosphatase Total Protein Albumin Lipase Urine Color STRAW Urine Appearance CLEAR Urine pH 5.0 Ur Specific Reeves 1.008 Urine Protein NEGATIVE Urine Glucose (UA) NEGATIVE Urine Ketones NEGATIVE Urine Blood NEGATIVE Urine Nitrite NEGATIVE Ur Leukocyte Esterase NEGATIVE Urine WBC (Auto) 0 Urine RBC (Auto) 1 08/05/19 08/06/19 08/06/19 23:50 01:58 02:39 WBC RBC Hgb Hct MCV MCH MCHC RDW Plt Count Seg Neutrophils % Carbonic Acid 1.33 HCO3/H2CO3 Ratio 20:1 ABG pH 7.41 ABG pCO2 44.2 ABG pO2 74.7 L ABG HCO3 27.3 H ABG O2 Saturation 95.1 ABG Base Excess 2.3 VBG pH VBG pCO2 VBG HCO3 VBG Base Excess FiO2 ROOM AIR Sodium Potassium Chloride Carbon Dioxide Anion Gap BUN Creatinine Est GFR ( Amer) Glucose Lactic Acid < 0.5 L 1.2 Calcium Total Bilirubin AST Alkaline Phosphatase Total Protein Albumin Lipase Urine Color Urine Appearance Urine pH Ur Specific Reeves Urine Protein Urine Glucose (UA) Urine Ketones Urine Blood Urine Nitrite Ur Leukocyte Esterase Urine WBC (Auto) Urine RBC (Auto) 08/06/19 08/06/19 08/06/19 05:42 05:42 05:42 WBC 3.8 L RBC 3.46 L Hgb 10.2 L Hct 29.4 L MCV 85 MCH 29.5 MCHC 34.7 RDW 15.3 H Plt Count 131 L Seg Neutrophils % 68.5 Carbonic Acid HCO3/H2CO3 Ratio ABG pH ABG pCO2 ABG pO2 ABG HCO3 ABG O2 Saturation ABG Base Excess VBG pH VBG pCO2 VBG HCO3 VBG Base Excess FiO2 Sodium 133.6 L Potassium 4.8 Chloride 105 Carbon Dioxide 23 Anion Gap 6 BUN 68 H Creatinine 1.27 H Est GFR ( Amer) > 60 Glucose 118 H Lactic Acid 1.2 Calcium 9.3 Total Bilirubin 0.2 AST 38 Alkaline Phosphatase 71 Total Protein 6.2 L Albumin 3.0 L Lipase Urine Color Urine Appearance Urine pH Ur Specific Reeves Urine Protein Urine Glucose (UA) Urine Ketones Urine Blood Urine Nitrite Ur Leukocyte Esterase Urine WBC (Auto) Urine RBC (Auto) 08/05/19 16:19 Troponin I < 0.012 Impressions: Lower Extremity MRI 08/05/19 00:00 IMPRESSION: No MR evidence for osteomyelitis, given the limitations as above. Postsurgical change fifth digit with minor cellulitis near the fifth metatarsal stump copyright 2010 [employer]- All Rights Reserved Chest X-Ray 08/05/19 15:20 IMPRESSION: No acute cardiopulmonary process. Head CT 08/05/19 16:19 IMPRESSION: Mild involutional changes and mild chronic microvascular ischemia. No acute intracranial imaging findings. EVIDENCE OF ACUTE STROKE: NO. Foot X-Ray 08/05/19 18:09 IMPRESSION: Moderate osteopenia throughout the left foot. 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 No radiographic evidence of osteomyelitis. And there is continued concern for osteomyelitis, MRI is more sensitive and specific for early changes. All labs, radiographs, diagnostic studies and EKGs were personally reviewed: Yes In addition, reports of radiographic and diagnostic studies were read: Yes Critical Time Critical Time (minutes): 90 -: The care of a critically ill patient is dynamic. This note represents a static moment in the admission process. Orders and treatments may be given simultaneously and urgently, and time is not outside industrial sales representative of the treatment process. This patient requires Critical Care secondary to life threatening organ or limb dysfunction. Without Critical Care services, the patient is at risk for increased mortality and morbidity.
[2019-08-06] MEDS: AZTREONAM 1.5 GM in DEXTROSE 5%-WATER 100 ML IV SCH ×2 (12:50→17:34)
--- NOTE | 2019-08-06 14:09 | RADIOLOGY REPORT (SQ) ---
EXAM DESCRIPTION: CT HEAD WITHOUT IMAGES COMPLETED DATE/TIME: 08/06/2019 1:33 pm REASON FOR STUDY: encephalopathy COMPARISON: CT brain 08/05/2019, 03/16/2019 TECHNIQUE: Axial images acquired through the brain without intravenous contrast. Images reviewed wi th bone, brain and subdural windows. Additional sagittal and coronal reconstructions were generated. Images stored on PACS. All CT scanners at this facility use dose modulation, iterative reconstruction, and/or weight based d osing when appropriate to reduce radiation dose to as low as reasonably achievable (ALARA). [facility]: Dose Right [facility]: CareDose [facility]: Dose Right [facility]: Teradose 4D [facility]: [employer] RADIATION DOSE: CT Rad equipment meets quality standard of care and radiation dose reduction techniq ues were employed. CTDIvol: 48.6 mGy. DLP: 930 mGy-cm. mGy. LIMITATIONS: None. FINDINGS: VENTRICLES: Normal size and contour. CEREBRUM: No CT evidence of acute large territory ischemic change, acute intracranial hemorrhage, mas s effect, or midline shift. Mild age-appropriate deep periventricular white matter small vessel ische kavon change. CEREBELLUM: No masses. No hemorrhage. No alteration of density. No evidence for acute infarction. EXTRAAXIAL SPACES: Age-appropriate mild prominence of the sulci and sylvian fissures ORBITS AND GLOBE: No intra- or extraconal masses. Normal contour of globe without masses. CALVARIUM: No fracture. PARANASAL SINUSES: No fluid or mucosal thickening. SOFT TISSUES: No mass or hematoma. OTHER: No other significant finding. IMPRESSION: No acute findings EVIDENCE OF ACUTE STROKE: NO. COMMENT: Quality ID # [id number]: Final reports with documentation of one or more dose reduction techniques (e.g., Automated exposure control, adjustment of the mA and/or kV according to patient size, use of iterative reconstruction technique) TECHNICAL DOCUMENTATION: JOB ID: [id number] 2010 [employer]- All Rights Reserved Reading location - IP/workstation name: [email or web address]
--- NOTE | 2019-08-06 14:22 | RADIOLOGY REPORT (SQ) ---
EXAM DESCRIPTION: CT CHEST WITH; CT ABD/PELVIS WITH IV ONLY IMAGES COMPLETED DATE/TIME: 08/06/2019 1:33 pm REASON FOR STUDY: shock; Sepsis RENAL FUNCTION: Creatinine 1.4 TECHNIQUE: CT scan of the chest performed using helical scanning technique with dynamic intravenous contrast injection. Images reviewed with lung, soft tissue and bone windows. Reconstructed coronal a nd sagittal MPR images reviewed. All images stored on PACS. CT scan of the abdomen and pelvis performed with intravenous and oral contrast using helical scanning technique with dynamic intravenous contrast injection. Images reviewed with lung, soft tissue and b one windows. Reconstructed coronal and sagittal MPR images reviewed. Delayed images for evaluation of the urinary system also acquired and evaluated. All images stored on PACS. All CT scanners at this facility use dose modulation, iterative reconstruction, and/or weight based d osing when appropriate to reduce radiation dose to as low as reasonably achievable (ALARA). [facility]: Dose Right [facility]: CareDose [facility]: Dose Right [facility]: Teradose 4D [facility]: [employer] RADIATION DOSE: CT Rad equipment meets quality standard of care and radiation dose reduction techniq ues were employed. CTDIvol: 26.3 - 29.2 mGy. DLP: 4038 mGy-cm. . LIMITATIONS: None. FINDINGS: CHEST: LUNGS AND PLEURA: Partial clearing of the bilateral lower lobe pneumonia seen 03/16/[address] On the current exam, there is volume loss and consolidation in the lateral and posterior basal segments right lower lobe, and along the left posterior costophrenic sulcus. No pleural effusions. No pneumothorax. Airways are patent HILAR AND MEDIASTINAL STRUCTURES: No identified masses or abnormal nodes. HEART AND VASCULAR STRUCTURES: No aneurysm or dissection. No central pulmonary emboli. No pericardi al effusion. Heavily calcified left coronary artery HARDWARE: Right jugular central lines tip in the right atrium. BONES: No significant finding. OTHER: No other significant finding. ABDOMEN AND PELVIS: LIVER: Normal size. No masses. No dilated ducts. SPLEEN: Normal size. No focal lesions. PANCREAS: No masses. No significant calcifications. No adjacent inflammation or peripancreatic flui d collections. Pancreatic duct not dilated. GALLBLADDER: No identified stones by CT criteria. No inflammatory changes to suggest cholecystitis. ADRENAL GLANDS: No significant masses or asymmetry. RIGHT KIDNEY AND URETER: No solid masses. No significant calcifications. No hydronephrosis or hyd roureter. LEFT KIDNEY AND URETER: No solid masses. No significant calcifications. No hydronephrosis or hydr oureter. AORTA AND VESSELS: No aneurysm. No dissection. Renal arteries, SMA, celiac without stenosis. RETROPERITONEUM: No retroperitoneal adenopathy, hemorrhage or masses. LARGE AND SMALL BOWEL: No dilatation. No masses. No wall thickening. APPENDIX: Normal. ABDOMINAL WALL: No hernia or masses. PERITONEAL CAVITY: No free air. No free fluid. No peritoneal implants or masses. PELVIS: No mass or free fluid. Urinary bladder decompressed by a Hull catheter. BONES: Chronic degenerative disc changes lumbar spine OTHER: No other significant finding. IMPRESSION: Partial clearing of the right lateral lower lobe airspace disease seen on CT chest [address] abdomen and pelvis TECHNICAL DOCUMENTATION: JOB ID: [id number] Quality ID # [id number]: Final reports with documentation of one or more dose reduction techniques (e.g., Au tomated exposure control, adjustment of the mA and/or kV according to patient size, use of iterative reconstruction technique) 2010 [employer]- All Rights Reserved COMPARISON: CT chest 03/16/2019 CONTRAST TYPE AND DOSE: contrast/concentration: Isovue 350.00 mg/ml; Total Contrast Delivered: 100.0 ml; Total Saline Delivered: 72.0 ml Reading location - IP/workstation name: [email or web address]
[2019-08-06] MEDS: HEPARIN SOD (PORCINE) 5,000 UNIT/ML 1 ML VIAL SUBCUT SCH ×2 (15:00→21:28)
[2019-08-06 15:44] LABS: PHOSPHORUS 3.7 mg/dL (2.5-4.5)
[2019-08-06] MEDS ORDERED: DEXTROSE 40% GEL 15 GM TUBE PO PRN ×2 (17:33)
[2019-08-06] MEDS ORDERED: DEXTROSE 50%-WATER 25 GM/50 ML DISP.SYRIN IV PRN ×2 (17:33)
[2019-08-06] MEDS ORDERED: GLUCAGON,HUMAN RECOMB 1 MG INJ IM PRN (17:33)
[2019-08-06] MEDS: INSULIN REG, HUMAN 100 UNIT/ML 3 ML VIAL (PYX) SUBCUT SCH ×2 (18:46→21:28)
--- NOTE | 2019-08-06 19:31 | EKG REPORT ---
SEVERITY:- ABNORMAL ECG - SINUS RHYTHM FIRST DEGREE AV BLOCK BORDERLINE LEFT AXIS DEVIATION LOW VOLTAGE IN FRONTAL LEADS : Confirmed by: Mikie Krishnamurthy MD 06-Aug-2019 19:31:13
[2019-08-06] MEDS ORDERED: DEXTROSE 5%-WATER 250 ML with NOREPINEPHRINE BITARTRATE 4 MG IV PRN ×2 (20:58)
[2019-08-06] MEDS: SERTRALINE HCL 50 MG TABLET PO SCH (21:30)
[2019-08-06 23:18] LABS: BLOOD UREA NITROGEN 59 mg/dL (7-20); CALCIUM 8.9 mg/dL (8.4-10.2); GLUCOSE 174 mg/dL (75-110); POTASSIUM 4.7 mmol/L (3.6-5.0)
[2019-08-06 23:24] LABS: CARBON DIOXIDE 27 mmol/L (22-30); CHLORIDE 103 mmol/L (98-107)
[2019-08-06 23:25] LABS: ANION GAP 4 (5-19)
[2019-08-07] MEDS: AZTREONAM 1.5 GM in DEXTROSE 5%-WATER 100 ML IV SCH ×3 (00:50→12:04)
[2019-08-07] MEDS: INSULIN REG, HUMAN 100 UNIT/ML 3 ML VIAL (PYX) SUBCUT SCH ×6 (04:05→21:26)
[2019-08-07] MEDS: RINGERS SOLUTION,LACTATED 1,000 ML IV PRN ×2 (04:20→21:27)
[2019-08-07 05:14] LABS: ARTERIAL BLOOD BASE EXCESS 0 mmol/L; ARTERIAL BLOOD FIO2 ROOM AIR; ARTERIAL BLOOD H2CO3 1.14 mmol/L (1.05-1.35); ARTERIAL BLOOD HCO3 24.3 mmol/L (20-24); ARTERIAL BLOOD O2 SATURATION 97.6 % (94-98); ARTERIAL BLOOD PCO2 37.9 mmHg (35-45); ARTERIAL BLOOD PH 7.42 (7.35-7.45); ARTERIAL BLOOD PO2 97.6 mmHg (80-100); ARTERIAL BLOOD TOTAL CO2 25.4 mmol/L (23-27)
[2019-08-07] MEDS: HEPARIN SOD (PORCINE) 5,000 UNIT/ML 1 ML VIAL SUBCUT SCH ×2 (05:25→14:39)
[2019-08-07 05:26] LABS: ALBUMIN 2.8 g/dL (3.5-5.0); ALKALINE PHOSPHATASE 64 U/L (38-126); ANION GAP 5 (5-19); ASPARTATE AMINO TRANSFERASE 30 U/L (17-59); BILIRUBIN,TOTAL 0.3 mg/dL (0.2-1.3); BLOOD UREA NITROGEN 54 mg/dL (7-20); CALCIUM 9.1 mg/dL (8.4-10.2); CARBON DIOXIDE 26 mmol/L (22-30); CHLORIDE 106 mmol/L (98-107); GLUCOSE 164 mg/dL (75-110); PHOSPHORUS 3.7 mg/dL (2.5-4.5); POTASSIUM 4.2 mmol/L (3.6-5.0); TOTAL PROTEIN 6.1 g/dL (6.3-8.2)
[2019-08-07] MEDS: HYDROCORTISONE SOD SUCCINATE INJ/PF 100 MG/2 ML SDV IV SCH ×3 (05:26→21:26)
[2019-08-07 05:31] LABS: HEMATOCRIT 28.2 % (37.9-51.0); HEMOGLOBIN 9.8 g/dL (13.5-17.0); MEAN CORPUSCULAR HEMOGLOBIN 29.7 pg (27.0-33.4); MEAN CORPUSCULAR HGB CONC 34.8 g/dL (32.0-36.0); MEAN CORPUSCULAR VOLUME 85 fl (80-97); PLATELET COUNT 112 10^3/uL (150-450); RED CELL DISTRIBUTION WIDTH 15.2 % (11.5-14.0)
[2019-08-07 06:13] LABS: ABSOLUTE LYMPHOCYTES# (MANUAL) 0.5 10^3/uL (0.5-4.7); ABSOLUTE MONOCYTES # (MANUAL) 0.3 10^3/uL (0.1-1.4); BASOPHILS % (MANUAL) 1 % (0-2); EOSINOPHILS % (MANUAL) 0 % (0-6); LYMPHOCYTES % (MANUAL) 3 % (13-45); MONOCYTES % (MANUAL) 2 % (3-13); SEGMENTED NEUTROPHILS % (MAN) 94 % (42-78); TOTAL CELLS COUNTED 100
[2019-08-07 06:14] LABS: ANISOCYTOSIS SLIGHT; OVALOCYTES SLIGHT; PLATELET COMMENT DECREASED; POIKILOCYTOSIS SLIGHT; SCHISTOCYTES SLIGHT; TOXIC GRANULATION 1+
[2019-08-07 06:15] LABS: WHITE BLOOD COUNT 16.1 10^3/uL (4.0-10.5)
--- NOTE | 2019-08-07 07:18 | EKG REPORT ---
SEVERITY:- ABNORMAL ECG - SINUS RHYTHM SECOND DEGREE MOBITZ 1 AV BLOCK BORDERLINE LEFT AXIS DEVIATION LOW VOLTAGE IN FRONTAL LEADS : Confirmed by: Mikie Krishnamurthy MD 07-Aug-2019 07:17:54
--- NOTE | 2019-08-07 08:17 | RADIOLOGY REPORT (SQ) ---
EXAM DESCRIPTION: CHEST SINGLE VIEW IMAGES COMPLETED DATE/TIME: 08/07/2019 6:14 am REASON FOR STUDY: aspiration COMPARISON: 08/06/2019. EXAM PARAMETERS: NUMBER OF VIEWS: One view. TECHNIQUE: Single frontal radiographic view of the chest acquired. RADIATION DOSE: NA LIMITATIONS: None. FINDINGS: LUNGS AND PLEURA: No opacities, masses or pneumothorax. No pleural effusion. MEDIASTINUM AND HILAR STRUCTURES: No masses. Contour normal. HEART AND VASCULAR STRUCTURES: Heart normal in size. Normal vasculature. BONES: No acute findings. HARDWARE: Central line. OTHER: No other significant finding. IMPRESSION: NO SIGNIFICANT CHANGE IN APPEARANCE OF THE CHEST. TECHNICAL DOCUMENTATION: JOB ID: [id number] 2010 [employer]- All Rights Reserved Reading location - IP/workstation name: [email or web address]
[2019-08-07] MEDS: OMEGA-3 ACID ETHYL ESTERS 1 GM CAPSULE PO SCH (09:24)
[2019-08-07] MEDS: PENTOXIFYLLINE 400 MG TABLET.SA PO SCH ×3 (09:24→17:02)
[2019-08-07] MEDS: VANCOMYCIN HCL 750 MG in DEXTROSE 5%-WATER 250 ML IV SCH ×2 (09:26→21:28)
--- NOTE | 2019-08-07 13:03 | PDOC CONSULTATION ---
Consultation Consult Date: 08/07/19 Attending physician:: GEO aguilar Provider Consulted: FRANCISCO KAUR Consult reason:: Bradycardia History of Present Illness Admission Date/PCP: 08/05/19 19:17 CINTHIA SHAVER MD Patient complains of: Weakness History of Present Illness: TAYLOR SMITH is a 69 year old male Who is not a great historian His medical history significant for systemic hypertension, diabetes mellitus and obstructive sleep apnea. The notes suggest that previous admissions for sepsis have occurred. This admission is noted for significant hypotension with sepsis being suspected with no clear source. His EKG has manifest conduction disease with first-degree AV block. He apparently had tracings where there was more p ronounced bradycardia. His hypotension has since been corrected and his heart rate is in the physiological range at the time of my evaluation. Patient himself does not report any complaints at the moment. He does not complain of weakness or dizziness at the moment. He is eating his food without complaints. No major surgeries reported to me. No familial illnesses chronicled or documented. Past Medical History Cardiac Medical History: Reports: Hyperlipidema, Hypertension Denies: Atrial Fibrillation, Coronary Artery Disease, DVT, Pulmonary Embolism Pulmonary Medical History: Reports: Asthma, Sleep Apnea Denies: Chronic Obstructive Pulmonary Disease (COPD) Neurological Medical History: Denies: Seizures Endocrine Medical History: Reports: Diabetes Mellitus Type 2 Denies: Diabetes Mellitus Type 1, Hyperthyroidism, Hypothyroidism GI Medical History: Denies: Cirrhosis, Crohn's Disease, Hepatitis, Ulcerative Colitis Musculoskeltal Medical History: Reports: Arthritis Denies: Gout Skin Medical History: Denies: Eczema, Psoriasis Psychiatric Medical History: Reports: Depression Hematology: Reports: Anemia Denies: Bleeding Tendencies Past Surgical History Past Surgical History: Reports: Orthopedic Surgery - Bilateral knees, Back, Right armpit Social History Lives with: Family Smoking Status: Former Smoker Electronic Cigarette use?: No Frequency of Alcohol Use: None Hx Recreational Drug Use: No Drugs: None Hx Prescription Drug Abuse: No - Advance Directive Resuscitation Status: Do Not Resuscitate Family History Family History: Reviewed & Not Pertinent Parental Family History Reviewed: Yes - No familial illnesses chronic cold Children Family History Reviewed: NA Sibling(s) Family History Reviewed.: NA Medication/Allergy Home Medications: Albuterol Sulfate [Proair HFA Inhalation Aerosol 8.5 gm MDI] 2 puff IH Q4HP PRN 03/17/19 Tamsulosin HCl [Flomax 0.4 mg Cap.sr] 0.4 mg PO DAILY 03/17/19 Febuxostat 40 mg PO Q12 06/12/19 Losartan/Hydrochlorothiazide [Losartan-Hctz 100-25 mg Tab] 1 each PO DAILY 0 06/12/19 Amlodipine Besylate [Norvasc 5 mg Tablet] 5 mg PO DAILY 08/05/19 Collagenase Clostridium Hist. [Santyl Ointment 30 gm] 1 applic TP BID 08/05/19 Furosemide [Lasix 40 mg Tablet] 40 mg PO DAILY 08/05/19 Insulin Lispro Protamin/Lispro [Humalog Mix 50-50 100 unit/mL] 12 unit SUBCUT BID 08/05/19 Multivit-Mins/Iron/Folic/Lycop [Centrum Men's Tablet] 1 each PO MOWEFR@1000 08/05/19 [place]-3/Dha/Epa/Fish Oil [Fish Oil 1,000 mg Softgel] 1 each PO DAILY 08/05/19 Pentoxifylline 400 mg PO TID 08/05/19 Sertraline HCl 50 mg PO QHS 08/05/19 Allergies/Adverse Reactions: erythromycin base [Erythromycin Base] Allergy (Verified 08/05/19 15:06) Penicillins Allergy (Verified 08/05/19 15:06) Review of Systems Constitutional: PRESENT: as per HPI, fatigue Eyes: PRESENT: as per HPI Nose, Mouth, and Throat: PRESENT: as per HPI Cardiovascular: PRESENT: as per HPI Physical Exam Vital Signs: Temp Pulse Resp BP Pulse Ox 96.4 F L 114 H 16 109/49 L 99 08/07/19 05:33 08/06/19 06:14 08/07/19 11:00 08/06/19 13:30 08/07/19 11:00 Intake & Output 08/06/19 08/07/19 08/08/19 06:59 06:59 06:59 Intake Total 1845 5688 228 Output Total 4720 9087 661 Balance 8 -34 -255 Weight 95.6 kg 94.9 kg General appearance: PRESENT: no acute distress, cooperative, well-developed, well-nourished Head exam: PRESENT: atraumatic, normocephalic Eye exam: PRESENT: EOMI Mouth exam: PRESENT: dry mucosa Respiratory exam: PRESENT: clear to auscultation teetee, symmetrical, unlabored Cardiovascular exam: PRESENT: RRR, +S1, +S2, other - Triple-lumen catheter right internal jugular vein Pulses: PRESENT: normal radial pulses Rectal exam: PRESENT: deferred Musculoskeletal exam: PRESENT: normal inspection Neurological exam: PRESENT: alert, awake, oriented to person, oriented to place Psychiatric exam: PRESENT: appropriate affect Skin exam: PRESENT: dry, intact Results Laboratory Results: 08/07/19 04:55 08/07/19 04:55 08/06/19 08/06/19 08/07/19 15:00 22:35 04:55 WBC RBC Hgb Hct MCV MCH MCHC RDW Plt Count Seg Neutrophils % Carbonic Acid 1.14 HCO3/H2CO3 Ratio 21:1 ABG pH 7.42 ABG pCO2 37.9 ABG pO2 97.6 ABG HCO3 24.3 H ABG O2 Saturation 97.6 ABG Base Excess 0 FiO2 ROOM AIR Sodium 134.3 L Potassium 4.7 Chloride 103 Carbon Dioxide 27 Anion Gap 4 L BUN 59 H Creatinine 1.25 Est GFR ( Amer) > 60 Glucose 174 H Calcium 8.9 Phosphorus 3.7 Magnesium 2.1 Total Bilirubin AST Alkaline Phosphatase Total Protein Albumin 08/07/19 08/07/19 04:55 04:55 WBC 16.1 H D RBC 3.30 L Hgb 9.8 L Hct 28.2 L MCV 85 MCH 29.7 MCHC 34.8 RDW 15.2 H Plt Count 112 L Seg Neutrophils % Not Reportable Carbonic Acid HCO3/H2CO3 Ratio ABG pH ABG pCO2 ABG pO2 ABG HCO3 ABG O2 Saturation ABG Base Excess FiO2 Sodium 136.5 L Potassium 4.2 Chloride 106 Carbon Dioxide 26 Anion Gap 5 BUN 54 H Creatinine 1.15 Est GFR ( Amer) > 60 Glucose 164 H Calcium 9.1 Phosphorus 3.7 Magnesium 2.0 Total Bilirubin 0.3 AST 30 Alkaline Phosphatase 64 Total Protein 6.1 L Albumin 2.8 L 08/05/19 17:08 [place] Catheter Urine Culture - Final NO GROWTH 2 DAYS 08/05/19 08/06/19 08/06/19 16:19 08:45 09:12 Creatine Kinase 70 Troponin I < 0.012 0.029 EKG Comments: Twelve-lead EKG independently reviewed by me. Tracings show sinus rhythm with first-degree AV block. Mobitz 1 Wenckebach phenomena noted. Significant leukocytosis on today's labs. Impressions: Lower Extremity MRI 08/05/19 00:00 IMPRESSION: No MR evidence for osteomyelitis, given the limitations as above. Postsurgical change fifth digit with minor cellulitis near the fifth metatarsal stump copyright 2010 [employer]- All Rights Reserved Foot X-Ray 08/05/19 18:09 IMPRESSION: Moderate osteopenia throughout the left foot. 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 No radiographic evidence of osteomyelitis. And there is continued concern for osteomyelitis, MRI is more sensitive and specific for early changes. Abdomen/Pelvis CT 08/06/19 00:00 IMPRESSION: Partial clearing of the right lateral lower lobe airspace disease seen on CT chest 03/16/[address] abdomen and pelvis Chest CT 08/06/19 00:00 IMPRESSION: Partial clearing of the right lateral lower lobe airspace disease seen on CT chest 03/16/[address] abdomen and pelvis Head CT 08/06/19 00:00 IMPRESSION: No acute findings EVIDENCE OF ACUTE STROKE: NO. Chest X-Ray 08/07/19 06:00 IMPRESSION: NO SIGNIFICANT CHANGE IN APPEARANCE OF THE CHEST. Assessment & Plan - Diagnosis (1) First degree atrioventricular block Is this a current diagnosis for this admission?: Yes Plan: Manifest conduction disease on EKG. No indication for pacing. (2) Mobitz (type) I (Wenckebach's) atrioventricular block Is this a current diagnosis for this admission?: Yes Plan: Not causing symptoms. Of unlikely hemodynamic consequence. Not an indication to pursue pacing. We will continue to monitor. (3) Sepsis Qualifiers: Sepsis type: sepsis due to unspecified organism Sepsis acute organ dysfunction status: with acute organ dysfunction Severe sepsis acute organ dysfunction type: acute renal failure Acute renal failure type: unspecified Severe sepsis shock status: unspecified Qualified Code(s): A41.9 - Sepsis, unspecified organism; R65.20 - Severe sepsis without septic shock; N17.9 - Acute kidney failure, unspecified Is this a current diagnosis for this admission?: Yes Plan: Supportive care with intravenous fluids and antibiotics per ICU protocol. Patient appears to have improved tremendously. (4) Hypotension Qualifiers: Hypotension type: unspecified hypotension type Qualified Code(s): I95.9 - Hypotension, unspecified Is this a current diagnosis for this admission?: Yes Plan: Likely sepsis related and vasodilatation related Unlikely to be rate related given heart rates above 40 bpm. No urgent indication for pursuing cardiac pacing
--- NOTE | 2019-08-07 13:40 | XCELERA REPORT ---
[address] [address] Transthoracic Echocardiogram Report Name: TAYLOR SMITH Age: 69 yrs Gender: Male : 1950 Patient Status: Inpatient Patient Location: ICU^602^A Study Date: 08/07/2019 08:18 AM Height: 66 in Weight: 210 lb BSA: 2.0 m2 Procedure: A complete two-dimensional transthoracic echocardiogram was performed (2D, M-mode, spectral and color flow Doppler). The study was technically difficult with many images being suboptimal in quality. Reason For Study: Shock with apical ballooning Ordering Physician: GEO TINAJERO Performed By: LAURYN Interpretation Summary Left ventricular systolic function is low normal. The Ejection Fraction estimate is 50-55% The right ventricle is normal in size and function. There is a trace amount of mitral regurgitation There is no aortic valve stenosis There is a trace amount of tricuspid regurgitation There is no pericardial effusion. MMode/2D Measurements & Calculations RVDd: 3.0 cm LVIDd: 4.7 cm FS: 24.9 % Ao root diam: 2.6 cm IVSd: 1.0 cm LVIDs: 3.6 cm EDV(Teich): 104.6 ml Ao root area: 5.3 cm2 LVPWd: 0.95 cm ESV(Teich): 53.0 ml LA dimension: 3.7 cm EF(Teich): 49.3 % Doppler Measurements & Calculations MV E max rick: MV P1/2t max rick: Ao V2 max: LV V1 max P.3 cm/sec 126.0 cm/sec 91.6 cm/sec 1.7 mmHg MV P1/2t: 61.8 msec Ao max PG: LV V1 max: MVA(P1/2t): 3.6 cm2 3.4 mmHg 65.9 cm/sec MV dec slope: 597.4 cm/sec2 MV dec time: 0.15 sec PA V2 max: PI end-d rick: TR max rick: MV P1/2t-pr_phl: 75.0 cm/sec 123.5 cm/sec 224.0 cm/sec 61.8 msec PA max P.3 mmHg TR max P.1 mmHg Left Ventricle The left ventricle is grossly normal size. There is normal left ventricular wall thickness. Left ventricular systolic function is low normal. The Ejection Fraction estimate is 50-55%. Doppler measurements suggest reversible restrictive left ventricular relaxation, which is associated with grade III/IV or moderate diastolic dysfunction. There is mild global hypokinesis of the left ventricle. Right Ventricle The right ventricle is normal in size and function. Atria The right atrium is normal. The left atrium is mildly dilated. Mitral Valve The mitral valve is grossly normal. There is a trace amount of mitral regurgitation. Aortic Valve The aortic valve is not well visualized secondary to technical limitations. The aortic valve opens well. There is no aortic valve stenosis. No aortic regurgitation is present. Tricuspid Valve The tricuspid valve is normal in structure and function. There is a trace amount of tricuspid regurgitation. Right ventricular systolic pressure is estimated to be within upper limit of normal. Pulmonic Valve The pulmonic valve is not well visualized. There is a trace amount of pulmonic regurgitation. Great Vessels The aortic root is normal size. The inferior vena cava appeared normal and decreased > 50% with respiration (RAP 5-10 mmHg). Effusions There is no pericardial effusion. : GEO TINAJERO, Rivas
--- NOTE | 2019-08-07 13:58 | PDOC CRITICAL CARE PROG REPORT ---
General Date:: 08/07/19 ICU Day:: 2 Hospital Day:: 2 Resuscitation Status: Do Not Resuscitate Medical Power of Maintenance Specialist: [id number] Zabrina Events in the past 12 to 24 Hours:: 08.07.2019: Patient has had a remarkable recovery and is now weaned off vasopressor treatment.. He endorses hunger and is asked for a food tray. No clear source for infection has been elucidated. No side effects related to med ications. Patient has had intermittent bradycardia and in review of previous EKG appears to have what is consistent with Mobitz type I conduction delay. He is bradycardia has not been associated with worsening hypotension or hemodynamic instability Review of systems relevant to events:: Denies chest pain, shortness of breath, he has had no fever or diarrhea. Reason for ICU Addmission:: Hypotension with acute metabolic encephalopathy - Medications: Medications reviewed and adjusted accordingly: Yes Vasopressors:: Levophed now off Physical Exam Vital Signs: Temp Pulse Resp BP Pulse Ox 96.4 F L 114 H 16 109/49 L 99 08/07/19 05:33 08/06/19 06:14 08/07/19 11:00 08/06/19 13:30 08/07/19 11:00 Intake & Output 08/06/19 08/07/19 08/08/19 06:59 06:59 06:59 Intake Total 1883 2856 495 Output Total 1875 2890 750 Balance 8 -34 -255 Weight 95.6 kg 94.9 kg Weight/Height Weight 94.9 kg Height 5 ft 6 in General appearance: PRESENT: no acute distress, cooperative, morbidly obese Exam: Pleasant, nontoxic not intubated chronically ill-appearing 69-year-old male no acute distress. He is awake alert oriented x4. He is lethargic at times and on repeat examination maintains ability to speak. Eye exam: PRESENT: conjunctiva pink, EOMI, PERRLA. ABSENT: conjunctival injection, nystagmus, scleral icterus Ear exam: PRESENT: normal external ear exam Mouth exam: PRESENT: dry mucosa, neck supple, tongue midline Teeth exam: PRESENT: edentulous Neck exam: ABSENT: carotid bruit, JVD, lymphadenopathy, meningismus, thyromegaly, tracheal deviation Respiratory exam: PRESENT: clear to auscultation teetee, unlabored. ABSENT: accessory muscle use, rales, rhonchi, tachypnea, wheezes Cardiovascular exam: PRESENT: RRR, +S1, +S2, other - Distant heart sounds secondary to anatomy. ABSENT: rubs Pulses: ABSENT: normal dorsalis pedis pul Vascular exam: PRESENT: normal capillary refill. ABSENT: pallor GI/Abdominal exam: PRESENT: normal bowel sounds, soft. ABSENT: ascites, distended, guarding, mass, organolmegaly, rebound, tenderness Rectal exam: PRESENT: deferred Gentrourinary exam: PRESENT: indwelling catheter Extremities exam: PRESENT: +1 edema, other - Has loss of last 2 digits on the left foot. There is healing ulceration of the second and third digits of the right foot. Heal ulceration is currently dressed. It had early scab formation yesterday. Neurological exam: PRESENT: alert, awake, oriented to person, oriented to place, oriented to time, oriented to situation, other - Improved voice and mentation. He does not have facial droop during cranial nerve examination. His weakness has improved he is able to lift his hands and arms against gravity and sustain for more than 10 seconds. He is weak but it is symmetrical and global but certainly improved in the last 24 hours.. ABSENT: motor sensory deficit, aphasic Psychiatric exam: PRESENT: appropriate affect, normal mood Focused psych exam: ABSENT: pressured speech, psychomotor agitation, restlessness Skin exam: PRESENT: normal color. ABSENT: cyanosis, erythema, jaundice, pallor, petechiae Tubes/Lines: PRESENT: Central Line, Arterial Catheter - Hull type urinary catheter Laboratory/Radiographs Laboratory Results: 08/07/19 04:55 08/07/19 04:55 08/06/19 08/06/19 08/07/19 15:00 22:35 04:55 WBC RBC Hgb Hct MCV MCH MCHC RDW Plt Count Seg Neutrophils % Carbonic Acid 1.14 HCO3/H2CO3 Ratio 21:1 ABG pH 7.42 ABG pCO2 37.9 ABG pO2 97.6 ABG HCO3 24.3 H ABG O2 Saturation 97.6 ABG Base Excess 0 FiO2 ROOM AIR Sodium 134.3 L Potassium 4.7 Chloride 103 Carbon Dioxide 27 Anion Gap 4 L BUN 59 H Creatinine 1.25 Est GFR ( Amer) > 60 Glucose 174 H Calcium 8.9 Phosphorus 3.7 Magnesium 2.1 Total Bilirubin AST Alkaline Phosphatase Total Protein Albumin 08/07/19 08/07/19 04:55 04:55 WBC 16.1 H D RBC 3.30 L Hgb 9.8 L Hct 28.2 L MCV 85 MCH 29.7 MCHC 34.8 RDW 15.2 H Plt Count 112 L Seg Neutrophils % Not Reportable Carbonic Acid HCO3/H2CO3 Ratio ABG pH ABG pCO2 ABG pO2 ABG HCO3 ABG O2 Saturation ABG Base Excess FiO2 Sodium 136.5 L Potassium 4.2 Chloride 106 Carbon Dioxide 26 Anion Gap 5 BUN 54 H Creatinine 1.15 Est GFR ( Amer) > 60 Glucose 164 H Calcium 9.1 Phosphorus 3.7 Magnesium 2.0 Total Bilirubin 0.3 AST 30 Alkaline Phosphatase 64 Total Protein 6.1 L Albumin 2.8 L 08/05/19 17:08 Hull Catheter Urine Culture - Final NO GROWTH 2 DAYS 08/05/19 08/06/19 08/06/19 16:19 08:45 09:12 Creatine Kinase 70 Troponin I < 0.012 0.029 Impressions: Lower Extremity MRI 08/05/19 00:00 IMPRESSION: No MR evidence for osteomyelitis, given the limitations as above. Postsurgical change fifth digit with minor cellulitis near the fifth metatarsal stump copyright 2010 [employer]- All Rights Reserved Foot X-Ray 08/05/19 18:09 IMPRESSION: Moderate osteopenia throughout the left foot. 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 No radiographic evidence of osteomyelitis. And there is continued concern for osteomyelitis, MRI is more sensitive and specific for early changes. Abdomen/Pelvis CT 08/06/19 00:00 IMPRESSION: Partial clearing of the right lateral lower lobe airspace disease seen on CT chest 03/16/[address] abdomen and pelvis Chest CT 08/06/19 00:00 IMPRESSION: Partial clearing of the right lateral lower lobe airspace disease seen on CT chest 03/16/[address] abdomen and pelvis Head CT 08/06/19 00:00 IMPRESSION: No acute findings EVIDENCE OF ACUTE STROKE: NO. Chest X-Ray 08/07/19 06:00 IMPRESSION: NO SIGNIFICANT CHANGE IN APPEARANCE OF THE CHEST. All labs, radiographs, diagnostic studies and EKGs were personally reviewed: Yes In addition, reports of radiographic and diagnostic studies were read: Yes Assessment and Plan - Diagnosis (1) Shock Is this a current diagnosis for this admission?: Yes (2) Sepsis associated hypotension Is this a current diagnosis for this admission?: Yes (3) Acute metabolic encephalopathy Is this a current diagnosis for this admission?: Yes (4) JESSICA (acute kidney injury) Is this a current diagnosis for this admission?: Yes (5) Diabetes mellitus type 2 in obese Is this a current diagnosis for this admission?: Yes Plan Summary: 08.07.2019: Respiratory: Patient has had no respiratory complaints. No evidence to support aspiration phenomenon. There does not appear to be pneumonia and his CT scan and chest x-ray are clear Infectious: Patient is responding to treatment although the etiology and source of his shock have not been elucidated. We will continue antibiotics for at least 7 days. If blood cultures are positive will need longer and possible RIGOBERTO if there are gram-positive's. Continue current antibiotic regimen. Cardiac: Patient has a Mobitz type I with occasional bradycardia. This does not require treatment it may be transient related to his acute illness. He does have a electrical conduction delay none of which require any treatment at this time. Will need monitoring continuously while in the hospital. His shock state has improved and it does not appear to be cardiogenic. I personally reviewed echocardiogram at bedside which does show minimal reduction in function on certain views. It does not appear to be any worse than 50% . That appears to be global and not specifically a cause of his shock state. Appreciate cardiology's input and await official echocardiographic reading. Hematologic: No active issues. Follow white blood cell count which is elevated secondary to possible infection and steroids. He does have an elevation in his inflammatory markers and will repeat them in the morning. We will use this as an indirect marker for improvement. Procalcitonin's are not available in a timely fashion to forward capable decision making regarding de-escalation of antibiotics. Endocrine: We will change glucose checks to every 6 hours. Continue to monitor supportively. TSH L4 does not support shock state etiology. His adrenal function with a cortisol level of 15 is suspect. Continue current dose for the next 24 hours and then begin reduction to diurnal pattern. Renal: Acute kidney dysfunction is improving. Continue current level of care. He may need diuresis in the next 24 hours given his anasarca. Metabolic: Continue to support and monitor electrolyte activity. pH is acceptable on ABG. Alimentary: Start enteral intake. No active GI issues and certainly no source for infection found. He has had no diarrhea duction of steroids. Possibility that he was volume depleted is noted and he is responded to fluids. Neurologic: Dramatic improvement in his comatose and metabolic encephalopathy state. He has significant background white matter disease of the brain c onsistent with possible previous ischemic events. His hypotension appears to have been a source of reduced cerebral blood flow leading to the metabolic encephalopathy. He is lethargic but dramatically more awake and can answer questions. He is even able to speak in his second language which is Chinese. This is distinctly improved compared to yesterday when he had an audible gurgling sounds. There is no focal motor deficits to suggest an acute stroke. Sedation: None Lines/Tubes: Central line and arterial catheter placed 08-06-2019. These can be removed today as well as his Hull. Other: Had a long discussion with the patient's [id number] Zabrina kelley. She was to this patient's brother and is his primary glass etcher helper and medical power of real estate attorney. She states normally he is chair bound but can get up from chair and bed. He does take showers on his own but has to have some close supervision. Recently, he has been eating significant amount of food in a binge-like fashion. This is worsened to the point that the family has had to lock food up and limit his intake. He does sleep a lot and at times snores. We will have physical therapy evaluate the patient. The excessive not insatiable food intake may be related to adrenal insufficiency and or the use of Zoloft. He does have hyponatremia which may be related to this. At this point it is not significant to warrant discontinuation. We will continue the patient in the ICU to assure that there is no recrudescence of his shock state. Family would like to follow-up with Dr. Conway from a cardiology standpoint they are aware of the Mobitz 1 electrical dysfunction. 08.06.2019: Respiratory: Patient may have had an aspiration event and will be prudent to follow-up for aspiration pneumonitis and/or pneumonia. Check ABG for hypercarbia and to assess adequate PO2 Infectious: Patient appears to have hypotension related to sepsis. My other concern is that given his questionable penicillin allergy that this may represent anaphylaxis. I have transitioned him to aztreonam until we can be certain that this in fact is not the case. We will continue vancomycin. Source and portal of entry appears to be skin. Other aspects to be considered are pneumonia although chest x-ray does not show distinct consolidation this is still a possibility. We will continue to follow and monitor for other possible sources. If blood pressure continues to be an issue we will add 1 dose of concentrated gentamicin. Patient has several skin ulcerations with a significant one on the left heel. Will have wound care evaluate and may possibly need surgery to evaluate as well. These do not appear to be significant enough to cause illness but may have been again a portal of entry for possible bacteremia. Cardiac: Patient has hypotension with shock. At first glance this appears to be sepsis however he does not meet testing criteria for systemic inflammatory response syndrome. He does have hypothermia. Bedside critical care echo and ultrasound shows an left ventricle which is filled with apical ballooning and basilar hyperfunction. It appears as if there is a Takatsubo phenomena. Troponin and CK are essentially unremarkable. Have ordered a formal echocardiogram. We were unable to fully evaluate the IVC. His tongue appears dry. Passive leg raise, did not increase his blood pressure. Have given a small amount of fluid to improve blood pressure prior to having the arterial catheter in. He does appear to be well filled from the ventricle side in the RV is certainly filled as well. Will minimize any excess volume. Hematologic: Patient has mild thrombocytopenia but not severe. He has mild anemia but does not require any treatment. Certainly this is not the cause of his hypotension. Of note he does have significant inflammatory markers with an elevation in ESR and CRP. This may represent an underlying malignancy and/or infection. We will continue to monitor. Endocrine: Patient's cortisol level was 15 in the face of an acute illness with hypotension. This is a marker of relative adrenal insufficiency and I have started Solu-Cortef. This may be a synergistic reason for his hypotension in conjunction with occult infection. TSH is 4 and certainly not an acute cause for his process. We will continue to monitor his glucose while in the ICU given his type 2 diabetes. Renal: Patient has mild acute on chronic renal failure. This appears to be ATN related to hypotension. Will follow with resuscitation and recheck later. Adjust medications for GFR. Although concerned in the past for contrast is noted, recent studies indicate that in situations such as this that it would be necessary and would not necessarily lead to worsening renal dysfunction. It is necessary to determine the etiology of the patient's shock and will pursue CT scan of both chest and abdomen. Metabolic: Patient has mild hyperkalemia. Will recheck labs. He has a mild metabolic acidosis that might be related to cortisol deficiency. Alimentary: Patient had mild discomfort on abdominal examination with ultrasound probe. Have ordered CAT scan and will order ultrasound of the abdomen if there is a distinguishing characteristic is abdominal imaging. Neurologic: Patient had significant encephalopathy on presentation. With improvement in his blood pressure he is able to start speaking but can give minimal responses. He does respond to noxious stimulus and over time and on repeat examination responded to soft touch. There appears to be a slight right facial droop but he is also edentulous. He is moving all extremities to command but is unable to hold up his arms due to significant weakness. Initially he was not moving his left side raising concern for stroke. With improvement in his blood pressure this has improved. He is now moving all extremities and attemp ting to move his arms against gravity with some improvement. This does not appear to be an acute stroke but may be indicative of and arterial STRAIGHT CUTTER dysfunction propagated by hypotension Sedation: The patient received Ativan on the floor in concern for seizure. He apparently had upgoing into the right eye-movement. However after discussing with the nurse and appears that he was only fluttering his eyes. There was no distinct tonic-clonic movement. No history of seizures according to family. Lines/Tubes: Central venous catheter and arterial catheter placed today during the initial resuscitation Other: Discussed initial findings, case and care with nurse practitioner Nikky as well as the family. The family will be coming to the hospital to discuss further management given the fact the patient has made him self a DNR/DNI on admission. He is to remain DNR/DNI but family would want aggressive care up to that point. Given his significant hypotension it is possible that he has a further decline and it is essential that the family meet with us to discuss goals of care. Critical Time Critical Time (minutes): 0 - [id number] Level of Care: ICU Anticipated discharge: Home with Homehealth Within: within 72 hours -: 1. The care of a critical patient is a dynamic process. This note is a retail account representative synopsis but static in nature. The timeframe for treatments given in order is not necessarily the actual time these treatments may have been done. 2. This patient requires critical care secondary to ongoing requirements for therapy not offered or safe outside the critical care environment. Transfer to a lower level of care will result in altered life or limb morbidity and mortality. 3. Multidisciplinary rounds completed. 4. ABCDE bundle addressed.
[2019-08-07] MEDS: AZTREONAM 2 GM in DEXTROSE 5%-WATER 100 ML IV SCH ×2 (17:04→23:27)
[2019-08-07 18:45] LABS: ABSOLUTE LYMPHOCYTES (AUTO) 0.8 10^3/uL (0.5-4.7); ABSOLUTE MONOCYTES (AUTO) 0.3 10^3/uL (0.1-1.4); ABSOLUTE NEUT (AUTO) 8.2 10^3/uL (1.7-8.2); BASOPHILS % (AUTO) 0.1 % (0-2); HEMATOCRIT 24.2 % (37.9-51.0); HEMOGLOBIN 8.2 g/dL (13.5-17.0); LYMPHOCYTES % (AUTO) 8.1 % (13-45); MEAN CORPUSCULAR HEMOGLOBIN 29.4 pg (27.0-33.4); MEAN CORPUSCULAR HGB CONC 33.9 g/dL (32.0-36.0); MEAN CORPUSCULAR VOLUME 87 fl (80-97); MONOCYTES % (AUTO) 3.3 % (3-13); RED CELL DISTRIBUTION WIDTH 15.4 % (11.5-14.0); SEGMENTED NEUTROPHILS % (AUTO) 88.5 % (42-78); TOTAL CELLS COUNTED % (AUTO) 100 %; WHITE BLOOD COUNT 9.3 10^3/uL (4.0-10.5)
[2019-08-07 18:47] LABS: INTERNATIONAL RATION (INR) 1.15; PARTIAL THROMBOPLASTIN TIME 40.9 SEC (23.5-35.8); PROTHROMBIN TIME 14.8 SEC (11.4-15.4)
[2019-08-07 19:14] LABS: PLATELET COUNT 93 10^3/uL (150-450)
[2019-08-07] MEDS: SERTRALINE HCL 50 MG TABLET PO SCH (21:26)
[2019-08-08 04:27] LABS: ABSOLUTE LYMPHOCYTES (AUTO) 0.9 10^3/uL (0.5-4.7); ABSOLUTE MONOCYTES (AUTO) 0.5 10^3/uL (0.1-1.4); ABSOLUTE NEUT (AUTO) 7.1 10^3/uL (1.7-8.2); BASOPHILS % (AUTO) 0.2 % (0-2); HEMATOCRIT 20.9 % (37.9-51.0); LYMPHOCYTES % (AUTO) 10.4 % (13-45); MEAN CORPUSCULAR HEMOGLOBIN 29.4 pg (27.0-33.4); MEAN CORPUSCULAR HGB CONC 33.8 g/dL (32.0-36.0); MEAN CORPUSCULAR VOLUME 87 fl (80-97); MONOCYTES % (AUTO) 5.6 % (3-13); RED BLOOD COUNT 2.41 10^6/uL (4.35-5.55); RED CELL DISTRIBUTION WIDTH 15.3 % (11.5-14.0); SEGMENTED NEUTROPHILS % (AUTO) 83.8 % (42-78); TOTAL CELLS COUNTED % (AUTO) 100 %; WHITE BLOOD COUNT 8.5 10^3/uL (4.0-10.5)
[2019-08-08 04:47] LABS: BLOOD UREA NITROGEN 55 mg/dL (7-20); C-REACTIVE PROTEIN 44.7 mg/L (<10.0); CALCIUM 8.6 mg/dL (8.4-10.2); GLUCOSE 161 mg/dL (75-110); PHOSPHORUS 3.3 mg/dL (2.5-4.5); POTASSIUM 4.1 mmol/L (3.6-5.0)
[2019-08-08 04:50] LABS: CARBON DIOXIDE 24 mmol/L (22-30); CHLORIDE 108 mmol/L (98-107)
[2019-08-08 04:55] LABS: HEMOGLOBIN 7.1 g/dL (13.5-17.0); PLATELET COUNT 94 10^3/uL (150-450)
[2019-08-08 04:58] LABS: ANION GAP 4 (5-19)
[2019-08-08 05:07] LABS: ERYTHROCYTE SEDIMENTATION RATE 78 mm/hr (0-20)
[2019-08-08] MEDS: AZTREONAM 2 GM in DEXTROSE 5%-WATER 100 ML IV SCH ×4 (05:36→23:56)
[2019-08-08] MEDS: HYDROCORTISONE SOD SUCCINATE INJ/PF 100 MG/2 ML SDV IV SCH ×3 (05:37→21:47)
[2019-08-08 08:24] LABS: HEMATOCRIT 19.6 % (37.9-51.0); MEAN CORPUSCULAR HEMOGLOBIN 29.8 pg (27.0-33.4); MEAN CORPUSCULAR HGB CONC 34.2 g/dL (32.0-36.0); MEAN CORPUSCULAR VOLUME 87 fl (80-97); RED BLOOD COUNT 2.25 10^6/uL (4.35-5.55); RED CELL DISTRIBUTION WIDTH 15.5 % (11.5-14.0); WHITE BLOOD COUNT 7.9 10^3/uL (4.0-10.5)
[2019-08-08 08:30] LABS: INTERNATIONAL RATION (INR) 1.13; PROTHROMBIN TIME 14.6 SEC (11.4-15.4)
[2019-08-08 08:31] LABS: PARTIAL THROMBOPLASTIN TIME 34.4 SEC (23.5-35.8)
[2019-08-08] MEDS: INSULIN REG, HUMAN 100 UNIT/ML 3 ML VIAL (PYX) SUBCUT SCH ×4 (08:38→21:47)
[2019-08-08 08:49] LABS: PLATELET COUNT 93 10^3/uL (150-450)
[2019-08-08 08:50] LABS: HEMOGLOBIN 6.7 g/dL (13.5-17.0)
[2019-08-08] MEDS ORDERED: NORMAL SALINE 250 ML IV PRN ×4 (08:53→14:20)
[2019-08-08] MEDS ORDERED: ALBUMIN HUMAN 500 ML IV ONE (09:24)
[2019-08-08] MEDS: PENTOXIFYLLINE 400 MG TABLET.SA PO SCH (09:46)
[2019-08-08] MEDS: OMEGA-3 ACID ETHYL ESTERS 1 GM CAPSULE PO SCH (09:46)
[2019-08-08 10:35] LABS: VANCOMYCIN,TROUGH 12.5 ug/mL (5.0-20.0)
[2019-08-08] MEDS: VANCOMYCIN HCL 750 MG in DEXTROSE 5%-WATER 250 ML IV SCH (10:56)
--- NOTE | 2019-08-08 13:06 | RADIOLOGY REPORT (SQ) ---
EXAM DESCRIPTION: CT ABD/PELVIS NO ORAL OR IV IMAGES COMPLETED DATE/TIME: 08/08/2019 12:14 pm REASON FOR STUDY: anemia COMPARISON: None. TECHNIQUE: CT scan of the abdomen and pelvis performed without intravenous or oral contrast. Images reviewed with lung, soft tissue, and bone windows. Reconstructed coronal and sagittal MPR images revi ewed. All images stored on PACS. All CT scanners at this facility use dose modulation, iterative reconstruction, and/or weight based d osing when appropriate to reduce radiation dose to as low as reasonably achievable (ALARA). [facility]: Dose Right [facility]: CareDose [facility]: Dose Right [facility]: Teradose 4D [facility]: [employer] RADIATION DOSE: CT Rad equipment meets quality standard of care and radiation dose reduction techniq ues were employed. CTDIvol: 27.1 mGy. DLP: 1461 mGy-cm. LIMITATIONS: None. FINDINGS: LOWER CHEST: Improved aeration of the lower lobes. NON-CONTRASTED LIVER, SPLEEN, ADRENALS: Evaluation is limited due to the absence of intravenous contr ast. There is no evidence hepatic steatosis. The spleen is normal in size. There is 9 mm splenule anterior to the spleen. There is no adrenal mass. PANCREAS: No acute abnormality of the pancreas. GALLBLADDER: The high attenuation within the gallbladder lumen could represent sludge or vicarious ex cretion of intravenous contrast. RIGHT KIDNEY AND URETER: Evaluation is limited due to the absence of intravenous contrast. There is no hydronephrosis, nephrolithiasis, hydroureter or ureterolithiasis. LEFT KIDNEY AND URETER: Evaluation is limited due to the absence of intravenous contrast. There is n o hydronephrosis, nephrolithiasis, hydroureter or ureterolithiasis. AORTA AND RETROPERITONEUM: No aneurysm of the abdominal aorta. No retroperitoneal adenopathy, hemorr munir or mass. BOWEL AND PERITONEAL CAVITY: Colonic diverticulosis without diverticulitis. There is no bowel obstru ction, bowel wall thickening or pericolonic/ perienteric inflammation. There is no mesenteric adenop athy, free intraperitoneal fluid or mesenteric/ omental inflammation. APPENDIX: Normal. PELVIS, BLADDER, AND ABDOMINAL WALL: The right common femoral artery line is no longer in place. Th ere is a hematoma in the right groin that measures 5.6 cm in AP diameter, 11.[address] and 16 cm in craniocaudal diameter. The urinary bladder is distended and normal in appearance. The prostate gland is normal in size. BONES: Degenerative spondylosis and facet arthropathy of the lumbar spine and transitional anatomy at the lumbosacral junction. OTHER: No other finding. IMPRESSION: 1. The right common femoral artery line has been removed and the patient has developed a right groin hematoma that measures 5.6 cm in AP diameter, 11.3 cm in transverse diameter and 16 cm in craniocaudal diameter. 2. Colonic diverticulosis without diverticulitis. 3. Improved aeration of the lower lobes. 4. Other findings as detailed above. COMMENT: Quality ID # 436: Final reports with documentation of one or more dose reduction techniques (e.g., Automated exposure control, adjustment of the mA and/or kV according to patient size, use of iterative reconstruction technique) TECHNICAL DOCUMENTATION: JOB ID: [id number] 2010 [employer]- All Rights Reserved Reading location - IP/workstation name: [email or web address]
--- NOTE | 2019-08-08 14:39 | RADIOLOGY REPORT (SQ) ---
EXAM DESCRIPTION: CTA ABD AORTA AND EXTREMITY IMAGES COMPLETED DATE/TIME: 08/08/2019 2:19 pm REASON FOR STUDY: bleed right femoral artery COMPARISON: CT of the abdomen and pelvis without contrast from 08/08/2019. TECHNIQUE: CT scan of the blower extremities performed with intravenous contrast using helical scann ing technique with dynamic intravenous contrast injection. Images reviewed with lung, soft tissue, an d bone windows. Reconstructed coronal and sagittal MPR images reviewed. All images stored on PACS. Advanced 3D imaging as volume-rendering, MIPs, SSD performed? yes All CT scanners at this facility use dose modulation, iterative reconstruction, and/or weight based d osing when appropriate to reduce radiation dose to as low as reasonably achievable (ALARA). [facility]: Dose Right [facility]: CareDose [facility]: Dose Right [facility]: Teradose 4D [facility]: [employer] CONTRAST TYPE AND DOSE: Contrast/concentration: Isovue 350.00 mg/ml; Total Contrast Delivered: 99.0 ml; Total Saline Delivered: 70.0 ml RENAL FUNCTION: Creatinine 1.02 milligrams/deciliter. LIMITATIONS: None. FINDINGS: AORTA AND VESSELS: No aneurysm or dissection of the abdominal aorta. The celiac, SMA alexis l arteries and INDY are patent. There is no aneurysm, dissection or high-grade stenosis of the common iliac, external iliac and internal iliac arteries. RIGHT KIDNEY AND URETER: No solid mass, hydronephrosis or hydroureter. LEFT KIDNEY AND URETER: No solid mass, hydronephrosis or hydroureter. RETROPERITONEUM: No retroperitoneal adenopathy, hemorrhage or mass. BOWEL AND PERITONEAL CAVITY: No abnormality. APPENDIX: Unable to identify the appendix. ABDOMINAL WALL: There is a hematoma in the right groin that measures 5.6 cm in AP diameter, 11.3 cm i n transverse diameter and 16 cm in craniocaudal diameter. BONY STRUCTURES: No acute findings. 3-D IMAGING: Confirms the above findings. OTHER: No other finding. LOWER EXTREMITIES: RIGHT LEG: FEMORAL ARTERIES: No aneurysm/ pseudoaneurysm, dissection, high-grade stenosis or active extravasatio n. POPLITEAL ARTERY: Patent without a high-grade stenosis. TIBIOPERONEAL TRUNK AND RUNOFF VESSELS: Patent with a three-vessel runoff to the level of the the cindy t. OTHER: Groin hematoma above and asymmetric subcutaneous inflammatory fat stranding that extends from the groin down to the knee. LEFT LEG: FEMORAL ARTERIES: No aneurysm, dissection or high-grade stenosis. POPLITEAL ARTERY: Patent without a high-grade stenosis. TIBIOPERONEAL TRUNK AND RUNOFF VESSELS: Patent with at 3 vessel runoff to the level of the foot. OTHER: No other finding. IMPRESSION: 1. Right gurney hematoma that measures 5.6 cm in AP diameter, 11.3 cm in transverse diam eter and 16 cm in craniocaudal diameter. There is no extravasation or pseudoaneurysm of the right co mmon femoral artery. 2. No high-grade stenosis, dissection or aneurysm of the arterial vasculature of the lower extremiti es. TECHNICAL DOCUMENTATION: JOB ID: [id number] Quality ID # [id number]: Final reports with documentation of one or more dose reduction techniques (e.g., Au tomated exposure control, adjustment of the mA and/or kV according to patient size, use of iterative reconstruction technique) 2010 [employer]- All Rights Reserved Reading location - IP/workstation name: [email or web address]
--- NOTE | 2019-08-08 15:06 | PDOC CRITICAL CARE PROG REPORT ---
General Date:: 08/08/19 ICU Day:: 3 Hospital Day:: 3 Resuscitation Status: Do Not Resuscitate Medical Power of Dual Rate Supervisor: [id number] Zabrina Events in the past 12 to 24 Hours:: 08.08.2019: Patient was noted to have a hematoma after the arterial catheter was removed from his right femoral artery. This was placed emergently because of hypotension on the day of admission. The hematoma had not become significant however this morning was noted that his hemoglobin hematocrit were decreased. He was transfused when notably, his blood pressure was lower than normal. He did not have any significant tachycardia. Currently is being transfused. He was sent urgently after hemodynamic stability was ensured for CT of the retroperitoneum. This did not show any blood however there was blood seen in the right femoral soft tissue region. It had a heterogeneous appearance and he is now undergoing CT angios to look for acute bleeding. 08.07.2019: Patient has had a remarkable recovery and is now weaned off vasopressor treatment.. He endorses hunger and is asked for a food tray. No clear source for infection has been elucidated. No side effects related to medications. Patient has had intermittent bradycardia and in review of previous EKG appears to have what is consistent with Mobitz type I conduction delay. He is bradycardia has not been associated with worsening hypotension or hemodynamic instability Review of systems relevant to events:: 08.08.2019: Patient denies chest pain or shortness of breath. He denies any abdominal pain. He had his Hull catheter removed and there is no hematuria. Notably, when hematoma was noted last evening heparin (prophylactic dosing) was ordered to be held. Given his weight he was on a higher dose of subcutaneous prophylactic heparin. He does still have some lethargy which is not unusual for this patient at times however has been more than normal. Last hemoglobin and hematocrit before blood was given was 6.7 and 20. Platelets were at 93 and they were ordered for transfusion. 08.07.2019:Denies chest pain, shortness of breath, he has had no fever or diarrhea. Reason for ICU Addmission:: Hypotension with acute metabolic encephalopathy - Medications: Medications reviewed and adjusted accordingly: Yes Vasopressors:: none Physical Exam Vital Signs: Temp Pulse Resp BP Pulse Ox 97.4 F 84 20 108/54 L 100 08/08/19 10:15 08/08/19 11:30 08/08/19 13:00 08/08/19 11:54 08/08/19 13:00 Intake & Output 08/07/19 08/08/19 08/09/19 06:59 06:59 06:59 Intake Total 2856 2882 890 Output Total 2890 1700 Balance -34 1182 890 Weight 94.9 kg 95.2 kg Weight/Height Weight 95.2 kg Height 5 ft 6 in General appearance: PRESENT: cooperative, morbidly obese Exam: Morbidly obese older appearing 69-year-old male who is nontoxic he is lethargic but arousable and communicative. No acute distress Head exam: PRESENT: atraumatic, normocephalic Eye exam: PRESENT: conjunctiva pale, EOMI, PERRLA. ABSENT: nystagmus, scleral icterus Mouth exam: PRESENT: dry mucosa, neck supple, other - No hematoma at previous central venous catheter site Teeth exam: PRESENT: edentulous Neck exam: ABSENT: carotid bruit, JVD, lymphadenopathy, thyromegaly, tracheal deviation Respiratory exam: PRESENT: clear to auscultation teetee, unlabored. ABSENT: accessory muscle use, rales, rhonchi, tachypnea, wheezes Cardiovascular exam: PRESENT: RRR, +S1, +S2 Pulses: ABSENT: normal dorsalis pedis pul GI/Abdominal exam: PRESENT: normal bowel sounds, soft. ABSENT: distended, guarding, mass, organolmegaly, rebound, tenderness Rectal exam: PRESENT: deferred. ABSENT: black stool, bloody stool Gentrourinary exam: ABSENT: indwelling catheter Extremities exam: ABSENT: pedal edema, tenderness Musculoskeletal exam: ABSENT: deformity, dislocation Neurological exam: PRESENT: awake, CN II-XII grossly intact. ABSENT: motor sensory deficit Psychiatric exam: PRESENT: flat affect Focused psych exam: ABSENT: pressured speech, psychomotor agitation, restlessness Skin exam: PRESENT: intact, pallor. ABSENT: cyanosis, erythema, jaundice, mottled, petechiae Tubes/Lines: ABSENT: Endotracheal Tube, Chest Tube, Central Line, Arterial Catheter, Dialysis catheter, Peg Tube, Nasogastic Tube, Other Laboratory/Radiographs Laboratory Results: 08/08/19 08:03 08/08/19 04:08 08/07/19 08/08/19 08/08/19 18:15 04:08 04:08 WBC 9.3 RBC 2.80 L Hgb 8.2 L Hct 24.2 L MCV 87 MCH 29.4 MCHC 33.9 RDW 15.4 H Plt Count 93 L Seg Neutrophils % 88.5 H Sodium 135.7 L Potassium 4.1 Chloride 108 H Carbon Dioxide 24 Anion Gap 4 L BUN 55 H Creatinine 1.02 Est GFR ( Amer) > 60 Glucose 161 H Calcium 8.6 Phosphorus 3.3 Magnesium 2.0 Ammonia < 8.7 L C-Reactive Protein 44.7 H Blood Type Antibody Screen 08/08/19 08/08/19 08/08/19 04:08 08:03 08:03 WBC 8.5 7.9 RBC 2.41 L 2.25 L Hgb 7.1 L 6.7 L Hct 20.9 L 19.6 L MCV 87 87 MCH 29.4 29.8 MCHC 33.8 34.2 RDW 15.3 H 15.5 H Plt Count 94 L 93 L Seg Neutrophils % 83.8 H Sodium Potassium Chloride Carbon Dioxide Anion Gap BUN Creatinine Est GFR ( Amer) Glucose Calcium Phosphorus Magnesium Ammonia C-Reactive Protein Blood Type A POSITIVE Antibody Screen NEGATIVE 08/05/19 08/06/19 08/06/19 16:19 08:45 09:12 Creatine Kinase 70 Troponin I < 0.012 0.029 Impressions: Lower Extremity MRI 08/05/19 00:00 IMPRESSION: No MR evidence for osteomyelitis, given the limitations as above. Postsurgical change fifth digit with minor cellulitis near the fifth metatarsal stump copyright 2010 [employer]- All Rights Reserved Foot X-Ray 08/05/19 18:09 IMPRESSION: Moderate osteopenia throughout the left foot. 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 No radiographic evidence of osteomyelitis. And there is continued concern for osteomyelitis, MRI is more sensitive and specific for early changes. Chest CT 08/06/19 00:00 IMPRESSION: Partial clearing of the right lateral lower lobe airspace disease seen on CT chest 03/16/[address] abdomen and pelvis Head CT 08/06/19 00:00 IMPRESSION: No acute findings EVIDENCE OF ACUTE STROKE: NO. Chest X-Ray 08/07/19 06:00 IMPRESSION: NO SIGNIFICANT CHANGE IN APPEARANCE OF THE CHEST. Abdomen/Pelvis CT 08/08/19 00:00 IMPRESSION: 1. The right common femoral artery line has been removed and the patient has developed a right groin hematoma that measures 5.6 cm in AP diameter, 11.3 cm in transverse diameter and 16 cm in craniocaudal diameter. 2. Colonic diverticulosis without diverticulitis. 3. Improved aeration of the lower lobes. 4. Other findings as detailed above. All labs, radiographs, diagnostic studies and EKGs were personally reviewed: Yes In addition, reports of radiographic and diagnostic studies were read: Yes Assessment and Plan - Diagnosis (1) Acute blood loss anemia Is this a current diagnosis for this admission?: Yes (2) Arterial hemorrhage Is this a current diagnosis for this admission?: Yes (3) Shock Is this a current diagnosis for this admission?: Yes (4) Sepsis associated hypotension Is this a current diagnosis for this admission?: Yes (5) Acute metabolic encephalopathy Is this a current diagnosis for this admission?: Yes (6) JESSICA (acute kidney injury) Is this a current diagnosis for this admission?: Yes (7) Diabetes mellitus type 2 in obese Is this a current diagnosis for this admission?: Yes Plan Summary: 08.08.2019: Patient has improved from his original hypotension event. We are still unsure of the source but he appears to have responded to antibiotics and steroids. We will continue these. He has acute blood loss anemia and based on CT scan findings this appears to be all in the subcutaneous region of the femoral artery. The catheter was placed without any complication using ultrasound. It was discontinued yesterday and the only reason it would appear to be bleeding is an unusual response to prophylactic heparin. CT angiogram has been ordered. We will continue supportive care including blood products. He has been ordered 1 unit of platelets and will follow up on labs to efficacy. He has not had any further bradycardia except for a momentary bradycardia last evening which was asymptomatic. Cardiology feels that there is no need for any specific treatment except for monitoring. His ejection fraction is intact lowering the probability that this was cardiogenic shock in nature. Procalcitonin is negligible leading to the possibility that this was all volume depletion with adrenal insufficiency as a source. His renal function has improved with the institution of fluids. We will continue to monitor and treat supportively. If CT angiogram shows significant findings he may require surgical intervention. Addendum: Reviewed CTA findings. Agree with radiologist that there is no acute bleed. We will continue to follow with platelet transfusion. Patient blood pressure has stabilized. Anticoagulation being held. Pentoxifyl has been discontinued. Continue supportive monitored care. 08.07.2019: Respiratory: Patient has had no respiratory complaints. No evidence to support aspiration phenomenon. There does not appear to be pneumonia and his CT scan and chest x-ray are clear Infectious: Patient is responding to treatment although the etiology and source of his shock have not been elucidated. We will continue antibiotics for at least 7 days. If blood cultures are positive will need longer and possible RIGOBERTO if there are gram-positive's. Continue current antibiotic regimen. Cardiac: Patient has a Mobitz type I with occasional bradycardia. This does not require treatment it may be transient related to his acute illness. He does have a electrical conduction delay none of which require any treatment at this time. Will need monitoring continuously while in the hospital. His shock state has improved and it does not appear to be cardiogenic. I personally reviewed echocardiogram at bedside which does show minimal reduction in function on certain views. It does not appear to be any worse than 50% . That appears to be global and not specifically a cause of his shock state. Appreciate cardiology's input and await official echocardiographic reading. Hematologic: No active issues. Follow white blood cell count which is elevated secondary to possible infection and steroids. He does have an elevation in his inflammatory markers and will repeat them in the morning. We will use this as an indirect marker for improvement. Procalcitonin's are not available in a timely fashion to forward capable decision making regarding de-escalation of antibiotics. Endocrine: We will change glucose checks to every 6 hours. Continue to monitor supportively. TSH L4 does not support shock state etiology. His adrenal function with a cortisol level of 15 is suspect. Continue current dose for the next 24 hours and then begin reduction to diurnal pattern. Renal: Acute kidney dysfunction is improving. Continue current level of care. He may need diuresis in the next 24 hours given his anasarca. Metabolic: Continue to support and monitor electrolyte activity. pH is acceptable on ABG. Alimentary: Start enteral intake. No active GI issues and certainly no source for infection found. He has had no diarrhea duction of steroids. Possibility that he was volume depleted is noted and he is responded to fluids. Neurologic: Dramatic improvement in his comatose and metabolic encephalopathy state. He has significant background white matter disease of the brain consistent with possible previous ischemic events. His hypotension appears to have been a source of reduced cerebral blood flow leading to the metabolic encephalopathy. He is lethargic but dramatically more awake and can answer questions. He is even able to speak in his second language which is Colombian. This is distinctly improved compared to yesterday when he had an audible gurgling sounds. There is no focal motor deficits to suggest an acute stroke. Sedation: None Lines/Tubes: Central line and arterial catheter placed 08-06-2019. These can be removed today as well as his Hull. Other: Had a long discussion with the patient's [id number] Zabrina kelley. She was to this patient's brother and is his primary rail layer and medical power of ip technology transactions attorney. She states normally he is chair bound but can get up from chair and bed. He does take showers on his own but has to have some close supervision. Recently, he has been eating significant amount of food in a binge-like fashion. This is worsened to the point that the family has had to lock food up and limit his intake. He does sleep a lot and at times snores. We will have physical therapy evaluate the patient. The excessive not insatiable f ood intake may be related to adrenal insufficiency and or the use of Zoloft. He does have hyponatremia which may be related to this. At this point it is not significant to warrant discontinuation. We will continue the patient in the ICU to assure that there is no recrudescence of his shock state. Family would like to follow-up with Dr. Conway from a cardiology standpoint they are aware of the Mobitz 1 electrical dysfunction. 08.06.2019: Respiratory: Patient may have had an aspiration event and will be prudent to follow-up for aspiration pneumonitis and/or pneumonia. Check ABG for hypercarbia and to assess adequate PO2 Infectious: Patient appears to have hypotension related to sepsis. My other concern is that given his questionable penicillin allergy that this may represent anaphylaxis. I have transitioned him to aztreonam until we can be certain that this in fact is not the case. We will continue vancomycin. Source and portal of entry appears to be skin. Other aspects to be considered are pneumonia although chest x-ray does not show distinct consolidation this is still a possibility. We will continue to follow and monitor for other possible sources. If blood pressure continues to be an issue we will add 1 dose of concentrated gentamicin. Patient has several skin ulcerations with a significant one on the left heel. Will have wound care evaluate and may possibly need surgery to evaluate as well. These do not appear to be significant enough to cause illness but may have been again a portal of entry for possible bacteremia. Cardiac: Patient has hypotension with shock. At first glance this appears to be sepsis however he does not meet testing criteria for systemic inflammatory response syndrome. He does have hypothermia. Bedside critical care echo and ultrasound shows an left ventricle which is filled with apical ballooning and ba silar hyperfunction. It appears as if there is a Takatsubo phenomena. Troponin and CK are essentially unremarkable. Have ordered a formal echocardiogram. We were unable to fully evaluate the IVC. His tongue appears dry. Passive leg raise, did not increase his blood pressure. Have given a small amount of fluid to improve blood pressure prior to having the arterial catheter in. He does appear to be well filled from the ventricle side in the RV is certainly filled as well. Will minimize any excess volume. Hematologic: Patient has mild thrombocytopenia but not severe. He has mild anemia but does not require any treatment. Certainly this is not the cause of his hypotension. Of note he does have significant inflammatory markers with an elevation in ESR and CRP. This may represent an underlying malignancy and/or infection. We will continue to monitor. Endocrine: Patient's cortisol level was 15 in the face of an acute illness with hypotension. This is a marker of relative adrenal insufficiency and I have started Solu-Cortef. This may be a synergistic reason for his hypotension in conjunction with occult infection. TSH is 4 and certainly not an acute cause for his process. We will continue to monitor his glucose while in the ICU given his type 2 diabetes. Renal: Patient has mild acute on chronic renal failure. This appears to be ATN related to hypotension. Will follow with resuscitation and recheck later. Adjust medications for GFR. Although concerned in the past for contrast is noted, recent studies indicate that in situations such as this that it would be necessary and would not necessarily lead to worsening renal dysfunction. It is necessary to determine the etiology of the patient's shock and will pursue CT scan of both chest and abdomen. Metabolic: Patient has mild hyperkalemia. Will recheck labs. He has a mild metabolic acidosis that might be related to cortisol deficiency. Alimentary: Patient had mild discomfort on abdominal examination with ultrasound probe. Have ordered CAT scan and will order ultrasound of the abdomen if there is a distinguishing characteristic is abdominal imaging. Neurologic: Patient had significant encephalopathy on presentation. With improvement in his blood pressure he is able to start speaking but can give minimal responses. He does respond to noxious stimulus and over time and on repeat examination responded to soft touch. There appears to be a slight right facial droop but he is also edentulous. He is moving all extremities to command but is unable to hold up his arms due to significant weakness. Initially he was not moving his left side raising concern for stroke. With improvement in his blood pressure this has improved. He is now moving all extremities and attempting to move his arms against gravity with some improvement. This does not appear to be an acute stroke but may be indicative of and arterial OFFICE ASSISTANT RECEPTIONIST dysfunction propagated by hypotension Sedation: The patient received Ativan on the floor in concern for seizure. He apparently had upgoing into the right eye-movement. However after discussing with the nurse and appears that he was only fluttering his eyes. There was no distinct tonic-clonic movement. No history of seizures according to family. Lines/Tubes: Central venous catheter and arterial catheter placed today during the initial resuscitation Other: Discussed initial findings, case and care with nurse practitioner Nikky as well as the family. The family will be coming to the hospital to discuss further management given the fact the patient has made him self a DNR/DNI on admission. He is to remain DNR/DNI but family would want aggressive care up to that point. Given his significant hypotension it is possible that he has a further decline and it is essential that the family meet with us to discuss goals of care. Critical Time Critical Time (minutes): 70 Level of Care: ICU Anticipated discharge: SNF, Acute Rehab Within: within 72 hours -: 1. The care of a critical patient is a dynamic process. This note is a motor vehicle field representative synopsis but static in nature. The timeframe for treatments given in order is not necessarily the actual time these treatments may have been done. 2. This patient requires critical care secondary to ongoing requirements for therapy not offered or safe outside the critical care environment. Transfer to a lower level of care will result in altered life or limb morbidity and mortality. 3. Multidisciplinary rounds completed. 4. ABCDE bundle addressed.
--- NOTE | 2019-08-08 15:43 | PDOC PROGRESS REPORT ---
Subjective Progress Note for:: 08/08/19 Subjective:: Somewhat lethargic. Headphones on and listening. Last 24 hours had some hypotension. Had a right groin hematoma at a-line removal. CT AP to exclude RP hematoma-negative. Hb and HCt had dropped-? dilutional due to fluid resuscitation-no obvious bleeding other than hematoma Reason For Visit: SEPSIS,LEFT FOOT INFECTION, OSTEOMYELITIS,T2DM, Physical Exam Vital Signs: Temp Pulse Resp BP Pulse Ox 97.4 F 80 16 101/58 L 100 08/08/19 10:15 08/08/19 10:15 08/08/19 10:15 08/08/19 10:15 08/08/19 10:01 Intake & Output 08/07/19 08/08/19 08/09/19 06:59 06:59 06:59 Intake Total 2856 2882 350 Output Total 2890 1700 Balance -34 1182 350 Weight 94.9 kg 95.2 kg General appearance: PRESENT: no acute distress, cooperative, obese, well- developed Head exam: PRESENT: atraumatic, normocephalic Eye exam: PRESENT: conjunctiva pale Respiratory exam: PRESENT: clear to auscultation teetee, symmetrical, unlabored Cardiovascular exam: PRESENT: RRR, +S1, +S2 GI/Abdominal exam: PRESENT: soft Rectal exam: PRESENT: deferred Neurological exam: PRESENT: alert, awake, oriented to person Skin exam: PRESENT: dry, intact, pallor Results Laboratory Results: 08/08/19 08:03 08/08/19 04:08 08/07/19 08/08/19 08/08/19 18:15 04:08 04:08 WBC 9.3 RBC 2.80 L Hgb 8.2 L Hct 24.2 L MCV 87 MCH 29.4 MCHC 33.9 RDW 15.4 H Plt Count 93 L Seg Neutrophils % 88.5 H Sodium 135.7 L Potassium 4.1 Chloride 108 H Carbon Dioxide 24 Anion Gap 4 L BUN 55 H Creatinine 1.02 Est GFR ( Amer) > 60 Glucose 161 H Calcium 8.6 Phosphorus 3.3 Magnesium 2.0 Ammonia < 8.7 L C-Reactive Protein 44.7 H Blood Type Antibody Screen 08/08/19 08/08/19 08/08/19 04:08 08:03 08:03 WBC 8.5 7.9 RBC 2.41 L 2.25 L Hgb 7.1 L 6.7 L Hct 20.9 L 19.6 L MCV 87 87 MCH 29.4 29.8 MCHC 33.8 34.2 RDW 15.3 H 15.5 H Plt Count 94 L 93 L Seg Neutrophils % 83.8 H Sodium Potassium Chloride Carbon Dioxide Anion Gap BUN Creatinine Est GFR ( Amer) Glucose Calcium Phosphorus Magnesium Ammonia C-Reactive Protein Blood Type A POSITIVE Antibody Screen NEGATIVE 08/05/19 17:08 Hull Catheter Urine Culture - Final NO GROWTH 2 DAYS 08/05/19 08/06/19 08/06/19 16:19 08:45 09:12 Creatine Kinase 70 Troponin I < 0.012 0.029 Impressions: Lower Extremity MRI 08/05/19 00:00 IMPRESSION: No MR evidence for osteomyelitis, given the limitations as above. Postsurgical change fifth digit with minor cellulitis near the fifth metatarsal stump copyright 2010 [employer]- All Rights Reserved Foot X-Ray 08/05/19 18:09 IMPRESSION: Moderate osteopenia throughout the left foot. 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 No radiographic evidence of osteomyelitis. And there is continued concern for osteomyelitis, MRI is more sensitive and specific for early changes. Abdomen/Pelvis CT 08/06/19 00:00 IMPRESSION: Partial clearing of the right lateral lower lobe airspace disease seen on CT chest 03/16/[address] abdomen and pelvis Chest CT 08/06/19 00:00 IMPRESSION: Partial clearing of the right lateral lower lobe airspace disease seen on CT chest 03/16/[address] abdomen and pelvis Head CT 08/06/19 00:00 IMPRESSION: No acute findings EVIDENCE OF ACUTE STROKE: NO. Chest X-Ray 08/07/19 06:00 IMPRESSION: NO SIGNIFICANT CHANGE IN APPEARANCE OF THE CHEST. Assessment & Plan - Diagnosis (1) First degree atrioventricular block Is this a current diagnosis for this admission?: Yes Plan: Tele Sinsu rhythm with first degree AV block 84 bpm No urgent indication for pacing. Intermittent bradycardia of unlikely hemodynamic significance. Hypotension that was observed was likely due to volume loss. (2) Mobitz (type) I (Wenckebach's) atrioventricular block Is this a current diagnosis for this admission?: Yes Plan: No urgent indication to pace Currently SR at 84 bpm (3) Sepsis Qualifiers: Sepsis type: sepsis due to unspecified organism Sepsis acute organ dysfunction status: with acute organ dysfunction Severe sepsis acute organ dysfunction type: acute renal failure Acute renal failure type: unspecified Severe sepsis shock status: unspecified Qualified Code(s): A41.9 - Sepsis, unspecified organism; R65.20 - Severe sepsis without septic shock; N17.9 - Acute kidney failure, unspecified Is this a current diagnosis for this admission?: Yes Plan: Broad spectrum antibiotics per ICU protocol (4) Hypotension Qualifiers: Hypotension type: unspecified hypotension type Qualified Code(s): I95.9 - Hypotension, unspecified Is this a current diagnosis for this admission?: Yes Plan: Likely due to hypovolemia Had PRBC transfusion
[2019-08-08 18:07] LABS: ABSOLUTE MONOCYTES (AUTO) 0.6 10^3/uL (0.1-1.4); ABSOLUTE NEUT (AUTO) 5.9 10^3/uL (1.7-8.2); BASOPHILS % (AUTO) 0.1 % (0-2); EOSINOPHILS % (AUTO) 0.2 % (0-6); HEMOGLOBIN 8.3 g/dL (13.5-17.0); LYMPHOCYTES % (AUTO) 13.4 % (13-45); MEAN CORPUSCULAR HEMOGLOBIN 29.2 pg (27.0-33.4); MEAN CORPUSCULAR HGB CONC 34.4 g/dL (32.0-36.0); MEAN CORPUSCULAR VOLUME 85 fl (80-97); MONOCYTES % (AUTO) 7.4 % (3-13); RED BLOOD COUNT 2.83 10^6/uL (4.35-5.55); SEGMENTED NEUTROPHILS % (AUTO) 78.9 % (42-78); TOTAL CELLS COUNTED % (AUTO) 100 %; WHITE BLOOD COUNT 7.5 10^3/uL (4.0-10.5)
[2019-08-08 18:40] LABS: PLATELET COUNT 78 10^3/uL (150-450)
[2019-08-08] MEDS: COLLAGENASE CLOSTRIDIUM HIST. OINT 30 GM TP SCH (21:47)
[2019-08-08] MEDS: SERTRALINE HCL 50 MG TABLET PO SCH (21:47)
[2019-08-08] MEDS: VANCOMYCIN HCL 1,000 MG in DEXTROSE 5%-WATER 250 ML IV SCH (21:48)
[2019-08-08 22:13] LABS: HEMATOCRIT 23.7 % (37.9-51.0); HEMOGLOBIN 8.2 g/dL (13.5-17.0); MEAN CORPUSCULAR HEMOGLOBIN 29.4 pg (27.0-33.4); MEAN CORPUSCULAR HGB CONC 34.7 g/dL (32.0-36.0); MEAN CORPUSCULAR VOLUME 85 fl (80-97); PLATELET COUNT 113 10^3/uL (150-450); RED BLOOD COUNT 2.79 10^6/uL (4.35-5.55); RED CELL DISTRIBUTION WIDTH 14.8 % (11.5-14.0); WHITE BLOOD COUNT 7.4 10^3/uL (4.0-10.5)
[2019-08-09 04:29] LABS: INTERNATIONAL RATION (INR) 1.11; PROTHROMBIN TIME 14.3 SEC (11.4-15.4)
[2019-08-09 04:30] LABS: PARTIAL THROMBOPLASTIN TIME 31.2 SEC (23.5-35.8)
[2019-08-09 04:32] LABS: ABSOLUTE LYMPHOCYTES (AUTO) 0.9 10^3/uL (0.5-4.7); ABSOLUTE MONOCYTES (AUTO) 0.6 10^3/uL (0.1-1.4); ABSOLUTE NEUT (AUTO) 5.6 10^3/uL (1.7-8.2); ALBUMIN 2.8 g/dL (3.5-5.0); ALKALINE PHOSPHATASE 43 U/L (38-126); ASPARTATE AMINO TRANSFERASE 22 U/L (17-59); BASOPHILS % (AUTO) 0.1 % (0-2); BILIRUBIN,TOTAL 0.3 mg/dL (0.2-1.3); BLOOD UREA NITROGEN 49 mg/dL (7-20); EOSINOPHILS % (AUTO) 0.1 % (0-6); GLUCOSE 158 mg/dL (75-110); HEMATOCRIT 22.7 % (37.9-51.0); LYMPHOCYTES % (AUTO) 13.2 % (13-45); MEAN CORPUSCULAR HEMOGLOBIN 29.5 pg (27.0-33.4); MEAN CORPUSCULAR HGB CONC 34.9 g/dL (32.0-36.0); MEAN CORPUSCULAR VOLUME 85 fl (80-97); MONOCYTES % (AUTO) 7.7 % (3-13); PLATELET COUNT 114 10^3/uL (150-450); RED BLOOD COUNT 2.69 10^6/uL (4.35-5.55); RED CELL DISTRIBUTION WIDTH 14.9 % (11.5-14.0); SEGMENTED NEUTROPHILS % (AUTO) 78.9 % (42-78); TOTAL CELLS COUNTED % (AUTO) 100 %; TOTAL PROTEIN 5.5 g/dL (6.3-8.2); WHITE BLOOD COUNT 7.1 10^3/uL (4.0-10.5)
[2019-08-09 04:36] LABS: HEMOGLOBIN 7.9 g/dL (13.5-17.0)
[2019-08-09 04:37] LABS: ANION GAP 5 (5-19); CARBON DIOXIDE 26 mmol/L (22-30); CHLORIDE 105 mmol/L (98-107)
[2019-08-09] MEDS: HYDROCORTISONE SOD SUCCINATE INJ/PF 100 MG/2 ML SDV IV SCH ×3 (06:01→21:29)
[2019-08-09] MEDS: AZTREONAM 2 GM in DEXTROSE 5%-WATER 100 ML IV SCH ×4 (06:01→23:15)
[2019-08-09] MEDS: VANCOMYCIN HCL 1,000 MG in DEXTROSE 5%-WATER 250 ML IV SCH (09:50)
[2019-08-09] MEDS: OMEGA-3 ACID ETHYL ESTERS 1 GM CAPSULE PO SCH (09:51)
[2019-08-09] MEDS: INSULIN REG, HUMAN 100 UNIT/ML 3 ML VIAL (PYX) SUBCUT SCH ×4 (09:51→21:30)
[2019-08-09] MEDS: COLLAGENASE CLOSTRIDIUM HIST. OINT 30 GM TP SCH ×2 (09:51→17:45)
--- NOTE | 2019-08-09 14:51 | PDOC CRITICAL CARE PROG REPORT ---
General Date:: 08/09/19 ICU Day:: 3 Hospital Day:: 4 Resuscitation Status: Do Not Resuscitate Medical Power of Planisher: [id number] Zabrina Events in the past 12 to 24 Hours:: Back to baseline. Working with PT. Review of systems relevant to events:: CV and respiratory. Reason for ICU Addmission:: Hypotension with acute metabolic encephalopathy - Medications: Medications reviewed and adjusted accordingly: Yes Vasopressors:: None Sedation:: None Physical Exam Vital Signs: Temp Pulse Resp BP Pulse Ox 97.5 F 91 19 132/75 H 99 08/09/19 12:00 08/09/19 12:00 08/09/19 12:02 08/09/19 12:02 08/09/19 12:02 Intake & Output 08/08/19 08/09/19 08/10/19 06:59 06:59 06:59 Intake Total 2882 2228 Output Total 1700 1165 Balance 1182 1063 Weight 95.2 kg 100.5 kg Weight/Height Weight 100.5 kg Height 5 ft 6 in General appearance: PRESENT: no acute distress, cooperative, well-nourished Head exam: PRESENT: atraumatic, normocephalic Eye exam: PRESENT: conjunctiva pink, EOMI, PERRLA. ABSENT: scleral icterus Ear exam: PRESENT: normal external ear exam Mouth exam: PRESENT: moist, tongue midline Respiratory exam: PRESENT: clear to auscultation teetee. ABSENT: rales, rhonchi, wheezes Cardiovascular exam: PRESENT: RRR. ABSENT: diastolic murmur, rubs, systolic murmur GI/Abdominal exam: PRESENT: normal bowel sounds, soft. ABSENT: distended, guarding, mass, organolmegaly, rebound, tenderness Extremities exam: PRESENT: +1 edema Musculoskeletal exam: PRESENT: full ROM, other - Able to pivot somewhat. Neurological exam: PRESENT: alert, awake, oriented to person, oriented to place, oriented to time, oriented to situation, CN II-XII grossly intact. ABSENT: motor sensory deficit Psychiatric exam: PRESENT: appropriate affect, normal mood. ABSENT: homicidal ideation, suicidal ideation Skin exam: PRESENT: dry, intact, warm. ABSENT: cyanosis, rash Laboratory/Radiographs Laboratory Results: 08/09/19 03:56 08/09/19 03:56 05/08/08/19 08/08/19 08:03 17:10 22:04 WBC 7.5 7.4 RBC 2.83 L 2.79 L Hgb 8.3 L 8.2 L Hct 24.0 L 23.7 L MCV 85 85 MCH 29.2 29.4 MCHC 34.4 34.7 RDW 15.0 H 14.8 H Plt Count 78 L 113 L Seg Neutrophils % 78.9 H Sodium Potassium Chloride Carbon Dioxide Anion Gap BUN Creatinine Est GFR ( Amer) Glucose Calcium Phosphorus Magnesium Total Bilirubin AST Alkaline Phosphatase Ammonia Total Protein Albumin Blood Type A POSITIVE Antibody Screen NEGATIVE 08/09/19 08/09/19 08/09/19 03:56 03:56 03:56 WBC 7.1 RBC 2.69 L Hgb 7.9 L Hct 22.7 L MCV 85 MCH 29.5 MCHC 34.9 RDW 14.9 H Plt Count 114 L Seg Neutrophils % 78.9 H Sodium 135.7 L Potassium 4.0 Chloride 105 Carbon Dioxide 26 Anion Gap 5 BUN 49 H Creatinine 0.97 Est GFR ( Amer) > 60 Glucose 158 H Calcium 9.0 Phosphorus 3.0 Magnesium 1.9 Total Bilirubin 0.3 AST 22 Alkaline Phosphatase 43 Ammonia < 8.7 L Total Protein 5.5 L Albumin 2.8 L Blood Type Antibody Screen 08/05/19 08/06/19 08/06/19 16:19 08:45 09:12 Creatine Kinase 70 Troponin I < 0.012 0.029 Impressions: Lower Extremity MRI 08/05/19 00:00 IMPRESSION: No MR evidence for osteomyelitis, given the limitations as above. Postsurgical change fifth digit with minor cellulitis near the fifth metatarsal stump copyright 2011 [employer]- All Rights Reserved Foot X-Ray 08/05/19 18:09 IMPRESSION: Moderate osteopenia throughout the left foot. 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 No radiographic evidence of osteomyelitis. And there is continued concern for osteomyelitis, MRI is more sensitive and specific for early changes. Chest CT 08/06/19 00:00 IMPRESSION: Partial clearing of the right lateral lower lobe airspace disease seen on CT chest 03/16/[address] abdomen and pelvis Head CT 08/06/19 00:00 IMPRESSION: No acute findings EVIDENCE OF ACUTE STROKE: NO. Chest X-Ray 08/07/19 06:00 IMPRESSION: NO SIGNIFICANT CHANGE IN APPEARANCE OF THE CHEST. Abdomen/Pelvis CT 08/08/19 00:00 IMPRESSION: 1. The right common femoral artery line has been removed and the patient has developed a right groin hematoma that measures 5.6 cm in AP diameter, 11.3 cm in transverse diameter and 16 cm in craniocaudal diameter. 2. Colonic diverticulosis without diverticulitis. 3. Improved aeration of the lower lobes. 4. Other findings as detailed above. Aorta w/Runoff CTA 08/08/19 00:00 IMPRESSION: 1. Right gurney hematoma that measures 5.6 cm in AP diameter, 11.3 cm in transverse diameter and 16 cm in craniocaudal diameter. There is no extravasation or pseudoaneurysm of the right common femoral artery. 2. No high-grade stenosis, dissection or aneurysm of the arterial vasculature of the lower extremities. All labs, radiographs, diagnostic studies and EKGs were personally reviewed: Yes In addition, reports of radiographic and diagnostic studies were read: Yes Assessment and Plan - Diagnosis (1) Acute blood loss anemia Is this a current diagnosis for this admission?: Yes Plan: Stable after getting transfused. Still in equilibration. (2) Arterial hemorrhage Is this a current diagnosis for this admission?: Yes Plan: No retroperitoneal bleed, no pseudoaneurysm. (3) Shock Is this a current diagnosis for this admission?: Yes Plan: Resolved. Seems to have been hemmorhagic. Plan Summary: Seems to back to baseline. Not ambulatory and working with P as much as possible. Plan to discharge if H/H is stable. Critical Time Critical Time (minutes): 30 Level of Care: MEDICAL Anticipated discharge: Home Within: within 48 hours -: 1. The care of a critical patient is a dynamic process. This note is a registered representative synopsis but static in nature. The timeframe for treatments given in order is not necessarily the actual time these treatments may have been done. 2. This patient requires critical care secondary to ongoing requirements for therapy not offered or safe outside the critical care environment. Transfer to a lower level of care will result in altered life or limb morbidity and mortality. 3. Multidisciplinary rounds completed. 4. ABCDE bundle addressed.
--- NOTE | 2019-08-09 15:14 | PDOC PROGRESS REPORT ---
Subjective Progress Note for:: 08/09/19 Subjective:: Doing better. Normotensive and with no bradycardia. Nocturnal bradycardia likely due to PITA. Hematoma -right groin after having arterial line pulled. Had PRBC transfusion. Now much better. Reason For Visit: SEPSIS,LEFT FOOT INFECTION, OSTEOMYELITIS,T2DM, Physical Exam Vital Signs: Temp Pulse Resp BP Pulse Ox 97.9 F 89 20 141/70 H 99 08/09/19 08:00 08/09/19 10:00 08/09/19 10:52 08/09/19 10:52 08/09/19 10:52 Intake & Output 08/08/19 08/09/19 08/10/19 06:59 06:59 06:59 Intake Total 2882 2228 Output Total 1700 1165 Balance 1182 1063 Weight 95.2 kg 100.5 kg General appearance: PRESENT: no acute distress, cooperative, obese, well- developed, well-nourished Head exam: PRESENT: atraumatic, normocephalic Eye exam: PRESENT: conjunctiva pale, EOMI Mouth exam: PRESENT: moist Respiratory exam: PRESENT: clear to auscultation teetee, symmetrical, unlabored Cardiovascular exam: PRESENT: RRR - Telemetry SR First degree AV block. HR 92 bpm, +S1, +S2 Pulses: PRESENT: normal radial pulses GI/Abdominal exam: PRESENT: soft Rectal exam: PRESENT: deferred Musculoskeletal exam: PRESENT: normal inspection Neurological exam: PRESENT: alert, awake, oriented to person, oriented to place, oriented to time, oriented to situation Skin exam: PRESENT: dry, intact, pallor Results Laboratory Results: 08/09/19 03:56 08/09/19 03:56 08/08/19 08/08/19 08/08/19 08:03 17:10 22:04 WBC 7.5 7.4 RBC 2.83 L 2.79 L Hgb 8.3 L 8.2 L Hct 24.0 L 23.7 L MCV 85 85 MCH 29.2 29.4 MCHC 34.4 34.7 RDW 15.0 H 14.8 H Plt Count 78 L 113 L Seg Neutrophils % 78.9 H Sodium Potassium Chloride Carbon Dioxide Anion Gap BUN Creatinine Est GFR ( Amer) Glucose Calcium Phosphorus Magnesium Total Bilirubin AST Alkaline Phosphatase Ammonia Total Protein Albumin Blood Type A POSITIVE Antibody Screen NEGATIVE 08/09/19 08/09/1920 03:56 03:56 03:56 WBC 7.1 RBC 2.69 L Hgb 7.9 L Hct 22.7 L MCV 85 MCH 29.5 MCHC 34.9 RDW 14.9 H Plt Count 114 L Seg Neutrophils % 78.9 H Sodium 135.7 L Potassium 4.0 Chloride 105 Carbon Dioxide 26 Anion Gap 5 BUN 49 H Creatinine 0.97 Est GFR ( Amer) > 60 Glucose 158 H Calcium 9.0 Phosphorus 3.0 Magnesium 1.9 Total Bilirubin 0.3 AST 22 Alkaline Phosphatase 43 Ammonia < 8.7 L Total Protein 5.5 L Albumin 2.8 L Blood Type Antibody Screen 08/05/19 08/06/19 08/06/19 16:19 08:45 09:12 Creatine Kinase 70 Troponin I < 0.012 0.029 Impressions: Lower Extremity MRI 08/05/19 00:00 IMPRESSION: No MR evidence for osteomyelitis, given the limitations as above. Postsurgical change fifth digit with minor cellulitis near the fifth metatarsal stump copyright 2011 [employer]- All Rights Reserved Foot X-Ray 08/05/19 18:09 IMPRESSION: Moderate osteopenia throughout the left foot. 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 No radiographic evidence of osteomyelitis. And there is continued concern for osteomyelitis, MRI is more sensitive and specific for early changes. Chest CT 08/06/19 00:00 IMPRESSION: Partial clearing of the right lateral lower lobe airspace disease seen on CT chest 03/16/[address] abdomen and pelvis Head CT 08/06/19 00:00 IMPRESSION: No acute findings EVIDENCE OF ACUTE STROKE: NO. Chest X-Ray 08/07/19 06:00 IMPRESSION: NO SIGNIFICANT CHANGE IN APPEARANCE OF THE CHEST. Abdomen/Pelvis CT 08/08/19 00:00 IMPRESSION: 1. The right common femoral artery line has been removed and the patient has developed a right groin hematoma that measures 5.6 cm in AP diameter, 11.3 cm in transverse diameter and 16 cm in craniocaudal diameter. 2. Colonic diverticulosis without diverticulitis. 3. Improved aeration of the lower lobes. 4. Other findings as detailed above. Aorta w/Runoff CTA 08/08/19 00:00 IMPRESSION: 1. Right gurney hematoma that measures 5.6 cm in AP diameter, 11.3 cm in transverse diameter and 16 cm in craniocaudal diameter. There is no e xtravasation or pseudoaneurysm of the right common femoral artery. 2. No high-grade stenosis, dissection or aneurysm of the arterial vasculature of the lower extremities. Assessment & Plan - Diagnosis (1) First degree atrioventricular block Is this a current diagnosis for this admission?: Yes Plan: Tele Sinsu rhythm with first degree AV block 84 bpm No urgent indication for pacing. Intermittent bradycardia of unlikely hemodynamic significance. Hypotension that was observed was likely due to volume loss. (2) Mobitz (type) I (Wenckebach's) atrioventricular block Is this a current diagnosis for this admission?: Yes Plan: No urgent indication to pace Currently SR at 84 bpm (3) Sepsis Qualifiers: Sepsis type: sepsis due to unspecified organism Sepsis acute organ dysfunction status: with acute organ dysfunction Severe sepsis acute organ dysfunction type: acute renal failure Acute renal failure type: unspecified Severe sepsis shock status: unspecified Qualified Code(s): A41.9 - Sepsis, unspecified organism; R65.20 - Severe sepsis without septic shock; N17.9 - Acute kidney failure, unspecified Is this a current diagnosis for this admission?: Yes Plan: Broad spectrum antibiotics per ICU protocol (4) Hypotension Qualifiers: Hypotension type: unspecified hypotension type Qualified Code(s): I95.9 - Hypotension, unspecified Is this a current diagnosis for this admission?: Yes Plan: Likely due to hypovolemia Had PRBC transfusion Much improved Sizeable hematoma
[2019-08-09] MEDS: SERTRALINE HCL 50 MG TABLET PO SCH (21:30)
[2019-08-09] MEDS: RINGERS SOLUTION,LACTATED 1,000 ML IV PRN (21:30)
[2019-08-10 05:28] LABS: ABSOLUTE LYMPHOCYTES (AUTO) 0.9 10^3/uL (0.5-4.7); ABSOLUTE MONOCYTES (AUTO) 0.4 10^3/uL (0.1-1.4); ABSOLUTE NEUT (AUTO) 4.8 10^3/uL (1.7-8.2); BASOPHILS % (AUTO) 0.1 % (0-2); EOSINOPHILS % (AUTO) 0.3 % (0-6); HEMATOCRIT 22.3 % (37.9-51.0); MEAN CORPUSCULAR HEMOGLOBIN 29.8 pg (27.0-33.4); MEAN CORPUSCULAR HGB CONC 34.8 g/dL (32.0-36.0); MEAN CORPUSCULAR VOLUME 86 fl (80-97); PLATELET COUNT 119 10^3/uL (150-450); RED BLOOD COUNT 2.61 10^6/uL (4.35-5.55); RED CELL DISTRIBUTION WIDTH 14.9 % (11.5-14.0); SEGMENTED NEUTROPHILS % (AUTO) 77.6 % (42-78); TOTAL CELLS COUNTED % (AUTO) 100 %; WHITE BLOOD COUNT 6.2 10^3/uL (4.0-10.5)
[2019-08-10 05:30] LABS: HEMOGLOBIN 7.8 g/dL (13.5-17.0)
[2019-08-10 05:44] LABS: BLOOD UREA NITROGEN 45 mg/dL (7-20); GLUCOSE 120 mg/dL (75-110); POTASSIUM 3.8 mmol/L (3.6-5.0)
[2019-08-10 05:50] LABS: CARBON DIOXIDE 30 mmol/L (22-30); CHLORIDE 105 mmol/L (98-107)
[2019-08-10 05:52] LABS: ANION GAP 2 (5-19)
[2019-08-10] MEDS: HYDROCORTISONE SOD SUCCINATE INJ/PF 100 MG/2 ML SDV IV SCH ×3 (06:07→17:27)
[2019-08-10] MEDS: AZTREONAM 2 GM in DEXTROSE 5%-WATER 100 ML IV SCH (06:08)
--- NOTE | 2019-08-10 08:25 | PDOC CRITICAL CARE PROG REPORT ---
General Date:: 08/10/19 Hospital Day:: 4 Resuscitation Status: Do Not Resuscitate Medical Power of [employer]otive [employer] Counterperson: [id number] Zabrina Events in the past 12 to 24 Hours:: Off pressors. Mentally clear, tapering steroids. Review of systems relevant to events:: Respiratory, neurological. Reason for ICU Addmission:: Hypotension with acute metabolic encephalopathy, all resolved - Medications: Medications reviewed and adjusted accordingly: Yes Vasopressors:: None Sedation:: None Physical Exam Vital Signs: Temp Pulse Resp BP Pulse Ox 97 F L 83 14 140/72 H 100 08/09/19 19:35 08/09/19 19:00 08/09/19 22:00 08/09/19 16:02 08/09/19 22:00 Intake & Output 08/09/19 08/10/19 08/11/19 06:59 06:59 06:59 Intake Total 3228 250 Output Total 1165 0 Balance 2063 250 Weight 100.5 kg 101.6 kg Weight/Height Weight 101.6 kg Height 5 ft 6 in General appearance: PRESENT: no acute distress, well-developed, well-nourished Head exam: PRESENT: atraumatic, normocephalic Eye exam: PRESENT: conjunctiva pink, EOMI, PERRLA. ABSENT: scleral icterus Ear exam: PRESENT: normal external ear exam Mouth exam: PRESENT: moist, tongue midline Respiratory exam: PRESENT: clear to auscultation teetee. ABSENT: rales, rhonchi, wheezes Cardiovascular exam: PRESENT: RRR. ABSENT: diastolic murmur, rubs, systolic murmur GI/Abdominal exam: PRESENT: normal bowel sounds, soft. ABSENT: distended, guarding, mass, organolmegaly, rebound, tenderness Rectal exam: PRESENT: deferred Extremities exam: PRESENT: full ROM. ABSENT: calf tenderness, clubbing, pedal edema Musculoskeletal exam: PRESENT: normal inspection Neurological exam: PRESENT: alert, awake, oriented to person, oriented to place, oriented to time, oriented to situation, CN II-XII grossly intact. ABSENT: motor sensory deficit Psychiatric exam: PRESENT: appropriate affect, normal mood. ABSENT: homicidal ideation, suicidal ideation Skin exam: PRESENT: dry, intact, warm. ABSENT: cyanosis, rash Laboratory/Radiographs Laboratory Results: 08/10/19 05:03 08/10/19 05:03 08/10/19 08/10/19 05:03 05:03 WBC 6.2 RBC 2.61 L Hgb 7.8 L Hct 22.3 L MCV 86 MCH 29.8 MCHC 34.8 RDW 14.9 H Plt Count 119 L Seg Neutrophils % 77.6 Sodium 137.3 Potassium 3.8 Chloride 105 Carbon Dioxide 30 Anion Gap 2 L BUN 45 H Creatinine 0.88 Est GFR ( Amer) > 60 Glucose 120 H Calcium 9.0 08/05/19 08/06/19 08/06/19 16:19 08:45 09:12 Creatine Kinase 70 Troponin I < 0.012 0.029 Impressions: Lower Extremity MRI 08/05/19 00:00 IMPRESSION: No MR evidence for osteomyelitis, given the limitations as above. Postsurgical change fifth digit with minor cellulitis near the fifth metatarsal stump copyright 2010 [employer]- All Rights Reserved Foot X-Ray 08/05/19 18:09 IMPRESSION: Moderate osteopenia throughout the left foot. 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 No radiographic evidence of osteomyelitis. And there is continued concern for osteomyelitis, MRI is more sensitive and specific for early changes. Chest CT 08/06/19 00:00 IMPRESSION: Partial clearing of the right lateral lower lobe airspace disease seen on CT chest 03/16/[address] abdomen and pelvis Head CT 08/06/19 00:00 IMPRESSION: No acute findings EVIDENCE OF ACUTE STROKE: NO. Chest X-Ray 08/07/19 06:00 IMPRESSION: NO SIGNIFICANT CHANGE IN APPEARANCE OF THE CHEST. Abdomen/Pelvis CT 08/08/19 00:00 IMPRESSION: 1. The right common femoral artery line has been removed and the patient has developed a right groin hematoma that measures 5.6 cm in AP diameter, 11.3 cm in transverse diameter and 16 cm in craniocaudal diameter. 2. Colonic diverticulosis without diverticulitis. 3. Improved aeration of the lower lobes. 4. Other findings as detailed above. Aorta w/Runoff CTA 08/08/19 00:00 IMPRESSION: 1. Right gurney hematoma that measures 5.6 cm in AP diameter, 11.3 cm in transverse diameter and 16 cm in craniocaudal diameter. There is no extravasation or pseudoaneurysm of the right common femoral artery. 2. No high-grade stenosis, dissection or aneurysm of the arterial vasculature of the lower extremities. All labs, radiographs, diagnostic studies and EKGs were personally reviewed: Yes In addition, reports of radiographic and diagnostic studies were read: Yes Assessment and Plan - Diagnosis (1) Acute blood loss anemia Is this a current diagnosis for this admission?: Yes Plan: H/H stable. No need for transfusion. (2) Arterial hemorrhage Is this a current diagnosis for this admission?: Yes Plan: Resolved (3) Shock Is this a current diagnosis for this admission?: Yes Plan: Resolved Plan Summary: Exactly what occurred is a matter of conjecture. It is possible that an element of PITA or aspiration occurred. This all seems resolved. No sign of infection. Quick steroid taper. Home in a day or so. Critical Time Critical Time (minutes): 30 Level of Care: MEDICAL Anticipated discharge: SNF Within: within 48 hours -: 1. The care of a critical patient is a dynamic process. This note is a signs sales representative synopsis but static in nature. The timeframe for treatments given in order is not necessarily the actual time these treatments may have been done. 2. This patient requires critical care secondary to ongoing requirements for therapy not offered or safe outside the critical care environment. Transfer to a lower level of care will result in altered life or limb morbidity and mortality. 3. Multidisciplinary rounds completed. 4. ABCDE bundle addressed.
[2019-08-10] MEDS: INSULIN REG, HUMAN 100 UNIT/ML 3 ML VIAL (PYX) SUBCUT SCH ×4 (09:41→21:42)
[2019-08-10] MEDS: OMEGA-3 ACID ETHYL ESTERS 1 GM CAPSULE PO SCH (09:41)
[2019-08-10] MEDS: COLLAGENASE CLOSTRIDIUM HIST. OINT 30 GM TP SCH ×2 (09:41→17:23)
[2019-08-10] MEDS: SERTRALINE HCL 50 MG TABLET PO SCH (21:42)
[2019-08-11] MEDS: HYDROCORTISONE SOD SUCCINATE INJ/PF 100 MG/2 ML SDV IV SCH ×3 (02:30→17:42)
[2019-08-11 04:23] LABS: HEMATOCRIT 24.6 % (37.9-51.0); HEMOGLOBIN 8.5 g/dL (13.5-17.0); MEAN CORPUSCULAR HEMOGLOBIN 29.6 pg (27.0-33.4); MEAN CORPUSCULAR HGB CONC 34.7 g/dL (32.0-36.0); MEAN CORPUSCULAR VOLUME 85 fl (80-97); PLATELET COUNT 152 10^3/uL (150-450); RED BLOOD COUNT 2.88 10^6/uL (4.35-5.55); RED CELL DISTRIBUTION WIDTH 15.1 % (11.5-14.0); WHITE BLOOD COUNT 8.2 10^3/uL (4.0-10.5)
[2019-08-11] MEDS: INSULIN REG, HUMAN 100 UNIT/ML 3 ML VIAL (PYX) SUBCUT SCH ×4 (08:33→21:20)
[2019-08-11] MEDS: OMEGA-3 ACID ETHYL ESTERS 1 GM CAPSULE PO SCH (09:58)
[2019-08-11] MEDS: COLLAGENASE CLOSTRIDIUM HIST. OINT 30 GM TP SCH ×2 (09:58→17:43)
--- NOTE | 2019-08-11 12:07 | PDOC CRITICAL CARE PROG REPORT ---
General Date:: 08/11/19 ICU Day:: 5 Hospital Day:: 5 Resuscitation Status: Do Not Resuscitate Medical Power of Assorter Laundry: [id number] Zabrina Events in the past 12 to 24 Hours:: 08/10: Patient reports that he has previously undergone diagnostic polysomnography. He reports that he was told that he " 43 times in 1 nig ht". However, he has never obtained a CPAP/BiPAP device. Unsure of the date of his sleep study. Remains off pressors. DVT prophylaxis: SCDs. GI prophylaxis: None. On Solu-Cortef 50 mg IV every 8 hourly. Review of systems relevant to events:: Respiratory, neurological. Reason for ICU Addmission:: Hypotension with acute metabolic encephalopathy, all resolved - Medications: Medications reviewed and adjusted accordingly: Yes Physical Exam Vital Signs: Temp Pulse Resp BP Pulse Ox 97.9 F 88 20 141/86 H 98 08/10/19 19:26 08/11/19 07:00 08/11/19 10:00 08/11/19 07:26 08/11/19 10:00 Intake & Output 08/10/19 08/11/19 08/12/19 06:59 06:59 06:59 Intake Total 250 480 Output Total 0 Balance 250 480 Weight 101.6 kg 102.2 kg Weight/Height Weight 102.2 kg Height 1.68 m General appearance: PRESENT: no acute distress, well-developed, well-nourished Head exam: PRESENT: atraumatic, normocephalic Eye exam: PRESENT: conjunctiva pink, EOMI, PERRLA. ABSENT: scleral icterus Mouth exam: PRESENT: moist, tongue midline Neck exam: ABSENT: carotid bruit, JVD, lymphadenopathy, thyromegaly Respiratory exam: PRESENT: clear to auscultation teetee. ABSENT: rales, rhonchi, wheezes Cardiovascular exam: PRESENT: RRR. ABSENT: diastolic murmur, rubs, systolic murmur Pulses: PRESENT: normal dorsalis pedis pul GI/Abdominal exam: PRESENT: normal bowel sounds, soft. ABSENT: distended, guarding, mass, organolmegaly, rebound, tenderness Extremities exam: PRESENT: full ROM, pedal edema, other - Right lower extremity compression bandage. ABSENT: calf tenderness, clubbing Neurological exam: PRESENT: alert, awake, oriented to person, oriented to place, oriented to time, oriented to situation, CN II-XII grossly intact. ABSENT: motor sensory deficit Laboratory/Radiographs Laboratory Results: 08/11/19 04:09 08/10/19 05:03 08/11/19 04:09 WBC 8.2 RBC 2.88 L Hgb 8.5 L Hct 24.6 L MCV 85 MCH 29.6 MCHC 34.7 RDW 15.1 H Plt Count 152 08/06/19 09:12 Blood Blood Culture - Final NO GROWTH IN 5 DAYS 08/06/19 08:45 Blood Blood Culture - Final NO GROWTH IN 5 DAYS 08/05/19 18:13 Blood Blood Culture - Final NO GROWTH IN 5 DAYS 08/05/19 17:08 Blood Blood Culture - Final NO GROWTH IN 5 DAYS 08/05/19 08/06/19 08/06/19 16:19 08:45 09:12 Creatine Kinase 70 Troponin I < 0.012 0.029 Impressions: Lower Extremity MRI 08/05/19 00:00 IMPRESSION: No MR evidence for osteomyelitis, given the limitations as above. Postsurgical change fifth digit with minor cellulitis near the fifth metatarsal stump copyright 2010 [employer]- All Rights Reserved Foot X-Ray 08/05/19 18:09 IMPRESSION: Moderate osteopenia throughout the left foot. 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 No radiographic evidence of osteomyelitis. And there is continued concern for osteomyelitis, MRI is more sensitive and specific for early changes. Chest CT 08/06/19 00:00 IMPRESSION: Partial clearing of the right lateral lower lobe airspace disease seen on CT chest 03/16/[address] abdomen and pelvis Head CT 08/06/19 00:00 IMPRESSION: No acute findings EVIDENCE OF ACUTE STROKE: NO. Chest X-Ray 08/07/19 06:00 IMPRESSION: NO SIGNIFICANT CHANGE IN APPEARANCE OF THE CHEST. Abdomen/Pelvis CT 08/08/19 00:00 IMPRESSION: 1. The right common femoral artery line has been removed and the patient has developed a right groin hematoma that measures 5.6 cm in AP diameter, 11.3 cm in transverse diameter and 16 cm in craniocaudal diameter. 2. Colonic diverticulosis without diverticulitis. 3. Improved aeration of the lower lobes. 4. Other findings as detailed above. Aorta w/Runoff CTA 08/08/19 00:00 IMPRESSION: 1. Right gurney hematoma that measures 5.6 cm in AP diameter, 11.3 cm in transverse diameter and 16 cm in craniocaudal diameter. There is no e xtravasation or pseudoaneurysm of the right common femoral artery. 2. No high-grade stenosis, dissection or aneurysm of the arterial vasculature of the lower extremities. All labs, radiographs, diagnostic studies and EKGs were personally reviewed: Yes In addition, reports of radiographic and diagnostic studies were read: Yes Assessment and Plan - Diagnosis (1) Acute blood loss anemia Is this a current diagnosis for this admission?: Yes Plan: Hemoglobin 8.5. (2) Shock Is this a current diagnosis for this admission?: Yes Plan: Resolved (3) Diabetes mellitus type 2 in obese Is this a current diagnosis for this admission?: Yes Plan: Sliding scale insulin. (4) Suspected sleep apnea Is this a current diagnosis for this admission?: Yes Plan: I have requested help from the case liner to investigate on the date of the patient's last sleep study. (5) Wheelchair dependent Is this a current diagnosis for this admission?: Yes Plan: PT/OT eval and treat. Plan Summary: Okay for general medical floor from pulmonary standpoint. Critical Time Critical Time (minutes): 30 Level of Care: MEDICAL -: 1. The care of a critical patient is a dynamic process. This note is a surgical sales representative synopsis but static in nature. The timeframe for treatments given in order is not necessarily the actual time these treatments may have been done. 2. This patient requires critical care secondary to ongoing requirements for therapy not offered or safe outside the critical care environment. Transfer to a lower level of care will result in altered life or limb morbidity and mortality. 3. Multidisciplinary rounds completed. 4. ABCDE bundle addressed.
[2019-08-11] MEDS: SERTRALINE HCL 50 MG TABLET PO SCH (21:20)
[2019-08-12] MEDS: HYDROCORTISONE SOD SUCCINATE INJ/PF 100 MG/2 ML SDV IV SCH ×3 (01:44→17:15)
[2019-08-12] MEDS: INSULIN REG, HUMAN 100 UNIT/ML 3 ML VIAL (PYX) SUBCUT SCH ×4 (08:19→21:45)
[2019-08-12] MEDS: OMEGA-3 ACID ETHYL ESTERS 1 GM CAPSULE PO SCH (09:46)
[2019-08-12] MEDS: COLLAGENASE CLOSTRIDIUM HIST. OINT 30 GM TP SCH ×2 (09:46→17:15)
--- NOTE | 2019-08-12 19:59 | PDOC PROGRESS REPORT ---
Subjective Progress Note for:: 08/12/19 Subjective:: Patient was downgraded from the unit, is seen by bedside, medication was reviewed, he had PT today Reason For Visit: SEPSIS,LEFT FOOT INFECTION, OSTEOMYELITIS,T2DM, Physical Exam Vital Signs: Temp Pulse Resp BP Pulse Ox 98.2 F 80 17 141/67 H 100 08/12/19 15:16 08/12/19 15:16 08/12/19 15:16 08/12/19 15:16 08/12/19 15:16 Intake & Output 08/11/19 08/12/19 08/13/19 06:59 06:59 06:59 Intake Total 480 400 Balance 480 400 Weight 102.2 kg 102.2 kg General appearance: PRESENT: no acute distress Eye exam: PRESENT: PERRLA Respiratory exam: PRESENT: clear to auscultation teetee Cardiovascular exam: PRESENT: +S1, +S2 GI/Abdominal exam: PRESENT: soft Neurological exam: PRESENT: alert Results Laboratory Results: 08/05/19 08/06/19 08/06/19 16:19 08:45 09:12 Creatine Kinase 70 Troponin I < 0.012 0.029 Impressions: Lower Extremity MRI 08/05/19 00:00 IMPRESSION: No MR evidence for osteomyelitis, given the limitations as above. Postsurgical change fifth digit with minor cellulitis near the fifth metatarsal stump copyright 2011 [employer]- All Rights Reserved Foot X-Ray 08/05/19 18:09 IMPRESSION: Moderate osteopenia throughout the left foot. 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 No radiographic evidence of osteomyelitis. And there is continued concern for osteomyelitis, MRI is more sensitive and specific for early changes. Chest CT 08/06/19 00:00 IMPRESSION: Partial clearing of the right lateral lower lobe airspace disease seen on CT chest 03/16/[address] abdomen and pelvis Head CT 08/06/19 00:00 IMPRESSION: No acute findings EVIDENCE OF ACUTE STROKE: NO. Chest X-Ray 08/07/19 06:00 IMPRESSION: NO SIGNIFICANT CHANGE IN APPEARANCE OF THE CHEST. Abdomen/Pelvis CT 08/08/19 00:00 IMPRESSION: 1. The right common femoral artery line has been removed and the patient has developed a right groin hematoma that measures 5.6 cm in AP diameter, 11.3 cm in transverse diameter and 16 cm in craniocaudal diameter. 2. Colonic diverticulosis without diverticulitis. 3. Improved aeration of the lower lobes. 4. Other findings as detailed above. Aorta w/Runoff CTA 08/08/19 00:00 IMPRESSION: 1. Right gurney hematoma that measures 5.6 cm in AP diameter, 11.3 cm in transverse diameter and 16 cm in craniocaudal diameter. There is no e xtravasation or pseudoaneurysm of the right common femoral artery. 2. No high-grade stenosis, dissection or aneurysm of the arterial vasculature of the lower extremities. Assessment & Plan - Diagnosis (1) Sepsis Qualifiers: Sepsis type: sepsis due to unspecified organism Sepsis acute organ dysfu nction status: with acute organ dysfunction Severe sepsis acute organ dysfunction type: acute renal failure Acute renal failure type: unspecified Severe sepsis shock status: unspecified Qualified Code(s): A41.9 - Sepsis, unspecified organism; R65.20 - Severe sepsis without septic shock; N17.9 - Acute kidney failure, unspecified Is this a current diagnosis for this admission?: Yes Plan: Discontinue steroid (2) Morbid (severe) obesity due to excess calories Is this a current diagnosis for this admission?: Yes (3) Diabetes mellitus type 2 in obese Is this a current diagnosis for this admission?: Yes (4) Acute blood loss anemia Is this a current diagnosis for this admission?: Yes - Time Time Spent with patient: 25-34 minutes Level of Care: IMCU Medications reviewed and adjusted accordingly: Yes
[2019-08-12 20:01] LABS: ABSOLUTE EOSINOPHILS # (AUTO) 0.1 10^3/uL (0.0-0.6); ABSOLUTE LYMPHOCYTES (AUTO) 0.9 10^3/uL (0.5-4.7); ABSOLUTE MONOCYTES (AUTO) 0.8 10^3/uL (0.1-1.4); ABSOLUTE NEUT (AUTO) 7.9 10^3/uL (1.7-8.2); BASOPHILS % (AUTO) 0.1 % (0-2); EOSINOPHILS % (AUTO) 1.3 % (0-6); HEMATOCRIT 24.6 % (37.9-51.0); HEMOGLOBIN 8.4 g/dL (13.5-17.0); LYMPHOCYTES % (AUTO) 9.2 % (13-45); MEAN CORPUSCULAR HEMOGLOBIN 29.7 pg (27.0-33.4); MEAN CORPUSCULAR HGB CONC 34.2 g/dL (32.0-36.0); MEAN CORPUSCULAR VOLUME 87 fl (80-97); MONOCYTES % (AUTO) 8.2 % (3-13); PLATELET COUNT 150 10^3/uL (150-450); RED BLOOD COUNT 2.83 10^6/uL (4.35-5.55); RED CELL DISTRIBUTION WIDTH 15.2 % (11.5-14.0); SEGMENTED NEUTROPHILS % (AUTO) 81.2 % (42-78); TOTAL CELLS COUNTED % (AUTO) 100 %; WHITE BLOOD COUNT 9.7 10^3/uL (4.0-10.5)
[2019-08-12 20:19] LABS: ALBUMIN 2.9 g/dL (3.5-5.0); ALKALINE PHOSPHATASE 59 U/L (38-126); ASPARTATE AMINO TRANSFERASE 25 U/L (17-59); BILIRUBIN,TOTAL 0.4 mg/dL (0.2-1.3); BLOOD UREA NITROGEN 38 mg/dL (7-20); CALCIUM 8.8 mg/dL (8.4-10.2); GLUCOSE 155 mg/dL (75-110); POTASSIUM 3.9 mmol/L (3.6-5.0); TOTAL PROTEIN 5.9 g/dL (6.3-8.2)
[2019-08-12 20:24] LABS: CARBON DIOXIDE 30 mmol/L (22-30); CHLORIDE 102 mmol/L (98-107)
[2019-08-12 20:25] LABS: ANION GAP 4 (5-19)
[2019-08-12] MEDS: SERTRALINE HCL 50 MG TABLET PO SCH (21:44)
[2019-08-13 05:51] LABS: HEMATOCRIT 24.4 % (37.9-51.0); HEMOGLOBIN 8.4 g/dL (13.5-17.0); MEAN CORPUSCULAR HEMOGLOBIN 29.9 pg (27.0-33.4); MEAN CORPUSCULAR HGB CONC 34.3 g/dL (32.0-36.0); MEAN CORPUSCULAR VOLUME 87 fl (80-97); PLATELET COUNT 164 10^3/uL (150-450); RED BLOOD COUNT 2.81 10^6/uL (4.35-5.55); RED CELL DISTRIBUTION WIDTH 15.1 % (11.5-14.0); WHITE BLOOD COUNT 10.8 10^3/uL (4.0-10.5)
[2019-08-13] MEDS: INSULIN REG, HUMAN 100 UNIT/ML 3 ML VIAL (PYX) SUBCUT SCH ×4 (07:25→21:22)
[2019-08-13] MEDS: COLLAGENASE CLOSTRIDIUM HIST. OINT 30 GM TP SCH ×2 (09:29→17:12)
[2019-08-13] MEDS: OMEGA-3 ACID ETHYL ESTERS 1 GM CAPSULE PO SCH (09:29)
--- NOTE | 2019-08-13 19:21 | PDOC PROGRESS REPORT ---
Subjective Progress Note for:: 08/13/19 Subjective:: Patient was downgraded from the unit, is seen by bedside, medication was reviewed, he had PT today Reason For Visit: SEPSIS,LEFT FOOT INFECTION, OSTEOMYELITIS,T2DM, Physical Exam Vital Signs: Temp Pulse Resp BP Pulse Ox 98.2 F 82 17 132/55 H 100 08/13/19 15:44 08/13/19 15:44 08/13/19 15:44 08/13/19 15:44 08/13/19 15:44 Intake & Output 08/12/19 08/13/19 08/14/19 06:59 06:59 06:59 Intake Total 215 824 2752 Output Total 1000 450 Balance 480 -600 990 Weight 102.2 kg 102.4 kg General appearance: PRESENT: no acute distress Eye exam: PRESENT: PERRLA Respiratory exam: PRESENT: clear to auscultation teetee Cardiovascular exam: PRESENT: +S1, +S2 GI/Abdominal exam: PRESENT: soft Results Laboratory Results: 08/13/19 04:55 08/12/19 19:52 08/12/19 08/12/19 08/13/19 19:52 19:52 04:55 WBC 9.7 10.8 H RBC 2.83 L 2.81 L Hgb 8.4 L 8.4 L Hct 24.6 L 24.4 L MCV 87 87 MCH 29.7 29.9 MCHC 34.2 34.3 RDW 15.2 H 15.1 H Plt Count 150 164 Seg Neutrophils % 81.2 H Sodium 135.7 L Potassium 3.9 Chloride 102 Carbon Dioxide 30 Anion Gap 4 L BUN 38 H Creatinine 0.91 Est GFR ( Amer) > 60 Glucose 155 H Calcium 8.8 Total Bilirubin 0.4 AST 25 Alkaline Phosphatase 59 Total Protein 5.9 L Albumin 2.9 L 08/05/19 08/06/19 08/06/19 16:19 08:45 09:12 Creatine Kinase 70 Troponin I < 0.012 0.029 Impressions: Lower Extremity MRI 08/05/19 00:00 IMPRESSION: No MR evidence for osteomyelitis, given the limitations as above. Postsurgical change fifth digit with minor cellulitis near the fifth metatarsal stump copyright 2010 [employer]- All Rights Reserved Foot X-Ray 08/05/19 18:09 IMPRESSION: Moderate osteopenia throughout the left foot. 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 No radiographic evidence of osteomyelitis. And there is continued concern for osteomyelitis, MRI is more sensitive and specific for early changes. Chest CT 08/06/19 00:00 IMPRESSION: Partial clearing of the right lateral lower lobe airspace disease seen on CT chest 03/16/[address] abdomen and pelvis Head CT 08/06/19 00:00 IMPRESSION: No acute findings EVIDENCE OF ACUTE STROKE: NO. Chest X-Ray 08/07/19 06:00 IMPRESSION: NO SIGNIFICANT CHANGE IN APPEARANCE OF THE CHEST. Abdomen/Pelvis CT 08/08/19 00:00 IMPRESSION: 1. The right common femoral artery line has been removed and the patient has developed a right groin hematoma that measures 5.6 cm in AP diameter, 11.3 cm in transverse diameter and 16 cm in craniocaudal diameter. 2. Colonic diverticulosis without diverticulitis. 3. Improved aeration of the lower lobes. 4. Other findings as detailed above. Aorta w/Runoff CTA 08/08/19 00:00 IMPRESSION: 1. Right gurney hematoma that measures 5.6 cm in AP diameter, 11.3 cm in transverse diameter and 16 cm in craniocaudal diameter. There is no extravasation or pseudoaneurysm of the right common femoral artery. 2. No high-grade stenosis, dissection or aneurysm of the arterial vasculature of the lower extremities. Assessment & Plan - Diagnosis (1) Sepsis Qualifiers: Sepsis type: sepsis due to unspecified organism Sepsis acute organ dysfunction status: with acute organ dysfunction Severe sepsis acute organ dysfunction type: acute renal failure Acute renal failure type: unspecified Severe sepsis shock status: unspecified Qualified Code(s): A41.9 - Sepsis, unspecified organism; R65.20 - Severe sepsis without septic shock; N17.9 - Acute kidney failure, unspecified Is this a current diagnosis for this admission?: Yes (2) Morbid (severe) obesity due to excess calories Is this a current diagnosis for this admission?: Yes (3) Diabetes mellitus type 2 in obese Is this a current diagnosis for this admission?: Yes (4) Acute blood loss anemia Is this a current diagnosis for this admission?: Yes - Time Time Spent with patient: 15-24 minutes Level of Care: MEDICAL
[2019-08-13] MEDS: SERTRALINE HCL 50 MG TABLET PO SCH (21:23)
[2019-08-14] MEDS: INSULIN REG, HUMAN 100 UNIT/ML 3 ML VIAL (PYX) SUBCUT SCH ×4 (07:45→21:37)
[2019-08-14] MEDS: OMEGA-3 ACID ETHYL ESTERS 1 GM CAPSULE PO SCH (09:19)
[2019-08-14] MEDS: COLLAGENASE CLOSTRIDIUM HIST. OINT 30 GM TP SCH ×2 (09:21→18:10)
[2019-08-14] MEDS: SERTRALINE HCL 50 MG TABLET PO SCH (21:37)
--- NOTE | 2019-08-14 21:42 | PDOC PROGRESS REPORT ---
Subjective Progress Note for:: 08/14/19 Subjective:: Patient is deconditioned with lack of muscle strength he needs physical therapy awaiting placement in a penitentiary home for therapy, patient is at increased risk of readmission if discharged home sooner without getting patient stronger Reason For Visit: SEPSIS,LEFT FOOT INFECTION, OSTEOMYELITIS,T2DM, Physical Exam Vital Signs: Temp Pulse Resp BP Pulse Ox 98.0 F 74 18 138/56 H 100 08/14/19 21:12 08/14/19 21:12 08/14/19 21:12 08/14/19 21:12 08/14/19 21:12 Intake & Output 08/13/19 08/14/19 08/15/19 06:59 06:59 06:59 Intake Total 400 1990 1194 Output Total 1000 1575 300 Balance -600 415 894 Weight 102.4 kg 107.9 kg General appearance: PRESENT: no acute distress Eye exam: PRESENT: PERRLA Respiratory exam: PRESENT: clear to auscultation teetee Cardiovascular exam: PRESENT: +S1, +S2 GI/Abdominal exam: PRESENT: soft Results Laboratory Results: 08/13/19 04:55 08/12/19 19:52 08/05/19 08/06/19 08/06/19 16:19 08:45 09:12 Creatine Kinase 70 Troponin I < 0.012 0.029 Impressions: Lower Extremity MRI 08/05/19 00:00 IMPRESSION: No MR evidence for osteomyelitis, given the limitations as above. Postsurgical change fifth digit with minor cellulitis near the fifth metatarsal stump copyright 2010 [employer]- All Rights Reserved Foot X-Ray 08/05/19 18:09 IMPRESSION: Moderate osteopenia throughout the left foot. 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 No radiographic evidence of osteomyelitis. And there is continued concern for osteomyelitis, MRI is more sensitive and specific for early changes. Chest CT 08/06/19 00:00 IMPRESSION: Partial clearing of the right lateral lower lobe airspace disease seen on CT chest 03/16/[address] abdomen and pelvis Head CT 08/06/19 00:00 IMPRESSION: No acute findings EVIDENCE OF ACUTE STROKE: NO. Chest X-Ray 08/07/19 06:00 IMPRESSION: NO SIGNIFICANT CHANGE IN APPEARANCE OF THE CHEST. Abdomen/Pelvis CT 08/08/19 00:00 IMPRESSION: 1. The right common femoral artery line has been removed and the patient has developed a right groin hematoma that measures 5.6 cm in AP diameter, 11.3 cm in transverse diameter and 16 cm in craniocaudal diameter. 2. Colonic diverticulosis without diverticulitis. 3. Improved aeration of the lower lobes. 4. Other findings as detailed above. Aorta w/Runoff CTA 08/08/19 00:00 IMPRESSION: 1. Right gurney hematoma that measures 5.6 cm in AP diameter, 11.3 cm in transverse diameter and 16 cm in craniocaudal diameter. There is no extravasation or pseudoaneurysm of the right common femoral artery. 2. No high-grade stenosis, dissection or aneurysm of the arterial vasculature of the lower extremities. Assessment & Plan - Diagnosis (1) Sepsis Qualifiers: Sepsis type: sepsis due to unspecified organism Sepsis acute organ dysfunction status: with acute organ dysfunction Severe sepsis acute organ dysfunction type: acute renal failure Acute renal failure type: unspecified Severe sepsis shock status: unspecified Qualified Code(s): A41.9 - Sepsis, unspecified organism; R65.20 - Severe sepsis without septic shock; N17.9 - Acute kidney failure, unspecified Is this a current diagnosis for this admission?: Yes (2) Morbid (severe) obesity due to excess calories Is this a current diagnosis for this admission?: Yes (3) Diabetes mellitus type 2 in obese Is this a current diagnosis for this admission?: Yes (4) Acute blood loss anemia Is this a current diagnosis for this admission?: Yes - Time Time Spent with patient: 25-34 minutes Level of Care: MEDICAL
[2019-08-15 05:04] LABS: HEMATOCRIT 24.7 % (37.9-51.0); HEMOGLOBIN 8.4 g/dL (13.5-17.0); MEAN CORPUSCULAR HEMOGLOBIN 30.1 pg (27.0-33.4); MEAN CORPUSCULAR HGB CONC 34.2 g/dL (32.0-36.0); MEAN CORPUSCULAR VOLUME 88 fl (80-97); PLATELET COUNT 192 10^3/uL (150-450); RED BLOOD COUNT 2.81 10^6/uL (4.35-5.55); RED CELL DISTRIBUTION WIDTH 15.5 % (11.5-14.0)
[2019-08-15] MEDS: INSULIN REG, HUMAN 100 UNIT/ML 3 ML VIAL (PYX) SUBCUT SCH ×4 (07:41→21:42)
[2019-08-15] MEDS: OMEGA-3 ACID ETHYL ESTERS 1 GM CAPSULE PO SCH (10:02)
[2019-08-15] MEDS: COLLAGENASE CLOSTRIDIUM HIST. OINT 30 GM TP SCH ×2 (10:02→17:50)
[2019-08-15] MEDS ORDERED: BISACODYL 5 MG TABEC PO PRN (10:22)
[2019-08-15] MEDS: SERTRALINE HCL 50 MG TABLET PO SCH (21:42)
--- NOTE | 2019-08-15 23:07 | PDOC PROGRESS REPORT ---
Subjective Progress Note for:: 08/15/19 Subjective:: Patient seen by the bedside,Patient is extremely deconditioned not able to care for self, need to be transferred to a long-term home for rehabilitation Reason For Visit: SEPSIS,LEFT FOOT INFECTION, OSTEOMYELITIS,T2DM, Physical Exam Vital Signs: Temp Pulse Resp BP Pulse Ox 97.5 F 85 14 109/49 L 99 08/15/19 19:30 08/15/19 19:30 08/15/19 20:46 08/15/19 19:30 08/15/19 20:46 Intake & Output 08/14/19 08/15/19 08/16/19 06:59 06:59 06:59 Intake Total 1989 1494 480 Output Total 1575 500 275 Balance 415 994 205 Weight 107.9 kg 107.9 kg General appearance: PRESENT: no acute distress Eye exam: PRESENT: PERRLA Respiratory exam: PRESENT: clear to auscultation teetee Cardiovascular exam: PRESENT: +S1, +S2 GI/Abdominal exam: PRESENT: soft Results Laboratory Results: 08/15/19 04:12 08/12/19 19:52 08/15/19 04:12 WBC 10.0 RBC 2.81 L Hgb 8.4 L Hct 24.7 L MCV 88 MCH 30.1 MCHC 34.2 RDW 15.5 H Plt Count 192 08/05/19 08/06/19 08/06/19 16:19 08:45 09:12 Creatine Kinase 70 Troponin I < 0.012 0.029 Impressions: Lower Extremity MRI 08/05/19 00:00 IMPRESSION: No MR evidence for osteomyelitis, given the limitations as above. Postsurgical change fifth digit with minor cellulitis near the fifth metatarsal stump copyright 2011 [employer]- All Rights Reserved Foot X-Ray 08/05/19 18:09 IMPRESSION: Moderate osteopenia throughout the left foot. 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 No radiographic evidence of osteomyelitis. And there is continued concern for osteomyelitis, MRI is more sensitive and specific for early changes. Chest CT 08/06/19 00:00 IMPRESSION: Partial clearing of the right lateral lower lobe airspace disease seen on CT chest 03/16/[address] abdomen and pelvis Head CT 08/06/19 00:00 IMPRESSION: No acute findings EVIDENCE OF ACUTE STROKE: NO. Chest X-Ray 08/07/19 06:00 IMPRESSION: NO SIGNIFICANT CHANGE IN APPEARANCE OF THE CHEST. Abdomen/Pelvis CT 08/08/19 00:00 IMPRESSION: 1. The right common femoral artery line has been removed and the patient has developed a right groin hematoma that measures 5.6 cm in AP diameter, 11.3 cm in transverse diameter and 16 cm in craniocaudal diameter. 2. Colonic diverticulosis without diverticulitis. 3. Improved aeration of the lower lobes. 4. Other findings as detailed above. Aorta w/Runoff CTA 08/08/19 00:00 IMPRESSION: 1. Right gurney hematoma that measures 5.6 cm in AP diameter, 11.3 cm in transverse diameter and 16 cm in craniocaudal diameter. There is no e xtravasation or pseudoaneurysm of the right common femoral artery. 2. No high-grade stenosis, dissection or aneurysm of the arterial vasculature of the lower extremities. Assessment & Plan - Diagnosis (1) Sepsis Qualifiers: Sepsis type: sepsis due to unspecified organism Sepsis acute organ dysfu nction status: with acute organ dysfunction Severe sepsis acute organ dys function type: acute renal failure Acute renal failure type: unspecified Severe sepsis shock status: unspecified Qualified Code(s): A41.9 - Sepsis, unspecified organism; R65.20 - Severe sepsis without septic shock; N17.9 - Acute kidney failure, unspecified Is this a current diagnosis for this admission?: Yes (2) Morbid (severe) obesity due to excess calories Is this a current diagnosis for this admission?: Yes (3) Diabetes mellitus type 2 in obese Is this a current diagnosis for this admission?: Yes (4) Acute blood loss anemia Is this a current diagnosis for this admission?: Yes - Time Time Spent with patient: 25-34 minutes Level of Care: MEDICAL
[2019-08-16] MEDS: INSULIN REG, HUMAN 100 UNIT/ML 3 ML VIAL (PYX) SUBCUT SCH ×4 (07:27→21:47)
[2019-08-16] MEDS: OMEGA-3 ACID ETHYL ESTERS 1 GM CAPSULE PO SCH (09:52)
[2019-08-16] MEDS: COLLAGENASE CLOSTRIDIUM HIST. OINT 30 GM TP SCH ×2 (09:52→17:09)
--- NOTE | 2019-08-16 12:23 | PDOC PROGRESS REPORT ---
Subjective Progress Note for:: 08/16/19 Subjective:: Patient denied any chest pain or difficulty with breathing. No reported fever or chills. Left foot wound dressing was satisfactory this morning. Tolerated oral feeding, no nausea, vomiting, or abdominal pain. Reason For Visit: SEPSIS,LEFT FOOT INFECTION, OSTEOMYELITIS,T2DM, Physical Exam Vital Signs: Temp Pulse Resp BP Pulse Ox 97.7 F 72 16 122/63 99 08/16/19 07:13 08/16/19 07:13 08/16/19 07:13 08/16/19 07:13 08/16/19 08:55 Intake & Output 08/15/19 08/16/19 08/17/19 06:59 06:59 06:59 Intake Total 1494 480 Output Total 500 275 Balance 994 205 Weight 107.9 kg 102.1 kg General appearance: PRESENT: no acute distress, obese Head exam: PRESENT: atraumatic, normocephalic Eye exam: PRESENT: conjunctiva pink. ABSENT: scleral icterus Mouth exam: PRESENT: moist Respiratory exam: PRESENT: clear to auscultation teetee, decreased breath sounds - at lung bases Cardiovascular exam: PRESENT: RRR, +S1, +S2. ABSENT: diastolic murmur, rubs, systolic murmur GI/Abdominal exam: PRESENT: normal bowel sounds, soft. ABSENT: distended, guarding, mass, organolmegaly, rebound, tenderness Extremities exam: ABSENT: pedal edema Neurological exam: PRESENT: alert, awake Psychiatric exam: PRESENT: appropriate affect, normal mood. ABSENT: homicidal ideation, suicidal ideation Skin exam: PRESENT: dry, warm Results Laboratory Results: 08/15/19 04:12 08/12/19 19:52 08/05/19 08/06/19 08/06/19 16:19 08:45 09:12 Creatine Kinase 70 Troponin I < 0.012 0.029 Impressions: Lower Extremity MRI 08/05/19 00:00 IMPRESSION: No MR evidence for osteomyelitis, given the limitations as above. Postsurgical change fifth digit with minor cellulitis near the fifth metatarsal stump copyright 2010 [employer]- All Rights Reserved Foot X-Ray 08/05/19 18:09 IMPRESSION: Moderate osteopenia throughout the left foot. 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 No radiographic evidence of osteomyelitis. And there is continued concern for osteomyelitis, MRI is more sensitive and specific for early changes. Chest CT 08/06/19 00:00 IMPRESSION: Partial clearing of the right lateral lower lobe airspace disease seen on CT chest 03/16/[address] abdomen and pelvis Head CT 08/06/19 00:00 IMPRESSION: No acute findings EVIDENCE OF ACUTE STROKE: NO. Chest X-Ray 08/07/19 06:00 IMPRESSION: NO SIGNIFICANT CHANGE IN APPEARANCE OF THE CHEST. Abdomen/Pelvis CT 08/08/19 00:00 IMPRESSION: 1. The right common femoral artery line has been removed and the patient has developed a right groin hematoma that measures 5.6 cm in AP diameter, 11.3 cm in transverse diameter and 16 cm in craniocaudal diameter. 2. Colonic diverticulosis without diverticulitis. 3. Improved aeration of the lower lobes. 4. Other findings as detailed above. Aorta w/Runoff CTA 08/08/19 00:00 IMPRESSION: 1. Right gurney hematoma that measures 5.6 cm in AP diameter, 11.3 cm in transverse diameter and 16 cm in craniocaudal diameter. There is no extravasation or pseudoaneurysm of the right common femoral artery. 2. No high-grade stenosis, dissection or aneurysm of the arterial vasculature of the lower extremities. Assessment & Plan - Diagnosis (1) Sepsis Qualifiers: Sepsis type: sepsis due to unspecified organism Sepsis acute organ dysfunction status: with acute organ dysfunction Severe sepsis acute organ dysfunction type: acute renal failure Acute renal failure type: unspecified Severe sepsis shock status: unspecified Qualified Code(s): A41.9 - Sepsis, unspecified organism; R65.20 - Severe sepsis without septic shock; N17.9 - Acute kidney failure, unspecified Is this a current diagnosis for this admission?: Yes Plan: Continue supportive management with his current improvement. Cultures were reported no growth with adequate incubation time. (2) Diabetes mellitus type 2 in obese Is this a current diagnosis for this admission?: Yes Plan: Continue current insulin therapy regimen. (3) Acute blood loss anemia Is this a current diagnosis for this admission?: Yes Plan: Post transfusion of 2 units PRBC and 1 bag of platelets. Hemoglobin still in low range. Continue to monitor and transfuse as indicated. (4) Pressure injury of left foot, stage 3 Is this a current diagnosis for this admission?: Yes Plan: Continue current dressing Santyl and Allevyn dressing management. - Time Time Spent with patient: 25-34 minutes Level of Care: TELE Medications reviewed and adjusted accordingly: Yes Anticipated discharge: SNF Within: Other - Inpatient Certification Based on my medical assessment, after consideration of the patient's comorbidities, presenting symptoms, or acuity I expect that the services needed warrant INPATIENT care.: Yes I certify that my determination is in accordance with my understanding of Medic are's requirements for reasonable and necessary INPATIENT services [42 CFR 412.3e].: Yes Medical Necessity: Significant Comorbidiites Make Outpatient Treatment Too Risky, Need Close Monitoring Due to Risk of Patient Decompensation, Need For IV Fluids, Need For Continuous Telemetry Monitoring, Risk of Complication if Not Cared For in Hospital, Risk of Diagnosis Which Will Require Inpatient Eval/Care/Monitoring Post Hospital Care: D/C or Transfer Summary - Plan Summary Plan Summary: See covering attending physician orders for details. Prognosis remain guarded. Agreed with SNF placement for short term rehabilitation.
[2019-08-16] MEDS: SERTRALINE HCL 50 MG TABLET PO SCH (21:48)
[2019-08-17 06:31] LABS: ABSOLUTE EOSINOPHILS # (AUTO) 0.2 10^3/uL (0.0-0.6); ABSOLUTE LYMPHOCYTES (AUTO) 1.3 10^3/uL (0.5-4.7); ABSOLUTE MONOCYTES (AUTO) 0.6 10^3/uL (0.1-1.4); ABSOLUTE NEUT (AUTO) 4.6 10^3/uL (1.7-8.2); BASOPHILS % (AUTO) 0.6 % (0-2); EOSINOPHILS % (AUTO) 3.4 % (0-6); HEMATOCRIT 22.6 % (37.9-51.0); LYMPHOCYTES % (AUTO) 19.8 % (13-45); MEAN CORPUSCULAR HEMOGLOBIN 29.8 pg (27.0-33.4); MEAN CORPUSCULAR HGB CONC 33.6 g/dL (32.0-36.0); MEAN CORPUSCULAR VOLUME 89 fl (80-97); MONOCYTES % (AUTO) 8.6 % (3-13); PLATELET COUNT 187 10^3/uL (150-450); RED BLOOD COUNT 2.55 10^6/uL (4.35-5.55); RED CELL DISTRIBUTION WIDTH 16.1 % (11.5-14.0); SEGMENTED NEUTROPHILS % (AUTO) 67.6 % (42-78); TOTAL CELLS COUNTED % (AUTO) 100 %; WHITE BLOOD COUNT 6.8 10^3/uL (4.0-10.5)
[2019-08-17 06:49] LABS: HEMOGLOBIN 7.6 g/dL (13.5-17.0)
[2019-08-17 06:52] LABS: ALBUMIN 2.7 g/dL (3.5-5.0); ALKALINE PHOSPHATASE 55 U/L (38-126); ASPARTATE AMINO TRANSFERASE 26 U/L (17-59); BILIRUBIN,TOTAL 0.7 mg/dL (0.2-1.3); BLOOD UREA NITROGEN 37 mg/dL (7-20); CALCIUM 8.5 mg/dL (8.4-10.2); CARBON DIOXIDE 31 mmol/L (22-30); CHLORIDE 103 mmol/L (98-107); GLUCOSE 113 mg/dL (75-110); POTASSIUM 4.7 mmol/L (3.6-5.0); TOTAL PROTEIN 5.8 g/dL (6.3-8.2)
[2019-08-17 07:01] LABS: ANION GAP 2 (5-19)
[2019-08-17] MEDS: INSULIN REG, HUMAN 100 UNIT/ML 3 ML VIAL (PYX) SUBCUT SCH ×4 (07:44→21:56)
[2019-08-17] MEDS: OMEGA-3 ACID ETHYL ESTERS 1 GM CAPSULE PO SCH (09:40)
[2019-08-17] MEDS: COLLAGENASE CLOSTRIDIUM HIST. OINT 30 GM TP SCH ×2 (09:40→17:08)
[2019-08-17] MEDS: MULTIVITS W-MIN/IRON SOLN 60 ML PO SCH (09:40)
[2019-08-17] MEDS ORDERED: NORMAL SALINE 250 ML IV PRN ×2 (15:12)
--- NOTE | 2019-08-17 15:29 | PDOC PROGRESS REPORT ---
Subjective Progress Note for:: 08/17/19 Subjective:: No chest pain or difficulty with breathing. No reported fever or chills. No nausea, vomiting, or abdominal pain. Patient denied any significant history of hemorrhoid, tarry or blood stool. Reason For Visit: SEPSIS,LEFT FOOT INFECTION, OSTEOMYELITIS,T2DM, Physical Exam Vital Signs: Temp Pulse Resp BP Pulse Ox 98.6 F 65 15 115/48 L 99 08/17/19 12:00 08/17/19 12:00 08/17/19 12:00 08/17/19 12:00 08/17/19 12:00 Intake & Output 08/16/19 08/17/19 08/18/19 06:59 06:59 06:59 Intake Total 931 138 6471 Output Total 275 850 400 Balance 205 130 674 Weight 102.1 kg 104.3 kg Physical Exam: General appearance: PRESENT: no acute distress, obese Head exam: PRESENT: atraumatic, normocephalic Eye exam: PRESENT: conjunctiva pink. ABSENT: pallor, scleral icterus Mouth exam: PRESENT: moist Respiratory exam: PRESENT: clear to auscultation bilateral. Cardiovascular exam: PRESENT: RRR, +S1, +S2. ABSENT: diastolic murmur, rubs, systolic murmur GI/Abdominal exam: PRESENT: normal bowel sounds, soft. ABSENT: distended, guarding, mass, organomegaly, rebound, tenderness Extremities exam: ABSENT: pedal edema Neurological exam: PRESENT: alert, awake Psychiatric exam: PRESENT: appropriate affect, normal mood. ABSENT: homicidal ideation, suicidal ideation Skin exam: PRESENT: dry, warm Results Laboratory Results: 08/17/19 04:49 08/17/19 04:49 08/17/19 08/17/19 04:49 04:49 WBC 6.8 RBC 2.55 L Hgb 7.6 L Hct 22.6 L MCV 89 MCH 29.8 MCHC 33.6 RDW 16.1 H Plt Count 187 Seg Neutrophils % 67.6 Sodium 136.0 L Potassium 4.7 Chloride 103 Carbon Dioxide 31 H Anion Gap 2 L BUN 37 H Creatinine 0.90 Est GFR ( Amer) > 60 Glucose 113 H Calcium 8.5 Total Bilirubin 0.7 AST 26 Alkaline Phosphatase 55 Total Protein 5.8 L Albumin 2.7 L 08/05/19 08/06/19 08/06/19 16:19 08:45 09:12 Creatine Kinase 70 Troponin I < 0.012 0.029 Impressions: Lower Extremity MRI 08/05/19 00:00 IMPRESSION: No MR evidence for osteomyelitis, given the limitations as above. Postsurgical change fifth digit with minor cellulitis near the fifth metatarsal stump copyright 2010 [employer] All Rights Reserved Foot X-Ray 08/05/19 18:09 IMPRESSION: Moderate osteopenia throughout the left foot. 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 No radiographic evidence of osteomyelitis. And there is continued concern for osteomyelitis, MRI is more sensitive and specific for early changes. Chest CT 08/06/19 00:00 IMPRESSION: Partial clearing of the right lateral lower lobe airspace disease seen on CT chest 03/16/[address] abdomen and pelvis Head CT 08/06/19 00:00 IMPRESSION: No acute findings EVIDENCE OF ACUTE STROKE: NO. Chest X-Ray 08/07/19 06:00 IMPRESSION: NO SIGNIFICANT CHANGE IN APPEARANCE OF THE CHEST. Abdomen/Pelvis CT 08/08/19 00:00 IMPRESSION: 1. The right common femoral artery line has been removed and the patient has developed a right groin hematoma that measures 5.6 cm in AP diameter, 11.3 cm in transverse diameter and 16 cm in craniocaudal diameter. 2. Colonic diverticulosis without diverticulitis. 3. Improved aeration of the lower lobes. 4. Other findings as detailed above. Aorta w/Runoff CTA 08/08/19 00:00 IMPRESSION: 1. Right gurney hematoma that measures 5.6 cm in AP diameter, 11.3 cm in transverse diameter and 16 cm in craniocaudal diameter. There is no extravasation or pseudoaneurysm of the right common femoral artery. 2. No high-grade stenosis, dissection or aneurysm of the arterial vasculature of the lower extremities. Assessment & Plan - Diagnosis (1) Sepsis Qualifiers: Sepsis type: sepsis due to unspecified organism Sepsis acute organ dysfunction status: with acute organ dysfunction Severe sepsis acute organ dysfunction type: acute renal failure Acute renal failure type: unspecified Severe sepsis shock status: unspecified Qualified Code(s): A41.9 - Sepsis, unspecified organism; R65.20 - Severe sepsis without septic shock; N17.9 - Acute kidney failure, unspecified Is this a current diagnosis for this admission?: Yes (2) Diabetes mellitus type 2 in obese Is this a current diagnosis for this admission?: Yes (3) Acute blood loss anemia Is this a current diagnosis for this admission?: Yes (4) Pressure injury of left foot, stage 3 Is this a current diagnosis for this admission?: Yes - Time Time Spent with patient: 25-34 minutes Level of Care: MEDICAL Medications reviewed and adjusted accordingly: Yes Anticipated discharge: Home with Homehealth Within: Other - Inpatient Certification Based on my medical assessment, after consideration of the patient's comorbidities, presenting symptoms, or acuity I expect that the services needed warrant INPATIENT care.: Yes I certify that my determination is in accordance with my understanding of Medicare's requirements for reasonable and necessary INPATIENT services [42 CFR 412.3e].: Yes Medical Necessity: Significant Comorbidiites Make Outpatient Treatment Too Risky, Need Close Monitoring Due to Risk of Patient Decompensation, Risk of Complication if Not Cared For in Hospital, Risk of Diagnosis Which Will Require Inpatient Eval/Care/Monitoring Post Hospital Care: D/C Cable Tender Documentation - Plan Summary Plan Summary: Transfusion 2 units PRBC. Obtain anemia workup and stool occult blood test. Continue all other current medication management.
[2019-08-17] MEDS: SERTRALINE HCL 50 MG TABLET PO SCH (21:54)
[2019-08-18 07:15] LABS: MEAN CORPUSCULAR HEMOGLOBIN 29.7 pg (27.0-33.4); MEAN CORPUSCULAR HGB CONC 34.6 g/dL (32.0-36.0); MEAN CORPUSCULAR VOLUME 86 fl (80-97); PLATELET COUNT 182 10^3/uL (150-450); RED BLOOD COUNT 3.26 10^6/uL (4.35-5.55); RED CELL DISTRIBUTION WIDTH 15.9 % (11.5-14.0)
[2019-08-18 07:16] LABS: HEMOGLOBIN 9.7 g/dL (13.5-17.0); WHITE BLOOD COUNT 19.9 10^3/uL (4.0-10.5)
[2019-08-18] MEDS: INSULIN REG, HUMAN 100 UNIT/ML 3 ML VIAL (PYX) SUBCUT SCH ×4 (07:36→22:26)
[2019-08-18] MEDS: MULTIVITS W-MIN/IRON SOLN 60 ML PO SCH (10:49)
[2019-08-18] MEDS: OMEGA-3 ACID ETHYL ESTERS 1 GM CAPSULE PO SCH (10:49)
[2019-08-18] MEDS: COLLAGENASE CLOSTRIDIUM HIST. OINT 30 GM TP SCH ×2 (10:50→17:50)
[2019-08-18] MEDS: CLINDAMYCIN HCL 150 MG CAPSULE PO SCH ×2 (10:59→16:39)
--- NOTE | 2019-08-18 22:17 | PDOC PROGRESS REPORT ---
Subjective Progress Note for:: 08/18/19 Subjective:: Patient developed fever with a temperature, leukocytosis, white blood cell count 18,000, the source is most likely infected decubital ulcer of the left heel, consult surgery Reason For Visit: SEPSIS,LEFT FOOT INFECTION, OSTEOMYELITIS,T2DM, Physical Exam Vital Signs: Temp Pulse Resp BP Pulse Ox 99.8 F 87 17 132/69 H 97 08/18/19 19:23 08/18/19 19:23 08/18/19 19:23 08/18/19 19:23 08/18/19 19:23 Intake & Output 08/17/19 08/18/19 08/19/19 06:59 06:59 06:59 Intake Total 980 2284 1560 Output Total 850 1000 300 Balance 130 1284 1260 Weight 104.3 kg 104.3 kg General appearance: PRESENT: no acute distress Eye exam: PRESENT: PERRLA Respiratory exam: PRESENT: clear to auscultation teetee Cardiovascular exam: PRESENT: +S1, +S2 GI/Abdominal exam: PRESENT: soft Extremities exam: PRESENT: other - left heel decubiti ulcer Neurological exam: PRESENT: alert, CN II-XII grossly intact Results Laboratory Results: 08/18/19 06:55 08/17/19 04:49 08/17/19 08/18/19 15:55 06:55 WBC 19.9 H D RBC 3.26 L Hgb 9.7 L D Hct 28.0 L MCV 86 MCH 29.7 MCHC 34.6 RDW 15.9 H Plt Count 182 Blood Type A POSITIVE Antibody Screen NEGATIVE 08/05/19 08/06/19 08/06/19 16:19 08:45 09:12 Creatine Kinase 70 Troponin I < 0.012 0.029 Impressions: Lower Extremity MRI 08/05/19 00:00 IMPRESSION: No MR evidence for osteomyelitis, given the limitations as above. Postsurgical change fifth digit with minor cellulitis near the fifth metatarsal stump copyright 2011 [employer]- All Rights Reserved Foot X-Ray 08/05/19 18:09 IMPRESSION: Moderate osteopenia throughout the left foot. 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 No radiographic evidence of osteomyelitis. And there is continued concern for osteomyelitis, MRI is more sensitive and specific for early changes. Chest CT 08/06/19 00:00 IMPRESSION: Partial clearing of the right lateral lower lobe airspace disease seen on CT chest 03/16/[address] abdomen and pelvis Head CT 08/06/19 00:00 IMPRESSION: No acute findings EVIDENCE OF ACUTE STROKE: NO. Chest X-Ray 08/07/19 06:00 IMPRESSION: NO SIGNIFICANT CHANGE IN APPEARANCE OF THE CHEST. Abdomen/Pelvis CT 08/08/19 00:00 IMPRESSION: 1. The right common femoral artery line has been removed and the patient has developed a right groin hematoma that measures 5.6 cm in AP diameter, 11.3 cm in transverse diameter and 16 cm in craniocaudal diameter. 2. Colonic diverticulosis without diverticulitis. 3. Improved aeration of the lower lobes. 4. Other findings as detailed above. Aorta w/Runoff CTA 08/08/19 00:00 IMPRESSION: 1. Right gurney hematoma that measures 5.6 cm in AP diameter, 11.3 cm in transverse diameter and 16 cm in craniocaudal diameter. There is no extravasation or pseudoaneurysm of the right common femoral artery. 2. No high-grade stenosis, dissection or aneurysm of the arterial vasculature of the lower extremities. Assessment & Plan - Diagnosis (1) Sepsis Qualifiers: Sepsis type: sepsis due to unspecified organism Sepsis acute organ dysfunction status: with acute organ dysfunction Severe sepsis acute organ dysfunction type: acute renal failure Acute renal failure type: unspecified Severe sepsis shock status: unspecified Qualified Code(s): A41.9 - Sepsis, unspecified organism; R65.20 - Severe sepsis without septic shock; N17.9 - Acute kidney failure, unspecified Is this a current diagnosis for this admission?: Yes (2) Morbid (severe) obesity due to excess calories Is this a current diagnosis for this admission?: Yes (3) Diabetes mellitus type 2 in obese Is this a current diagnosis for this admission?: Yes (4) Acute blood loss anemia Is this a current diagnosis for this admission?: Yes (5) Decubitus ulcer of left heel, stage 3 Is this a current diagnosis for this admission?: Yes Plan: Start IV clindamycin consult surgery - Time Time Spent with patient: 25-34 minutes Level of Care: TELE
[2019-08-18] MEDS: SERTRALINE HCL 50 MG TABLET PO SCH (22:25)
--- NOTE | 2019-08-19 03:55 | PDOC CONSULTATION ---
Consultation Consult Date: 08/19/19 Attending physician:: CINTHIA SHAVER Provider Consulted: CORINNA BERRY Consult reason:: left heel decubuti History of Present Illness Admission Date/PCP: 08/05/19 19:17 CINTHIA SHAVER MD History of Present Illness: TAYLOR SMITH is a 69 year old male with multiple medical problems who was had a long admission to this hospital initially in the intensive care unit for seizures and sepsis now on the medical floor who was seen today by his primary physician noted a heel ulcer on his left heel. He has had multiple previous pr ocedures on his feet from diabetic foot ulcers and surgical consult was made for the heel ulcer. Past Medical History Cardiac Medical History: Reports: Hyperlipidema, Hypertension Denies: Atrial Fibrillation, Coronary Artery Disease, DVT, Pulmonary Embolism Pulmonary Medical History: Reports: Asthma, Sleep Apnea Denies: Chronic Obstructive Pulmonary Disease (COPD) Neurological Medical History: Denies: Seizures Endocrine Medical History: Reports: Diabetes Mellitus Type 2 Denies: Diabetes Mellitus Type 1, Hyperthyroidism, Hypothyroidism GI Medical History: Denies: Cirrhosis, Crohn's Disease, Hepatitis, Ulcerative Colitis Musculoskeltal Medical History: Reports: Arthritis Denies: Gout Skin Medical History: Denies: Eczema, Psoriasis Psychiatric Medical History: Reports: Depression Hematology: Reports: Anemia Denies: Bleeding Tendencies Past Surgical History Past Surgical History: Reports: Orthopedic Surgery - Bilateral knees, Back, Right armpit Social History Lives with: Family Smoking Status: Former Smoker Electronic Cigarette use?: No Frequency of Alcohol Use: None Hx Recreational Drug Use: No Drugs: None Hx Prescription Drug Abuse: No - Advance Directive Resuscitation Status: Do Not Resuscitate Family History Family History: Reviewed & Not Pertinent Parental Family History Reviewed: No Children Family History Reviewed: NA Sibling(s) Family History Reviewed.: NA Medication/Allergy Home Medications: Albuterol Sulfate [Proair HFA Inhalation Aerosol 8.5 gm MDI] 2 puff IH Q4HP PRN 03/17/19 Tamsulosin HCl [Flomax 0.4 mg Cap.sr] 0.4 mg PO DAILY 03/17/19 Febuxostat 40 mg PO Q12 06/12/19 Losartan/Hydrochlorothiazide [Losartan-Hctz 100-25 mg Tab] 1 each PO DAILY 06/12/19 Amlodipine Besylate [Norvasc 5 mg Tablet] 5 mg PO DAILY 08/05/19 Collagenase Clostridium Hist. [Santyl Ointment 30 gm] 1 applic TP BID 08/05/19 Furosemide [Lasix 40 mg Tablet] 40 mg PO DAILY 08/05/19 Insulin Lispro Protamin/Lispro [Humalog Mix 50-50 100 unit/mL] 12 unit SUBCUT BID 08/05/19 Multivit-Mins/Iron/Folic/Lycop [Centrum Men's Tablet] 1 each PO MOWEFR@1000 08/05/19 [place]-3/Dha/Epa/Fish Oil [Fish Oil 1,000 mg Softgel] 1 each PO DAILY 08/05/19 Pentoxifylline 400 mg PO TID 08/05/19 Sertraline HCl 50 mg PO QHS 08/05/19 Allergies/Adverse Reactions: erythromycin base [Erythromycin Base] Allergy (Verified 08/05/19 15:06) Penicillins Allergy (Verified 08/05/19 15:06) Review of Systems Constitutional: PRESENT: as per HPI Eyes: ABSENT: visual disturbances Ears: ABSENT: hearing changes Nose, Mouth, and Throat: ABSENT: as per HPI, headache(s), mouth pain, sore throat, vertigo, other Breasts: ABSENT: as per HPI, other Cardiovascular: ABSENT: as per HPI, chest pain, dyspnea on exertion, edema, orthropnea, palpitations, other Respiratory: ABSENT: as per HPI, cough, dyspnea, hemoptysis, sputum, other Gastrointestinal: ABSENT: as per HPI, abdominal pain, bloating, coffee ground emesis, constipation, diarrhea, dysphagia, heartburn, hematemesis, hematochezia, melena, nausea, vomiting, other Genitourinary: ABSENT: as per HPI, difficulty urinating, dysuria, hematuria, nocturia, other Musculoskeletal: ABSENT: as per HPI, back pain, deformity, joint swelling, muscle weakness, other Integumentary: ABSENT: as per HPI, diaphoresis, erythema, lesions, pruritus, rash, wounds, other Neurological: ABSENT: as per HPI, abnormal gait, abnormal movements, abnormal s peech, confusion, convulsions, dizziness, focal weakness, frequent falls, lack of coordination, memory loss, numbness, paresthesias, restless legs, syncope, tingling, tremor(s), vertigo, weakness, other Psychiatric: ABSENT: as per HPI, anxiety, depression, hallucinations, homidical ideation, suicidal ideation, other Endocrine: ABSENT: as per HPI, cold intolerance, flushing, heat intolerance, menstrual abnormalities, polydipsia, polyphagia, polyuria, other Hematologic/Lymphatic: ABSENT: as per HPI, easy bleeding, easy bruising, lymphadenopathy, other Allergic/Immunologic: ABSENT: as per HPI, seasonal rhinorrhea, other Physical Exam Vital Signs: Temp Pulse Resp BP Pulse Ox 98.6 F 90 18 136/60 H 100 08/19/19 03:28 08/19/19 03:28 08/19/19 03:28 08/19/19 03:28 08/19/19 03:28 Intake & Output 08/17/19 08/18/19 08/19/19 06:59 06:59 06:59 Intake Total 980 2284 1560 Output Total 850 1000 650 Balance 130 1284 910 Weight 104.3 kg 104.3 kg General appearance: PRESENT: no acute distress Head exam: PRESENT: normocephalic Eye exam: PRESENT: EOMI Ear exam: PRESENT: normal external ear exam Mouth exam: PRESENT: moist Teeth exam: PRESENT: poor dentation Neck exam: PRESENT: full ROM Respiratory exam: PRESENT: clear to auscultation teetee Cardiovascular exam: PRESENT: RRR Pulses: PRESENT: normal radial pulses, normal femoral pulses, +1 pedal pulses bilateral GI/Abdominal exam: PRESENT: soft Rectal exam: PRESENT: deferred Extremities exam: PRESENT: full ROM, other - 3 cm left heel ulceration grade 3 down to the deep subcutaneous tissue with a necrotic base no surrounding cellulitis no evidence of purulent material on palpation Musculoskeletal exam: PRESENT: full ROM Neurological exam: PRESENT: alert Psychiatric exam: PRESENT: anxious, appropriate affect Skin exam: PRESENT: dry Results Laboratory Results: 08/18/19 06:55 08/17/19 04:49 08/18/19 06:55 WBC 19.9 H D RBC 3.26 L Hgb 9.7 L D Hct 28.0 L MCV 86 MCH 29.7 MCHC 34.6 RDW 15.9 H Plt Count 182 08/05/19 08/06/19 08/06/19 16:19 08:45 09:12 Creatine Kinase 70 Troponin I < 0.012 0.029 Impressions: Lower Extremity MRI 08/05/19 00:00 IMPRESSION: No MR evidence for osteomyelitis, given the limitations as above. Postsurgical change fifth digit with minor cellulitis near the fifth metatarsal stump copyright 2011 [employer] All Rights Reserved Foot X-Ray 08/05/19 18:09 IMPRESSION: Moderate osteopenia throughout the left foot. 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 No radiographic evidence of osteomyelitis. And there is continued concern for osteomyelitis, MRI is more sensitive and specific for early changes. Chest CT 08/06/19 00:00 IMPRESSION: Partial clearing of the right lateral lower lobe airspace disease seen on CT chest 03/16/[address] abdomen and pelvis Head CT 08/06/19 00:00 IMPRESSION: No acute findings EVIDENCE OF ACUTE STROKE: NO. Chest X-Ray 08/07/19 06:00 IMPRESSION: NO SIGNIFICANT CHANGE IN APPEARANCE OF THE CHEST. Abdomen/Pelvis CT 08/08/19 00:00 IMPRESSION: 1. The right common femoral artery line has been removed and the patient has developed a right groin hematoma that measures 5.6 cm in AP diameter, 11.3 cm in transverse diameter and 16 cm in craniocaudal diameter. 2. Colonic diverticulosis without diverticulitis. 3. Improved aeration of the lower lobes. 4. Other findings as detailed above. Aorta w/Runoff CTA 08/08/19 00:00 IMPRESSION: 1. Right gurney hematoma that measures 5.6 cm in AP diameter, 11.3 cm in transverse diameter and 16 cm in craniocaudal diameter. There is no extravasation or pseudoaneurysm of the right common femoral artery. 2. No high-grade stenosis, dissection or aneurysm of the arterial vasculature of the lower extremities. Assessment & Plan - Diagnosis (1) Pressure injury of left foot, stage 3 Is this a current diagnosis for this admission?: Yes - Plan Summary Plan Summary: Impression stage III left heel ulcer debrided at bedside. Nurses given instruction on wet-to-dry dressing changes 3 times a day and heel elevator while in bed to keep pressure off the heel. Please reconsult surgery as necessary.
--- NOTE | 2019-08-19 03:58 | Operative Report ---
Nonrecallable Operative Report DATE OF SURGERY: 08/19/19 PREOPERATIVE DIAGNOSIS: Left heel ulcer POSTOPERATIVE DIAGNOSIS: Left heel ulcer stage III decubitus OPERATION: Bedside wound debridement SURGEON: CORINNA BERRY ANESTHESIA: Other TISSUE REMOVED OR ALTERED: Necrotic tissue left heel ulcer COMPLICATIONS: None ESTIMATED BLOOD LOSS: 5 cc INTRAOPERATIVE FINDINGS: See note PROCEDURE: Procedure after After appropriate timeout site verification the procedure commenced. The left heel was prepped with a Betadine solution. The superficial necrotic tissue was debrided with scissors. The wound was to be of active bleeding edges and a clean base. He was noted to be a stage III ulcer. After the superficial debridement was dressed with a saline soaked Kerlix gauze. Patient was given instructions to keep weight off the heel and will be given a heel elevator while in bed. The nurses give instructions to 3 times daily dressing changes. Patient tolerated procedure well with no significant pain. Estimated blood loss was less than 5 cc
[2019-08-19] MEDS: INSULIN REG, HUMAN 100 UNIT/ML 3 ML VIAL (PYX) SUBCUT SCH ×4 (08:10→23:06)
[2019-08-19] MEDS: COLLAGENASE CLOSTRIDIUM HIST. OINT 30 GM TP SCH ×2 (10:57→17:37)
[2019-08-19] MEDS: OMEGA-3 ACID ETHYL ESTERS 1 GM CAPSULE PO SCH (10:58)
[2019-08-19] MEDS: MULTIVITS W-MIN/IRON SOLN 60 ML PO SCH (10:58)
[2019-08-19] MEDS: CLINDAMYCIN 600 MG/D5W RTU 600 MG/50 ML RTUPB IV SCH ×2 (20:58→23:07)
--- NOTE | 2019-08-19 21:37 | PDOC PROGRESS REPORT ---
Subjective Progress Note for:: 08/19/19 Subjective:: Patient had debridement of an infected left heel ulcer earlier this morning, she developed leukocytosis with fever, temperature 101 Reason For Visit: SEPSIS,LEFT FOOT INFECTION, OSTEOMYELITIS,T2DM, Physical Exam Vital Signs: Temp Pulse Resp BP Pulse Ox 98.3 F 78 16 134/56 H 98 08/19/19 16:01 08/19/19 16:01 08/19/19 16:01 08/19/19 16:01 08/19/19 16:01 Intake & Output 08/18/19 08/19/19 08/20/19 06:59 06:59 06:59 Intake Total 2284 1560 1320 Output Total 1000 750 350 Balance 1284 810 970 Weight 104.3 kg 104.3 kg General appearance: PRESENT: no acute distress Eye exam: PRESENT: PERRLA Respiratory exam: PRESENT: clear to auscultation teetee Cardiovascular exam: PRESENT: +S1, +S2 GI/Abdominal exam: PRESENT: soft Extremities exam: PRESENT: other - left heel ulcer Neurological exam: PRESENT: alert Results Laboratory Results: 08/18/19 06:55 08/17/19 04:49 08/19/19 08:32 Stool Occult Blood NEGATIVE 08/05/19 08/06/19 08/06/19 16:19 08:45 09:12 Creatine Kinase 70 Troponin I < 0.012 0.029 Impressions: Lower Extremity MRI 08/05/19 00:00 IMPRESSION: No MR evidence for osteomyelitis, given the limitations as above. Postsurgical change fifth digit with minor cellulitis near the fifth metatarsal stump copyright 2011 [employer]- All Rights Reserved Foot X-Ray 08/05/19 18:09 IMPRESSION: Moderate osteopenia throughout the left foot. 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 No radiographic evidence of osteomyelitis. And there is continued concern for osteomyelitis, MRI is more sensitive and specific for early changes. Chest CT 08/06/19 00:00 IMPRESSION: Partial clearing of the right lateral lower lobe airspace disease seen on CT chest 03/16/[address] abdomen and pelvis Head CT 08/06/19 00:00 IMPRESSION: No acute findings EVIDENCE OF ACUTE STROKE: NO. Chest X-Ray 08/07/19 06:00 IMPRESSION: NO SIGNIFICANT CHANGE IN APPEARANCE OF THE CHEST. Abdomen/Pelvis CT 08/08/19 00:00 IMPRESSION: 1. The right common femoral artery line has been removed and the patient has developed a right groin hematoma that measures 5.6 cm in AP diam eter, 11.3 cm in transverse diameter and 16 cm in craniocaudal diameter. 2. Colonic diverticulosis without diverticulitis. 3. Improved aeration of the lower lobes. 4. Other findings as detailed above. Aorta w/Runoff CTA 08/08/19 00:00 IMPRESSION: 1. Right gurney hematoma that measures 5.6 cm in AP diameter, 11.3 cm in transverse diameter and 16 cm in craniocaudal diameter. There is no extravasation or pseudoaneurysm of the right common femoral artery. 2. No high-grade stenosis, dissection or aneurysm of the arterial vasculature of the lower extremities. Assessment & Plan - Diagnosis (1) Sepsis Qualifiers: Sepsis type: sepsis due to unspecified organism Sepsis acute organ dysfunction status: with acute organ dysfunction Severe sepsis acute organ dysfunction type: acute renal failure Acute renal failure type: unspecified Severe sepsis shock status: unspecified Qualified Code(s): A41.9 - Sepsis, unspecified organism; R65.20 - Severe sepsis without septic shock; N17.9 - Acute kidney failure, unspecified Is this a current diagnosis for this admission?: Yes Plan: Continue IV antibiotic (2) Morbid (severe) obesity due to excess calories Is this a current diagnosis for this admission?: Yes (3) Diabetes mellitus type 2 in obese Is this a current diagnosis for this admission?: Yes (4) Acute blood loss anemia Is this a current diagnosis for this admission?: Yes (5) Decubitus ulcer of left heel, stage 3 Is this a current diagnosis for this admission?: Yes Plan: continue IV clindamycin status post incicison and drainage of the heel ulcer - Time Time Spent with patient: 25-34 minutes Level of Care: IMCU Medications reviewed and adjusted accordingly: Yes
[2019-08-19 22:12] LABS: ABSOLUTE EOSINOPHILS # (AUTO) 0.1 10^3/uL (0.0-0.6); ABSOLUTE MONOCYTES (AUTO) 0.8 10^3/uL (0.1-1.4); ABSOLUTE NEUT (AUTO) 7.3 10^3/uL (1.7-8.2); BASOPHILS % (AUTO) 0.4 % (0-2); EOSINOPHILS % (AUTO) 1.5 % (0-6); HEMATOCRIT 27.6 % (37.9-51.0); HEMOGLOBIN 9.4 g/dL (13.5-17.0); LYMPHOCYTES % (AUTO) 11.2 % (13-45); MEAN CORPUSCULAR HEMOGLOBIN 29.6 pg (27.0-33.4); MEAN CORPUSCULAR HGB CONC 34.1 g/dL (32.0-36.0); MEAN CORPUSCULAR VOLUME 87 fl (80-97); MONOCYTES % (AUTO) 8.7 % (3-13); PLATELET COUNT 156 10^3/uL (150-450); RED BLOOD COUNT 3.18 10^6/uL (4.35-5.55); RED CELL DISTRIBUTION WIDTH 16.3 % (11.5-14.0); SEGMENTED NEUTROPHILS % (AUTO) 78.2 % (42-78); TOTAL CELLS COUNTED % (AUTO) 100 %; WHITE BLOOD COUNT 9.3 10^3/uL (4.0-10.5)
[2019-08-19 22:32] LABS: ALBUMIN 2.6 g/dL (3.5-5.0); ALKALINE PHOSPHATASE 63 U/L (38-126); ANION GAP 5 (5-19); ASPARTATE AMINO TRANSFERASE 21 U/L (17-59); BILIRUBIN,TOTAL 0.6 mg/dL (0.2-1.3); BLOOD UREA NITROGEN 44 mg/dL (7-20); CALCIUM 8.1 mg/dL (8.4-10.2); CARBON DIOXIDE 25 mmol/L (22-30); CHLORIDE 101 mmol/L (98-107); GLUCOSE 152 mg/dL (75-110); POTASSIUM 4.9 mmol/L (3.6-5.0); TOTAL PROTEIN 5.8 g/dL (6.3-8.2)
[2019-08-19] MEDS: SERTRALINE HCL 50 MG TABLET PO SCH (23:06)
[2019-08-20] MEDS: CLINDAMYCIN 600 MG/D5W RTU 600 MG/50 ML RTUPB IV SCH ×4 (05:14→23:04)
[2019-08-20 05:39] LABS: HEMATOCRIT 25.9 % (37.9-51.0); HEMOGLOBIN 8.8 g/dL (13.5-17.0); MEAN CORPUSCULAR HEMOGLOBIN 29.6 pg (27.0-33.4); MEAN CORPUSCULAR HGB CONC 34.1 g/dL (32.0-36.0); MEAN CORPUSCULAR VOLUME 87 fl (80-97); PLATELET COUNT 151 10^3/uL (150-450); RED BLOOD COUNT 2.98 10^6/uL (4.35-5.55); RED CELL DISTRIBUTION WIDTH 15.8 % (11.5-14.0); WHITE BLOOD COUNT 8.1 10^3/uL (4.0-10.5)
[2019-08-20] MEDS: INSULIN REG, HUMAN 100 UNIT/ML 3 ML VIAL (PYX) SUBCUT SCH ×4 (08:39→23:03)
[2019-08-20] MEDS: COLLAGENASE CLOSTRIDIUM HIST. OINT 30 GM TP SCH ×2 (09:25→17:10)
[2019-08-20] MEDS: OMEGA-3 ACID ETHYL ESTERS 1 GM CAPSULE PO SCH (09:26)
[2019-08-20] MEDS: MULTIVITS W-MIN/IRON SOLN 60 ML PO SCH (09:26)
--- NOTE | 2019-08-20 17:26 | PDOC PROGRESS REPORT ---
Subjective Progress Note for:: 08/20/19 Subjective:: Patient seen by the bedside, he seems to be responding very well to treatment, presently afebrile, the white blood cell count is also decreased from the peak of 19,000, Presently on IV clindamycin, the plan was for patient to go to care home for rehabilitation short-term, the care home is requesting to be tested for SARS-CoV-2 before patient could be transferred to care home and he must be afebrile for at least 48 hours without the use of antipyretic agent Reason For Visit: SEPSIS,LEFT FOOT INFECTION, OSTEOMYELITIS,T2DM, Physical Exam Vital Signs: Temp Pulse Resp BP Pulse Ox 97.8 F 67 20 130/61 H 98 08/20/19 11:26 08/20/19 11:26 08/20/19 11:26 08/20/19 11:26 08/20/19 11:26 Intake & Output 08/19/19 08/20/19 08/21/19 06:59 06:59 06:59 Intake Total 1560 1420 100 Output Total 750 850 Balance 810 570 100 Weight 104.3 kg 104.3 kg 104.3 kg General appearance: PRESENT: no acute distress Eye exam: PRESENT: PERRLA Respiratory exam: PRESENT: clear to auscultation teetee Cardiovascular exam: PRESENT: +S1, +S2 GI/Abdominal exam: PRESENT: soft Neurological exam: PRESENT: alert Results Laboratory Results: 08/20/19 04:31 08/19/19 21:54 08/19/19 08/19/19 08/20/19 21:54 21:54 04:31 WBC 9.3 8.1 RBC 3.18 L 2.98 L Hgb 9.4 L 8.8 L Hct 27.6 L 25.9 L MCV 87 87 MCH 29.6 29.6 MCHC 34.1 34.1 RDW 16.3 H 15.8 H Plt Count 156 151 Seg Neutrophils % 78.2 H Sodium 131.1 L Potassium 4.9 Chloride 101 Carbon Dioxide 25 Anion Gap 5 BUN 44 H Creatinine 1.05 Est GFR ( Amer) > 60 Glucose 152 H Calcium 8.1 L Total Bilirubin 0.6 AST 21 Alkaline Phosphatase 63 Total Protein 5.8 L Albumin 2.6 L 08/05/19 08/06/19 08/06/19 16:19 08:45 09:12 Creatine Kinase 70 Troponin I < 0.012 0.029 Impressions: Lower Extremity MRI 08/05/19 00:00 IMPRESSION: No MR evidence for osteomyelitis, given the limitations as above. Postsurgical change fifth digit with minor cellulitis near the fifth metatarsal stump copyright 2010 [employer]- All Rights Reserved Foot X-Ray 08/05/19 18:09 IMPRESSION: Moderate osteopenia throughout the left foot. 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 No radiographic evidence of osteomyelitis. And there is continued concern for osteomyelitis, MRI is more sensitive and specific for early changes. Chest CT 08/06/19 00:00 IMPRESSION: Partial clearing of the right lateral lower lobe airspace disease seen on CT chest 03/16/[address] abdomen and pelvis Head CT 08/06/19 00:00 IMPRESSION: No acute findings EVIDENCE OF ACUTE STROKE: NO. Chest X-Ray 08/07/19 06:00 IMPRESSION: NO SIGNIFICANT CHANGE IN APPEARANCE OF THE CHEST. Abdomen/Pelvis CT 08/08/19 00:00 IMPRESSION: 1. The right common femoral artery line has been removed and the patient has developed a right groin hematoma that measures 5.6 cm in AP diameter, 11.3 cm in transverse diameter and 16 cm in craniocaudal diameter. 2. Colonic diverticulosis without diverticulitis. 3. Improved aeration of the lower lobes. 4. Other findings as detailed above. Aorta w/Runoff CTA 08/08/19 00:00 IMPRESSION: 1. Right gurney hematoma that measures 5.6 cm in AP diameter, 11.3 cm in transverse diameter and 16 cm in craniocaudal diameter. There is no extravasation or pseudoaneurysm of the right common femoral artery. 2. No high-grade stenosis, dissection or aneurysm of the arterial vasculature of the lower extremities. Assessment & Plan - Diagnosis (1) Sepsis Qualifiers: Sepsis type: sepsis due to unspecified organism Sepsis acute organ dysfunction status: with acute organ dysfunction Severe sepsis acute organ dysfunction type: acute renal failure Acute renal failure type: unspecified Severe sepsis shock status: unspecified Qualified Code(s): A41.9 - Sepsis, unspecified organism; R65.20 - Severe sepsis without septic shock; N17.9 - Acute kidney failure, unspecified Is this a current diagnosis for this admission?: Yes (2) Morbid (severe) obesity due to excess calories Is this a current diagnosis for this admission?: Yes (3) Diabetes mellitus type 2 in obese Is this a current diagnosis for this admission?: Yes (4) Acute blood loss anemia Is this a current diagnosis for this admission?: Yes (5) Decubitus ulcer of left heel, stage 3 Is this a current diagnosis for this admission?: Yes Plan: Patient is status post debridement of the left heel on IV antibiotic - Time Time Spent with patient: 35 or more minutes Level of Care: MEDICAL Medications reviewed and adjusted accordingly: Yes
[2019-08-20] MEDS: SERTRALINE HCL 50 MG TABLET PO SCH (23:04)
[2019-08-21] MEDS: CLINDAMYCIN 600 MG/D5W RTU 600 MG/50 ML RTUPB IV SCH ×3 (05:16→17:05)
[2019-08-21] MEDS: INSULIN REG, HUMAN 100 UNIT/ML 3 ML VIAL (PYX) SUBCUT SCH ×4 (07:37→21:08)
[2019-08-21] MEDS: COLLAGENASE CLOSTRIDIUM HIST. OINT 30 GM TP SCH ×2 (09:19→17:05)
[2019-08-21] MEDS: OMEGA-3 ACID ETHYL ESTERS 1 GM CAPSULE PO SCH (09:19)
[2019-08-21] MEDS: MULTIVITS W-MIN/IRON SOLN 60 ML PO SCH (09:19)
[2019-08-21] MEDS: SERTRALINE HCL 50 MG TABLET PO SCH (21:09)
[2019-08-21] MEDS: NYSTATIN TOPICAL POWDER 15 GM TP SCH (21:10)
--- NOTE | 2019-08-21 21:18 | PDOC PROGRESS REPORT ---
Subjective Progress Note for:: 08/21/19 Subjective:: Patient is alert, responding to IV antibiotic, patient will need physical therapy Reason For Visit: SEPSIS,LEFT FOOT INFECTION, OSTEOMYELITIS,T2DM, Physical Exam Vital Signs: Temp Pulse Resp BP Pulse Ox 98.6 F 58 L 16 111/62 100 08/21/19 15:20 08/21/19 15:20 08/21/19 15:20 08/21/19 15:20 08/21/19 15:20 Intake & Output 08/20/19 08/21/19 08/22/19 06:59 06:59 06:59 Intake Total 1420 1768 520 Output Total 850 925 300 Balance 570 843 220 Weight 104.3 kg 104.3 kg General appearance: PRESENT: no acute distress Eye exam: PRESENT: PERRLA Respiratory exam: PRESENT: clear to auscultation teetee Cardiovascular exam: PRESENT: +S1, +S2 GI/Abdominal exam: PRESENT: soft Neurological exam: PRESENT: alert Results Laboratory Results: 08/20/19 04:31 08/19/19 21:54 08/05/19 08/06/19 08/06/19 16:19 08:45 09:12 Creatine Kinase 70 Troponin I < 0.012 0.029 Impressions: Lower Extremity MRI 08/05/19 00:00 IMPRESSION: No MR evidence for osteomyelitis, given the limitations as above. Postsurgical change fifth digit with minor cellulitis near the fifth metatarsal stump copyright 2010 [employer]- All Rights Reserved Foot X-Ray 08/05/19 18:09 IMPRESSION: Moderate osteopenia throughout the left foot. 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 No radiographic evidence of osteomyelitis. And there is continued concern for osteomyelitis, MRI is more sensitive and specific for early changes. Chest CT 08/06/19 00:00 IMPRESSION: Partial clearing of the right lateral lower lobe airspace disease seen on CT chest 03/16/[address] abdomen and pelvis Head CT 08/06/19 00:00 IMPRESSION: No acute findings EVIDENCE OF ACUTE STROKE: NO. Chest X-Ray 08/07/19 06:00 IMPRESSION: NO SIGNIFICANT CHANGE IN APPEARANCE OF THE CHEST. Abdomen/Pelvis CT 08/08/19 00:00 IMPRESSION: 1. The right common femoral artery line has been removed and the patient has developed a right groin hematoma that measures 5.6 cm in AP diameter, 11.3 cm in transverse diameter and 16 cm in craniocaudal diameter. 2. Colonic diverticulosis without diverticulitis. 3. Improved aeration of the lower lobes. 4. Other findings as detailed above. Aorta w/Runoff CTA 08/08/19 00:00 IMPRESSION: 1. Right gurney hematoma that measures 5.6 cm in AP diameter, 11.3 cm in transverse diameter and 16 cm in craniocaudal diameter. There is no extravasation or pseudoaneurysm of the right common femoral artery. 2. No high-grade stenosis, dissection or aneurysm of the arterial vasculature of the lower extremities. Assessment & Plan - Diagnosis (1) Sepsis Qualifiers: Sepsis type: sepsis due to unspecified organism Sepsis acute organ dysfunction status: with acute organ dysfunction Severe sepsis acute organ dysfunction type: acute renal failure Acute renal failure type: unspecified Severe sepsis shock status: unspecified Qualified Code(s): A41.9 - Sepsis, unspecified organism; R65.20 - Severe sepsis without septic shock; N17.9 - Acute kidney failure, unspecified Is this a current diagnosis for this admission?: Yes Plan: Continue IV antibiotic (2) Morbid (severe) obesity due to excess calories Is this a current diagnosis for this admission?: Yes (3) Diabetes mellitus type 2 in obese Is this a current diagnosis for this admission?: Yes (4) Acute blood loss anemia Is this a current diagnosis for this admission?: Yes (5) Decubitus ulcer of left heel, stage 3 Is this a current diagnosis for this admission?: Yes - Time Time Spent with patient: 25-34 minutes Level of Care: MEDICAL Medications reviewed and adjusted accordingly: Yes
[2019-08-21 21:46] LABS: ABSOLUTE EOSINOPHILS # (AUTO) 0.2 10^3/uL (0.0-0.6); ABSOLUTE LYMPHOCYTES (AUTO) 1.3 10^3/uL (0.5-4.7); ABSOLUTE MONOCYTES (AUTO) 0.6 10^3/uL (0.1-1.4); ABSOLUTE NEUT (AUTO) 3.9 10^3/uL (1.7-8.2); BASOPHILS % (AUTO) 0.7 % (0-2); EOSINOPHILS % (AUTO) 3.2 % (0-6); HEMATOCRIT 26.5 % (37.9-51.0); HEMOGLOBIN 8.9 g/dL (13.5-17.0); MEAN CORPUSCULAR HEMOGLOBIN 29.4 pg (27.0-33.4); MEAN CORPUSCULAR HGB CONC 33.5 g/dL (32.0-36.0); MEAN CORPUSCULAR VOLUME 88 fl (80-97); MONOCYTES % (AUTO) 10.7 % (3-13); PLATELET COUNT 168 10^3/uL (150-450); RED BLOOD COUNT 3.02 10^6/uL (4.35-5.55); RED CELL DISTRIBUTION WIDTH 15.9 % (11.5-14.0); SEGMENTED NEUTROPHILS % (AUTO) 64.4 % (42-78); TOTAL CELLS COUNTED % (AUTO) 100 %; WHITE BLOOD COUNT 6.1 10^3/uL (4.0-10.5)
[2019-08-21 22:04] LABS: ALBUMIN 2.5 g/dL (3.5-5.0); ALKALINE PHOSPHATASE 69 U/L (38-126); ASPARTATE AMINO TRANSFERASE 34 U/L (17-59); BILIRUBIN,TOTAL 0.4 mg/dL (0.2-1.3); BLOOD UREA NITROGEN 54 mg/dL (7-20); CARBON DIOXIDE 26 mmol/L (22-30); GLUCOSE 155 mg/dL (75-110); POTASSIUM 4.9 mmol/L (3.6-5.0); TOTAL PROTEIN 5.7 g/dL (6.3-8.2)
[2019-08-21 22:10] LABS: CHLORIDE 102 mmol/L (98-107)
[2019-08-21 22:11] LABS: ANION GAP 4 (5-19)
[2019-08-22] MEDS: NORMAL SALINE 1000 ML 1,000 ML IV PRN ×3 (00:22→22:21)
[2019-08-22] MEDS: CLINDAMYCIN 600 MG/D5W RTU 600 MG/50 ML RTUPB IV SCH ×4 (00:22→17:21)
[2019-08-22 06:08] LABS: HEMATOCRIT 25.6 % (37.9-51.0); HEMOGLOBIN 8.7 g/dL (13.5-17.0); MEAN CORPUSCULAR HEMOGLOBIN 29.7 pg (27.0-33.4); MEAN CORPUSCULAR HGB CONC 33.9 g/dL (32.0-36.0); MEAN CORPUSCULAR VOLUME 88 fl (80-97); PLATELET COUNT 163 10^3/uL (150-450); RED BLOOD COUNT 2.92 10^6/uL (4.35-5.55); RED CELL DISTRIBUTION WIDTH 15.8 % (11.5-14.0); WHITE BLOOD COUNT 6.2 10^3/uL (4.0-10.5)
[2019-08-22] MEDS: NYSTATIN TOPICAL POWDER 15 GM TP SCH ×3 (06:10→22:20)
[2019-08-22 06:32] LABS: ALBUMIN 2.4 g/dL (3.5-5.0); ALKALINE PHOSPHATASE 66 U/L (38-126); ASPARTATE AMINO TRANSFERASE 29 U/L (17-59); BILIRUBIN,TOTAL 0.6 mg/dL (0.2-1.3); BLOOD UREA NITROGEN 54 mg/dL (7-20); CALCIUM 7.9 mg/dL (8.4-10.2); GLUCOSE 102 mg/dL (75-110); POTASSIUM 5.1 mmol/L (3.6-5.0); TOTAL PROTEIN 5.5 g/dL (6.3-8.2)
[2019-08-22 06:37] LABS: ANION GAP 5 (5-19); CARBON DIOXIDE 25 mmol/L (22-30); CHLORIDE 104 mmol/L (98-107)
[2019-08-22 07:09] LABS: ABSOLUTE MONOCYTES # (MANUAL) 0.3 10^3/uL (0.1-1.4); BASOPHILS % (MANUAL) 1 % (0-2); EOSINOPHILS % (MANUAL) 4 % (0-6); LYMPHOCYTES % (MANUAL) 33 % (13-45); MONOCYTES % (MANUAL) 5 % (3-13); SEGMENTED NEUTROPHILS % (MAN) 57 % (42-78); TOTAL CELLS COUNTED 100
[2019-08-22 07:10] LABS: TOXIC GRANULATION SLIGHT
[2019-08-22 07:11] LABS: ANISOCYTOSIS SLIGHT; OVALOCYTES SLIGHT; PLATELET COMMENT ADEQUATE
[2019-08-22] MEDS: INSULIN REG, HUMAN 100 UNIT/ML 3 ML VIAL (PYX) SUBCUT SCH ×4 (07:47→22:18)
[2019-08-22] MEDS: COLLAGENASE CLOSTRIDIUM HIST. OINT 30 GM TP SCH ×2 (10:55→17:22)
[2019-08-22] MEDS: OMEGA-3 ACID ETHYL ESTERS 1 GM CAPSULE PO SCH (10:57)
[2019-08-22] MEDS: MULTIVITS W-MIN/IRON SOLN 60 ML PO SCH (11:56)
[2019-08-22] MEDS: SERTRALINE HCL 50 MG TABLET PO SCH (22:21)
--- NOTE | 2019-08-22 22:51 | PDOC PROGRESS REPORT ---
Subjective Progress Note for:: 08/22/19 Subjective:: Patient does not seems to to be able to function independently, I spoke to the insurance today, it was denied transfer to [facility] for rehabilitation. Is still on IV antibiotic Reason For Visit: SEPSIS,LEFT FOOT INFECTION, OSTEOMYELITIS,T2DM, Physical Exam Vital Signs: Temp Pulse Resp BP Pulse Ox 97.5 F 81 18 138/58 H 100 08/22/19 19:57 08/22/19 19:57 08/22/19 19:57 08/22/19 19:57 08/22/19 19:57 Intake & Output 08/21/19 08/22/19 08/23/19 06:59 06:59 06:59 Intake Total 1768 1350 670 Output Total 925 1020 300 Balance 843 330 370 Weight 104.3 kg 104.3 kg General appearance: PRESENT: no acute distress Eye exam: PRESENT: PERRLA Respiratory exam: PRESENT: clear to auscultation teetee Cardiovascular exam: PRESENT: +S1 GI/Abdominal exam: PRESENT: soft Neurological exam: PRESENT: alert Results Laboratory Results: 08/22/19 04:43 08/22/19 04:43 08/22/19 08/22/19 04:43 04:43 WBC 6.2 RBC 2.92 L Hgb 8.7 L Hct 25.6 L MCV 88 MCH 29.7 MCHC 33.9 RDW 15.8 H Plt Count 163 Seg Neutrophils % Not Reportable Sodium 133.5 L Potassium 5.1 H Chloride 104 Carbon Dioxide 25 Anion Gap 5 BUN 54 H Creatinine 1.14 Est GFR ( Amer) > 60 Glucose 102 Calcium 7.9 L Total Bilirubin 0.6 AST 29 Alkaline Phosphatase 66 Total Protein 5.5 L Albumin 2.4 L 08/05/19 08/06/19 08/06/19 16:19 08:45 09:12 Creatine Kinase 70 Troponin I < 0.012 0.029 Impressions: Lower Extremity MRI 08/05/19 00:00 IMPRESSION: No MR evidence for osteomyelitis, given the limitations as above. Postsurgical change fifth digit with minor cellulitis near the fifth metatarsal stump copyright 2011 [employer]- All Rights Reserved Foot X-Ray 08/05/19 18:09 IMPRESSION: Moderate osteopenia throughout the left foot. 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 No radiographic evidence of osteomyelitis. And there is continued concern for osteomyelitis, MRI is more sensitive and specific for early changes. Chest CT 08/06/19 00:00 IMPRESSION: Partial clearing of the right lateral lower lobe airspace disease seen on CT chest 03/16/[address] abdomen and pelvis Head CT 08/06/19 00:00 IMPRESSION: No acute findings EVIDENCE OF ACUTE STROKE: NO. Chest X-Ray 08/07/19 06:00 IMPRESSION: NO SIGNIFICANT CHANGE IN APPEARANCE OF THE CHEST. Abdomen/Pelvis CT 08/08/19 00:00 IMPRESSION: 1. The right common femoral artery line has been removed and the patient has developed a right groin hematoma that measures 5.6 cm in AP diameter, 11.3 cm in transverse diameter and 16 cm in craniocaudal diameter. 2. Colonic diverticulosis without diverticulitis. 3. Improved aeration of the lower lobes. 4. Other findings as detailed above. Aorta w/Runoff CTA 08/08/19 00:00 IMPRESSION: 1. Right gurney hematoma that measures 5.6 cm in AP diameter, 11.3 cm in transverse diameter and 16 cm in craniocaudal diameter. There is no extravasation or pseudoaneurysm of the right common femoral artery. 2. No high-grade stenosis, dissection or aneurysm of the arterial vasculature of the lower extremities. Assessment & Plan - Diagnosis (1) Sepsis Qualifiers: Sepsis type: sepsis due to unspecified organism Sepsis acute organ dysfunction status: with acute organ dysfunction Severe sepsis acute organ dysfunction type: acute renal failure Acute renal failure type: unspecified Severe sepsis shock status: unspecified Qualified Code(s): A41.9 - Sepsis, unspecified organism; R65.20 - Severe sepsis without septic shock; N17.9 - Acute kidney failure, unspecified Is this a current diagnosis for this admission?: Yes Plan: Continue IV antibiotic (2) Morbid (severe) obesity due to excess calories Is this a current diagnosis for this admission?: Yes (3) Diabetes mellitus type 2 in obese Is this a current diagnosis for this admission?: Yes (4) Acute blood loss anemia Is this a current diagnosis for this admission?: Yes (5) Decubitus ulcer of left heel, stage 3 Is this a current diagnosis for this admission?: Yes - Time Time Spent with patient: 25-34 minutes Level of Care: MEDICAL - Plan Summary Plan Summary: Continue treatment
[2019-08-23] MEDS: CLINDAMYCIN 600 MG/D5W RTU 600 MG/50 ML RTUPB IV SCH ×4 (00:45→18:34)
[2019-08-23] MEDS: NYSTATIN TOPICAL POWDER 15 GM TP SCH ×3 (05:22→21:55)
[2019-08-23 07:50] LABS: ABSOLUTE EOSINOPHILS # (AUTO) 0.2 10^3/uL (0.0-0.6); ABSOLUTE LYMPHOCYTES (AUTO) 0.9 10^3/uL (0.5-4.7); ABSOLUTE MONOCYTES (AUTO) 0.5 10^3/uL (0.1-1.4); BASOPHILS % (AUTO) 0.8 % (0-2); EOSINOPHILS % (AUTO) 3.5 % (0-6); HEMATOCRIT 27.4 % (37.9-51.0); HEMOGLOBIN 9.2 g/dL (13.5-17.0); LYMPHOCYTES % (AUTO) 15.6 % (13-45); MEAN CORPUSCULAR HEMOGLOBIN 29.3 pg (27.0-33.4); MEAN CORPUSCULAR HGB CONC 33.5 g/dL (32.0-36.0); MEAN CORPUSCULAR VOLUME 88 fl (80-97); MONOCYTES % (AUTO) 8.9 % (3-13); PLATELET COUNT 184 10^3/uL (150-450); RED BLOOD COUNT 3.13 10^6/uL (4.35-5.55); RED CELL DISTRIBUTION WIDTH 15.9 % (11.5-14.0); SEGMENTED NEUTROPHILS % (AUTO) 71.2 % (42-78); TOTAL CELLS COUNTED % (AUTO) 100 %; WHITE BLOOD COUNT 5.6 10^3/uL (4.0-10.5)
[2019-08-23] MEDS: INSULIN REG, HUMAN 100 UNIT/ML 3 ML VIAL (PYX) SUBCUT SCH ×4 (07:55→21:50)
[2019-08-23 08:16] LABS: ALBUMIN 2.7 g/dL (3.5-5.0); ALKALINE PHOSPHATASE 71 U/L (38-126); ASPARTATE AMINO TRANSFERASE 38 U/L (17-59); BILIRUBIN,TOTAL 0.5 mg/dL (0.2-1.3); BLOOD UREA NITROGEN 48 mg/dL (7-20); CALCIUM 8.2 mg/dL (8.4-10.2); CHLORIDE 108 mmol/L (98-107); GLUCOSE 150 mg/dL (75-110); POTASSIUM 5.3 mmol/L (3.6-5.0); TOTAL PROTEIN 6.1 g/dL (6.3-8.2)
[2019-08-23 08:21] LABS: CARBON DIOXIDE 25 mmol/L (22-30)
[2019-08-23 08:24] LABS: ANION GAP 4 (5-19)
[2019-08-23] MEDS: OMEGA-3 ACID ETHYL ESTERS 1 GM CAPSULE PO SCH (09:41)
[2019-08-23] MEDS: MULTIVITS W-MIN/IRON SOLN 60 ML PO SCH (09:42)
[2019-08-23] MEDS: COLLAGENASE CLOSTRIDIUM HIST. OINT 30 GM TP SCH ×2 (09:44→18:35)
[2019-08-23] MEDS: NORMAL SALINE 1000 ML 1,000 ML IV PRN (16:38)
--- NOTE | 2019-08-23 17:36 | PDOC PROGRESS REPORT ---
Subjective Progress Note for:: 08/23/19 Subjective:: Patient seen by the bedside presently on Santyl dressing with IV antibiotic, [facility] highly recommended for patient for rehabilitation and physical therapy, insurance company denied the recommendation for patient to have physical therapy and rehabilitation, discharge planning is appealing the decision Reason For Visit: SEPSIS,LEFT FOOT INFECTION, OSTEOMYELITIS,T2DM, Physical Exam Vital Signs: Temp Pulse Resp BP Pulse Ox 97.9 F 65 18 127/57 H 100 08/23/19 15:41 08/23/19 15:41 08/23/19 15:41 08/23/19 15:41 08/23/19 16:08 Intake & Output 08/22/19 08/23/19 08/24/19 06:59 06:59 06:59 Intake Total 1350 1770 1430 Output Total 1020 1100 Balance 574 700 6649 Weight 104.3 kg 107.6 kg General appearance: PRESENT: no acute distress Eye exam: PRESENT: PERRLA Respiratory exam: PRESENT: clear to auscultation teetee Cardiovascular exam: PRESENT: +S1, +S2 GI/Abdominal exam: PRESENT: soft Extremities exam: PRESENT: other - Stage IV ulcer in the left heel Neurological exam: PRESENT: alert Results Laboratory Results: 08/23/19 07:43 08/23/19 07:43 08/23/19 08/23/19 07:43 07:43 WBC 5.6 RBC 3.13 L Hgb 9.2 L Hct 27.4 L MCV 88 MCH 29.3 MCHC 33.5 RDW 15.9 H Plt Count 184 Seg Neutrophils % 71.2 Sodium 136.5 L Potassium 5.3 H Chloride 108 H Carbon Dioxide 25 Anion Gap 4 L BUN 48 H Creatinine 0.89 Est GFR ( Amer) > 60 Glucose 150 H Calcium 8.2 L Total Bilirubin 0.5 AST 38 Alkaline Phosphatase 71 Total Protein 6.1 L Albumin 2.7 L 08/05/19 08/06/19 08/06/19 16:19 08:45 09:12 Creatine Kinase 70 Troponin I < 0.012 0.029 Impressions: Lower Extremity MRI 08/05/19 00:00 IMPRESSION: No MR evidence for osteomyelitis, given the limitations as above. Postsurgical change fifth digit with minor cellulitis near the fifth metatarsal stump copyright 2011 [employer]- All Rights Reserved Foot X-Ray 08/05/19 18:09 IMPRESSION: Moderate osteopenia throughout the left foot. 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 No radiographic evidence of osteomyelitis. And there is continued concern for osteomyelitis, MRI is more sensitive and specific for early changes. Chest CT 08/06/19 00:00 IMPRESSION: Partial clearing of the right lateral lower lobe airspace disease seen on CT chest 03/16/[address] abdomen and pelvis Head CT 08/06/19 00:00 IMPRESSION: No acute findings EVIDENCE OF ACUTE STROKE: NO. Chest X-Ray 08/07/19 06:00 IMPRESSION: NO SIGNIFICANT CHANGE IN APPEARANCE OF THE CHEST. Abdomen/Pelvis CT 08/08/19 00:00 IMPRESSION: 1. The right common femoral artery line has been removed and the patient has developed a right groin hematoma that measures 5.6 cm in AP diameter, 11.3 cm in transverse diameter and 16 cm in craniocaudal diameter. 2. Colonic diverticulosis without diverticulitis. 3. Improved aeration of the lower lobes. 4. Other findings as detailed above. Aorta w/Runoff CTA 08/08/19 00:00 IMPRESSION: 1. Right gurney hematoma that measures 5.6 cm in AP diameter, 11.3 cm in transverse diameter and 16 cm in craniocaudal diameter. There is no extravasation or pseudoaneurysm of the right common femoral artery. 2. No high-grade stenosis, dissection or aneurysm of the arterial vasculature of the lower extremities. Assessment & Plan - Diagnosis (1) Sepsis Qualifiers: Sepsis type: sepsis due to unspecified organism Sepsis acute organ dysfunction status: with acute organ dysfunction Severe sepsis acute organ dysfunction type: acute renal failure Acute renal failure type: unspecified Severe sepsis shock status: unspecified Qualified Code(s): A41.9 - Sepsis, uns pecified organism; R65.20 - Severe sepsis without septic shock; N17.9 - Acute kidney failure, unspecified Is this a current diagnosis for this admission?: Yes Plan: Continue IV antibiotic (2) Morbid (severe) obesity due to excess calories Is this a current diagnosis for this admission?: Yes (3) Diabetes mellitus type 2 in obese Is this a current diagnosis for this admission?: Yes (4) Acute blood loss anemia Is this a current diagnosis for this admission?: Yes (5) Decubitus ulcer of left heel, stage 3 Is this a current diagnosis for this admission?: Yes - Time Time Spent with patient: 25-34 minutes Level of Care: MEDICAL
[2019-08-23] MEDS: SERTRALINE HCL 50 MG TABLET PO SCH (21:50)
[2019-08-24] MEDS: CLINDAMYCIN 600 MG/D5W RTU 600 MG/50 ML RTUPB IV SCH ×5 (00:33→23:28)
[2019-08-24] MEDS: NYSTATIN TOPICAL POWDER 15 GM TP SCH ×3 (05:46→21:49)
[2019-08-24 08:02] LABS: ABSOLUTE EOSINOPHILS # (AUTO) 0.2 10^3/uL (0.0-0.6); ABSOLUTE LYMPHOCYTES (AUTO) 1.1 10^3/uL (0.5-4.7); ABSOLUTE MONOCYTES (AUTO) 0.6 10^3/uL (0.1-1.4); ABSOLUTE NEUT (AUTO) 4.3 10^3/uL (1.7-8.2); BASOPHILS % (AUTO) 0.7 % (0-2); EOSINOPHILS % (AUTO) 3.3 % (0-6); HEMOGLOBIN 9.2 g/dL (13.5-17.0); LYMPHOCYTES % (AUTO) 17.9 % (13-45); MEAN CORPUSCULAR HEMOGLOBIN 29.8 pg (27.0-33.4); MEAN CORPUSCULAR VOLUME 88 fl (80-97); MONOCYTES % (AUTO) 9.1 % (3-13); PLATELET COUNT 200 10^3/uL (150-450); RED BLOOD COUNT 3.08 10^6/uL (4.35-5.55); RED CELL DISTRIBUTION WIDTH 15.6 % (11.5-14.0); TOTAL CELLS COUNTED % (AUTO) 100 %; WHITE BLOOD COUNT 6.2 10^3/uL (4.0-10.5)
[2019-08-24 08:03] LABS: ALBUMIN 2.6 g/dL (3.5-5.0); ALKALINE PHOSPHATASE 67 U/L (38-126); ASPARTATE AMINO TRANSFERASE 24 U/L (17-59); BILIRUBIN,TOTAL 0.6 mg/dL (0.2-1.3); BLOOD UREA NITROGEN 44 mg/dL (7-20); CALCIUM 8.5 mg/dL (8.4-10.2); GLUCOSE 153 mg/dL (75-110); POTASSIUM 5.3 mmol/L (3.6-5.0)
[2019-08-24 08:09] LABS: CARBON DIOXIDE 24 mmol/L (22-30); CHLORIDE 108 mmol/L (98-107)
[2019-08-24 08:25] LABS: ANION GAP 3 (5-19)
[2019-08-24] MEDS: INSULIN REG, HUMAN 100 UNIT/ML 3 ML VIAL (PYX) SUBCUT SCH ×4 (09:06→21:48)
[2019-08-24] MEDS: OMEGA-3 ACID ETHYL ESTERS 1 GM CAPSULE PO SCH (11:43)
[2019-08-24] MEDS: MULTIVITS W-MIN/IRON SOLN 60 ML PO SCH (11:45)
[2019-08-24] MEDS: COLLAGENASE CLOSTRIDIUM HIST. OINT 30 GM TP SCH ×2 (11:50→18:47)
--- NOTE | 2019-08-24 18:26 | PDOC PROGRESS REPORT ---
Subjective Progress Note for:: 08/24/19 Subjective:: Patient seen by the bedside, the wound was inspected, the heel ulcer is clean, patient cannot function independently, he need physical therapy and rehabilitation Reason For Visit: SEPSIS,LEFT FOOT INFECTION, OSTEOMYELITIS,T2DM, Physical Exam Vital Signs: Temp Pulse Resp BP Pulse Ox 97.6 F 86 22 H 145/61 H 100 08/24/19 16:00 08/24/19 16:00 08/24/19 16:00 08/24/19 16:00 08/24/19 16:00 Intake & Output 08/23/19 08/24/19 08/25/19 06:59 06:59 06:59 Intake Total 1770 3705 886 Output Total 1100 1100 800 Balance 670 2605 86 Weight 107.6 kg 109.3 kg General appearance: PRESENT: no acute distress Eye exam: PRESENT: PERRLA Respiratory exam: PRESENT: clear to auscultation teetee Cardiovascular exam: PRESENT: +S1, +S2 GI/Abdominal exam: PRESENT: soft Neurological exam: PRESENT: alert Results Laboratory Results: 08/24/19 07:33 08/24/19 07:33 08/24/19 08/24/19 07:33 07:33 WBC 6.2 RBC 3.08 L Hgb 9.2 L Hct 27.0 L MCV 88 MCH 29.8 MCHC 34.0 RDW 15.6 H Plt Count 200 Seg Neutrophils % 69.0 Sodium 134.6 L Potassium 5.3 H Chloride 108 H Carbon Dioxide 24 Anion Gap 3 L BUN 44 H Creatinine 0.83 Est GFR ( Amer) > 60 Glucose 153 H Calcium 8.5 Total Bilirubin 0.6 AST 24 Alkaline Phosphatase 67 Total Protein 6.0 L Albumin 2.6 L 08/05/19 08/06/19 08/06/19 16:19 08:45 09:12 Creatine Kinase 70 Troponin I < 0.012 0.029 Impressions: Lower Extremity MRI 08/05/19 00:00 IMPRESSION: No MR evidence for osteomyelitis, given the limitations as above. Postsurgical change fifth digit with minor cellulitis near the fifth metatarsal stump copyright 2010 [employer]- All Rights Reserved Foot X-Ray 08/05/19 18:09 IMPRESSION: Moderate osteopenia throughout the left foot. 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 No radiographic evidence of osteomyelitis. And there is continued concern for osteomyelitis, MRI is more sensitive and specific for early changes. Chest CT 08/06/19 00:00 IMPRESSION: Partial clearing of the right lateral lower lobe airspace disease seen on CT chest 03/16/[address] abdomen and pelvis Head CT 08/06/19 00:00 IMPRESSION: No acute findings EVIDENCE OF ACUTE STROKE: NO. Chest X-Ray 08/07/19 06:00 IMPRESSION: NO SIGNIFICANT CHANGE IN APPEARANCE OF THE CHEST. Abdomen/Pelvis CT 08/08/19 00:00 IMPRESSION: 1. The right common femoral artery line has been removed and the patient has developed a right groin hematoma that measures 5.6 cm in AP diameter, 11.3 cm in transverse diameter and 16 cm in craniocaudal diameter. 2. Colonic diverticulosis without diverticulitis. 3. Improved aeration of the lower lobes. 4. Other findings as detailed above. Aorta w/Runoff CTA 08/08/19 00:00 IMPRESSION: 1. Right gurney hematoma that measures 5.6 cm in AP diameter, 11.3 cm in transverse diameter and 16 cm in craniocaudal diameter. There is no extravasation or pseudoaneurysm of the right common femoral artery. 2. No high-grade stenosis, dissection or aneurysm of the arterial vasculature of the lower extremities. Assessment & Plan - Diagnosis (1) Sepsis Qualifiers: Sepsis type: sepsis due to unspecified organism Sepsis acute organ dysfunction status: with acute organ dysfunction Severe sepsis acute organ dysfunction type: acute renal failure Acute renal failure type: unspecified Severe sepsis shock status: unspecified Qualified Code(s): A41.9 - Sepsis, unspecified organism; R65.20 - Severe sepsis without septic shock; N17.9 - Acute kidney failure, unspecified Is this a current diagnosis for this admission?: Yes Plan: Continue IV antibiotic (2) Morbid (severe) obesity due to excess calories Is this a current diagnosis for this admission?: Yes (3) Diabetes mellitus type 2 in obese Is this a current diagnosis for this admission?: Yes (4) Acute blood loss anemia Is this a current diagnosis for this admission?: Yes (5) Decubitus ulcer of left heel, stage 3 Is this a current diagnosis for this admission?: Yes Plan: Continue Santyl dressing - Time Time Spent with patient: 25-34 minutes Level of Care: I[facility]
[2019-08-24] MEDS: SERTRALINE HCL 50 MG TABLET PO SCH (21:48)
[2019-08-24] MEDS: PREGABALIN 50 MG CAPSULE PO SCH (21:48)
[2019-08-25] MEDS: CLINDAMYCIN 600 MG/D5W RTU 600 MG/50 ML RTUPB IV SCH ×4 (05:30→23:36)
[2019-08-25] MEDS: NYSTATIN TOPICAL POWDER 15 GM TP SCH ×3 (05:31→22:00)
[2019-08-25 05:55] LABS: ABSOLUTE EOSINOPHILS # (AUTO) 0.2 10^3/uL (0.0-0.6); ABSOLUTE LYMPHOCYTES (AUTO) 1.2 10^3/uL (0.5-4.7); ABSOLUTE MONOCYTES (AUTO) 0.5 10^3/uL (0.1-1.4); ABSOLUTE NEUT (AUTO) 4.2 10^3/uL (1.7-8.2); BASOPHILS % (AUTO) 0.7 % (0-2); EOSINOPHILS % (AUTO) 3.2 % (0-6); HEMATOCRIT 26.8 % (37.9-51.0); LYMPHOCYTES % (AUTO) 18.9 % (13-45); MEAN CORPUSCULAR HEMOGLOBIN 29.5 pg (27.0-33.4); MEAN CORPUSCULAR HGB CONC 33.6 g/dL (32.0-36.0); MEAN CORPUSCULAR VOLUME 88 fl (80-97); MONOCYTES % (AUTO) 8.3 % (3-13); PLATELET COUNT 211 10^3/uL (150-450); RED BLOOD COUNT 3.05 10^6/uL (4.35-5.55); RED CELL DISTRIBUTION WIDTH 16.3 % (11.5-14.0); SEGMENTED NEUTROPHILS % (AUTO) 68.9 % (42-78); TOTAL CELLS COUNTED % (AUTO) 100 %; WHITE BLOOD COUNT 6.1 10^3/uL (4.0-10.5)
[2019-08-25 06:18] LABS: ALBUMIN 2.5 g/dL (3.5-5.0); ALKALINE PHOSPHATASE 68 U/L (38-126); ANION GAP 5 (5-19); ASPARTATE AMINO TRANSFERASE 22 U/L (17-59); BILIRUBIN,TOTAL 0.4 mg/dL (0.2-1.3); BLOOD UREA NITROGEN 45 mg/dL (7-20); CALCIUM 8.6 mg/dL (8.4-10.2); CARBON DIOXIDE 23 mmol/L (22-30); CHLORIDE 108 mmol/L (98-107); GLUCOSE 154 mg/dL (75-110); POTASSIUM 5.7 mmol/L (3.6-5.0); TOTAL PROTEIN 5.9 g/dL (6.3-8.2)
[2019-08-25] MEDS: INSULIN REG, HUMAN 100 UNIT/ML 3 ML VIAL (PYX) SUBCUT SCH ×4 (07:51→21:56)
[2019-08-25] MEDS: OMEGA-3 ACID ETHYL ESTERS 1 GM CAPSULE PO SCH (11:08)
[2019-08-25] MEDS: PREGABALIN 50 MG CAPSULE PO SCH ×2 (11:08→21:56)
[2019-08-25] MEDS: MULTIVITS W-MIN/IRON SOLN 60 ML PO SCH (11:08)
[2019-08-25] MEDS: COLLAGENASE CLOSTRIDIUM HIST. OINT 30 GM TP SCH ×2 (11:12→18:03)
--- NOTE | 2019-08-25 21:04 | PDOC TRANSFER SUMMARY ---
Impression - Admit/DC Date/PCP Admission Date/Primary Care Provider: 08/05/19 19:17 CINTHIA SHAVER MD Discharge Date: 08/26/19 - Discharge Diagnosis (1) Sepsis Is this a current diagnosis for this admission?: Yes (2) Morbid (severe) obesity due to excess calories Is this a current diagnosis for this admission?: Yes (3) Diabetes mellitus type 2 in obese Is this a current diagnosis for this admission?: Yes (4) Acute blood loss anemia Is this a current diagnosis for this admission?: Yes (5) Decubitus ulcer of left heel, stage 3 Is this a current diagnosis for this admission?: Yes - Additional Information Resuscitation Status: Do Not Resuscitate Referrals: CORINNA BERRY MD [ACTIVE STAFF] - AUGUSTIN JI NP, BOX SORTER [NURSE PRACTITIONER] - 08/27/19 10:30 am Prescriptions: Dapagliflozin Propanediol [Farxiga] 10 mg PO DAILY #90 tablet Febuxostat 40 mg PO DAILY #90 Home Medications: Albuterol Sulfate [Proair HFA Inhalation Aerosol 8.5 gm MDI] 2 puff IH Q4HP PRN 03/17/19 Tamsulosin HCl [Flomax 0.4 mg Cap.sr] 0.4 mg PO DAILY 03/17/19 Losartan/Hydrochlorothiazide [Losartan-Hctz 100-25 mg Tab] 1 each PO DAILY 06/12/19 Amlodipine Besylate [Norvasc 5 mg Tablet] 5 mg PO DAILY 08/05/19 Collagenase Clostridium Hist. [Santyl Ointment 30 gm] 1 applic TP BID 08/05/19 Furosemide [Lasix 40 mg Tablet] 40 mg PO DAILY 08/05/19 Insulin Lispro Protamin/Lispro [Humalog Mix 50-50 100 unit/mL] 12 unit SUBCUT BID 08/05/19 Multivit-Mins/Iron/Folic/Lycop [Centrum Men's Tablet] 1 each PO MOWEFR@1000 08/05/19 [place]-3/Dha/Epa/Fish Oil [Fish Oil 1,000 mg Softgel] 1 each PO DAILY 08/05/19 Pentoxifylline 400 mg PO TID 08/05/19 Sertraline HCl 50 mg PO QHS 08/05/19 Collagenase Clostridium Hist. [Santyl Ointment 30 gm] 1 applic TP BID tube 08/25/19 Dapagliflozin Propanediol [Farxiga] 10 mg PO DAILY #90 tablet 08/25/19 Febuxostat 40 mg PO DAILY #90 08/25/19 Glucagon,Human Recombinant [Glucagen Inj 1 mg Vial] 1 mg IM PRN PRN vial 08/25/19 Insulin Regular, Human [Humulin R (Reg) Insulin 100 unit/mL] 0 - 14 unit SUBCUT ACHS unit 08/25/19 Nystatin [Mycostatin Topical Powder 15 gm] 1 applic TP Q8 bottle 08/25/19 Pregabalin [Lyrica 50 mg Capsule] 50 mg PO Q12 capsule 08/25/19 History of Present Illiness History of Present Illness: TAYLOR SMITH is a 69 year old male, patient is new to my practice, recently came to establish as a new patient in the office, he has a history of type 2 diabetes mellitus complicated with peripheral vascular disease, history of ampu tation of toes of the feet, he came to emergency room for evaluation of generalized body weakness, no cough, patient is DNR status in the emergency room he was found to have a low blood pressure 96/54, he was also hypothermic, the chest x-ray that was done was negative for any acute infiltrate the urinalysis was bland, also concerned that he may osteomyelitis, I order MRI of his left foot, it showed amputation of the distal portion of the fifth digit there is some adjacent subcutaneous edema and inflammation however there was no definitive bone marrow edema there was no MRI evidence of acute osteomyelitis, it was felt the patient could be septic, there was no apparent source for the sepsis patient started empirically on antibiotic vancomycin and Zosyn to cover for potential pathogens. Hospital Course Hospital Course: Patient was admitted for sepsis-like syndrome he had low blood pressure requiring management in intensive care unit, He had severe anemia due to hemorrhage from a line in the groin, he was transfused with red blood cells in the unit, he was empirically treated with IV antibiotic he also was treated with intravenous steroid for the low blood pressure.Ultimately he was transferred to the floor, he has ulcer of the left heel, Infected, consultation was obtained from surgery, debridement of the ulcer was done without complications,Patient is extremely deconditioned he needs physical therapy and rehabilitationThe infected left heel ulcer was treated with IV antibiotic, clindamycin Physical Exam Vital Signs: Temp Pulse Resp BP Pulse Ox 97.9 F 72 19 127/55 H 100 08/25/19 19:41 08/25/19 19:41 08/25/19 19:41 08/25/19 19:41 08/25/19 19:41 Intake & Output 08/24/19 08/25/19 08/26/19 06:59 06:59 06:59 Intake Total 3705 1261 1765 Output Total 1100 2325 600 Balance 2605 -1064 1165 Weight 109.3 kg 110.4 kg 110.4 kg General appearance: PRESENT: no acute distress, obese Eye exam: PRESENT: PERRLA Respiratory exam: PRESENT: clear to auscultation teetee Cardiovascular exam: PRESENT: +S1, +S2 GI/Abdominal exam: PRESENT: soft Extremities exam: PRESENT: other - left heel ulcer Neurological exam: PRESENT: alert, CN II-XII grossly intact Results Laboratory Results: WBC 6.1 10^3/uL (4.0-10.5) 08/25/19 05:41 RBC 3.05 10^6/uL (4.35-5.55) L 08/25/19 05:41 Hgb 9.0 g/dL (13.5-17.0) L 08/25/19 05:41 Hct 26.8 % (37.9-51.0) L 08/25/19 05:41 MCV 88 fl (80-97) 08/25/19 05:41 MCH 29.5 pg (27.0-33.4) 08/25/19 05:41 MCHC 33.6 g/dL (32.0-36.0) 08/25/19 05:41 RDW 16.3 % (11.5-14.0) H 08/25/19 05:41 Plt Count 211 10^3/uL (150-450) 08/25/19 05:41 Lymph % (Auto) 18.9 % (13-45) 08/25/19 05:41 [place] % (Auto) 8.3 % (3-13) 08/25/19 05:41 Eos % (Auto) 3.2 % (0-6) 08/25/19 05:41 Baso % (Auto) 0.7 % (0-2) 08/25/19 05:41 Absolute Neuts (auto) 4.2 10^3/uL (1.7-8.2) 08/25/19 05:41 Absolute Lymphs (auto) 1.2 10^3/uL (0.5-4.7) 08/25/19 05:41 Absolute Monos (auto) 0.5 10^3/uL (0.1-1.4) 08/25/19 05:41 Absolute Eos (auto) 0.2 10^3/uL (0.0-0.6) 08/25/19 05:41 Absolute Basos (auto) 0.0 10^3/uL (0.0-0.2) 08/25/19 05:41 Total Counted 100 08/22/19 04:43 Seg Neutrophils % 68.9 % (42-78) 08/25/19 05:41 Seg Neuts % (Manual) 57 % (42-78) 08/22/19 04:43 Lymphocytes % (Manual) 33 % (13-45) 08/22/19 04:43 Monocytes % (Manual) 5 % (3-13) 08/22/19 04:43 Eosinophils % (Manual) 4 % (0-6) 08/22/19 04:43 Basophils % (Manual) 1 % (0-2) 08/22/19 04:43 Abs Neuts (Manual) 3.5 10^3/uL (1.7-8.2) 08/22/19 04:43 Abs Lymphs (Manual) 2.0 10^3/uL (0.5-4.7) 08/22/19 04:43 Abs Monocytes (Manual) 0.3 10^3/uL (0.1-1.4) 08/22/19 04:43 Absolute Eos (Manual) 0.2 10^3/uL (0.0-0.6) 08/22/19 04:43 Abs Basophils (Manual) 0.1 10^3/uL (0.0-0.2) 08/22/19 04:43 Toxic Granulation SLIGHT 08/22/19 04:43 Platelet Comment ADEQUATE 08/22/19 04:43 Poikilocytosis SLIGHT 08/07/19 04:55 Anisocytosis SLIGHT 08/22/19 04:43 Ovalocytes SLIGHT 08/22/19 04:43 Schistocytes SLIGHT 08/07/19 04:55 ESR 78 mm/hr (0-20) H 08/08/19 04:08 PT 14.3 SEC (11.4-15.4) 08/09/19 03:56 INR 1.11 08/09/19 03:56 APTT 31.2 SEC (23.5-35.8) 08/09/19 03:56 Carbonic Acid 1.14 mmol/L (1.05-1.35) 08/07/19 04:55 HCO3/H2CO3 Ratio 21:1 08/07/19 04:55 ABG pH 7.42 (7.35-7.45) 08/07/19 04:55 ABG pCO2 37.9 mmHg (35-45) 08/07/19 04:55 ABG pO2 97.6 mmHg (80-100) 08/07/19 04:55 ABG HCO3 24.3 mmol/L (20-24) H 08/07/19 04:55 ABG Total CO2 25.4 mmol/L (23-27) 08/07/19 04:55 ABG O2 Saturation 97.6 % (94-98) 08/07/19 04:55 ABG Base Excess 0 mmol/L 08/07/19 04:55 VBG pH 7.32 (7.30-7.42) 08/05/19 16:19 VBG pCO2 60.3 mmHg (35-63) 08/05/19 16:19 VBG HCO3 30.2 mmol/L (20-32) 08/05/19 16:19 VBG Base Excess 2.6 mmol/L 08/05/19 16:19 FiO2 ROOM AIR 08/07/19 04:55 Sodium 135.7 mmol/L (137-145) L 08/25/19 05:41 Potassium 5.7 mmol/L (3.6-5.0) H 08/25/19 05:41 Chloride 108 mmol/L (98-107) H 08/25/19 05:41 Carbon Dioxide 23 mmol/L (22-30) 08/25/19 05:41 Anion Gap 5 (5-19) 08/25/19 05:41 BUN 45 mg/dL (7-20) H 08/25/19 05:41 Creatinine 0.89 mg/dL (0.52-1.25) 08/25/19 05:41 Est GFR ( Amer) > 60 (>60) 08/25/19 05:41 Est GFR (MDRD) Non-Af > 60 (>60) 08/25/19 05:41 Glucose 154 mg/dL (75-110) H 08/25/19 05:41 POC Glucose 183 mg/dL (70-110) H 08/25/19 16:01 Hemoglobin A1c % 5.8 % (4.7-6.0) 08/21/19 21:33 Lactic Acid < 0.5 mmol/L (0.7-2.1) L 08/06/19 08:45 Calcium 8.6 mg/dL (8.4-10.2) 08/25/19 05:41 Phosphorus 3.0 mg/dL (2.5-4.5) 08/09/19 03:56 Magnesium 1.9 mg/dL (1.6-2.3) 08/09/19 03:56 Total Bilirubin 0.4 mg/dL (0.2-1.3) 08/25/19 05:41 Direct Bilirubin 0.0 mg/dL (0.0-0.4) 08/25/19 05:41 Neonat Total Bilirubin Not Reportable 08/25/19 05:41 Neonat Direct Bilirubin Not Reportable 08/25/19 05:41 Neonat Indirect Bili Not Reportable 08/25/19 05:41 AST 22 U/L (17-59) 08/25/19 05:41 ALT 38 U/L (<50) 08/25/19 05:41 Alkaline Phosphatase 68 U/L (38-126) 08/25/19 05:41 Ammonia < 8.7 umol/L (9-33) L 08/09/19 03:56 Creatine Kinase 70 U/L (55-170) 08/06/19 08:45 Troponin I 0.029 ng/mL 08/06/19 09:12 C-Reactive Protein 44.7 mg/L (<10.0) H 08/08/19 04:08 Total Protein 5.9 g/dL (6.3-8.2) L 08/25/19 05:41 Albumin 2.5 g/dL (3.5-5.0) L 08/25/19 05:41 Lipase 64.6 U/L (23-300) 08/05/19 16:19 Procalcitonin 0.06 ng/mL (0.00-0.08) 08/06/19 05:42 TSH 4.13 uIU/mL (0.47-4.68) 08/06/19 08:45 Random Cortisol 15.10 ug/dL (None Established) 08/06/19 08:45 Urine Color YELLOW 08/06/19 09:12 Urine Appearance SLIGHTLY-CLOUDY 08/06/19 09:12 Urine pH 5.0 (5.0-9.0) 08/06/19 09:12 Ur Specific [place] 1.014 08/06/19 09:12 Urine Protein NEGATIVE mg/dL (NEGATIVE) 08/06/19 09:12 Urine Glucose (UA) NEGATIVE mg/dL (NEGATIVE) 08/06/19 09:12 Urine Ketones NEGATIVE mg/dL (NEGATIVE) 08/06/19 09:12 Urine Blood LARGE (NEGATIVE) H 08/06/19 09:12 Urine Nitrite NEGATIVE (NEGATIVE) 08/06/19 09:12 Urine Bilirubin NEGATIVE (NEGATIVE) 08/06/19 09:12 Urine Urobilinogen NEGATIVE mg/dL (<2.0) 08/06/19 09:12 Ur Leukocyte Esterase TRACE (NEGATIVE) H 08/06/19 09:12 Urine WBC (Auto) 2 /HPF 08/06/19 09:12 Urine RBC (Auto) 8 /HPF 08/06/19 09:12 U Hyaline Cast (Auto) 5 /LPF 08/05/19 17:08 Urine Mucus (Auto) RARE /LPF 08/06/19 09:12 Urine Ascorbic Acid NEGATIVE (NEGATIVE) 08/06/19 09:12 Stool Occult Blood NEGATIVE (NEGATIVE) 08/19/19 08:32 POC Stool Occult Blood NEGATIVE (NEGATIVE) 08/05/19 18:06 Time Trough Drawn 0945 08/08/19 09:45 Vancomycin Trough 12.5 ug/mL (5.0-20.0) 08/08/19 09:45 COVID-19 Source NASOPHARYNGEAL 08/21/19 09:14 COVID-19 (CARMEN) NOT DETECTED 08/21/19 09:14 Blood Type A POSITIVE 08/17/19 15:55 Antibody Screen NEGATIVE 08/17/19 15:55 Crossmatch See Detail 08/17/19 15:55 08/05/19 08/06/19 16:19 09:12 Troponin I < 0.012 0.029 Impressions: Lower Extremity MRI 08/05/19 00:00 IMPRESSION: No MR evidence for osteomyelitis, given the limitations as above. Postsurgical change fifth digit with minor cellulitis near the fifth metatarsal stump copyright 2010 [employer]- All Rights Reserved Chest X-Ray 08/05/19 15:20 IMPRESSION: No acute cardiopulmonary process. Head CT 08/05/19 16:19 IMPRESSION: Mild involutional changes and mild chronic microvascular ischemia. No acute intracranial imaging findings. EVIDENCE OF ACUTE STROKE: NO. Foot X-Ray 08/05/19 18:09 IMPRESSION: Moderate osteopenia throughout the left foot. 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 No radiographic evidence of osteomyelitis. And there is continued concern for osteomyelitis, MRI is more sensitive and specific for early changes. Abdomen/Pelvis CT 08/06/19 00:00 IMPRESSION: Partial clearing of the right lateral lower lobe airspace disease seen on CT chest 03/16/[address] abdomen and pelvis Chest CT 08/06/19 00:00 IMPRESSION: Partial clearing of the right lateral lower lobe airspace disease seen on CT chest 03/16/[address] abdomen and pelvis Head CT 08/06/19 00:00 IMPRESSION: No acute findings EVIDENCE OF ACUTE STROKE: NO. Chest X-Ray 08/06/19 08:24 IMPRESSION: The tip of the right IJ central venous catheter projects within the SVC. There is no pneumothorax. Chest X-Ray 08/07/19 06:00 IMPRESSION: NO SIGNIFICANT CHANGE IN APPEARANCE OF THE CHEST. Abdomen/Pelvis CT 08/08/19 00:00 IMPRESSION: 1. The right common femoral artery line has been removed and the patient has developed a right groin hematoma that measures 5.6 cm in AP diameter, 11.3 cm in transverse diameter and 16 cm in craniocaudal diameter. 2. Colonic diverticulosis without diverticulitis. 3. Improved aeration of the lower lobes. 4. Other findings as detailed above. Aorta w/Runoff CTA 08/08/19 00:00 IMPRESSION: 1. Right gurney hematoma that measures 5.6 cm in AP diameter, 11.3 cm in transverse diameter and 16 cm in craniocaudal diameter. There is no extravasation or pseudoaneurysm of the right common femoral artery. 2. No high-grade stenosis, dissection or aneurysm of the arterial vasculature of the lower extremities. Stroke Is this a Stroke Patient?: No Acute Heart Failure - Is this a Heart Failure Patient?: No
--- NOTE | 2019-08-25 21:07 | PDOC PROGRESS REPORT ---
Subjective Progress Note for:: 08/25/19 Subjective:: Patient has a bed at [facility], will transfer tomorrow Reason For Visit: SEPSIS,LEFT FOOT INFECTION, OSTEOMYELITIS,T2DM, Physical Exam Vital Signs: Temp Pulse Resp BP Pulse Ox 97.9 F 72 19 127/55 H 100 08/25/19 19:41 08/25/19 19:41 08/25/19 19:41 08/25/19 19:41 08/25/19 19:41 Intake & Output 08/24/19 08/25/19 08/26/19 06:59 06:59 06:59 Intake Total 3705 1261 1765 Output Total 1100 2325 600 Balance 2605 -1064 1165 Weight 109.3 kg 110.4 kg 110.4 kg General appearance: PRESENT: no acute distress Eye exam: PRESENT: PERRLA Respiratory exam: PRESENT: clear to auscultation teetee Cardiovascular exam: PRESENT: +S1, +S2 GI/Abdominal exam: PRESENT: soft Neurological exam: PRESENT: alert Results Laboratory Results: 08/25/19 05:41 08/25/19 05:41 08/25/19 08/25/19 05:41 05:41 WBC 6.1 RBC 3.05 L Hgb 9.0 L Hct 26.8 L MCV 88 MCH 29.5 MCHC 33.6 RDW 16.3 H Plt Count 211 Seg Neutrophils % 68.9 Sodium 135.7 L Potassium 5.7 H Chloride 108 H Carbon Dioxide 23 Anion Gap 5 BUN 45 H Creatinine 0.89 Est GFR ( Amer) > 60 Glucose 154 H Calcium 8.6 Total Bilirubin 0.4 AST 22 Alkaline Phosphatase 68 Total Protein 5.9 L Albumin 2.5 L 08/05/19 08/06/19 08/06/19 16:19 08:45 09:12 Creatine Kinase 70 Troponin I < 0.012 0.029 Impressions: Lower Extremity MRI 08/05/19 00:00 IMPRESSION: No MR evidence for osteomyelitis, given the limitations as above. Postsurgical change fifth digit with minor cellulitis near the fifth metatarsal stump copyright 2010 [employer]- All Rights Reserved Foot X-Ray 08/05/19 18:09 IMPRESSION: Moderate osteopenia throughout the left foot. 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 No radiographic evidence of osteomyelitis. And there is continued concern for osteomyelitis, MRI is more sensitive and specific for early changes. Chest CT 08/06/19 00:00 IMPRESSION: Partial clearing of the right lateral lower lobe airspace disease seen on CT chest 03/16/[address] abdomen and pelvis Head CT 08/06/19 00:00 IMPRESSION: No acute findings EVIDENCE OF ACUTE STROKE: NO. Chest X-Ray 08/07/19 06:00 IMPRESSION: NO SIGNIFICANT CHANGE IN APPEARANCE OF THE CHEST. Abdomen/Pelvis CT 08/08/19 00:00 IMPRESSION: 1. The right common femoral artery line has been removed and the patient has developed a right groin hematoma that measures 5.6 cm in AP diameter, 11.3 cm in transverse diameter and 16 cm in craniocaudal diameter. 2. Colonic diverticulosis without diverticulitis. 3. Improved aeration of the lower lobes. 4. Other findings as detailed above. Aorta w/Runoff CTA 08/08/19 00:00 IMPRESSION: 1. Right gurney hematoma that measures 5.6 cm in AP diameter, 11.3 cm in transverse diameter and 16 cm in craniocaudal diameter. There is no extravasation or pseudoaneurysm of the right common femoral artery. 2. No high-grade stenosis, dissection or aneurysm of the arterial vasculature of the lower extremities. Assessment & Plan - Diagnosis (1) Sepsis Qualifiers: Sepsis type: sepsis due to unspecified organism Sepsis acute organ dysfunction status: with acute organ dysfunction Severe sepsis acute organ dysfunction type: acute renal failure Acute renal failure type: unspecified Severe sepsis shock status: unspecified Qualified Code(s): A41.9 - Sepsis, unspecified organism; R65.20 - Severe sepsis without septic shock; N17.9 - Acute kidney failure, unspecified Is this a current diagnosis for this admission?: Yes (2) Morbid (severe) obesity due to excess calories Is this a current diagnosis for this admission?: Yes (3) Diabetes mellitus type 2 in obese Is this a current diagnosis for this admission?: Yes (4) Acute blood loss anemia Is this a current diagnosis for this admission?: Yes (5) Decubitus ulcer of left heel, stage 3 Is this a current diagnosis for this admission?: Yes - Time Time Spent with patient: 25-34 minutes Level of Care: MEDICAL
[2019-08-25] MEDS: SERTRALINE HCL 50 MG TABLET PO SCH (21:57)
[2019-08-26] MEDS: CLINDAMYCIN 600 MG/D5W RTU 600 MG/50 ML RTUPB IV SCH ×2 (05:24→11:36)
[2019-08-26] MEDS: NYSTATIN TOPICAL POWDER 15 GM TP SCH (05:25)
[2019-08-26 06:11] LABS: ABSOLUTE EOSINOPHILS # (AUTO) 0.2 10^3/uL (0.0-0.6); ABSOLUTE LYMPHOCYTES (AUTO) 1.3 10^3/uL (0.5-4.7); ABSOLUTE MONOCYTES (AUTO) 0.5 10^3/uL (0.1-1.4); BASOPHILS % (AUTO) 0.8 % (0-2); EOSINOPHILS % (AUTO) 4.6 % (0-6); HEMATOCRIT 25.3 % (37.9-51.0); HEMOGLOBIN 8.6 g/dL (13.5-17.0); LYMPHOCYTES % (AUTO) 25.6 % (13-45); MEAN CORPUSCULAR HEMOGLOBIN 29.7 pg (27.0-33.4); MEAN CORPUSCULAR HGB CONC 33.8 g/dL (32.0-36.0); MEAN CORPUSCULAR VOLUME 88 fl (80-97); MONOCYTES % (AUTO) 9.6 % (3-13); PLATELET COUNT 208 10^3/uL (150-450); RED BLOOD COUNT 2.88 10^6/uL (4.35-5.55); RED CELL DISTRIBUTION WIDTH 16.2 % (11.5-14.0); SEGMENTED NEUTROPHILS % (AUTO) 59.4 % (42-78); TOTAL CELLS COUNTED % (AUTO) 100 %
[2019-08-26 06:40] LABS: ALBUMIN 2.5 g/dL (3.5-5.0); ALKALINE PHOSPHATASE 64 U/L (38-126); ASPARTATE AMINO TRANSFERASE 22 U/L (17-59); BILIRUBIN,TOTAL 0.4 mg/dL (0.2-1.3); BLOOD UREA NITROGEN 46 mg/dL (7-20); CALCIUM 8.7 mg/dL (8.4-10.2); CARBON DIOXIDE 25 mmol/L (22-30); CHLORIDE 107 mmol/L (98-107); GLUCOSE 119 mg/dL (75-110)
[2019-08-26 06:45] LABS: POTASSIUM 6.1 mmol/L (3.6-5.0)
[2019-08-26 06:50] LABS: ANION GAP 4 (5-19)
[2019-08-26] MEDS: INSULIN REG, HUMAN 100 UNIT/ML 3 ML VIAL (PYX) SUBCUT SCH ×2 (07:52→11:36)
[2019-08-26] MEDS: SODIUM POLYSTYRENE SULFONATE 15 GM/60 ML PO SCH ×2 (07:58→11:35)
[2019-08-26] MEDS ORDERED: SODIUM POLYSTYRENE SULFONATE 15 GM/60 ML ONE (11:32)
[2019-08-26] MEDS: OMEGA-3 ACID ETHYL ESTERS 1 GM CAPSULE PO SCH (11:35)
[2019-08-26] MEDS: PREGABALIN 50 MG CAPSULE PO SCH (11:36)
[2019-08-26] MEDS: COLLAGENASE CLOSTRIDIUM HIST. OINT 30 GM TP SCH (11:53)
[2019-08-26] MEDS: MULTIVITS W-MIN/IRON SOLN 60 ML PO SCH (11:53)
[2019-08-26 12:54] VITALS: BP 139/63
== END 2019-08-26 14:59 | DRG 871 ==
LOC: ER 14:04 → EH 19:17 → 3S 23:39 → ICU 08-06 07:08 → 4W 08-11 13:28 → 4N 08-14 02:20
PROVIDERS: ADMIT Internal Medicine; ATTEND Internal Medicine
PROC: 04HK33Z Insertion of Infusion Device into Right Femoral Artery, Percutaneous Approach (ICD-10-PCS; principal; 2019-08-06)
PROC: 02HV33Z Insertion of Infusion Device into Superior Vena Cava, Percutaneous Approach (ICD-10-PCS; 2019-08-06)
PROC: B548ZZA Ultrasonography of Superior Vena Cava, Guidance (ICD-10-PCS; 2019-08-06)
PROC: 30233N1 Transfusion of Nonautologous Red Blood Cells into Peripheral Vein, Percutaneous Approach (ICD-10-PCS; 2019-08-08)
PROC: 30233R1 Transfusion of Nonautologous Platelets into Peripheral Vein, Percutaneous Approach (ICD-10-PCS; 2019-08-08)
PROC: 5A09557 Assistance with Respiratory Ventilation, Greater than 96 Consecutive Hours, Continuous Positive Airway Pressure (ICD-10-PCS; 2019-08-08)
PROC: 0HDNXZZ Extraction of Left Foot Skin, External Approach (ICD-10-PCS; 2019-08-19)
DX: A41.9 Sepsis, unspecified organism (principal); L89.623 Pressure ulcer of left heel, stage 3; G93.41 Metabolic encephalopathy; R65.21 Severe sepsis with septic shock; I97.638 Postprocedural hematoma of a circulatory system organ or structure following other circulatory system procedure; N17.9 Acute kidney failure, unspecified; D62 Acute posthemorrhagic anemia; E11.51 Type 2 diabetes mellitus with diabetic peripheral angiopathy without gangrene; I44.1 Atrioventricular block, second degree; D69.6 Thrombocytopenia, unspecified; E87.5 Hyperkalemia; Z66 Do not resuscitate; E11.22 Type 2 diabetes mellitus with diabetic chronic kidney disease; I12.9 Hypertensive chronic kidney disease with stage 1 through stage 4 chronic kidney disease, or unspecified chronic kidney disease; R29.810 Facial weakness; E78.5 Hyperlipidemia, unspecified; E66.01 Morbid (severe) obesity due to excess calories; F32.9 Major depressive disorder, single episode, unspecified; E11.621 Type 2 diabetes mellitus with foot ulcer; L97.519 Non-pressure chronic ulcer of other part of right foot with unspecified severity; Z20.828 Contact with and (suspected) exposure to other viral communicable diseases; Z99.3 Dependence on wheelchair; Y83.8 Other surgical procedures as the cause of abnormal reaction of the patient, or of later complication, without mention of misadventure at the time of the procedure; Z89.422 Acquired absence of other left toe(s); Z79.4 Long term (current) use of insulin; Z88.0 Allergy status to penicillin; N18.9 Chronic kidney disease, unspecified; Z88.1 Allergy status to other antibiotic agents; Z68.39 Body mass index [BMI] 39.0-39.9, adult; Z79.51 Long term (current) use of inhaled steroids
CPT/HCPCS: 36415; 36430; 36556; 36600; 36620; 70450; 71045; 71046; 71260; 74176; 74177; 75635; 80048; 80053; 80202; 81001; 82140; 82270; 82272; 82533; 82550; 82803; 82962; 83036; 83605; 83690; 83735; 84100; 84145; 84443; 84484; 85025; 85027; 85610; 85652; 85730; 86140; 86850; 86900; 86901; 86920; 87040; 87070; 87086; 87635; 92950; 93005; 93010; 93306; 94660; 99221; 99285; 99291; 99292; C9803; J1644; J1720; J1815; J2060; J2543; J3370; J3490; J7030; J7050; J7060; J7120; P9016; P9035; P9041

== ENCOUNTER 2019-10-06 13:10 | Inpatient (IN) | payer OTHER, MEDICARE ==
[2019-10-06] MEDS ORDERED: DEXTROSE 50%-WATER 25 GM/50 ML DISP.SYRIN IV ONE ×2 (13:49)
[2019-10-06] MEDS: RINGERS SOLUTION,LACTATED 1,000 ML IV PRN ×4 (13:50→23:56)
[2019-10-06 14:10] LABS: ABSOLUTE LYMPHOCYTES (AUTO) 0.8 10^3/uL (0.5-4.7); ABSOLUTE MONOCYTES (AUTO) 0.3 10^3/uL (0.1-1.4); ABSOLUTE NEUT (AUTO) 5.4 10^3/uL (1.7-8.2); BASOPHILS % (AUTO) 0.3 % (0-2); EOSINOPHILS % (AUTO) 0.2 % (0-6); HEMATOCRIT 31.4 % (37.9-51.0); HEMOGLOBIN 10.4 g/dL (13.5-17.0); LYMPHOCYTES % (AUTO) 11.8 % (13-45); MEAN CORPUSCULAR HEMOGLOBIN 29.5 pg (27.0-33.4); MEAN CORPUSCULAR HGB CONC 33.3 g/dL (32.0-36.0); MEAN CORPUSCULAR VOLUME 89 fl (80-97); MONOCYTES % (AUTO) 4.7 % (3-13); PLATELET COUNT 172 10^3/uL (150-450); RED BLOOD COUNT 3.54 10^6/uL (4.35-5.55); RED CELL DISTRIBUTION WIDTH 16.6 % (11.5-14.0); TOTAL CELLS COUNTED % (AUTO) 100 %; WHITE BLOOD COUNT 6.5 10^3/uL (4.0-10.5)
[2019-10-06 14:11] LABS: VENOUS BLOOD BASE EXCESS 0.7 mmol/L; VENOUS BLOOD HCO3 29.1 mmol/L (20-32); VENOUS BLOOD PCO2 58.3 mmHg (35-63); VENOUS BLOOD PH 7.32 (7.30-7.42)
[2019-10-06 14:15] LABS: INTERNATIONAL RATION (INR) 1.09; PROTHROMBIN TIME 14.1 SEC (11.4-15.4)
[2019-10-06 14:30] LABS: ALBUMIN 3.6 g/dL (3.5-5.0); ALKALINE PHOSPHATASE 75 U/L (38-126); ANION GAP 6 (5-19); ASPARTATE AMINO TRANSFERASE 24 U/L (17-59); BILIRUBIN,TOTAL 0.4 mg/dL (0.2-1.3); BLOOD UREA NITROGEN 55 mg/dL (7-20); CALCIUM 9.6 mg/dL (8.4-10.2); CARBON DIOXIDE 27 mmol/L (22-30); CHLORIDE 105 mmol/L (98-107); POTASSIUM 4.6 mmol/L (3.6-5.0); TOTAL PROTEIN 7.6 g/dL (6.3-8.2)
--- NOTE | 2019-10-06 14:30 | EKG REPORT ---
SEVERITY:- BORDERLINE ECG - SINUS RHYTHM BORDERLINE LEFT AXIS DEVIATION BORDERLINE PROLONGED QT INTERVAL : Confirmed by: Margie Rios MD 06-Oct-2019 14:29:50
[2019-10-06 14:40] LABS: GLUCOSE 45 mg/dL (75-110)
[2019-10-06] MEDS ORDERED: PIPERACILLIN/TAZOBACTAM 3.375 GM VIAL IV ONE (17:33)
[2019-10-06] MEDS ORDERED: VANCOMYCIN HCL INJ 1000 MG VIAL IV ONE (17:33)
--- NOTE | 2019-10-06 17:51 | ER Document Report ---
ED General - General Chief Complaint: Weakness Stated Complaint: DIRECT ADMIT Time Seen by Provider: 10/06/19 16:32 Primary Care Provider: CINTHIA SHAVER MD [Primary Care Provider] - Follow up as needed Notes: 69 year old male who has been having recurrent episodes of near syncope and confusion at home over the past 2 days, patient complains of feeling cold and clammy at home as well as having some sweats, denies any measured fevers. Denies any nausea, vomiting, diarrhea. 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 Shaver's office. Dr. Bowman wanted him to be a direct admit to the hospital for possible sepsis however the patient was hypotensive and there were no beds available immediately so he was sent to the emergency department where he was evaluated by me. TRAVEL OUTSIDE OF THE [place] IN LAST 30 DAYS: No - Related Data Allergies/Adverse Reactions: erythromycin base [Erythromycin Base] Allergy (Verified 08/05/19 15:06) Penicillins Allergy (Verified 08/05/19 15:06) Past Medical History - General Information source: Patient - Social History Smoking Status: Former Smoker Chew tobacco use (# tins/day): No Frequency of alcohol use: None Drug Abuse: None Family History: Reviewed & Not Pertinent - Past Medical History Cardiac Medical History: Reports: Hx Hypercholesterolemia, Hx Hypertension Denies: Hx Atrial Fibrillation, Hx Coronary Artery Disease, Hx DVT, Hx Pulmonary Embolism Pulmonary Medical History: Reports: Hx Asthma, Hx Sleep Apnea Denies: Hx COPD Neurological Medical History: Denies: Hx Seizures Endocrine Medical History: Reports: Hx Diabetes Mellitus Type 2. Denies: Hx Diabetes Mellitus Type 1, Hx Hyperthyroidism, Hx Hypothyroidism Renal/ Medical History: Denies: Hx Peritoneal Dialysis GI Medical History: Denies: Hx Cirrhosis, Hx Crohn's Disease, Hx Hepatitis, Hx Ulcerative Colitis Musculoskeletal Medical History: Reports Hx Arthritis, Denies Hx Gout Skin Medical History: Denies Hx Eczema, Denies Hx Psoriasis Psychiatric Medical History: Reports: Hx Depression Infectious Medical History: Denies: Hx Hepatitis Past Surgical History: Reports: Hx Orthopedic Surgery - Bilateral knees, Back, Right armpit - Immunizations Hx Diphtheria, Pertussis, Tetanus Vaccination: Yes Review of Systems - Review of Systems Constitutional: See HPI, Chills, Diaphoresis, Malaise, Weakness. denies: Fever EENT: No symptoms reported Cardiovascular: See HPI, Other - Near syncope. Respiratory: No symptoms reported Gastrointestinal: No symptoms reported Neurological/Psychological: See HPI - Syncope. -: Yes All other systems reviewed and negative Physical Exam - Vital signs Vitals: Pulse Ox 100 10/06/19 13:10 Interpretation: Hypotensive - Notes Notes: On initial examination patient was confused and had a decreased level of consciousness, blood sugar was found to be 45, after dextrose was administered patient was much more awake and had the following examination. GENERAL: Alert, interacts well. No acute distress. Morbidly obese HEAD: Normocephalic, atraumatic EYES: Pupils equal, round and reactive to light, extraocular movements intact. ENT: Oral mucosa moist, tongue midline. NECK: Full range of motion, supple, trachea midline. LUNGS: Clear to auscultation bilaterally, no wheezes, rales or rhonchi, no respiratory distress. HEART: Regular rate and rhythm, no murmurs, gallops, rubs. ABDOMEN: Soft, nontender, nondistended, bowel sounds present in all 4 quadrants. EXTREMITIES: Moves all 4 extremities spontaneously, no edema, radial and genaro salis pedis pulses 2/4 bilaterally. No cyanosis. NEUROLOGICAL: Alert and oriented x3, normal speech, no facial droop, biceps and patellar DTRs 2+ bilaterally. PSYCH: Normal mood, normal affect. SKIN: Warm, Dry, normal turgor. Course - Re-evaluation Re-evalutation: 10/06/19 19:03 CBC shows anemia with hemoglobin 10.4, coags and VBG unremarkable, CMP shows acute on chronic renal failure, lactic acid is normal x2, urinalysis does not show any signs of infection. EKG is not ischemic. Patient improved significantly after a liter of fluid and some glucose. Discussed with Dr. Bowman, he request that we start Zosyn and vancomycin as ordered as an outpatient. This is been started. Patient will be admitted to the [facility]. - Vital Signs Vital signs: Temp Pulse Resp BP Pulse Ox 97.5 F 66 16 82/39 L 99 10/06/19 14:02 10/06/19 13:19 10/06/19 13:19 10/06/19 13:19 07/27/20 13:19 - Laboratory Result Diagrams: 10/06/19 13:50 10/06/19 13:50 Laboratory results interpreted by me: 10/06/19 10/06/19 10/06/19 13:48 13:50 13:50 RBC 3.54 L Hgb 10.4 L Hct 31.4 L RDW 16.6 H Lymph % (Auto) 11.8 L Seg Neutrophils % 83.0 H BUN 55 H Creatinine 1.38 H Est GFR (MDRD) Non-Af 51 L Glucose 45 L POC Glucose 54 L Lactic Acid Urine Glucose (UA) 10/06/19 10/06/19 16:43 18:09 RBC Hgb Hct RDW Lymph % (Auto) Seg Neutrophils % BUN Creatinine Est GFR (MDRD) Non-Af Glucose POC Glucose Lactic Acid 0.6 L Urine Glucose (UA) 50 H - EKG Interpretation by Me Additional EKG results interpreted by me: 10/06/19 19:04 EKG shows sinus rhythm at a rate of 79, left axis deviation, normal intervals, no ST segment elevations or depressions, no T wave inversions per my interpretation. Discharge - Discharge Clinical Impression: Hypoglycemia, Near syncope, Acute kidney injury superimposed on chronic kidney disease, Diabetes mellitus type 2 in obese Hypotension Qualifiers: Hypotension type: unspecified hypotension type Qualified Code(s): I95.9 - Hypotension, unspecified Condition: Fair Disposition: ADMITTED INPATIENT Admitting Provider: Ese Unit Admitted: IMCU Referrals: CINTHIA SHAVER MD [Primary Care Provider] - Follow up as needed
[2019-10-06 18:36] LABS: APPEARANCE,URINE CLEAR; BILIRUBIN,URINE NEGATIVE (NEGATIVE); COLOR,URINE YELLOW; GLUCOSE, URINE 50 mg/dL (NEGATIVE); KETONES,URINE NEGATIVE (NEGATIVE); PROTEIN,URINE NEGATIVE (NEGATIVE); UROBILINOGEN,URINE NEGATIVE mg/dL (<2.0)
--- NOTE | 2019-10-06 19:46 | RADIOLOGY REPORT (SQ) ---
EXAM DESCRIPTION: CHEST SINGLE VIEW IMAGES COMPLETED DATE/TIME: 10/06/2019 7:14 pm REASON FOR STUDY: weakness, possible sepsis COMPARISON: 08/07/2019 EXAM PARAMETERS: NUMBER OF VIEWS: One view. TECHNIQUE: Single frontal radiographic view of the chest acquired. RADIATION DOSE: NA LIMITATIONS: None. FINDINGS: LUNGS AND PLEURA: Mild elevation of the right hemidiaphragm, unchanged finding. No acute pulmonary consolidation. No pneumothorax or pleural effusion. MEDIASTINUM AND HILAR STRUCTURES: No masses. Contour normal. HEART AND VASCULAR STRUCTURES: Heart normal in size. Normal vasculature. BONES: No acute findings. HARDWARE: Interval removal of right internal jugular central line. OTHER: No other significant finding. IMPRESSION: 1. Interval removal of right venous central line since the prior study dated 08/07/2019. 2. No acute pulmonary findings. TECHNICAL DOCUMENTATION: JOB ID: [id number] 2010 [employer]- All Rights Reserved Reading location - IP/workstation name: [email or web address]
[2019-10-06] MEDS ORDERED: VANCOMYCIN HCL 0 MG in DEXTROSE 5%-WATER 250 ML IV NR (21:45)
--- NOTE | 2019-10-06 21:46 | PDOC H&P ---
History of Present Illness Admission Date/PCP: 10/06/19 18:54 CINTHIA SHAVER MD History of Present Illness: TAYLOR SMITH is a 69 year old male, Patient came to the office for follow-up evaluation, he was just discharged from the custodial after undergoing rehabilitation, in the office patient depressed sensorium, he cannot answer questions, the blood pressure recorded was low, he was accompanied by the family she was concerned that may be he is septic again, he had a similar presentation the last time he was admitted to the hospital. The blood pressure recorded in the office was in the low 80s systolic, I felt patient needed to be admitted to the hospital, no bed was available for direct admission to the hospital so patient was referred to the emergency room for evaluation.In the Emergency room the [id number] glucose was 54, he was treated with 50% dextrose ,patient regained full consciousness, the serum creatinine was 1.3, patient blood pressure was very low he was treated with boluses of normal saline, he was admitted to intermediate care unit. There was no immediate source of infection that was apparent, he has an ulcer in the left heel that was wrapped, he also had the ulcer the last time he was in the hospital., He was hemodynamically unstable on the floor, he required vasopressor dopamine at 5 MCG per KG per minute to maintain blood pressure was given fluid Ringer's lactate, normal saline and also started on stress dose hydrocortisone 50 mg IV every 8 to normalize blood pressure. Patient blood pressure was normalized after protracted intervention throughout the night. Is also empirically on IV antibiotic to cover healthcare associated pathogens including MRSA, gram- negative and gram-positive organisms Past Medical History Cardiac Medical History: Reports: Hyperlipidema, Hypertension Pulmonary Medical History: Reports: Asthma, Sleep Apnea Endocrine Medical History: Reports: Diabetes Mellitus Type 2 Renal/ Medical History: Reports: Chronic Kidney Disease Musculoskeltal Medical History: Reports: Arthritis Psychiatric Medical History: Reports: Depression Hematology: Reports: Anemia Past Surgical History Past Surgical History: Reports: Orthopedic Surgery - Bilateral knees, Back, Right armpit Social History Smoking Status: Former Smoker Electronic Cigarette use?: No Frequency of Alcohol Use: None Hx Recreational Drug Use: No Drugs: None Hx Prescription Drug Abuse: No Family History Family History: Reviewed & Not Pertinent Parental Family History Reviewed: Yes Children Family History Reviewed: Yes Sibling(s) Family History Reviewed.: Yes Medication/Allergy Home Medications: Albuterol Sulfate [Proair HFA Inhalation Aerosol 8.5 gm MDI] 2 puff IH Q4HP PRN 03/17/19 Tamsulosin HCl [Flomax 0.4 mg Cap.sr] 0.4 mg PO DAILY 03/17/19 Losartan/Hydrochlorothiazide [Losartan-Hctz 100-25 mg Tab] 1 each PO DAILY 06/12/19 Amlodipine Besylate [Norvasc 5 mg Tablet] 5 mg PO DAILY 08/05/19 Furosemide [Lasix 40 mg Tablet] 40 mg PO DAILY 08/05/19 Insulin Lispro Protamin/Lispro [Humalog Mix 50-50 100 unit/mL] 12 unit SUBCUT BID 08/05/19 [place]-3/Dha/Epa/Fish Oil [Fish Oil 1,000 mg Softgel] 1 each PO DAILY 08/05/19 Pentoxifylline 400 mg PO TID 08/05/19 Sertraline HCl 50 mg PO QHS 08/05/19 Febuxostat 40 mg PO BID 10/06/19 Sodium Polystyrene Sulfonate [Kayexalate 15 Gm/60 Ml Susp 60 Ml] 15 gm PO SA@1000 10/06/19 Allergies/Adverse Reactions: erythromycin base [Erythromycin Base] Allergy (Verified 08/05/19 15:06) Penicillins Allergy (Verified 08/05/19 15:06) Review of Systems ROS unobtainable: Due to mental status Physical Exam Vital Signs: Temp Pulse Resp BP Pulse Ox 97.5 F 66 23 H 98/84 L 100 10/06/19 14:02 10/06/19 13:19 10/06/19 21:01 10/06/19 21:01 10/06/19 21:01 Intake & Output 10/05/19 10/06/19 10/07/19 06:59 06:59 06:59 Intake Total 3000 Balance 3000 Weight 108.862 kg General appearance: PRESENT: obese Head exam: PRESENT: atraumatic, normocephalic Eye exam: PRESENT: PERRLA Ear exam: PRESENT: normal external ear exam Mouth exam: PRESENT: dry mucosa Neck exam: PRESENT: full ROM Respiratory exam: PRESENT: clear to auscultation teetee Cardiovascular exam: PRESENT: RRR, +S1, +S2 Vascular exam: PRESENT: normal capillary refill GI/Abdominal exam: PRESENT: normal bowel sounds, soft Rectal exam: PRESENT: deferred Neurological exam: PRESENT: altered Psychiatric exam: PRESENT: appropriate affect, normal mood Skin exam: PRESENT: dry, intact, warm Results Laboratory Results: 10/06/19 13:50 10/06/19 13:50 10/06/19 10/06/19 10/06/19 13:50 13:50 13:50 WBC 6.5 RBC 3.54 L Hgb 10.4 L Hct 31.4 L MCV 89 MCH 29.5 MCHC 33.3 RDW 16.6 H Plt Count 172 Seg Neutrophils % 83.0 H VBG pH 7.32 VBG pCO2 58.3 VBG HCO3 29.1 VBG Base Excess 0.7 Sodium 137.7 Potassium 4.6 Chloride 105 Carbon Dioxide 27 Anion Gap 6 BUN 55 H Creatinine 1.38 H Est GFR ( Amer) > 60 Glucose 45 L Lactic Acid Calcium 9.6 Total Bilirubin 0.4 AST 24 Alkaline Phosphatase 75 Total Protein 7.6 Albumin 3.6 Urine Color Urine Appearance Urine pH Ur Specific [place] Urine Protein Urine Glucose (UA) Urine Ketones Urine Blood 10/06/19 10/06/19 10/06/19 13:50 16:43 18:09 WBC RBC Hgb Hct MCV MCH MCHC RDW Plt Count Seg Neutrophils % VBG pH VBG pCO2 VBG HCO3 VBG Base Excess Sodium Potassium Chloride Carbon Dioxide Anion Gap BUN Creatinine Est GFR ( Amer) Glucose Lactic Acid 1.2 0.6 L Calcium Total Bilirubin AST Alkaline Phosphatase Total Protein Albumin Urine Color YELLOW Urine Appearance CLEAR Urine pH 5.0 Ur Specific [place] 1.010 Urine Protein NEGATIVE Urine Glucose (UA) 50 H Urine Ketones NEGATIVE Urine Blood NEGATIVE 10/06/19 19:57 WBC RBC Hgb Hct MCV MCH MCHC RDW Plt Count Seg Neutrophils % VBG pH VBG pCO2 VBG HCO3 VBG Base Excess Sodium Potassium Chloride Carbon Dioxide Anion Gap BUN Creatinine Est GFR ( Amer) Glucose Lactic Acid 0.9 Calcium Total Bilirubin AST Alkaline Phosphatase Total Protein Albumin Urine Color Urine Appearance Urine pH Ur Specific [place] Urine Protein Urine Glucose (UA) Urine Ketones Urine Blood Impressions: Chest X-Ray 10/06/19 18:19 IMPRESSION: 1. Interval removal of right venous central line since the prior study dated 08/07/2019. 2. No acute pulmonary findings. Assessment & Plan - Diagnosis (1) Hypotension Qualifiers: Hypotension type: unspecified hypotension type Qualified Code(s): I95.9 - Hypotension, unspecified Is this a current diagnosis for this admission?: Yes Plan: Patient is hemodynamically unstable, patient started on pressors dopamine, IV fluid normal saline hydrocortisone to stabilize blood pressure (2) T2DM (type 2 diabetes mellitus) Qualifiers: Diabetes mellitus exterminator helper insulin use: with penitentiary use Diabetes mellitus complication status: with kidney complications Diabetes mellitus complication detail: with chronic kidney disease Chronic kidney disease stage: stage 3 (moderate) Qualified Code(s): E11.22 - Type 2 diabetes mellitus with diabetic chronic kidney disease; N18.3 - Chronic kidney disease, stage 3 (moderate); Z79.4 - salvage determiner (current) use of insulin Is this a current diagnosis for this admission?: Yes (3) Hypoglycemia Is this a current diagnosis for this admission?: Yes Plan: Hypoglycemia could be related to sepsis, she was treated with 50% dextrose (4) Sepsis Qualifiers: Sepsis type: sepsis due to unspecified organism Sepsis acute organ dysfunction status: with acute organ dysfunction Severe sepsis acute organ dysfunction type: acute renal failure Acute renal failure type: unspecified Severe sepsis shock status: unspecified Qualified Code(s): A41.9 - Sepsis, unspecified organism; R65.20 - Severe sepsis without septic shock; N17.9 - Acute kidney failure, unspecified Is this a current diagnosis for this admission?: Yes Plan: The source of the sepsis is not clear, patient empirically started on antibiotic to cover healthcare associated pathogens, including MRSA, gram-negative and gram-positive organisms
[2019-10-06] MEDS ORDERED: DEXTROSE 50%-WATER 25 GM/50 ML DISP.SYRIN IV PRN ×2 (21:47)
[2019-10-06] MEDS ORDERED: DEXTROSE 40% GEL 15 GM TUBE PO PRN ×2 (21:47)
[2019-10-06] MEDS ORDERED: GLUCAGON,HUMAN RECOMB 1 MG INJ IM PRN (21:47)
[2019-10-06 22:33] LABS: PHOSPHORUS 4.4 mg/dL (2.5-4.5)
[2019-10-06 22:47] LABS: INTERNATIONAL RATION (INR) 1.02; PROTHROMBIN TIME 13.4 SEC (11.4-15.4)
[2019-10-06 22:55] LABS: FREE T4 (FREE THYROXINE) 1.36 ng/dL (0.78-2.19)
[2019-10-06 23:09] LABS: CREATINE KINASE MB 3.35 ng/mL (<4.55)
[2019-10-06 23:09] LABS: THYROID STIMULATING HORMONE 2.67 uIU/mL (0.47-4.68)
[2019-10-06 23:10] LABS: TROPONIN I < 0.012 ng/mL
[2019-10-06] MEDS ORDERED: AZTREONAM INJ 1 GM VIAL ONE (23:45)
[2019-10-06] MEDS: AZTREONAM 1 GM in DEXTROSE 5%-WATER 50 ML IV SCH (23:48)
[2019-10-06] MEDS ORDERED: VANCOMYCIN HCL INJ 1000 MG VIAL IV PRN (23:52)
[2019-10-06] MEDS: INSULIN LISPRO 100 UNIT/ML 3 ML VIAL SUBCUT SCH (23:54)
[2019-10-06] MEDS: HEPARIN SOD (PORCINE) 5,000 UNIT/ML 1 ML VIAL SUBCUT SCH (23:54)
[2019-10-06] MEDS: SERTRALINE HCL 50 MG TABLET PO SCH (23:54)
[2019-10-06] MEDS: DOPAMINE HCL/DEXTROSE 5%-WATER 800 MG/250 ML RTUINJ IV PRN (23:56)
[2019-10-07 04:57] LABS: ABSOLUTE EOSINOPHILS # (AUTO) 0.2 10^3/uL (0.0-0.6); ABSOLUTE LYMPHOCYTES (AUTO) 1.3 10^3/uL (0.5-4.7); ABSOLUTE MONOCYTES (AUTO) 0.5 10^3/uL (0.1-1.4); ABSOLUTE NEUT (AUTO) 3.7 10^3/uL (1.7-8.2); BASOPHILS % (AUTO) 0.7 % (0-2); EOSINOPHILS % (AUTO) 3.1 % (0-6); HEMATOCRIT 31.9 % (37.9-51.0); HEMOGLOBIN 10.6 g/dL (13.5-17.0); LYMPHOCYTES % (AUTO) 23.4 % (13-45); MEAN CORPUSCULAR HEMOGLOBIN 29.5 pg (27.0-33.4); MEAN CORPUSCULAR HGB CONC 33.2 g/dL (32.0-36.0); MEAN CORPUSCULAR VOLUME 89 fl (80-97); MONOCYTES % (AUTO) 8.7 % (3-13); PLATELET COUNT 169 10^3/uL (150-450); RED BLOOD COUNT 3.59 10^6/uL (4.35-5.55); RED CELL DISTRIBUTION WIDTH 16.6 % (11.5-14.0); SEGMENTED NEUTROPHILS % (AUTO) 64.1 % (42-78); TOTAL CELLS COUNTED % (AUTO) 100 %; WHITE BLOOD COUNT 5.8 10^3/uL (4.0-10.5)
[2019-10-07 05:23] LABS: ALBUMIN 3.4 g/dL (3.5-5.0); ALKALINE PHOSPHATASE 74 U/L (38-126); ANION GAP 6 (5-19); ASPARTATE AMINO TRANSFERASE 26 U/L (17-59); BILIRUBIN,DIRECT 0.1 mg/dL (0.0-0.4); BILIRUBIN,TOTAL 0.5 mg/dL (0.2-1.3); BLOOD UREA NITROGEN 44 mg/dL (7-20); CALCIUM 9.3 mg/dL (8.4-10.2); CARBON DIOXIDE 27 mmol/L (22-30); CHLORIDE 105 mmol/L (98-107); CHOLESTEROL 140.66 mg/dL (0-200); GLUCOSE 146 mg/dL (75-110); POTASSIUM 4.2 mmol/L (3.6-5.0); TOTAL PROTEIN 7.3 g/dL (6.3-8.2); TRIGLYCERIDES 88 mg/dL (<150)
[2019-10-07 05:34] LABS: DIRECT LDL 68 mg/dL (<100)
[2019-10-07 05:36] LABS: CREATINE KINASE MB 3.99 ng/mL (<4.55); TROPONIN I 0.016 ng/mL
[2019-10-07] MEDS ORDERED: VANCOMYCIN HCL 1,000 MG in DEXTROSE 5%-WATER 250 ML IV ONE ×2 (06:00→08:30)
[2019-10-07] MEDS: HEPARIN SOD (PORCINE) 5,000 UNIT/ML 1 ML VIAL SUBCUT SCH ×3 (06:03→22:05)
[2019-10-07] MEDS: AZTREONAM 1 GM in DEXTROSE 5%-WATER 50 ML IV SCH ×2 (06:03→13:34)
[2019-10-07] MEDS: HYDROCORTISONE SOD SUCCINATE INJ/PF 100 MG/2 ML SDV IV SCH ×3 (08:42→22:02)
[2019-10-07] MEDS: RINGERS SOLUTION,LACTATED 1,000 ML IV PRN ×2 (08:43→22:09)
[2019-10-07] MEDS: INSULIN LISPRO 100 UNIT/ML 3 ML VIAL SUBCUT SCH ×4 (08:47→22:04)
[2019-10-07 11:26] LABS: APPEARANCE,URINE CLEAR; BILIRUBIN,URINE NEGATIVE (NEGATIVE); COLOR,URINE STRAW; GLUCOSE, URINE >=500 mg/dL (NEGATIVE); KETONES,URINE NEGATIVE (NEGATIVE); LEUKOCYTE ESTERASE,URINE NEGATIVE (NEGATIVE); NITRITE,URINE NEGATIVE (NEGATIVE); PROTEIN,URINE NEGATIVE (NEGATIVE); URINE SPECIFIC GRAVITY 1.009; UROBILINOGEN,URINE NEGATIVE mg/dL (<2.0)
[2019-10-07 11:42] LABS: URINE AMPHETAMINES SCREEN NEGATIVE; URINE BARBITURATES SCREEN NEGATIVE; URINE COCAINE SCREEN NEGATIVE; URINE MARIJUANA (THC) SCREEN NEGATIVE; URINE METHADONE SCREEN NEGATIVE; URINE PHENCYCLIDINE SCREEN NEGATIVE
[2019-10-07 11:47] LABS: URINE BENZODIAZEPINES SCREEN NEGATIVE
[2019-10-07 12:32] LABS: CREATINE KINASE MB 2.74 ng/mL (<4.55); TROPONIN I 0.042 ng/mL
--- NOTE | 2019-10-07 20:16 | PDOC PROGRESS REPORT ---
Subjective Progress Note for:: 10/07/19 Subjective:: Patient seen by the bedside, he looks much better today, is awake is oriented is attentive, follows command, the blood pressure has normalized Reason For Visit: HYPOTENSION,HYPOGLYCEMIA,SEPSIS Physical Exam Vital Signs: Temp Pulse Resp BP Pulse Ox 98.4 F 102 H 18 129/49 H 98 10/07/19 15:21 10/07/19 19:00 10/07/19 15:21 10/07/19 19:00 10/07/19 15:21 Intake & Output 10/06/19 10/07/19 10/08/19 06:59 06:59 06:59 Intake Total 3120 2608 Output Total 2350 Balance 3120 258 Weight 96.8 kg General appearance: PRESENT: no acute distress Eye exam: PRESENT: PERRLA Respiratory exam: PRESENT: clear to auscultation teetee Cardiovascular exam: PRESENT: +S1, +S2 GI/Abdominal exam: PRESENT: soft Neurological exam: PRESENT: alert Results Laboratory Results: 10/07/19 04:04 10/07/19 04:04 10/06/19 10/06/19 10/06/19 13:50 13:50 19:57 WBC RBC Hgb Hct MCV MCH MCHC RDW Plt Count Seg Neutrophils % Sodium Potassium Chloride Carbon Dioxide Anion Gap BUN Creatinine Est GFR ( Amer) Glucose Lactic Acid 0.9 Calcium Phosphorus 4.4 Magnesium 2.4 H Total Bilirubin AST Alkaline Phosphatase Ammonia Total Protein Albumin Triglycerides Cholesterol LDL Cholesterol Direct VLDL Cholesterol HDL Cholesterol Amylase 38 Lipase 54.7 TSH 2.67 Free T4 1.36 Urine Color Urine Appearance Urine pH Ur Specific [place] Urine Protein Urine Glucose (UA) Urine Ketones Urine Blood Urine Nitrite Ur Leukocyte Esterase Urine WBC (Auto) Urine RBC (Auto) 10/06/19 10/07/19 10/07/19 22:20 04:04 04:04 WBC 5.8 RBC 3.59 L Hgb 10.6 L Hct 31.9 L MCV 89 MCH 29.5 MCHC 33.2 RDW 16.6 H Plt Count 169 Seg Neutrophils % 64.1 Sodium 137.7 Potassium 4.2 Chloride 105 Carbon Dioxide 27 Anion Gap 6 BUN 44 H Creatinine 1.21 Est GFR ( Amer) > 60 Glucose 146 H Lactic Acid Calcium 9.3 Phosphorus Magnesium Total Bilirubin 0.5 AST 26 Alkaline Phosphatase 74 Ammonia < 8.7 L Total Protein 7.3 Albumin 3.4 L Triglycerides 88 Cholesterol 140.66 LDL Cholesterol Direct 68 VLDL Cholesterol 18.0 HDL Cholesterol 49 Amylase Lipase TSH Free T4 Urine Color Urine Appearance Urine pH Ur Specific [place] Urine Protein Urine Glucose (UA) Urine Ketones Urine Blood Urine Nitrite Ur Leukocyte Esterase Urine WBC (Auto) Urine RBC (Auto) 10/07/19 10:52 WBC RBC Hgb Hct MCV MCH MCHC RDW Plt Count Seg Neutrophils % Sodium Potassium Chloride Carbon Dioxide Anion Gap BUN Creatinine Est GFR ( Amer) Glucose Lactic Acid Calcium Phosphorus Magnesium Total Bilirubin AST Alkaline Phosphatase Ammonia Total Protein Albumin Triglycerides Cholesterol LDL Cholesterol Direct VLDL Cholesterol HDL Cholesterol Amylase Lipase TSH Free T4 Urine Color STRAW Urine Appearance CLEAR Urine pH 7.0 Ur Specific [place] 1.009 Urine Protein NEGATIVE Urine Glucose (UA) >=500 H Urine Ketones NEGATIVE Urine Blood NEGATIVE Urine Nitrite NEGATIVE Ur Leukocyte Esterase NEGATIVE Urine WBC (Auto) 1 Urine RBC (Auto) 0 10/06/19 10/06/19 10/07/19 22:20 22:20 04:04 Creatine Kinase 81 149 CK-MB (CK-2) 3.35 Troponin I < 0.012 10/07/19 10/07/19 10/07/19 04:04 10:59 10:59 Creatine Kinase 128 CK-MB (CK-2) 3.99 2.74 Troponin I 0.016 0.042 Impressions: Chest X-Ray 10/06/19 18:19 IMPRESSION: 1. Interval removal of right venous central line since the prior study dated 08/07/2019. 2. No acute pulmonary findings. Assessment & Plan - Diagnosis (1) Hypotension Qualifiers: Hypotension type: unspecified hypotension type Qualified Code(s): I95.9 - Hypotension, unspecified Is this a current diagnosis for this admission?: Yes Plan: Reduce infusion rate to 100cc/hr (2) T2DM (type 2 diabetes mellitus) Qualifiers: Diabetes mellitus bed bug exterminator insulin use: with bed bug exterminator use Diabetes mellitus complication status: with kidney complications Diabetes mellitus complication detail: with chronic kidney disease Chronic kidney disease stage: stage 3 (moderate) Qualified Code(s): E11.22 - Type 2 diabetes mellitus with diabetic chronic kidney disease; N18.3 - Chronic kidney disease, stage 3 (moderate); Z79.4 - bed bug exterminator (current) use of insulin Is this a current diagnosis for this admission?: Yes (3) Hypoglycemia Is this a current diagnosis for this admission?: Yes Plan: Resolved (4) Sepsis Qualifiers: Sepsis type: sepsis due to unspecified organism Sepsis acute organ dysfunction status: with acute organ dysfunction Severe sepsis acute organ dysfunction type: acute renal failure Acute renal failure type: unspecified Severe sepsis shock status: unspecified Qualified Code(s): A41.9 - Sepsis, unspecified organism; R65.20 - Severe sepsis without septic shock; N17.9 - Acute kidney failure, unspecified Is this a current diagnosis for this admission?: Yes Plan: Continue IV antibiotic - Time Time Spent with patient: 35 or more minutes Level of Care: IMCU Medications reviewed and adjusted accordingly: Yes Anticipated discharge: Home Anticipated DC Timeframe: Other
[2019-10-07] MEDS: SERTRALINE HCL 50 MG TABLET PO SCH (22:02)
[2019-10-07] MEDS: VANCOMYCIN HCL 750 MG in DEXTROSE 5%-WATER 250 ML IV SCH (22:08)
[2019-10-07] MEDS: DOPAMINE HCL/DEXTROSE 5%-WATER 800 MG/250 ML RTUINJ IV PRN (22:09)
[2019-10-08] MEDS: AZTREONAM 1 GM in DEXTROSE 5%-WATER 50 ML IV SCH ×4 (00:38→22:44)
[2019-10-08] MEDS: HEPARIN SOD (PORCINE) 5,000 UNIT/ML 1 ML VIAL SUBCUT SCH ×3 (05:46→22:50)
[2019-10-08] MEDS: HYDROCORTISONE SOD SUCCINATE INJ/PF 100 MG/2 ML SDV IV SCH ×3 (05:46→22:45)
[2019-10-08 06:20] LABS: ABSOLUTE LYMPHOCYTES (AUTO) 1.2 10^3/uL (0.5-4.7); ABSOLUTE MONOCYTES (AUTO) 0.5 10^3/uL (0.1-1.4); ABSOLUTE NEUT (AUTO) 4.8 10^3/uL (1.7-8.2); BASOPHILS % (AUTO) 0.4 % (0-2); EOSINOPHILS % (AUTO) 0.1 % (0-6); HEMOGLOBIN 10.8 g/dL (13.5-17.0); LYMPHOCYTES % (AUTO) 19.1 % (13-45); MEAN CORPUSCULAR HEMOGLOBIN 29.6 pg (27.0-33.4); MEAN CORPUSCULAR HGB CONC 33.6 g/dL (32.0-36.0); MEAN CORPUSCULAR VOLUME 88 fl (80-97); PLATELET COUNT 169 10^3/uL (150-450); RED BLOOD COUNT 3.64 10^6/uL (4.35-5.55); RED CELL DISTRIBUTION WIDTH 16.6 % (11.5-14.0); SEGMENTED NEUTROPHILS % (AUTO) 73.4 % (42-78); TOTAL CELLS COUNTED % (AUTO) 100 %; WHITE BLOOD COUNT 6.5 10^3/uL (4.0-10.5)
[2019-10-08] MEDS: INSULIN LISPRO 100 UNIT/ML 3 ML VIAL SUBCUT SCH ×4 (08:14→22:45)
[2019-10-08 09:05] LABS: ALBUMIN 3.4 g/dL (3.5-5.0); ALKALINE PHOSPHATASE 75 U/L (38-126); ANION GAP 9 (5-19); ASPARTATE AMINO TRANSFERASE 24 U/L (17-59); BILIRUBIN,DIRECT 0.1 mg/dL (0.0-0.4); BILIRUBIN,TOTAL 0.5 mg/dL (0.2-1.3); BLOOD UREA NITROGEN 36 mg/dL (7-20); CALCIUM 9.4 mg/dL (8.4-10.2); CARBON DIOXIDE 25 mmol/L (22-30); CHLORIDE 104 mmol/L (98-107); GLUCOSE 193 mg/dL (75-110); POTASSIUM 4.2 mmol/L (3.6-5.0); TOTAL PROTEIN 7.3 g/dL (6.3-8.2)
[2019-10-08] MEDS: VANCOMYCIN HCL 750 MG in DEXTROSE 5%-WATER 250 ML IV SCH ×2 (09:14→22:00)
--- NOTE | 2019-10-08 18:09 | PDOC PROGRESS REPORT ---
Subjective Progress Note for:: 10/08/19 Subjective:: Patient seen by the bedside, the blood pressure is normalized but he continues to require dopamine Reason For Visit: HYPOTENSION,HYPOGLYCEMIA,SEPSIS Physical Exam Vital Signs: Temp Pulse Resp BP Pulse Ox 97.9 F 85 16 80/42 L 99 10/08/19 11:26 10/08/19 16:00 10/07/19 22:58 10/08/19 16:00 10/08/19 11:26 Intake & Output 10/07/19 10/08/19 10/09/19 06:59 06:59 06:59 Intake Total 3120 4209 490 Output Total 4350 Balance 3120 -141 490 Weight 96.8 kg 108.3 kg 108.3 kg General appearance: PRESENT: no acute distress Eye exam: PRESENT: PERRLA Respiratory exam: PRESENT: clear to auscultation teetee Cardiovascular exam: PRESENT: +S1, +S2 GI/Abdominal exam: PRESENT: soft Neurological exam: PRESENT: alert Results Laboratory Results: 10/08/19 05:01 10/08/19 05:01 10/08/19 10/08/19 05:01 05:01 WBC 6.5 RBC 3.64 L Hgb 10.8 L Hct 32.0 L MCV 88 MCH 29.6 MCHC 33.6 RDW 16.6 H Plt Count 169 Seg Neutrophils % 73.4 Sodium 137.7 Potassium 4.2 Chloride 104 Carbon Dioxide 25 Anion Gap 9 BUN 36 H Creatinine 1.19 Est GFR ( Amer) > 60 Glucose 193 H Calcium 9.4 Total Bilirubin 0.5 AST 24 Alkaline Phosphatase 75 Total Protein 7.3 Albumin 3.4 L 10/06/19 10/06/19 10/07/19 22:20 22:20 04:04 Creatine Kinase 81 149 CK-MB (CK-2) 3.35 Troponin I < 0.012 10/07/19 10/07/19 10/07/19 04:04 10:59 10:59 Creatine Kinase 128 CK-MB (CK-2) 3.99 2.74 Troponin I 0.016 0.042 Impressions: Chest X-Ray 10/06/19 18:19 IMPRESSION: 1. Interval removal of right venous central line since the prior study dated 08/07/2019. 2. No acute pulmonary findings. Assessment & Plan - Diagnosis (1) Hypotension Qualifiers: Hypotension type: unspecified hypotension type Qualified Code(s): I95.9 - Hypotension, unspecified Is this a current diagnosis for this admission?: Yes Plan: Reduce infusion rate to 100cc/hr ,reduce hydrocortisone to 50mg IV Q 8 hour (2) T2DM (type 2 diabetes mellitus) Qualifiers: Diabetes mellitus half-way insulin use: with half-way use Diabetes mellitus complication status: with kidney complications Diabetes mellitus complication detail: with chronic kidney disease Chronic kidney disease stage: stage 3 (moderate) Qualified Code(s): E11.22 - Type 2 diabetes mellitus with diabetic chronic kidney disease; N18.3 - Chronic kidney disease, stage 3 (moderate); Z79.4 - [facility] (current) use of insulin Is this a current diagnosis for this admission?: Yes (3) Hypoglycemia Is this a current diagnosis for this admission?: Yes Plan: Resolved (4) Sepsis Qualifiers: Sepsis type: sepsis due to unspecified organism Sepsis acute organ dysfunction status: with acute organ dysfunction Severe sepsis acute organ dysfunction type: acute renal failure Acute renal failure type: unspecified Severe sepsis shock status: unspecified Qualified Code(s): A41.9 - Sepsis, unspecified organism; R65.20 - Severe sepsis without septic shock; N17.9 - Acute kidney failure, unspecified Is this a current diagnosis for this admission?: Yes Plan: Continue IV antibiotic - Time Time Spent with patient: 25-34 minutes Level of Care: IMCU Medications reviewed and adjusted accordingly: Yes Anticipated discharge: Home Anticipated DC Timeframe: Other
[2019-10-08] MEDS: SERTRALINE HCL 50 MG TABLET PO SCH (22:46)
[2019-10-08] MEDS: RINGERS SOLUTION,LACTATED 1,000 ML IV PRN (22:48)
[2019-10-09] MEDS: AZTREONAM 1 GM in DEXTROSE 5%-WATER 50 ML IV SCH ×2 (06:04→15:52)
[2019-10-09] MEDS: HYDROCORTISONE SOD SUCCINATE INJ/PF 100 MG/2 ML SDV IV SCH ×2 (06:04→15:52)
[2019-10-09] MEDS: HEPARIN SOD (PORCINE) 5,000 UNIT/ML 1 ML VIAL SUBCUT SCH ×2 (06:05→15:53)
[2019-10-09] MEDS: DOPAMINE HCL/DEXTROSE 5%-WATER 800 MG/250 ML RTUINJ IV PRN (06:05)
[2019-10-09] MEDS: RINGERS SOLUTION,LACTATED 1,000 ML IV PRN (06:07)
[2019-10-09 08:23] LABS: ABSOLUTE LYMPHOCYTES (AUTO) 1.2 10^3/uL (0.5-4.7); ABSOLUTE MONOCYTES (AUTO) 0.4 10^3/uL (0.1-1.4); ABSOLUTE NEUT (AUTO) 5.3 10^3/uL (1.7-8.2); BASOPHILS % (AUTO) 0.3 % (0-2); EOSINOPHILS % (AUTO) 0.4 % (0-6); HEMATOCRIT 33.8 % (37.9-51.0); HEMOGLOBIN 11.3 g/dL (13.5-17.0); LYMPHOCYTES % (AUTO) 16.9 % (13-45); MEAN CORPUSCULAR HEMOGLOBIN 29.4 pg (27.0-33.4); MEAN CORPUSCULAR HGB CONC 33.6 g/dL (32.0-36.0); MEAN CORPUSCULAR VOLUME 88 fl (80-97); MONOCYTES % (AUTO) 5.7 % (3-13); PLATELET COUNT 172 10^3/uL (150-450); RED BLOOD COUNT 3.85 10^6/uL (4.35-5.55); RED CELL DISTRIBUTION WIDTH 16.2 % (11.5-14.0); SEGMENTED NEUTROPHILS % (AUTO) 76.7 % (42-78); TOTAL CELLS COUNTED % (AUTO) 100 %; WHITE BLOOD COUNT 6.9 10^3/uL (4.0-10.5)
[2019-10-09] MEDS: INSULIN LISPRO 100 UNIT/ML 3 ML VIAL SUBCUT SCH ×3 (08:41→17:22)
[2019-10-09 08:58] LABS: VANCOMYCIN,TROUGH 17.2 ug/mL (5.0-20.0)
[2019-10-09] MEDS: VANCOMYCIN HCL 750 MG in DEXTROSE 5%-WATER 250 ML IV SCH (09:32)
[2019-10-09] MEDS ORDERED: BISACODYL 5 MG TABEC PO ONE (21:00)
--- NOTE | 2019-10-09 21:06 | PDOC PROGRESS REPORT ---
Subjective Progress Note for:: 10/09/19 Subjective:: Patient seen by the bedside still requiring low-dose dopamine Reason For Visit: HYPOTENSION,HYPOGLYCEMIA,SEPSIS Physical Exam Vital Signs: Temp Pulse Resp BP Pulse Ox 98.1 F 81 18 113/65 100 10/09/19 20:00 10/09/19 20:00 10/09/19 20:00 10/09/19 20:00 10/09/19 20:00 Intake & Output 10/08/19 10/09/19 10/10/19 06:59 06:59 06:59 Intake Total 4209 3237 970 Output Total 4350 3950 1100 Balance -141 -713 -130 Weight 108.3 kg 97.6 kg General appearance: PRESENT: no acute distress Eye exam: PRESENT: PERRLA Respiratory exam: PRESENT: clear to auscultation teetee Cardiovascular exam: PRESENT: +S1, +S2 GI/Abdominal exam: PRESENT: soft Neurological exam: PRESENT: alert Results Laboratory Results: 10/09/19 08:11 10/09/19 08:11 10/09/19 10/09/19 08:11 08:11 WBC 6.9 RBC 3.85 L Hgb 11.3 L Hct 33.8 L MCV 88 MCH 29.4 MCHC 33.6 RDW 16.2 H Plt Count 172 Seg Neutrophils % 76.7 Creatinine 0.91 Est GFR ( Amer) > 60 10/07/19 10:52 Catheterized Urine Urine Culture - Final NO GROWTH 2 DAYS 10/06/19 10/06/19 10/07/19 22:20 22:20 04:04 Creatine Kinase 81 149 CK-MB (CK-2) 3.35 Troponin I < 0.012 10/07/19 10/07/19 10/07/19 04:04 10:59 10:59 Creatine Kinase 128 CK-MB (CK-2) 3.99 2.74 Troponin I 0.016 0.042 Impressions: Chest X-Ray 10/06/19 18:19 IMPRESSION: 1. Interval removal of right venous central line since the prior study dated 08/07/2019. 2. No acute pulmonary findings. Assessment & Plan - Diagnosis (1) Hypotension Qualifiers: Hypotension type: unspecified hypotension type Qualified Code(s): I95.9 - Hypotension, unspecified Is this a current diagnosis for this admission?: Yes Plan: Reduce infusion rate to 100cc/hr ,reduce hydrocortisone to 25mg IV Q 8 hour (2) T2DM (type 2 diabetes mellitus) Qualifiers: Diabetes mellitus terminal gauger insulin use: with terminal gauger use Diabetes mellitus complication status: with kidney complications Diabetes mellitus complication detail: with chronic kidney disease Chronic kidney disease stage: stage 3 (moderate) Qualified Code(s): E11.22 - Type 2 diabetes mellitus with diabetic chronic kidney disease; N18.3 - Chronic kidney disease, stage 3 (moderate); Z79.4 - intermodal dispatcher (current) use of insulin Is this a current diagnosis for this admission?: Yes (3) Hypoglycemia Is this a current diagnosis for this admission?: Yes (4) Sepsis Qualifiers: Sepsis type: sepsis due to unspecified organism Sepsis acute organ dysfunction status: with acute organ dysfunction Severe sepsis acute organ dysfunction type: acute renal failure Acute renal failure type: unspecified Severe sepsis shock status: unspecified Qualified Code(s): A41.9 - Sepsis, unspecified organism; R65.20 - Severe sepsis without septic shock; N17.9 - Acute kidney failure, unspecified Is this a current diagnosis for this admission?: Yes Plan: Continue IV antibiotic - Time Time Spent with patient: 35 or more minutes Level of Care: IMCU Medications reviewed and adjusted accordingly: Yes Anticipated discharge: Home Anticipated DC Timeframe: within 72 hours
[2019-10-10] MEDS ORDERED: BISACODYL 5 MG TABEC PO ONE (00:15)
[2019-10-10] MEDS: INSULIN LISPRO 100 UNIT/ML 3 ML VIAL SUBCUT SCH ×5 (00:15→22:05)
[2019-10-10] MEDS: SERTRALINE HCL 50 MG TABLET PO SCH ×2 (00:15→22:06)
[2019-10-10] MEDS: HEPARIN SOD (PORCINE) 5,000 UNIT/ML 1 ML VIAL SUBCUT SCH ×4 (00:16→22:06)
[2019-10-10] MEDS: HYDROCORTISONE SOD SUCCINATE INJ/PF 100 MG/2 ML SDV IV SCH ×3 (00:19→15:35)
[2019-10-10] MEDS: AZTREONAM 1 GM in DEXTROSE 5%-WATER 50 ML IV SCH ×4 (00:24→22:01)
[2019-10-10] MEDS: VANCOMYCIN HCL 750 MG in DEXTROSE 5%-WATER 250 ML IV SCH ×3 (01:04→22:06)
[2019-10-10] MEDS: RINGERS SOLUTION,LACTATED 1,000 ML IV PRN ×2 (06:59→20:05)
--- NOTE | 2019-10-10 21:17 | PDOC PROGRESS REPORT ---
Subjective Progress Note for:: 10/10/19 Subjective:: Patient seen by the bedside, no organism isolated from the blood Reason For Visit: HYPOTENSION,HYPOGLYCEMIA,SEPSIS Physical Exam Vital Signs: Temp Pulse Resp BP Pulse Ox 98.1 F 81 21 H 137/62 H 97 10/10/19 19:52 10/10/19 19:52 10/10/19 19:52 10/10/19 19:52 10/10/19 19:52 Intake & Output 10/09/19 10/10/19 10/11/19 06:59 06:59 06:59 Intake Total 3237 2480 2550 Output Total 3950 2375 1200 Balance -918 579 4820 Weight 97.6 kg 98.5 kg General appearance: PRESENT: no acute distress Eye exam: PRESENT: PERRLA Respiratory exam: PRESENT: clear to auscultation teetee Cardiovascular exam: PRESENT: +S1, +S2 GI/Abdominal exam: PRESENT: soft Neurological exam: PRESENT: alert Results Laboratory Results: 10/09/19 08:11 10/09/19 08:11 10/06/19 10/06/19 10/07/19 22:20 22:20 04:04 Creatine Kinase 81 149 CK-MB (CK-2) 3.35 Troponin I < 0.012 10/07/19 10/07/19 10/07/19 04:04 10:59 10:59 Creatine Kinase 128 CK-MB (CK-2) 3.99 2.74 Troponin I 0.016 0.042 Impressions: Chest X-Ray 10/06/19 18:19 IMPRESSION: 1. Interval removal of right venous central line since the prior study dated 08/07/2019. 2. No acute pulmonary findings. Assessment & Plan - Diagnosis (1) Hypotension Qualifiers: Hypotension type: unspecified hypotension type Qualified Code(s): I95.9 - Hypotension, unspecified Is this a current diagnosis for this admission?: Yes Plan: This is resolved, discontinued dopamine blood pressure elevated, discontinue IV hydrocortisone (2) T2DM (type 2 diabetes mellitus) Qualifiers: Diabetes mellitus computer installer insulin use: with detention use Diabetes mellitus complication status: with kidney complications Diabetes mellitus complication detail: with chronic kidney disease Chronic kidney disease stage: stage 3 (moderate) Qualified Code(s): E11.22 - Type 2 diabetes mellitus with diabetic chronic kidney disease; N18.3 - Chronic kidney disease, stage 3 (moderate); Z79.4 - [facility] (current) use of insulin Is this a current diagnosis for this admission?: Yes (3) Hypoglycemia Is this a current diagnosis for this admission?: Yes (4) Sepsis Qualifiers: Sepsis type: sepsis due to unspecified organism Sepsis acute organ dysfunction status: with acute organ dysfunction Severe sepsis acute organ dysfunction type: acute renal failure Acute renal failure type: unspecified Severe sepsis shock status: unspecified Qualified Code(s): A41.9 - Sepsis, unspecified organism; R65.20 - Severe sepsis without septic shock; N17.9 - Acute kidney failure, unspecified Is this a current diagnosis for this admission?: Yes Plan: Continue IV antibiotic - Time Time Spent with patient: 25-34 minutes Level of Care: IMCU Anticipated discharge: Home Anticipated DC Timeframe: within 72 hours
[2019-10-11] MEDS: AZTREONAM 1 GM in DEXTROSE 5%-WATER 50 ML IV SCH ×2 (05:19→15:07)
[2019-10-11] MEDS: HEPARIN SOD (PORCINE) 5,000 UNIT/ML 1 ML VIAL SUBCUT SCH ×3 (05:19→22:01)
[2019-10-11] MEDS: INSULIN LISPRO 100 UNIT/ML 3 ML VIAL SUBCUT SCH ×4 (08:25→22:01)
[2019-10-11] MEDS: VANCOMYCIN HCL 750 MG in DEXTROSE 5%-WATER 250 ML IV SCH (09:40)
[2019-10-11] MEDS ORDERED: (PENDING PHARMACY ID) (Albuterol Sulfate 2 PUFF) IH PRN (14:25)
--- NOTE | 2019-10-11 14:25 | PDOC PROGRESS REPORT ---
Subjective Progress Note for:: 10/11/19 Subjective:: Patient seen by the bedside, he was admitted for the management of presumed sepsis in the setting of low blood pressure, he was treated with empirically IV antibiotic vancomycin and aztreonam blood culture, urine culture so far negative no organism isolated, we will discontinue antibiotic at this point. Blood pressure was stabilized with IV fluid, pressors dopamine and also intravenous hydrocortisone, the pressure has been discontinued, the hydrocortisone been d iscontinued. Patient was seen by physical therapy is a 2 man assist for ambulation, patient may need to be considered for a detention half-way home placement. He just got discharged from half-way home, I am not sure the insurance company [employer] will play ball with the idea of [facility] placement I am not sure insurance company will pay for long-term half-way home discharge planning need to look into this Reason For Visit: HYPOTENSION,HYPOGLYCEMIA,SEPSIS Physical Exam Vital Signs: Temp Pulse Resp BP Pulse Ox 97.7 F 63 12 150/73 H 100 10/11/19 11:23 10/11/19 11:23 10/11/19 11:23 10/11/19 11:23 10/11/19 11:23 Intake & Output 10/10/19 10/11/19 10/12/19 06:59 06:59 06:59 Intake Total 2480 3060 476 Output Total 2375 2200 900 Balance 105 860 -424 Weight 98.5 kg 100.3 kg General appearance: PRESENT: no acute distress Head exam: PRESENT: atraumatic, normocephalic Eye exam: PRESENT: conjunctiva pink, EOMI, PERRLA Ear exam: PRESENT: normal external ear exam Mouth exam: PRESENT: moist, tongue midline Neck exam: PRESENT: full ROM Respiratory exam: PRESENT: clear to auscultation teetee Cardiovascular exam: PRESENT: RRR, +S1, +S2 Vascular exam: PRESENT: normal capillary refill GI/Abdominal exam: PRESENT: normal bowel sounds, soft Rectal exam: PRESENT: deferred Neurological exam: PRESENT: alert, CN II-XII grossly intact Psychiatric exam: PRESENT: appropriate affect, normal mood Skin exam: PRESENT: dry, intact, warm Results Laboratory Results: 10/09/19 08:11 10/09/19 08:11 10/06/19 13:50 Blood Blood Culture - Final NO GROWTH IN 5 DAYS 07/10/06/19 10/07/19 22:20 22:20 04:04 Creatine Kinase 81 149 CK-MB (CK-2) 3.35 Troponin I < 0.012 10/07/19 10/07/19 10/07/19 04:04 10:59 10:59 Creatine Kinase 128 CK-MB (CK-2) 3.99 2.74 Troponin I 0.016 0.042 Impressions: Chest X-Ray 10/06/19 18:19 IMPRESSION: 1. Interval removal of right venous central line since the prior study dated 08/07/2019. 2. No acute pulmonary findings. Assessment & Plan - Diagnosis (1) Hypotension Qualifiers: Hypotension type: unspecified hypotension type Qualified Code(s): I95.9 - Hypotension, unspecified Is this a current diagnosis for this admission?: Yes Plan: This is resolved (2) T2DM (type 2 diabetes mellitus) Qualifiers: Diabetes mellitus termite control servicer insulin use: with termite control servicer use Diabetes mellitus complication status: with kidney complications Diabetes mellitus complication detail: with chronic kidney disease Chronic kidney disease stage: stage 3 (moderate) Qualified Code(s): E11.22 - Type 2 diabetes mellitus with diabetic chronic kidney disease; N18.3 - Chronic kidney disease, stage 3 (moderate); Z79.4 - terminal make up operator (current) use of insulin Is this a current diagnosis for this admission?: Yes (3) Hypoglycemia Is this a current diagnosis for this admission?: Yes Plan: This is resolved (4) Sepsis Qualifiers: Sepsis type: sepsis due to unspecified organism Sepsis acute organ dysfunction status: with acute organ dysfunction Severe sepsis acute organ dysfunction type: acute renal failure Acute renal failure type: unspecified Severe sepsis shock status: unspecified Qualified Code(s): A41.9 - Sepsis, unspecified organism; R65.20 - Severe sepsis without septic shock; N17.9 - Acute kidney failure, unspecified Is this a current diagnosis for this admission?: Yes Plan: Discontinue IV antibiotic, no source for infection was isolated - Time Time Spent with patient: 35 or more minutes Level of Care: IMCU Anticipated discharge: SNF Anticipated DC Timeframe: when bed available
[2019-10-11] MEDS ORDERED: (PENDING PHARMACY ID) (Omega-3/Dha/Epa/Fish Oil [Fish Oil 1,000 Mg Softgel] 1 EACH) PO SCH (14:30)
[2019-10-11] MEDS ORDERED: ALBUTEROL SULFATE HFA (90 MCG/PUFF) 200 PUFF/8.5 GM MDI IH PRN (15:43)
[2019-10-11] MEDS: TAMSULOSIN HCL 0.4 MG CAP.SR.24H PO SCH (17:30)
[2019-10-11] MEDS: FEBUXOSTAT 40 MG TABLET PO SCH (17:31)
[2019-10-11] MEDS: OMEGA-3 ACID ETHYL ESTERS 1 GM CAPSULE PO SCH (17:33)
[2019-10-11] MEDS ORDERED: [UNRECOGNIZED DRUG - OTHER] SUBCUT SCH (18:00)
[2019-10-11] MEDS ORDERED: INSULIN LISPRO PROTAMIN SUBCUT SCH (18:00)
[2019-10-11] MEDS ORDERED: LISPRO SUBCUT SCH (18:00)
[2019-10-11] MEDS: SERTRALINE HCL 50 MG TABLET PO SCH (22:01)
[2019-10-11] MEDS: RINGERS SOLUTION,LACTATED 1,000 ML IV PRN (22:05)
[2019-10-12] MEDS: HEPARIN SOD (PORCINE) 5,000 UNIT/ML 1 ML VIAL SUBCUT SCH ×3 (06:23→23:08)
[2019-10-12] MEDS: INSULIN LISPRO 100 UNIT/ML 3 ML VIAL SUBCUT SCH ×4 (08:03→23:04)
[2019-10-12] MEDS: FEBUXOSTAT 40 MG TABLET PO SCH ×2 (09:43→17:24)
[2019-10-12] MEDS: OMEGA-3 ACID ETHYL ESTERS 1 GM CAPSULE PO SCH (09:43)
[2019-10-12 12:22] LABS: ABSOLUTE EOSINOPHILS # (AUTO) 0.4 10^3/uL (0.0-0.6); ABSOLUTE LYMPHOCYTES (AUTO) 1.3 10^3/uL (0.5-4.7); ABSOLUTE MONOCYTES (AUTO) 0.5 10^3/uL (0.1-1.4); ABSOLUTE NEUT (AUTO) 3.8 10^3/uL (1.7-8.2); BASOPHILS % (AUTO) 0.7 % (0-2); EOSINOPHILS % (AUTO) 7.4 % (0-6); HEMATOCRIT 28.2 % (37.9-51.0); HEMOGLOBIN 9.7 g/dL (13.5-17.0); LYMPHOCYTES % (AUTO) 21.3 % (13-45); MEAN CORPUSCULAR HEMOGLOBIN 30.2 pg (27.0-33.4); MEAN CORPUSCULAR HGB CONC 34.4 g/dL (32.0-36.0); MEAN CORPUSCULAR VOLUME 88 fl (80-97); PLATELET COUNT 152 10^3/uL (150-450); RED BLOOD COUNT 3.22 10^6/uL (4.35-5.55); RED CELL DISTRIBUTION WIDTH 15.9 % (11.5-14.0); SEGMENTED NEUTROPHILS % (AUTO) 62.6 % (42-78); TOTAL CELLS COUNTED % (AUTO) 100 %
[2019-10-12 12:39] LABS: ALBUMIN 2.8 g/dL (3.5-5.0); ALKALINE PHOSPHATASE 56 U/L (38-126); ASPARTATE AMINO TRANSFERASE 32 U/L (17-59); BILIRUBIN,TOTAL 0.3 mg/dL (0.2-1.3); BLOOD UREA NITROGEN 27 mg/dL (7-20); CALCIUM 8.6 mg/dL (8.4-10.2); CHLORIDE 107 mmol/L (98-107); GLUCOSE 144 mg/dL (75-110); TOTAL PROTEIN 6.2 g/dL (6.3-8.2)
[2019-10-12 12:44] LABS: CARBON DIOXIDE 29 mmol/L (22-30)
[2019-10-12 12:46] LABS: ANION GAP 2 (5-19)
[2019-10-12] MEDS ORDERED: (PENDING PHARMACY ID) (Losartan/Hydrochlorothiazide [Losartan-Hctz 100-25 Mg Tab] 1 EACH) PO SCH (14:15)
--- NOTE | 2019-10-12 14:20 | PDOC PROGRESS REPORT ---
Subjective Progress Note for:: 10/12/19 Subjective:: Patient seen by the bedside presently hemodynamically stable, the challenge for this patient is mobility is a 2 man assist for ambulation, he just got discharged from rehabilitation and physical therapy. Patient is not interested in long-term [facility] placement, he probably can be discharged home with home health and physical therapy Reason For Visit: HYPOTENSION,HYPOGLYCEMIA,SEPSIS Physical Exam Vital Signs: Temp Pulse Resp BP Pulse Ox 97.9 F 74 18 130/66 H 98 10/12/19 11:21 10/12/19 11:21 10/12/19 11:21 10/12/19 11:21 10/12/19 11:21 Intake & Output 10/11/19 10/12/19 10/13/19 06:59 06:59 06:59 Intake Total 4060 956 Output Total 2200 3000 Balance 1860 -2044 Weight 100.3 kg 100.3 kg General appearance: PRESENT: no acute distress Eye exam: PRESENT: PERRLA Respiratory exam: PRESENT: clear to auscultation teetee Cardiovascular exam: PRESENT: +S1, +S2 GI/Abdominal exam: PRESENT: soft Neurological exam: PRESENT: alert Results Laboratory Results: 10/12/19 12:10 10/12/19 12:10 10/12/19 10/12/19 12:10 12:10 WBC 6.0 RBC 3.22 L Hgb 9.7 L Hct 28.2 L MCV 88 MCH 30.2 MCHC 34.4 RDW 15.9 H Plt Count 152 Seg Neutrophils % 62.6 Sodium 137.6 Potassium 4.0 Chloride 107 Carbon Dioxide 29 Anion Gap 2 L BUN 27 H Creatinine 0.95 Est GFR ( Amer) > 60 Glucose 144 H Calcium 8.6 Total Bilirubin 0.3 AST 32 Alkaline Phosphatase 56 Total Protein 6.2 L Albumin 2.8 L 10/06/19 15:35 Blood Blood Culture - Final NO GROWTH IN 5 DAYS 10/06/19 13:50 Blood Blood Culture - Final NO GROWTH IN 5 DAYS 10/06/19 10/06/19 10/07/19 22:20 22:20 04:04 Creatine Kinase 81 149 CK-MB (CK-2) 3.35 Troponin I < 0.012 10/07/19 10/07/19 10/07/19 04:04 10:59 10:59 Creatine Kinase 128 CK-MB (CK-2) 3.99 2.74 Troponin I 0.016 0.042 Impressions: Chest X-Ray 10/06/19 18:19 IMPRESSION: 1. Interval removal of right venous central line since the prior study dated 08/07/2019. 2. No acute pulmonary findings. Assessment & Plan - Diagnosis (1) Hypotension Qualifiers: Hypotension type: unspecified hypotension type Qualified Code(s): I95.9 - Hypotension, unspecified Is this a current diagnosis for this admission?: Yes Plan: Resolved (2) T2DM (type 2 diabetes mellitus) Qualifiers: Diabetes mellitus long wall shear operator insulin use: with long wall shear operator use Diabetes m ellitus complication status: with kidney complications Diabetes mellitus complication detail: with chronic kidney disease Chronic kidney disease stage: stage 3 (moderate) Qualified Code(s): E11.22 - Type 2 diabetes mellitus with diabetic chronic kidney disease; N18.3 - Chronic kidney disease, stage 3 (mode rate); Z79.4 - residential (current) use of insulin Is this a current diagnosis for this admission?: Yes (3) Hypoglycemia Is this a current diagnosis for this admission?: Yes Plan: Resolved (4) Sepsis Qualifiers: Sepsis type: sepsis due to unspecified organism Sepsis acute organ dysfunction status: with acute organ dysfunction Severe sepsis acute organ dysfunction type: acute renal failure Acute renal failure type: unspecified Severe sepsis shock status: unspecified Qualified Code(s): A41.9 - Sepsis, unspecified organism; R65.20 - Severe sepsis without septic shock; N17.9 - Acute kidney failure, unspecified Is this a current diagnosis for this admission?: Yes Plan: Resolved - Time Time Spent with patient: 25-34 minutes Level of Care: IMCU Medications reviewed and adjusted accordingly: Yes Anticipated discharge: Home Anticipated DC Timeframe: within 48 hours
[2019-10-12] MEDS: LOSARTAN POTASSIUM 50 MG TABLET PO SCH (16:15)
[2019-10-12] MEDS: HYDROCHLOROTHIAZIDE 25 MG TABLET PO SCH (16:15)
[2019-10-12] MEDS: RINGERS SOLUTION,LACTATED 1,000 ML IV PRN (16:16)
[2019-10-12] MEDS: TAMSULOSIN HCL 0.4 MG CAP.SR.24H PO SCH (17:25)
[2019-10-12] MEDS: SERTRALINE HCL 50 MG TABLET PO SCH (23:40)
[2019-10-13] MEDS: RINGERS SOLUTION,LACTATED 1,000 ML IV PRN ×2 (03:18→17:49)
[2019-10-13] MEDS: HEPARIN SOD (PORCINE) 5,000 UNIT/ML 1 ML VIAL SUBCUT SCH ×3 (06:06→22:17)
[2019-10-13] MEDS: INSULIN LISPRO 100 UNIT/ML 3 ML VIAL SUBCUT SCH ×4 (11:34→22:17)
[2019-10-13] MEDS: LOSARTAN POTASSIUM 50 MG TABLET PO SCH (11:37)
[2019-10-13] MEDS: HYDROCHLOROTHIAZIDE 25 MG TABLET PO SCH (11:37)
[2019-10-13] MEDS: FEBUXOSTAT 40 MG TABLET PO SCH ×2 (11:38→17:48)
[2019-10-13] MEDS: OMEGA-3 ACID ETHYL ESTERS 1 GM CAPSULE PO SCH (11:38)
[2019-10-13] MEDS: TAMSULOSIN HCL 0.4 MG CAP.SR.24H PO SCH (17:48)
--- NOTE | 2019-10-13 19:27 | PDOC PROGRESS REPORT ---
Subjective Progress Note for:: 10/13/19 Subjective:: Patient seen by the bedside presently hemodynamically stable, the challenge for this patient is mobility is a 2 man assist for ambulation, he just got discharged from rehabilitation and physical therapy. Patient is not interested in long-term assisted placement, he probably can be discharged home with home health and physical therapy Reason For Visit: HYPOTENSION,HYPOGLYCEMIA,SEPSIS Physical Exam Vital Signs: Temp Pulse Resp BP Pulse Ox 97.9 F 85 17 168/84 H 100 10/13/19 16:38 10/13/19 19:00 10/13/19 16:38 10/13/19 16:38 10/13/19 16:38 Intake & Output 10/12/19 10/13/19 10/14/19 06:59 06:59 06:59 Intake Total 956 3335 2520 Output Total 3000 2875 1950 Balance -2044 460 570 Weight 100.3 kg 98.5 kg 98.5 kg General appearance: PRESENT: no acute distress Eye exam: PRESENT: PERRLA Respiratory exam: PRESENT: clear to auscultation teetee Cardiovascular exam: PRESENT: +S1, +S2 GI/Abdominal exam: PRESENT: soft Neurological exam: PRESENT: alert Results Laboratory Results: 10/12/19 12:10 10/12/19 12:10 10/06/19 10/06/19 10/07/19 22:20 22:20 04:04 Creatine Kinase 81 149 CK-MB (CK-2) 3.35 Troponin I < 0.012 10/07/19 10/07/19 10/07/19 04:04 10:59 10:59 Creatine Kinase 128 CK-MB (CK-2) 3.99 2.74 Troponin I 0.016 0.042 Impressions: Chest X-Ray 10/06/19 18:19 IMPRESSION: 1. Interval removal of right venous central line since the prior study dated 08/07/2019. 2. No acute pulmonary findings. Assessment & Plan - Diagnosis (1) Hypotension Qualifiers: Hypotension type: unspecified hypotension type Qualified Code(s): I95.9 - Hypotension, unspecified Is this a current diagnosis for this admission?: Yes Plan: Resolved (2) T2DM (type 2 diabetes mellitus) Qualifiers: Diabetes mellitus halfway insulin use: with primer charger use Diabetes mellitus complication status: with kidney complications Diabetes mellitus complication detail: with chronic kidney disease Chronic kidney disease stage: stage 3 (moderate) Qualified Code(s): E11.22 - Type 2 diabetes mellitus with diabetic chronic kidney disease; N18.3 - Chronic kidney disease, stage 3 (moderate); Z79.4 - [facility] (current) use of insulin Is this a current diagnosis for this admission?: Yes (3) Hypoglycemia Is this a current diagnosis for this admission?: Yes (4) Sepsis Qualifiers: Sepsis type: sepsis due to unspecified organism Sepsis acute organ dysfunction status: with acute organ dysfunction Severe sepsis acute organ dysfunction type: acute renal failure Acute renal failure type: unspecified Severe sepsis shock status: unspecified Qualified Code(s): A41.9 - Sepsis, unspecified organism; R65.20 - Severe sepsis without septic shock; N17.9 - Acute kidney failure, unspecified Is this a current diagnosis for this admission?: Yes Plan: Resolved - Time Time Spent with patient: Less than 15 minutes Level of Care: IMCU Anticipated discharge: Home, SNF
[2019-10-13] MEDS: SERTRALINE HCL 50 MG TABLET PO SCH (22:17)
[2019-10-14] MEDS: RINGERS SOLUTION,LACTATED 1,000 ML IV PRN ×2 (01:52→18:21)
[2019-10-14] MEDS: HEPARIN SOD (PORCINE) 5,000 UNIT/ML 1 ML VIAL SUBCUT SCH ×3 (05:13→21:48)
[2019-10-14] MEDS: INSULIN LISPRO 100 UNIT/ML 3 ML VIAL SUBCUT SCH ×4 (08:39→21:44)
--- NOTE | 2019-10-14 09:25 | PDOC PROGRESS REPORT ---
Subjective Progress Note for:: 10/14/19 Subjective:: patient seen by the bedside ,the wound culture grew MRSA ,there is no evidence of systemic response ,local dressing with mupirocin is most appropriate ,there is no need for systemic antibiotic ,he already had systemic antibiotic on admission Reason For Visit: HYPOTENSION,HYPOGLYCEMIA,SEPSIS Physical Exam Vital Signs: Temp Pulse Resp BP Pulse Ox 98.4 F 59 L 18 129/61 H 99 10/14/19 03:06 10/14/19 07:00 10/14/19 03:06 10/14/19 03:06 10/14/19 03:06 Intake & Output 10/13/19 10/14/19 10/15/19 06:59 06:59 06:59 Intake Total 3335 3585 Output Total 2875 3310 Balance 460 275 Weight 98.5 kg 98.3 kg General appearance: PRESENT: no acute distress Eye exam: PRESENT: PERRLA Respiratory exam: PRESENT: clear to auscultation teetee Cardiovascular exam: PRESENT: +S1, +S2 GI/Abdominal exam: PRESENT: soft Neurological exam: PRESENT: alert, CN II-XII grossly intact Results Laboratory Results: 10/12/19 12:10 10/12/19 12:10 10/06/19 10/06/19 10/07/19 22:20 22:20 04:04 Creatine Kinase 81 149 CK-MB (CK-2) 3.35 Troponin I < 0.012 10/07/19 10/07/19 10/07/19 04:04 10:59 10:59 Creatine Kinase 128 CK-MB (CK-2) 3.99 2.74 Troponin I 0.016 0.042 Impressions: Chest X-Ray 10/06/19 18:19 IMPRESSION: 1. Interval removal of right venous central line since the prior study dated 08/07/2019. 2. No acute pulmonary findings. Assessment & Plan - Diagnosis (1) Hypotension Qualifiers: Hypotension type: unspecified hypotension type Qualified Code(s): I95.9 - Hypotension, unspecified Is this a current diagnosis for this admission?: Yes Plan: Resolved (2) T2DM (type 2 diabetes mellitus) Qualifiers: Diabetes mellitus care home insulin use: with brasswind instrument repairer use Diabetes mellitus complication status: with kidney complications Diabetes mellitus complication detail: with chronic kidney disease Chronic kidney disease stage: stage 3 (moderate) Qualified Code(s): E11.22 - Type 2 diabetes mellitus with diabetic chronic kidney disease; N18.3 - Chronic kidney disease, stage 3 (moderate); Z79.4 - office machinery or equipment installer (current) use of insulin Is this a current diagnosis for this admission?: Yes (3) Hypoglycemia Is this a current diagnosis for this admission?: Yes (4) Sepsis Qualifiers: Sepsis type: sepsis due to unspecified organism Sepsis acute organ dysfunction status: with acute organ dysfunction Severe sepsis acute organ dysfunction type: acute renal failure Acute renal failure type: unspecified Severe sepsis shock status: unspecified Qualified Code(s): A41.9 - Sepsis, unspecified organism; R65.20 - Severe sepsis without septic shock; N17.9 - Acute kidney failure, unspecified Is this a current diagnosis for this admission?: Yes Plan: Resolved (5) Infection of wound due to methicillin resistant Staphylococcus aureus (MRSA) Is this a current diagnosis for this admission?: Yes Plan: local dressing with mupirocin - Time Time Spent with patient: 25-34 minutes Level of Care: IMCU Anticipated discharge: Home - Inpatient Certification Based on my medical assessment, after consideration of the patient's comorbidities, presenting symptoms, or acuity I expect that the services needed warrant INPATIENT care.: Yes I certify that my determination is in accordance with my understanding of Medicare's requirements for reasonable and necessary INPATIENT services [42 CFR 412.3e].: Yes
[2019-10-14] MEDS: LOSARTAN POTASSIUM 50 MG TABLET PO SCH (10:14)
[2019-10-14] MEDS: OMEGA-3 ACID ETHYL ESTERS 1 GM CAPSULE PO SCH (10:14)
[2019-10-14] MEDS: HYDROCHLOROTHIAZIDE 25 MG TABLET PO SCH (10:14)
[2019-10-14] MEDS: MUPIROCIN 2% OINTMENT 22 GM TP SCH ×2 (10:15→18:22)
[2019-10-14] MEDS: FEBUXOSTAT 40 MG TABLET PO SCH ×2 (10:15→18:21)
[2019-10-14] MEDS: TAMSULOSIN HCL 0.4 MG CAP.SR.24H PO SCH (18:21)
[2019-10-14] MEDS: SERTRALINE HCL 50 MG TABLET PO SCH (21:48)
[2019-10-15] MEDS: RINGERS SOLUTION,LACTATED 1,000 ML IV PRN ×2 (05:43→21:34)
[2019-10-15] MEDS: HEPARIN SOD (PORCINE) 5,000 UNIT/ML 1 ML VIAL SUBCUT SCH ×3 (05:43→21:30)
[2019-10-15] MEDS: INSULIN LISPRO 100 UNIT/ML 3 ML VIAL SUBCUT SCH ×4 (08:57→21:22)
[2019-10-15] MEDS: LOSARTAN POTASSIUM 50 MG TABLET PO SCH (12:00)
[2019-10-15] MEDS: OMEGA-3 ACID ETHYL ESTERS 1 GM CAPSULE PO SCH (12:00)
[2019-10-15] MEDS: HYDROCHLOROTHIAZIDE 25 MG TABLET PO SCH (12:01)
[2019-10-15] MEDS: MUPIROCIN 2% OINTMENT 22 GM TP SCH ×2 (12:01→18:45)
[2019-10-15] MEDS: FEBUXOSTAT 40 MG TABLET PO SCH ×2 (12:01→18:45)
--- NOTE | 2019-10-15 14:28 | PDOC PROGRESS REPORT ---
Subjective Progress Note for:: 10/15/19 Subjective:: patient seen by the bedside ,the wound culture grew MRSA ,there is no evidence of systemic response ,local dressing with mupirocin is most appropriate ,there is no need for systemic antibiotic ,he already had systemic antibiotic on admission Reason For Visit: HYPOTENSION,HYPOGLYCEMIA,SEPSIS Physical Exam Vital Signs: Temp Pulse Resp BP Pulse Ox 98.1 F 70 16 159/61 H 99 10/15/19 07:22 10/15/19 07:22 10/15/19 07:22 10/15/19 07:22 10/15/19 07:22 Intake & Output 10/14/19 10/15/19 10/16/19 06:59 06:59 06:59 Intake Total 3585 3640 Output Total 3310 2125 Balance 275 1515 Weight 98.3 kg 98.8 kg General appearance: PRESENT: no acute distress Eye exam: PRESENT: PERRLA Respiratory exam: PRESENT: clear to auscultation teetee Cardiovascular exam: PRESENT: +S1, +S2 GI/Abdominal exam: PRESENT: soft Results Laboratory Results: 10/12/19 12:10 10/12/19 12:10 10/12/19 17:15 Foot - Left Heel Gram Stain - Final 10/12/19 17:15 Foot - Left Heel Wound Culture - Final Serratia Marcescens Mrsa (Meth Resis Staph Aureus) Enterococcus Faecalis(Group D) 10/06/19 10/06/19 10/07/19 22:20 22:20 04:04 Creatine Kinase 81 149 CK-MB (CK-2) 3.35 Troponin I < 0.012 10/07/19 10/07/19 10/07/19 04:04 10:59 10:59 Creatine Kinase 128 CK-MB (CK-2) 3.99 2.74 Troponin I 0.016 0.042 Impressions: Chest X-Ray 10/06/19 18:19 IMPRESSION: 1. Interval removal of right venous central line since the prior study dated 08/07/2019. 2. No acute pulmonary findings. Assessment & Plan - Diagnosis (1) Hypotension Qualifiers: Hypotension type: unspecified hypotension type Qualified Code(s): I95.9 - Hypotension, unspecified Is this a current diagnosis for this admission?: Yes (2) T2DM (type 2 diabetes mellitus) Qualifiers: Diabetes mellitus predatory animal exterminator insulin use: with assisted use Diabetes mellitus complication status: with kidney complications Diabetes mellitus complication detail: with chronic kidney disease Chronic kidney disease stage: stage 3 (moderate) Qualified Code(s): E11.22 - Type 2 diabetes mellitus with diabetic chronic kidney disease; N18.3 - Chronic kidney disease, stage 3 (moderate); Z79.4 - terminal computer operator (current) use of insulin Is this a current diagnosis for this admission?: Yes (3) Hypoglycemia Is this a current diagnosis for this admission?: Yes (4) Sepsis Qualifiers: Sepsis type: sepsis due to unspecified organism Sepsis acute organ dysfunction status: with acute organ dysfunction Severe sepsis acute organ dysfunction type: acute renal failure Acute renal failure type: unspecified Severe sepsis shock status: unspecified Qualified Code(s): A41.9 - Sepsis, unspecified organism; R65.20 - Severe sepsis without septic shock; N17.9 - Acute kidney failure, unspecified Is this a current diagnosis for this admission?: Yes (5) Infection of wound due to methicillin resistant Staphylococcus aureus (MRSA) Is this a current diagnosis for this admission?: Yes - Time Time Spent with patient: Less than 15 minutes Level of Care: MEDICAL Medications reviewed and adjusted accordingly: Yes Anticipated discharge: Home Anticipated DC Timeframe: within 24 hours
--- NOTE | 2019-10-15 18:28 | EKG REPORT ---
SEVERITY:- ABNORMAL ECG - ATRIAL FLUTTER, A-RATE 272 : Confirmed by: Mikie Krishnamurthy MD 15-Oct-2019 18:27:47
[2019-10-15] MEDS: TAMSULOSIN HCL 0.4 MG CAP.SR.24H PO SCH (18:45)
[2019-10-15] MEDS: SERTRALINE HCL 50 MG TABLET PO SCH (21:34)
[2019-10-16] MEDS: HEPARIN SOD (PORCINE) 5,000 UNIT/ML 1 ML VIAL SUBCUT SCH (05:19)
--- NOTE | 2019-10-16 07:22 | EKG REPORT ---
SEVERITY:- ABNORMAL ECG - SINUS RHYTHM VENTRICULAR BIGEMINY FIRST DEGREE AVB : Confirmed by: Mikie Krishnamurthy MD 16-Oct-2019 07:22:22
[2019-10-16] MEDS: INSULIN LISPRO 100 UNIT/ML 3 ML VIAL SUBCUT SCH ×4 (09:21→21:54)
[2019-10-16] MEDS: RINGERS SOLUTION,LACTATED 1,000 ML IV PRN (10:54)
[2019-10-16] MEDS: FEBUXOSTAT 40 MG TABLET PO SCH ×2 (10:55→18:04)
[2019-10-16] MEDS: MUPIROCIN 2% OINTMENT 22 GM TP SCH ×2 (10:55→18:04)
[2019-10-16] MEDS: HYDROCHLOROTHIAZIDE 25 MG TABLET PO SCH (10:55)
[2019-10-16] MEDS: LOSARTAN POTASSIUM 50 MG TABLET PO SCH (10:55)
[2019-10-16] MEDS: OMEGA-3 ACID ETHYL ESTERS 1 GM CAPSULE PO SCH (10:55)
[2019-10-16] MEDS: APIXABAN 5 MG TABLET PO SCH ×2 (11:09→18:03)
--- NOTE | 2019-10-16 12:29 | EKG REPORT ---
SEVERITY:- ABNORMAL ECG - SINUS RHYTHM FIRST DEGREE AV BLOCK BORDERLINE LEFT AXIS DEVIATION : Confirmed by: Mikie Krishnamurthy MD 16-Oct-2019 12:28:01
--- NOTE | 2019-10-16 12:29 | EKG REPORT ---
SEVERITY:- ABNORMAL ECG - SINUS RHYTHM FIRST DEGREE AV BLOCK ABNORMAL T, CONSIDER ISCHEMIA, DIFFUSE LEADS : Confirmed by: Mikie Krishnamurthy MD 16-Oct-2019 12:27:42
[2019-10-16] MEDS: TAMSULOSIN HCL 0.4 MG CAP.SR.24H PO SCH (18:03)
--- NOTE | 2019-10-16 19:49 | Progress Note ---
Provider Note Provider Note: CARDIOLOGY PROGRESS NOTE by Dr. Margie Rios on 10/16/2019. SUBJECTIVE: The patient did not wear his CPAP last night. He promises he will get it tonight. He states he is not able to get up but his MRI does not show any infarction. He denies any chest pain or discomfort. There is no shortness of breath. There is no PND orthopnea or leg leg edema. There is patient now is in first-degree AV block. He denies any dizziness or syncope or near syncope. PHYSICAL EXAMINATION: The patient moderately obese in no acute distress. Selected Entries 10/16/19 08:41 Temperature 97.6 F Temperature Oral Source Pulse Rate 77 Respiratory 16 Rate Blood Pressure 150/62 H Blood Pressure 91 Mean BP Location Left Arm BP Position Supine O2 Sat by Pulse 98 Oximetry Oxygen Delivery Room Air Method Head: Is atraumatic normocephalic. EYES: Pupils are equal round regular reactive to light accommodation. Extraocular movements are normal. There is no conjunctival pallor. There is no scleral icterus. EARS: Tympanic membranes are intact. External auditory canals are clear. NOSE: There is no deviated nasal septum. There is no information nasal mucous membrane. MOUTH: Mucous membranes of mouth are moist. Tongue is moist. There is no ulcers. There is no bleeding from the gums. THROAT: There is no redness of the oropharynx. There is no exudates. SKIN: There is no skin rashes. There is no petechia or ecchymosis. There is no skin lesions. NECK: Supple. There is no JVD. Carotids are equal there is no bruit there is no lymphadenopathy. There is no goiter. TRACHEA: Is central. There is no accessory muscle respiration use. LUNGS: Is clear to auscultation percussion without any rhonchi rales wheezing. HEART: S1-S2 is heard. There is no S3 gallop. There is no S4 gallop. There is systolic murmur left sternal border and the apex there is no rub. ABDOMEN: Is mildly obese. Nontender. There is no hepatosplenomegaly. Bowel sounds are well heard. EXTREMITIES: Femorals are diminished. Leg pulses are diminished. There is no femoral bruits. There is no pedal edema. There is no DVT or cellulitis. There is no cyanosis or clubbing. Left heel dressing is dry and clean. FACILITY SERVICE ASSOCIATE: The patient is conscious awake moves all 4 extremities. PSYCHIATRIC: Patient judgment insight are intact his affect is normal. Labs- All tests 24 hr 10/16/19 10/16/19 10/16/19 08:39 11:14 16:26 POC Glucose 91 188 H 101 10/16/19 21:33 POC Glucose 129 H Chest X-Ray 10/06/19 18:19 IMPRESSION: 1. Interval removal of right venous central line since the prior study dated 08/07/2019. 2. No acute pulmonary findings. Head MRI 10/16/19 00:00 IMPRESSION: 1. No evidence of acute infarction. 2. Mild bilateral mastoiditis, which may be chronic. EKG: Sinus rhythm with first-degree AV block. Borderline left axis deviation. IMPRESSION/RECOMMENDATION: 1. Paroxysmal atrial flutter: The patient's corrected Omar vas 2 score is 3 hence chronic anticoagulation is indicated. As per discussion with patient he has no bleeding complications. This is been discussed with the patient at the patient's request the patient is [id number]. They are aware of the risks and benefits of Eliquis including stroke prophylaxis and the bleeding complications. They are also aware that there is no antidote for Eliquis if the patient should bleed and treatment would be supportive care. 2. Sick sinus syndrome no AV americo disease: This is probably exaggerated by the patient's obstructive sleep apnea. The patient does not wear CPAP. The patient is promised me that he would wear CPAP. Later would recommend a 30-day event monitor as an outpatient. Would avoid beta-blockers and CAROLINE AV americo blocking calcium channel blockers and digoxin and clonidine. 3. Obstructive sleep apnea: Importance of wearing CPAP discussed with the patient. He states he already had a sleep study as an outpatient which was positive for sleep apnea but he has not used his CPAP. This is been also concurred with my discussion with the patient's [id number] 4. Hypotension: Resolved 5. Left heel ulcer which grew positive for MRSA possible sepsis continue antibiotics and local anti-infectives dressings. 6. Hypertension: Blood pressure slightly elevated will see the effect of CPAP. 7.. Diabetes mellitus:: Continue antidiabetic medication and Accu-Cheks as per protocol. Medications reviewed. Medications added. Medical regimen and management plan discussed with Dr. Mulligan. Medical decision making is of high complexity. 40 minutes spent as patient more than 50% time spent in direct patient care.
--- NOTE | 2019-10-16 19:54 | PDOC PROGRESS REPORT ---
Subjective Progress Note for:: 10/16/19 Subjective:: He is not able to bear weight, there is a concern for CVA MRI brain was obtained, negative for any acute cerebral infarction or any chronic cerebral infarction. The RN noticed atrial flutter versus atrial fibrillation on telemetry strips, consultation is requested from cardiology Reason For Visit: HYPOTENSION,HYPOGLYCEMIA,SEPSIS Physical Exam Vital Signs: Temp Pulse Resp BP Pulse Ox 97.7 F 73 16 159/58 H 100 10/16/19 16:25 10/16/19 16:25 10/16/19 16:25 10/16/19 16:25 10/16/19 16:25 Intake & Output 10/15/19 10/16/19 10/17/19 06:59 06:59 06:59 Intake Total 3640 2580 1720 Output Total 2125 1675 1200 Balance 1515 905 520 Weight 98.8 kg 98.6 kg General appearance: PRESENT: no acute distress Eye exam: PRESENT: PERRLA Cardiovascular exam: PRESENT: +S1, +S2 GI/Abdominal exam: PRESENT: soft Neurological exam: PRESENT: alert Results Laboratory Results: 10/12/19 12:10 10/12/19 12:10 10/06/19 10/06/19 10/07/19 22:20 22:20 04:04 Creatine Kinase 81 149 CK-MB (CK-2) 3.35 Troponin I < 0.012 10/07/19 10/07/19 10/07/19 04:04 10:59 10:59 Creatine Kinase 128 CK-MB (CK-2) 3.99 2.74 Troponin I 0.016 0.042 Impressions: Chest X-Ray 10/06/19 18:19 IMPRESSION: 1. Interval removal of right venous central line since the prior study dated 08/07/2019. 2. No acute pulmonary findings. Assessment & Plan - Diagnosis (1) Hypotension Qualifiers: Hypotension type: unspecified hypotension type Qualified Code(s): I95.9 - Hypotension, unspecified Is this a current diagnosis for this admission?: Yes (2) T2DM (type 2 diabetes mellitus) Qualifiers: Diabetes mellitus retirement insulin use: with long term care social worker use Diabetes mellitus complication status: with kidney complications Diabetes mellitus complication detail: with chronic kidney disease Chronic kidney disease stage: stage 3 (moderate) Qualified Code(s): E11.22 - Type 2 diabetes mellitus with diabetic chronic kidney disease; N18.3 - Chronic kidney disease, stage 3 (moderate); Z79.4 - watermelon inspector (current) use of insulin Is this a current diagnosis for this admission?: Yes (3) Hypoglycemia Is this a current diagnosis for this admission?: Yes (4) Sepsis Qualifiers: Sepsis type: sepsis due to unspecified organism Sepsis acute organ dysfunction status: with acute organ dysfunction Severe sepsis acute organ dysfunction type: acute renal failure Acute renal failure type: unspecified Severe sepsis shock status: unspecified Qualified Code(s): A41.9 - Sepsis, unspecified organism; R65.20 - Severe sepsis without septic shock; N17.9 - Acute kidney failure, unspecified Is this a current diagnosis for this admission?: Yes (5) Infection of wound due to methicillin resistant Staphylococcus aureus (MRSA) Is this a current diagnosis for this admission?: Yes - Time Time Spent with patient: 25-34 minutes Level of Care: IMCU Medications reviewed and adjusted accordingly: Yes Anticipated discharge: Home Anticipated DC Timeframe: within 24 hours
--- NOTE | 2019-10-16 20:55 | RADIOLOGY REPORT (SQ) ---
MR BRAIN WITHOUT IV CONTRAST HISTORY: Evaluate for acute infarction. COMPARISON: None. TECHNIQUE: Multisequence, multiplanar MR imaging of the brain was performed without the administration of intravenous gadolinium. FINDINGS: The ventricles, cisterns, and sulci are age-appropriate. There is no acute infarction, intracranial hemorrhage, extra-axial fluid collection, or mass. The orbits are unremarkable. The calvarium and skull base appear unremarkable. The paranasal sinuses are clear. There is partial opacification of the bilateral mastoid air cells. IMPRESSION: 1. No evidence of acute infarction. 2. Mild bilateral mastoiditis, which may be chronic.
[2019-10-16] MEDS: SERTRALINE HCL 50 MG TABLET PO SCH (22:10)
[2019-10-17] MEDS: INSULIN LISPRO 100 UNIT/ML 3 ML VIAL SUBCUT SCH ×2 (08:51→12:29)
[2019-10-17] MEDS: OMEGA-3 ACID ETHYL ESTERS 1 GM CAPSULE PO SCH (11:10)
[2019-10-17] MEDS: LOSARTAN POTASSIUM 50 MG TABLET PO SCH (11:10)
[2019-10-17] MEDS: APIXABAN 5 MG TABLET PO SCH (11:10)
[2019-10-17] MEDS: HYDROCHLOROTHIAZIDE 25 MG TABLET PO SCH (11:10)
[2019-10-17] MEDS: FEBUXOSTAT 40 MG TABLET PO SCH (11:11)
[2019-10-17] MEDS: MUPIROCIN 2% OINTMENT 22 GM TP SCH (11:11)
--- NOTE | 2019-10-17 13:03 | PDOC DISCHARGE SUMMARY ---
Impression - Admit/DC Date/PCP Admission Date/Primary Care Provider: 10/06/19 18:54 CINTHIA SHAVER MD Discharge Date: 10/17/19 - Discharge Diagnosis (1) Sepsis Is this a current diagnosis for this admission?: Yes (2) Hypotension Is this a current diagnosis for this admission?: Yes (3) T2DM (type 2 diabetes mellitus) Is this a current diagnosis for this admission?: Yes (4) Hypoglycemia Is this a current diagnosis for this admission?: Yes (5) Infection of wound due to methicillin resistant Staphylococcus aureus (MRSA) Is this a current diagnosis for this admission?: Yes (6) Atrial flutter, paroxysmal Is this a current diagnosis for this admission?: Yes (7) Decubitus ulcer of left heel, stage 3 Is this a current diagnosis for this admission?: Yes - Additional Information Resuscitation Status: Full Code Discharge Diet: Diabetic Discharge Activity: Activity As Tolerated Referrals: CINTHIA SHAVER MD [Primary Care Provider] - 10/27/19 2:15 pm Prescriptions: Atorvastatin Calcium [Lipitor 40 mg Tablet] 40 mg PO QHS #90 tablet Mupirocin [Bactroban 2% Ointment 22 gm] 1 applic TP BID #1 tube Apixaban [Eliquis 5 mg Tablet] 5 mg PO BID #60 tablet Dapagliflozin Propanediol [Farxiga] 10 mg PO QAM #90 tablet Home Medications: Albuterol Sulfate [Proair HFA Inhalation Aerosol 8.5 gm MDI] 2 puff IH Q4HP PRN 03/17/19 Tamsulosin HCl [Flomax 0.4 mg Cap.sr] 0.4 mg PO DAILY 03/17/19 Losartan/Hydrochlorothiazide [Losartan-Hctz 100-25 mg Tab] 1 each PO DAILY 06/12/19 Insulin Lispro Protamin/Lispro [Humalog Mix 50-50 100 unit/mL] 12 unit SUBCUT BID 08/05/19 [place]-3/Dha/Epa/Fish Oil [Fish Oil 1,000 mg Softgel] 1 each PO DAILY 08/05/19 Sertraline HCl 50 mg PO QHS 08/05/19 Apixaban [Eliquis 5 mg Tablet] 5 mg PO BID #60 tablet 10/17/19 Atorvastatin Calcium [Lipitor 40 mg Tablet] 40 mg PO QHS #90 tablet 10/17/19 Dapagliflozin Propanediol [Farxiga] 10 mg PO QAM #90 tablet 10/17/19 Febuxostat 40 mg PO DAILY #0 10/17/19 Mupirocin [Bactroban 2% Ointment 22 gm] 1 applic TP BID #1 tube 10/17/19 History of Present Illiness History of Present Illness: TAYLOR SMITH is a 69 year old male, Patient came to the office for follow-up evaluation, [facility] was just [facility] after undergoing [facility], in the office patient depressed sensorium, he cannot answer questions, the blood pressure recorded was low, he was accompanied by the family she was concerned that may be he is septic again, he had a similar presentation the last time he was admitted to the hospital. The blood pressure recorded in the office was in the low 80s systolic, I felt patient needed to be admitted to the hospital, no bed was available for direct admission to the hospital so patient was referred to the emergency room for evaluation.In the Emergency room the fhntm-fl-dilh glucose was 54, he was treated with 50% dextrose ,patient regained full consciousness, the serum creatinine was 1.3, patient blood pressure was very low he was treated with boluses of normal saline, he was admitted to intermediate care unit. There was no immediate source of infection that was apparent, he has an ulcer in the left heel that was wrapped, he also had the ulcer the last time he was in the hospital., He was hemodynamically unstable on the floor, he required vasopressor dopamine at 5 MCG per KG per minute to maintain blood pressure was given fluid Ringer's lactate, normal saline and also started on stress dose hydrocortisone 50 mg IV every 8 to normalize blood pressure. Patient blood pressure was normalized after protracted intervention throughout the night. Is also empirically on IV antibiotic to cover healthcare associated pathogens including MRSA, gram- negative and gram-positive organisms Hospital Course Hospital Course: Patient was admitted for the management of sepsis, hypotension, acute kidney injury, he was treated empirically with IV antibiotic to cover potential pathogens, He was treated empirically with intravenous aztreonam and vancomycin, aztreonam was chosen because he has allergy to penicillin.He had hypotension this was managed with intravenous dopamine and initially with intravenous hydrocortisone with sikh of blood pressure No specific source was isolated for the sepsis, there was no pneumonia, the blood culture was negative.patient responded to treatment. He has a chronic left heel ulcer, the wound culture grew MRSA this was dressed with mupirocin ointment.He also had paroxysmal atrial flutter, rate controlled, he was seen in consultation by Dr. Galeana, he was started on Eliquis for stroke prophylaxis.Patient cannot bear weight, there was a concern of stroke, MRI brain was obtained was negative for stroke Physical Exam Vital Signs: Temp Pulse Resp BP Pulse Ox 97.7 F 65 19 136/57 H 100 10/17/19 08:22 10/17/19 08:22 10/17/19 08:22 10/17/19 08:22 10/17/19 08:22 Intake & Output 10/16/19 10/17/19 10/18/19 06:59 06:59 06:59 Intake Total 2580 1942 Output Total 1441 8365 Balance 905 -483 Weight 98.6 kg 98.9 kg General appearance: PRESENT: no acute distress Eye exam: PRESENT: PERRLA Respiratory exam: PRESENT: clear to auscultation teetee Cardiovascular exam: PRESENT: +S1, +S2 GI/Abdominal exam: PRESENT: soft Results Laboratory Results: WBC 6.0 10^3/uL (4.0-10.5) 10/12/19 12:10 RBC 3.22 10^6/uL (4.35-5.55) L 10/12/19 12:10 Hgb 9.7 g/dL (13.5-17.0) L 10/12/19 12:10 Hct 28.2 % (37.9-51.0) L 10/12/19 12:10 MCV 88 fl (80-97) 10/12/19 12:10 MCH 30.2 pg (27.0-33.4) 10/12/19 12:10 MCHC 34.4 g/dL (32.0-36.0) 10/12/19 12:10 RDW 15.9 % (11.5-14.0) H 10/12/19 12:10 Plt Count 152 10^3/uL (150-450) 10/12/19 12:10 Lymph % (Auto) 21.3 % (13-45) 10/12/19 12:10 [place] % (Auto) 8.0 % (3-13) 10/12/19 12:10 Eos % (Auto) 7.4 % (0-6) H 10/12/19 12:10 Baso % (Auto) 0.7 % (0-2) 10/12/19 12:10 Absolute Neuts (auto) 3.8 10^3/uL (1.7-8.2) 10/12/19 12:10 Absolute Lymphs (auto) 1.3 10^3/uL (0.5-4.7) 10/12/19 12:10 Absolute Monos (auto) 0.5 10^3/uL (0.1-1.4) 10/12/19 12:10 Absolute Eos (auto) 0.4 10^3/uL (0.0-0.6) 10/12/19 12:10 Absolute Basos (auto) 0.0 10^3/uL (0.0-0.2) 10/12/19 12:10 Seg Neutrophils % 62.6 % (42-78) 10/12/19 12:10 PT 13.4 SEC (11.4-15.4) 10/06/19 22:20 INR 1.02 10/06/19 22:20 APTT 35.0 SEC (23.5-35.8) 10/06/19 22:20 VBG pH 7.32 (7.30-7.42) 10/06/19 13:50 VBG pCO2 58.3 mmHg (35-63) 10/06/19 13:50 VBG HCO3 29.1 mmol/L (20-32) 10/06/19 13:50 VBG Base Excess 0.7 mmol/L 10/06/19 13:50 Sodium 137.6 mmol/L (137-145) 10/12/19 12:10 Potassium 4.0 mmol/L (3.6-5.0) 10/12/19 12:10 Chloride 107 mmol/L (98-107) 10/12/19 12:10 Carbon Dioxide 29 mmol/L (22-30) 10/12/19 12:10 Anion Gap 2 (5-19) L 10/12/19 12:10 BUN 27 mg/dL (7-20) H 10/12/19 12:10 Creatinine 0.95 mg/dL (0.52-1.25) 10/12/19 12:10 Est GFR ( Amer) > 60 (>60) 10/12/19 12:10 Est GFR (MDRD) Non-Af > 60 (>60) 10/12/19 12:10 Glucose 144 mg/dL (75-110) H 10/12/19 12:10 POC Glucose 121 mg/dL (70-110) H 10/17/19 11:41 Hemoglobin A1c % 6.2 % (4.7-6.0) H 10/07/19 04:04 Lactic Acid 0.9 mmol/L (0.7-2.1) 10/06/19 19:57 Calcium 8.6 mg/dL (8.4-10.2) 10/12/19 12:10 Phosphorus 4.4 mg/dL (2.5-4.5) 10/06/19 13:50 Magnesium 2.4 mg/dL (1.6-2.3) H 10/06/19 13:50 Total Bilirubin 0.3 mg/dL (0.2-1.3) 10/12/19 12:10 Direct Bilirubin 0.0 mg/dL (0.0-0.4) 10/12/19 12:10 Neonat Total Bilirubin Not Reportable 10/12/19 12:10 Neonat Direct Bilirubin Not Reportable 10/12/19 12:10 Neonat Indirect Bili Not Reportable 10/12/19 12:10 AST 32 U/L (17-59) 10/12/19 12:10 ALT 29 U/L (<50) 10/12/19 12:10 Alkaline Phosphatase 56 U/L (38-126) 10/12/19 12:10 Ammonia < 8.7 umol/L (9-33) L 10/06/19 22:20 Creatine Kinase 128 U/L (55-170) 10/07/19 10:59 CK-MB (CK-2) 2.74 ng/mL (<4.55) 10/07/19 10:59 Troponin I 0.042 ng/mL 10/07/19 10:59 Total Protein 6.2 g/dL (6.3-8.2) L 10/12/19 12:10 Albumin 2.8 g/dL (3.5-5.0) L 10/12/19 12:10 Triglycerides 88 mg/dL (<150) 10/07/19 04:04 Cholesterol 140.66 mg/dL (0-200) 10/07/19 04:04 LDL Cholesterol Direct 68 mg/dL (<100) 10/07/19 04:04 VLDL Cholesterol 18.0 mg/dL (10-31) 10/07/19 04:04 HDL Cholesterol 49 mg/dL (>40) 10/07/19 04:04 Amylase 38 U/L (30-110) 10/06/19 13:50 Lipase 54.7 U/L (23-300) 10/06/19 13:50 TSH 2.67 uIU/mL (0.47-4.68) 10/06/19 13:50 Free T4 1.36 ng/dL (0.78-2.19) 10/06/19 13:50 Urine Color STRAW 10/07/19 10:52 Urine Appearance CLEAR 10/07/19 10:52 Urine pH 7.0 (5.0-9.0) 10/07/19 10:52 Ur Specific [place] 1.009 10/07/19 10:52 Urine Protein NEGATIVE mg/dL (NEGATIVE) 10/07/19 10:52 Urine Glucose (UA) >=500 mg/dL (NEGATIVE) H 10/07/19 10:52 Urine Ketones NEGATIVE mg/dL (NEGATIVE) 10/07/19 10:52 Urine Blood NEGATIVE (NEGATIVE) 10/07/19 10:52 Urine Nitrite NEGATIVE (NEGATIVE) 10/07/19 10:52 Urine Nitrite (Reflex) NEGATIVE (NEGATIVE) 10/06/19 18:09 Urine Bilirubin NEGATIVE (NEGATIVE) 10/07/19 10:52 Urine Urobilinogen NEGATIVE mg/dL (<2.0) 10/07/19 10:52 Ur Leukocyte Esterase NEGATIVE (NEGATIVE) 10/07/19 10:52 Leukocyte Esterase Rfl NEGATIVE (NEGATIVE) 10/06/19 18:09 Urine WBC (Auto) 1 /HPF 10/07/19 10:52 Urine RBC (Auto) 0 /HPF 10/07/19 10:52 U Hyaline Cast (Auto) 1 /LPF 10/07/19 10:52 Urine Bacteria (Auto) TRACE /HPF 10/06/19 18:09 Urine WBC (Reflex) < 1 /HPF 10/06/19 18:09 Urine Mucus (Auto) RARE /LPF 10/07/19 10:52 Urine Ascorbic Acid NEGATIVE (NEGATIVE) 10/07/19 10:52 Time Trough Drawn 0811 10/09/19 08:11 Vancomycin Trough 17.2 ug/mL (5.0-20.0) 10/09/19 08:11 Urine Opiates Screen NEGATIVE 10/07/19 10:52 Urine Methadone Screen NEGATIVE 10/07/19 10:52 Ur Barbiturates Screen NEGATIVE 10/07/19 10:52 Ur Phencyclidine Scrn NEGATIVE 10/07/19 10:52 Ur Amphetamines Screen NEGATIVE 10/07/19 10:52 U Benzodiazepines Scrn NEGATIVE 10/07/19 10:52 Urine Cocaine Screen NEGATIVE 10/07/19 10:52 U Marijuana (THC) Screen NEGATIVE 10/07/19 10:52 10/06/19 10/07/19 10/07/19 22:20 04:04 10:59 CK-MB (CK-2) 3.35 3.99 2.74 Troponin I < 0.012 0.016 0.042 Impressions: Chest X-Ray 10/06/19 18:19 IMPRESSION: 1. Interval removal of right venous central line since the prior study dated 08/07/2019. 2. No acute pulmonary findings. Head MRI 10/16/19 00:00 IMPRESSION: 1. No evidence of acute infarction. 2. Mild bilateral mastoiditis, which may be chronic. Stroke Is this a Stroke Patient?: No Acute Heart Failure - Is this a Heart Failure Patient?: No
[2019-10-17 13:33] VITALS: BP 76/60
== END 2019-10-17 14:17 | disposition home or self-care (01) | DRG 871 ==
LOC: ER 13:10 → EH 18:54 → 5 21:59
PROVIDERS: ADMIT Internal Medicine; ATTEND Internal Medicine
PROC: 5A09457 Assistance with Respiratory Ventilation, 24-96 Consecutive Hours, Continuous Positive Airway Pressure (ICD-10-PCS; principal; 2019-10-15)
DX: A41.9 Sepsis, unspecified organism (principal); L89.623 Pressure ulcer of left heel, stage 3; N17.9 Acute kidney failure, unspecified; E11.649 Type 2 diabetes mellitus with hypoglycemia without coma; R65.20 Severe sepsis without septic shock; I12.9 Hypertensive chronic kidney disease with stage 1 through stage 4 chronic kidney disease, or unspecified chronic kidney disease; E11.22 Type 2 diabetes mellitus with diabetic chronic kidney disease; B95.62 Methicillin resistant Staphylococcus aureus infection as the cause of diseases classified elsewhere; N18.3 Chronic kidney disease, stage 3 (moderate); E78.5 Hyperlipidemia, unspecified; J45.909 Unspecified asthma, uncomplicated; G47.33 Obstructive sleep apnea (adult) (pediatric); I48.0 Paroxysmal atrial fibrillation; M19.90 Unspecified osteoarthritis, unspecified site; F32.9 Major depressive disorder, single episode, unspecified; D64.9 Anemia, unspecified; Z87.891 Personal history of nicotine dependence; Z79.4 Long term (current) use of insulin; Z79.899 Other long term (current) drug therapy; Z88.1 Allergy status to other antibiotic agents; Z88.0 Allergy status to penicillin
CPT/HCPCS: 36415; 70551; 71045; 80053; 80061; 80202; 80307; 81001; 82140; 82150; 82550; 82553; 82565; 82803; 82962; 83036; 83605; 83690; 83735; 84100; 84439; 84443; 84484; 85025; 85610; 85730; 87040; 87070; 87077; 87086; 87186; 87205; 93005; 93010; 94660; 96365; 96374; 96375; 99285; J1265; J1644; J1720; J1815; J2543; J3370; J3490; J7060; J7120

== ENCOUNTER 2019-11-22 15:43 | Emergency (ER) | payer OTHER ==
[2019-11-22] MEDS ORDERED: DOPAMINE HCL/DEXTROSE 5%-WATER 800 MG/250 ML RTUINJ IV PRN (16:25)
[2019-11-22] MEDS ORDERED: NORMAL SALINE 1000 ML 1,000 ML IV ONE (16:28)
--- NOTE | 2019-11-22 16:28 | ER Document Report ---
ED Medical Screen (RME) - General Chief Complaint: Weakness Stated Complaint: WEAKNESS Time Seen by Provider: 11/22/19 16:23 Primary Care Provider: CINTHIA SHAVER MD [Primary Care Provider] - Follow up as needed Notes: Patient is a 69-year-old male who presents emergency department with a chief complaint of weakness. Patient eyfhqf-px-rum is at bedside to provide additional history. Patient has bilateral feet wounds. Patient has a wound VAC noted to his left foot. Patient was started on Levaquin the other day, but osbrhy-ar-pao states that patient has had increased confusion. History of sepsis in the past. Exam: Wound VAC noted to left foot. I have greeted and performed a rapid initial assessment of this patient. A comprehensive ED assessment and evaluation of the patient, analysis of test resu lts and completion of medical decision making process will be conducted by an additional ED providers. TRAVEL OUTSIDE OF THE [place] IN LAST 30 DAYS: No - Related Data Allergies/Adverse Reactions: erythromycin base [Erythromycin Base] Allergy (Verified 08/05/19 15:06) Penicillins Allergy (Verified 08/05/19 15:06) Past Medical History - Past Medical History Cardiac Medical History: Reports: Hx Hypercholesterolemia, Hx Hypertension Denies: Hx Atrial Fibrillation, Hx Coronary Artery Disease, Hx DVT, Hx Pulmonary Embolism Pulmonary Medical History: Reports: Hx Asthma, Hx Sleep Apnea Denies: Hx COPD Neurological Medical History: Denies: Hx Seizures Endocrine Medical History: Reports: Hx Diabetes Mellitus Type 2. Denies: Hx Diabetes Mellitus Type 1, Hx Hyperthyroidism, Hx Hypothyroidism Renal/ Medical History: Denies: Hx Peritoneal Dialysis GI Medical History: Denies: Hx Cirrhosis, Hx Crohn's Disease, Hx Hepatitis, Hx Ulcerative Colitis Musculoskeltal Medical History: Reports Hx Arthritis, Denies Hx Gout Skin Medical History: Denies Hx Eczema, Denies Hx Psoriasis Psychiatric Medical History: Reports: Hx Depression Infectious Medical History: Denies: Hx Hepatitis Past Surgical History: Reports: Hx Orthopedic Surgery - Bilateral knees, Back, Right armpit - Immunizations Hx Diphtheria, Pertussis, Tetanus Vaccination: Yes Physical Exam - Vital signs Vitals: Temp Pulse Resp BP Pulse Ox 97.8 F 73 20 91/42 L 97 11/22/19 15:50 11/22/19 15:50 11/22/19 15:50 11/22/19 15:50 11/22/19 15:50 Course - Vital Signs Vital signs: Temp Pulse Resp BP Pulse Ox 97.8 F 73 20 91/42 L 97 11/22/19 15:50 11/22/19 15:50 11/22/19 15:50 11/22/19 15:50 11/22/19 15:50 Doctor's Discharge - Discharge Referrals: CINTHIA SHAVER MD [Primary Care Provider] - Follow up as needed
[2019-11-22] MEDS ORDERED: VANCOMYCIN HCL INJ 1000 MG VIAL IV ONE (16:29)
[2019-11-22 17:45] LABS: ABSOLUTE EOSINOPHILS # (AUTO) 0.1 10^3/uL (0.0-0.6); ABSOLUTE LYMPHOCYTES (AUTO) 1.6 10^3/uL (0.5-4.7); ABSOLUTE MONOCYTES (AUTO) 0.7 10^3/uL (0.1-1.4); ABSOLUTE NEUT (AUTO) 5.8 10^3/uL (1.7-8.2); BASOPHILS % (AUTO) 0.4 % (0-2); HEMATOCRIT 34.1 % (37.9-51.0); HEMOGLOBIN 11.5 g/dL (13.5-17.0); LYMPHOCYTES % (AUTO) 19.6 % (13-45); MEAN CORPUSCULAR HEMOGLOBIN 29.6 pg (27.0-33.4); MEAN CORPUSCULAR HGB CONC 33.7 g/dL (32.0-36.0); MEAN CORPUSCULAR VOLUME 88 fl (80-97); PLATELET COUNT 166 10^3/uL (150-450); RED BLOOD COUNT 3.88 10^6/uL (4.35-5.55); RED CELL DISTRIBUTION WIDTH 14.9 % (11.5-14.0); TOTAL CELLS COUNTED % (AUTO) 100 %; WHITE BLOOD COUNT 8.3 10^3/uL (4.0-10.5)
--- NOTE | 2019-11-22 17:48 | RADIOLOGY REPORT (SQ) ---
EXAM DESCRIPTION: FOOT BILATERAL 3 VIEWS IMAGES COMPLETED DATE/TIME: 11/22/2019 5:19 pm REASON FOR STUDY: eval osteomylitis COMPARISON: 08/05/2019 NUMBER OF VIEWS: Three views. TECHNIQUE: AP, lateral and oblique radiographic images acquired of the left foot. LIMITATIONS: None. FINDINGS: MINERALIZATION: Osteopenia. 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 No ac aida fracture or dislocation. No worrisome bone lesions. Calcaneal enthesopathy is present. JOINTS: No effusions. SOFT TISSUES: Dystrophic calcifications and atherosclerotic vascular calcifications, unchanged. OTHER: No other significant finding. 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 No radiographic findings to suggest osteomyelitis. TECHNICAL DOCUMENTATION: JOB ID: [id number] 2010 [employer]- All Rights Reserved Reading location - IP/workstation name: [email or web address]
--- NOTE | 2019-11-22 17:50 | RADIOLOGY REPORT (SQ) ---
EXAM DESCRIPTION: CHEST SINGLE VIEW IMAGES COMPLETED DATE/TIME: 11/22/2019 5:19 pm REASON FOR STUDY: weakness COMPARISON: 10/06/2019 EXAM PARAMETERS: NUMBER OF VIEWS: One view. TECHNIQUE: Single frontal radiographic view of the chest acquired. RADIATION DOSE: NA LIMITATIONS: None. FINDINGS: LUNGS AND PLEURA: Mild elevation of the right hemidiaphragm with colonic interposition. N o opacities, masses or pneumothorax. No pleural effusion. MEDIASTINUM AND HILAR STRUCTURES: No masses. Contour normal. HEART AND VASCULAR STRUCTURES: Heart normal in size. Normal vasculature. BONES: No acute findings. HARDWARE: None in the chest. OTHER: No other significant finding. IMPRESSION: No evidence of acute cardiopulmonary abnormality. TECHNICAL DOCUMENTATION: JOB ID: [id number] 2010 [employer]- All Rights Reserved Reading location - IP/workstation name: [email or web address]
[2019-11-22 18:10] LABS: ALBUMIN 3.6 g/dL (3.5-5.0); ALKALINE PHOSPHATASE 76 U/L (38-126); ANION GAP 9 (5-19); ASPARTATE AMINO TRANSFERASE 28 U/L (17-59); BILIRUBIN,DIRECT 0.3 mg/dL (0.0-0.4); BILIRUBIN,TOTAL 0.6 mg/dL (0.2-1.3); BLOOD UREA NITROGEN 56 mg/dL (7-20); CALCIUM 9.4 mg/dL (8.4-10.2); CARBON DIOXIDE 25 mmol/L (22-30); CHLORIDE 105 mmol/L (98-107); GLUCOSE 127 mg/dL (75-110); POTASSIUM 4.3 mmol/L (3.6-5.0)
[2019-11-22 18:13] LABS: ARTERIAL BLOOD BASE EXCESS -2.4 mmol/L; ARTERIAL BLOOD H2CO3 0.76 mmol/L (1.05-1.35); ARTERIAL BLOOD HCO3 19.4 mmol/L (20-24); ARTERIAL BLOOD O2 SATURATION 98.9 % (94-98); ARTERIAL BLOOD PCO2 25.2 mmHg (35-45); ARTERIAL BLOOD PO2 128.8 mmHg (80-100); ARTERIAL BLOOD TOTAL CO2 20.2 mmol/L (23-27)
[2019-11-22 18:14] LABS: ARTERIAL BLOOD FIO2 ROOM AIR
--- NOTE | 2019-11-22 19:23 | ER Document Report ---
ED Dizziness/Weakness - General Chief Complaint: Weakness Stated Complaint: WEAKNESS Time Seen by Provider: 11/22/19 16:23 Primary Care Provider: CINTHIA SHAVER MD [Primary Care Provider] - Follow up as needed Information source: Patient, Relative - sister in law Notes: ED Medical Screen (Place notes) - General Chief Complaint: Weakness Stated Complaint: WEAKNESS Time Seen by Provider: 11/22/19 16:23 Primary Care Provider: CINTHIA SHAVER MD [Primary Care Provider] - Follow up as needed Notes: Patient is a 69-year-old male who presents emergency department with a chief complaint of weakness. Patient [id number] is at bedside to provide additional history. Patient has bilateral feet wounds. Patient has a wound VAC noted to his left foot. Patient was started on Levaquin the other day, but [id number] states that patient has had increased confusion. History of sepsis in the past. Exam: Wound VAC noted to left foot. MY NOTES 69-year-old male who is bedridden and who has diabetes with left heel ulcer wound VAC and right foot toes with ulcerations as well. 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 Dr. Shaver was called by [id number] this week and patient was written for Levaquin. He has been taking that for several days now and feels quite tired. His [id number] r eports that he has been having some mental confusion a few days prior to this. His labs today are significant for chronic renal problems and anemia but white count is 8000. His foot x-rays reveal no osteomyelitis and chest x-ray NAD. Patient is a good historian and advises he was a [employer] from 1969 on 04/30/1997. He advises he has seen [facility] [place] and seen whales having sex. TRAVEL OUTSIDE OF THE [place] IN LAST 30 DAYS: No - HPI Patient complains to provider of: Weakness Onset: Other - this week Onset/Duration: Gradual, Persistent Quality of pain: No pain Severity: Mild Pain Level: Denies - Related Data Allergies/Adverse Reactions: erythromycin base [Erythromycin Base] Allergy (Verified 08/05/19 15:06) Penicillins Allergy (Verified 08/05/19 15:06) Past Medical History - General Information source: Patient, Relative - Social History Smoking Status: Former Smoker Cigarette use (# per day): No Chew tobacco use (# tins/day): No Smoking Education Provided: No Frequency of alcohol use: former drinker quit both in 1978 Lives with: Family Family History: Reviewed & Not Pertinent Patient has suicidal ideation: No Patient has homicidal ideation: No - Past Medical History Cardiac Medical History: Reports: Hx Hypercholesterolemia, Hx Hypertension Denies: Hx Atrial Fibrillation, Hx Coronary Artery Disease, Hx DVT, Hx Pulmonary Embolism Pulmonary Medical History: Reports: Hx Asthma, Hx Sleep Apnea Denies: Hx COPD Neurological Medical History: Denies: Hx Seizures Endocrine Medical History: Reports: Hx Diabetes Mellitus Type 2. Denies: Hx Diabetes Mellitus Type 1, Hx Hyperthyroidism, Hx Hypothyroidism Renal/ Medical History: Denies: Hx Peritoneal Dialysis GI Medical History: Denies: Hx Cirrhosis, Hx Crohn's Disease, Hx Hepatitis, Hx Ulcerative Colitis Musculoskeletal Medical History: Reports Hx Arthritis, Denies Hx Gout Skin Medical History: Denies Hx Eczema, Denies Hx Psoriasis Psychiatric Medical History: Reports: Hx Depression Infectious Medical History: Denies: Hx Hepatitis Past Surgical History: Reports: Hx Orthopedic Surgery - Bilateral knees, Back, Right armpit - Immunizations Hx Diphtheria, Pertussis, Tetanus Vaccination: Yes Review of Systems - Review of Systems Constitutional: Malaise, Weakness EENT: No symptoms reported Cardiovascular: No symptoms reported Respiratory: No symptoms reported Gastrointestinal: No symptoms reported Genitourinary: No symptoms reported Male Genitourinary: No symptoms reported Musculoskeletal: See HPI, Other - As per HPI left heel Achilles with skin erosion now wrapped and freshly dressed. Also patient has right first second third fourth toes with ulcerations also wrapped and freshly dressed. Skin: See HPI Hematologic/Lymphatic: No symptoms reported Neurological/Psychological: See HPI, Weakness Physical Exam - Vital signs Vitals: Temp Pulse Resp BP Pulse Ox 97.8 F 73 20 91/42 L 97 11/22/19 15:50 11/22/19 15:50 11/22/19 15:50 11/22/19 15:50 11/22/19 15:50 Interpretation: Normal - General General appearance: Appears well, Alert - HEENT Head: Normocephalic, Atraumatic Eyes: Normal Pupils: PERRL Nasal: Normal Mouth/Lips: Other - Moist lips but posterior pharyngeal mucosa with beginning of edema around uvula and white Stefany type appearance Mucous membranes: Moist Pharynx: Normal Neck: Normal - Respiratory Respiratory status: No respiratory distress Chest status: Nontender Breath sounds: Normal Chest palpation: Normal - Cardiovascular Rhythm: Regular Heart sounds: Normal auscultation Murmur: No - Abdominal Inspection: Normal Distension: No distension Bowel sounds: Normal Tenderness: Nontender Organomegaly: No organomegaly - Rectal Prostate: Other - deferred - Genitourinary Scrotum: Other - deferred - Back Back: Normal - Extremities General upper extremity: Normal inspection General lower extremity: Other - As per HPI left heel Achilles with skin erosion now wrapped and freshly dressed. Also patient has right first second third fourth toes with ulcerations also wrapped and freshly dressed. - Neurological Neuro grossly intact: Yes Cognition: Normal Orientation: Disoriented to events - remembers past events well Rob Coma Scale Eye Opening: Spontaneous [place] Coma Scale Verbal: Oriented Rob Coma Scale Motor: Obeys Commands [place] Coma Scale Total: 15 Speech: Normal Motor strength normal: LUE, RUE, LLE, RLE Sensory: Normal - Psychological Associated symptoms: Normal affect - Skin Skin Temperature: Warm Skin Color: negative: Other - As per HPI left heel Achilles with skin erosion now wrapped and freshly dressed. Also patient has right first second third fourth toes with ulcerations also wrapped and freshly dressed. Course - Vital Signs Vital signs: Temp Pulse Resp BP Pulse Ox 97.5 F 73 23 H 123/53 L 99 11/22/19 17:35 11/22/19 15:50 11/22/19 17:35 11/22/19 17:35 11/22/19 17:35 - Laboratory Result Diagrams: 11/22/19 17:25 11/22/19 17:25 Laboratory results interpreted by me: 11/22/19 11/22/19 11/22/19 17:25 17:25 17:59 RBC 3.88 L Hgb 11.5 L Hct 34.1 L RDW 14.9 H Carbonic Acid 0.76 L ABG pH 7.50 H ABG pCO2 25.2 L ABG pO2 128.8 H ABG HCO3 19.4 L ABG Total CO2 20.2 L ABG O2 Saturation 98.9 H BUN 56 H Creatinine 1.73 H Est GFR ( Amer) 47 L Est GFR (MDRD) Non-Af 39 L Glucose 127 H - Diagnostic Test Radiology reviewed: Reports reviewed - left foot w 5th MT amp ;no osteo Critical Care Note - Critical Care Note Comments: Jignesh attempted straight cath without success; [id number] advises that he had already had urine done on with Dr. Shaver Discharge - Discharge Clinical Impression: Oral thrush, Weakness Ulcer of both feet Qualifiers: Non-pressure ulcer stage: unspecified non-pressure ulcer stage Qualified Code(s): L97.519 - Non-pressure chronic ulcer of other part of right foot with unspecified severity; L97.529 - Non-pressure chronic ulcer of other part of left foot with unspecified severity Condition: Good Disposition: HOME, SELF-CARE Additional Instructions: Follow-up with personal doctor this week return to ER as needed continue current antibiotics and also Diflucan 150 daily x2 continue with foot care as per wound clinic. Prescriptions: Fluconazole [Diflucan 100 Mg Tablet] 100 mg PO DAILY #2 tablet Referrals: CINTHIA SHAVER MD [Primary Care Provider] - Follow up as needed
[2019-11-22] MEDS ORDERED: FLUCONAZOLE 200 MG/NS RTU 200 MG/100 ML RTUPB IV ONE (19:53)
[2019-11-22] MEDS ORDERED: ACETAMINOPHEN WITH CODEINE #3 TABLET PO ONE (19:53)
[2019-11-22 22:19] VITALS: BP 113/66
== END 2019-11-22 22:00 | disposition home or self-care (01) ==
LOC: ER 15:43
DX: B37.0 Candidal stomatitis (principal); R53.1 Weakness; R41.0 Disorientation, unspecified; L97.519 Non-pressure chronic ulcer of other part of right foot with unspecified severity; L97.529 Non-pressure chronic ulcer of other part of left foot with unspecified severity
CPT/HCPCS: 99284; 96365; 96367; 36415; 87040; 82803; 83605; 85025; 80053; 71045; 73630; A9270; J7030; J1450; J3370

== ENCOUNTER → 2020-02-13 | Outpatient (CLI) | payer OTHER ==
[2020-02-16 10:47] LABS: APPEARANCE,URINE CLEAR; BILIRUBIN,URINE NEGATIVE (NEGATIVE); COLOR,URINE STRAW; GLUCOSE, URINE 150 mg/dL (NEGATIVE); KETONES,URINE NEGATIVE (NEGATIVE); LEUKOCYTE ESTERASE,URINE NEGATIVE (NEGATIVE); NITRITE,URINE NEGATIVE (NEGATIVE); PROTEIN,URINE NEGATIVE (NEGATIVE); URINE SPECIFIC GRAVITY 1.016; UROBILINOGEN,URINE NEGATIVE mg/dL (<2.0)
== END ==
LOC: LAB 09:28
PROVIDERS: ATTEND Internal Medicine Nephrology
DX: I10 Essential (primary) hypertension (principal); N18.30 Chronic kidney disease, stage 3 unspecified; E11.22 Type 2 diabetes mellitus with diabetic chronic kidney disease
CPT/HCPCS: 36415; 81001; 82043; 82306; 82570; 83970; 84100